=== PATIENT | male | born 1960 | race Caucasian/White ===

== ENCOUNTER 2023-05-01 15:08 | Outpatient (OUT) | payer MEDICAID, SELFPAY ==
--- NOTE | 2023-05-01 15:20 | XR_ITS ---
The [address] [address] Patient Name: DARLYN VERDIN MRN: [id number] date: 1960 Sex: M Assigned Patient Location: [facility] Current Patient Location: [facility] Accession/Order Number: [id number] Exam Date: 05/01/2023 15:22 Report Date: 05/01/2023 17:16 At the request of: JG GREENFIELD Procedure: XR chest 2V EXAM: XR chest 2V HISTORY: . ASTHMA, UNSPECIFIED . COMPARISON: None. TECHNIQUE: Frontal and lateral chest FINDINGS: Heart and vascularity are unremarkable. Lungs are free of focal infiltrates. Mild spondylosis of the spine is noted. IMPRESSION: No acute heart or lung disease identified. Electronically authenticated by: CHU YUEN Date: 05/01/2023 17:16
== END 2023-05-01 15:09 | disposition home or self-care (01) ==
LOC: RAD 15:11
PROVIDERS: PCP Internal Medicine; Visit Provider Internal Medicine
DX: J45.909 Unspecified asthma, uncomplicated (principal)
CPT/HCPCS: 71046

== ENCOUNTER 2023-06-05 09:17 | Outpatient (OUT) | payer MEDICAID, SELFPAY ==
[2023-06-05 10:21] LABS: Basophils Percent Auto 0.3 % (0.2-2.0); Eosinophils Absolute Auto 0.1 10^3/uL (0.0-0.7); Eosinophils Percent Auto 1.1 % (0.9-7.0); Hematocrit 48.6 % (42.0-54.0); Hemoglobin 16.3 g/dL (14.0-18.0); Immature Granulocytes Abs Auto 0.02 10^3/uL (0.00-0.03); Immature Granulocytes Pct Auto 0.3 % (0.0-0.5); Lymphocytes Absolute Auto 1.3 10^3/uL (1.2-3.8); Lymphocytes Percent Auto 18.7 % (20.5-60.0); Mean Corpuscular HGB Conc 33.5 g/dL (29.9-35.2); Mean Corpuscular Volume 92.4 fL (80.0-94.0); Mean Platelet Volume 8.6 fL (9.5-13.5); Monocytes Absolute Auto 0.5 10^3/uL (0.3-0.8); Neutrophils Absolute Auto 5.2 10^3/uL (1.4-6.5); Neutrophils Percent Auto 72.6 % (43.0-75.0); Platelet Count 215 10^3/uL (150-450); Red Blood Count 5.26 10^6/uL (4.70-6.10); Red Cell Distribution Width 12.4 % (11.0-15.0); White Blood Count 7.2 10^3/uL (4.0-11.0)
[2023-06-05 10:26] LABS: Creatinine Urine Random 53.96 mg/dL (20.00-300.00); Microalbumin Urine Random <1.3 mg/dL (<=30.0)
[2023-06-05 10:29] LABS: Alanine Aminotransferase 42 U/L (16-63); Albumin Globulin Ratio 0.9; Albumin Level 3.5 g/dL (3.4-5.0); Alkaline Phosphatase 98 U/L (46-116); Anion Gap 11.8; Aspartate Amino Transferase 28 U/L (15-37); BUN Creatinine Ratio 15.2; Bilirubin Total 0.6 mg/dL (0.2-1.0); Calcium 8.9 mg/dL (8.5-10.1); Carbon Dioxide 26.9 mmol/L (21.0-32.0); Chloride 104 mmol/L (98-107); Chol HDL Ratio 2.7; Cholesterol 112 mg/dL (<=200); Estimated GFR (African America >60 (>=60); Estimated GFR (Non-African Ame >60 (>=60); Globulin 3.8 g/dL; Glucose 141 mg/dL (74-106); HDL Cholesterol 41 mg/dL (40-60); Potassium 4.7 mmol/L (3.5-5.1); Sodium 138 mmol/L (136-145); Thyroid Stimulating Hormone 2.916 uIU/mL (0.358-3.740); Total Protein 7.3 g/dL (6.4-8.2); Triglycerides 110 mg/dL (<=150)
[2023-06-05 10:44] LABS: Prostate Specific Antigen Scrn 0.53 ng/mL (<=4.00)
== END 2023-06-05 09:18 | disposition home or self-care (01) ==
LOC: LAB 09:19
PROVIDERS: PCP Internal Medicine; Visit Provider Family Medicine
DX: Z12.5 Encounter for screening for malignant neoplasm of prostate (principal); E11.59 Type 2 diabetes mellitus with other circulatory complications
CPT/HCPCS: 36415; 80053; 80061; 82043; 82570; 84443; 85025; G0103

== ENCOUNTER 2023-07-03 15:03 | Outpatient (REF) | payer MEDICAID, SELFPAY ==
[2023-07-04 07:51] LABS: C. Difficile PCR NEGATIVE (NEGATIVE)
[2023-07-06 21:10] LABS: Calprotectin, Fecal 65 ug/g (0-120)
[2023-07-08 15:08] LABS: Pancreatic Elastase, Fecal 130 (>200)
[2023-07-11 07:08] LABS: Ova + Parasite Exam Final report (.)
== END 2023-07-03 15:04 | disposition home or self-care (01) ==
LOC: LAB 15:03
PROVIDERS: PCP Internal Medicine
DX: R19.7 Diarrhea, unspecified (principal)
CPT/HCPCS: 82656; 83993; 87045; 87177; 87209; 87493

== ENCOUNTER 2024-04-29 12:25 | Outpatient (OUT) | payer MEDICAID, SELFPAY ==
[2024-04-29 12:59] LABS: Basophils Percent Auto 0.4 % (0.2-2.0); Eosinophils Percent Auto 0.4 % (0.9-7.0); Hematocrit 47.6 % (42.0-54.0); Hemoglobin 16.2 g/dL (14.0-18.0); Immature Granulocytes Abs Auto 0.09 10^3/uL (0.00-0.03); Lymphocytes Absolute Auto 1.4 10^3/uL (1.2-3.8); Lymphocytes Percent Auto 15.5 % (20.5-60.0); Mean Corpuscular Hemoglobin 31.2 pg (25.9-34.0); Mean Corpuscular Volume 91.5 fL (80.0-94.0); Mean Platelet Volume 8.9 fL (9.5-13.5); Monocytes Absolute Auto 0.6 10^3/uL (0.3-0.8); Monocytes Percent Auto 6.8 % (1.7-12.0); Neutrophils Percent Auto 75.9 % (43.0-75.0); Platelet Count 220 10^3/uL (150-450); Red Cell Distribution Width 12.3 % (11.0-15.0); White Blood Count 9.3 10^3/uL (4.0-11.0)
--- NOTE | 2024-04-29 12:59 | XR_ITS ---
The [address] [address] Patient Name: DARLYN VERDIN MRN: [id number] date: 1960 Sex: M Assigned Patient Location: LAB Current Patient Location: Accession/Order Number: [id number] Exam Date: 04/29/2024 13:10 Report Date: 04/30/2024 06:19 At the request of: SHAIKH ORIN Procedure: XR hip RT min 2V PROCEDURE: XR hip RT min 2V HISTORY: Right Hip Pain COMPARISON: None. FINDINGS: BONES:Mild joint space narrowing and small periarticular osteophytes. SOFT TISSUES:No visible soft tissue swelling. EFFUSION:None visible. OTHER: Negative. XR/XR hip RT min 2V IMPRESSION: 1. No acute bone abnormality. 2. Mild degenerative joint disease. Electronically authenticated by: JJ OSWALD Date: 04/30/2024 06:19
--- NOTE | 2024-04-29 12:59 | XR_ITS ---
The [address] [address] Patient Name: DARLYN VERDIN MRN: [id number] date: 1960 Sex: M Assigned Patient Location: LAB Current Patient Location: LAB Accession/Order Number: [id number] Exam Date: 04/29/2024 13:10 Report Date: 04/30/2024 06:23 At the request of: SHAIKH ORIN Procedure: XR lumbar spine 2-3V EXAMINATION: XR lumbar spine 2-3V HISTORY: Chronic Midline Back pain COMPARISON: CT abdomen pelvis 01/06/2023 FINDINGS: BONES: Multilevel large degenerative bridging osteophytes along lateral margins of the lumbar vertebrae. No fracture, spondylolisthesis, bone lesion. Mild degenerative facet arthropathy L3-L4 through L5-S1. DISC SPACES: Moderate narrowing L4-L5, L5-S1. Mild narrowing L1-L2, L2-L3. PARASPINOUS: Negative. No paraspinous abnormality is seen. OTHER: Negative. XR/XR lumbar spine 2-3V IMPRESSION: 1. Moderate degenerative changes of lumbar spine; grossly stable. Electronically authenticated by: JJ OSWALD Date: 04/30/2024 06:23
[2024-04-29 13:18] LABS: Creatinine Urine Random 140.27 mg/dL (20.00-300.00); Microalbum Creatinine Ratio Ur 26.3 mg/g (0.0-29.9); Microalbumin Urine Random 3.7 mg/dL (<=30.0)
[2024-04-29 13:35] LABS: Alanine Aminotransferase 46 U/L (16-63); Albumin Globulin Ratio 1.1; Albumin Level 3.8 g/dL (3.4-5.0); Alkaline Phosphatase 93 U/L (46-116); Aspartate Amino Transferase 27 U/L (15-37); BUN Creatinine Ratio 14.8; Bilirubin Total 1.3 mg/dL (0.2-1.0); Calcium 8.7 mg/dL (8.5-10.1); Carbon Dioxide 27.1 mmol/L (21.0-32.0); Chloride 104 mmol/L (98-107); Cholesterol 128 mg/dL (<=200); Estimated GFR (African America >60 (>=60); Estimated GFR (Non-African Ame >60 (>=60); Globulin 3.5 g/dL; Glucose 120 mg/dL (74-106); HDL Cholesterol 43 mg/dL (40-60); LDL Cholesterol Calculated 58.8 mg/dL; Potassium 4.1 mmol/L (3.5-5.1); Sodium 138 mmol/L (136-145); Total Protein 7.3 g/dL (6.4-8.2); Triglycerides 131 mg/dL (<=150); VLDL CHOLESTEROL 26.2 mg/dL
[2024-04-29 13:45] LABS: Estimated Average Glucose 171 mg/dL; Glycohemoglobin A1C 7.6 % (4.5-6.2)
== END 2024-04-29 12:26 | disposition home or self-care (01) ==
LOC: LAB 12:27
PROVIDERS: PCP Internal Medicine; Visit Provider Internal Medicine
DX: M25.551 Pain in right hip (principal); I10 Essential (primary) hypertension; E11.59 Type 2 diabetes mellitus with other circulatory complications; I25.118 Atherosclerotic heart disease of native coronary artery with other forms of angina pectoris; E78.5 Hyperlipidemia, unspecified; M54.50 Low back pain, unspecified; G89.29 Other chronic pain; M51.36 Other intervertebral disc degeneration, lumbar region; M16.11 Unilateral primary osteoarthritis, right hip
CPT/HCPCS: 36415; 72100; 73502; 80053; 80061; 82043; 82570; 83036; 85025

== ENCOUNTER 2024-06-20 11:02 | Emergency (ER) | payer MEDICARE, SELFPAY ==
[2024-06-20 11:04] VITALS: BP 145/77; PULSE 90; TEMP 37.1; O2SAT 95; BMI 45.3
--- OUTSIDE RECORDS SUMMARY | 2024-06-20 11:07 | XMS_ITS | CCD ---
Author Organization [facility] Care Team Providers Care Breakfast Manager Name Role Phone Domonique Peñaloza Unavailable Unavailable Unavailable Unavailable Unavailable Kwan Rossi Unavailable Shaikh Bangura Unavailable MD Steve Bangura Primary Care Provider DERIK Vu Attending Provider [phone] SHAIKH Anabella BANGURA Primary Care Unavailable AMIRAH Chowdary, ROHAN Admitting Unavailable ROHAN PERDOMO Attending Unavailable ROHAN PERDOMO Consulting Unavailable MELVINA HERRERA Consulting Unavailable WILLOW SILVESTRE Consulting Unavailable DOMONIQUE PEÑALOZA Primary Care Unavailable SHAIKH Anabella BANGURA Admitting Unavailable SHAIKH Anabella BANGURA Attending Unavailable SHAIKH Anabella BANGURA Consulting Unavailable AMIRAH Chowdary ROHAN Admitting Unavailable DOMONIQUE PEÑALOZA Primary Care Unavailable DR JJ OSWALD Consulting Unavailable ROHAN PERDOMO Attending Unavailable ROHAN PERDOMO Consulting Unavailable Dr. Domonique Peñaloza Primary Care Un available Mendoza, . Hueshelli Rueda Referring Colleenvai claudio Mendoza, Epi Rueda Attending Daniel Kevin, Dr. Erich Tolentino Attending Colleenva steph Shelley, Dr. Flip Pate Referring Unava ilable Reji, Epi Rueda Referring Colleenvai claudio Mendoza, MsEpi Rueda Attending Daniel Kevin, Dr. rEich Tolentino Attending Colleenva ilildefonso Kevin, Dr. Erich Tolentino Referring Unava ilable Asaad, Imad Unavailable Fawwad, MD [facility] Provider MD Oscar Imcorina Attending Provider [phone] MD Mike Ramos Attending Provider Hue Vu Admitting Unavailable Hue Vu Attending Unavailable [facility] Unavailable Asaad, Imad Attending Unavailable Asaad, Imad Admitting Unavailable [facility] Unavailable Asaad, Imad Attending Unavailable Asaad, Imad Admitting Unavailable [facility] Care Unavailable [facility] Unavailable Asaad, Imad Admitting Unavailable Asaad, Imad Attending Unavailable Asaad, Imad Attending Unavailable [facility] Unavailable Asaad, Imad Admitting Unavailable [facility] Unavailable Asaad, Imad Attending Unavailable Asaad, Imad Admitting Unavailable [facility] Unavailable Asaad, Imad Attending Unavailable Asaad, Imad Admitting Unavailable [facility] Unavailable Mike Ramos Admitting UnavailMike Snowden Attending Unavailabdi Bangura MD [facility] Provider ERICH KEVIN Attending Unavailable [facility] Unavailable TAMIA PEÑALOZA Attending Unavailable SHAIKH BANGURA Referring Unavailable TAMIA PEÑALOZA Attending Unavailable [facility] Referring Unavailable [facility] Attending Unavailable [facility] Attending Unavailable TAMIA PEÑALOZA Attending Unavailable Medications Current Medications Medication Drug Class(es) Dates Sig (Normalized) Sig (Original) [id number] 200 actuat albuterol 0.09 mg/actuat metered dose inhaler (20 sources) beta2-Adrenergic Agonist Start: 07-17-2023 Albuterol Sulfate Active 1 - 2 PUFF INHALATION As Directed July 17, 2023 12:00am Start: 12-27-2021 take 2 puff(s) by in halation every six hours albuterol (Ventolin HFA) 90 mcg/actuation inhaler Inhale 2 puffs every 6 hours if needed. 0 12/27/2021 Active Start: 12-27-2021 take 2 puff(s) by mo uth every six hours as needed Ventolin HFA 108 (90 Base) MCG/ACT Inhalation Aerosol Solution INHALE 2 PUFFS BY MOUTH EVERY 6 HOURS NEEDED Quantity: 18 Refills: 0 Ordered: 15-Jan-2022 DO Start : 27-Dec-2021 Active take 1 puff(s) by in halation every four hours as needed Ventolin HFA 108 (90 Base) MCG/ACT 1 puff as needed Inhalation every 4 hrs Active Alive Multi-Vitamin (13 sources) Alive Multi-Hailey min Active amylase 019492 unt / lipase 00818 unt / protease [id number] unt delayed release oral capsule (5 sources) Start: 08-15-2023 take 2 capsules by mouth three times daily at mealtime Zenpep [id number] UNIT 2 capsules Orally three times a day with meals for 30 days Aug, Active amylase 161210 UNT / lipase 58109 UNT / protease [id number] UNT Delayed Release Oral Capsule [Pancreaze] (5 sources) Start: 08-14-2023 take 2 capsules by mouth three times daily at mealtime Pancreaze 38713-04267 UNIT 2 capsules Orally three times a day with meals for 30 days PLEASE CHECK ALLERGIES Aug, Active apple cider vinegar 600 mg oral capsule (9 sources) apple cider vine gar 600 mg capsule Take by mouth. 0 Active take 2 capsules by mouth at bedt young Apple Cider Vinegar CAPS TAKE 2 CAPSULE Bedtime Quantity: 0 Refills: 0 Ordered: 12-Mar-2022 DO Active aspirin 81 mg oral tablet (20 sources) Platelet Aggregation Inhibitor, Nonsteroidal Anti-inflammatory Drug Start: 03-18-2022 take 81 mg by mouth once daily Aspirin Active 81 MG PO Daily March 18, 2022 12:00am Start: 03-12-2022 take 1 tablet by ebony th once daily aspirin 81 mg EC tablet Take 1 tablet (81 mg) by mouth once daily. 0 03/12/2022 Active atorvastatin 80 mg oral tablet (20 sources) HMG-CoA Reductase Inhibitor Start: 09-18-2023 take 1 tablet by mouth once daily at bedtime atorvastatin (Lipitor) 80 mg tablet Indications: Mixed hyperlipidemia Take 1 tablet (80 mg) by mouth once daily at bedtime. 90 tablet 3 09/18/2023 Active Start: 03-19-2022 End: 09-18-2023 take 80 mg by mouth once daily Atorvastatin Active 80 MG PO Daily July 17, 2023 12:00am Start: 12-18-2021 End: 07-17-2023 take 20 mg by mouth once daily Atorvastatin Discontinu ed 20 MG PO Daily March 18, 2022 12:00am July 17, 2023 11:41am 120 actuat budesonide 0.16 mg/actuat / formoterol fumarate 0.0048 mg/actuat / glycopyrrolate 0.009 mg/actuat metered dose inhaler (17 sources) Corticosteroid, beta2-Adrenergic Agonist Start: 07-17-2023 Apfqmddztw-Zwmdjzhv-Achlqwer ol (Breztri Aerosphere) 160-9-4.8 mcg/actuation Hfa Aerosol Inhaler Active 2 INH INHALATION Twice daily July 17, 2023 12:00am take 2 puff(s) by inhalation twi ce daily Breztri Aerosphere 160-9-4.8 MCG/ACT 2 puffs Inhalation Twice a day Active budesonide/glycopyr/formoter ol (BREZTRI AEROSPHERE INHL) (1 source) budesonide/glyco pyr/formoterol (BREZTRI AEROSPHERE INHL) Inhale. 0 Active clopidogrel 75 mg oral table t (20 sources) P2Y12 Platelet Inhib[address] St ar t: 11 -0 take 1 tablet by mouth once daily clopidogrel (Plavix) 75 mg tablet Indications: Mixed hyperlipidemia Take 1 tablet (75 mg) by mouth once daily. 90 tablet 3 09/18/2023 Active Start: 10-09-2022 End: 09-18-2023 take 75 mg by mouth once daily Clopidogrel Active 75 M G PO Daily July 17, 2023 12:00am trulicity 3 mg/0.5ml solution pen-injector (11 sources) GLP-1 Receptor Agonist Trulicity 3 MG/0.5ML as directed Subcutaneous once a week Active dulaglutide (Trulicity) 3 mg/0.5 mL pen injector (1 source) dulaglutide (Etienne licity) 3 mg/0.5 mL pen injector Inject under the skin. 0 Active Dulaglutide (Trulicity) 4.5 mg/0.5 mL pen injector (6 sources) Start: 07-17-2023 Dulaglutide (Trulicity) 4.5 mg/0.5 mL pen injector Active 3 MG SUBCUT every week July 17, 2023 12:00am friday Start: 07-17-2023 Dulaglutide (T rulicity) 4.5 mg/0.5 mL pen injector Active 3 MG SUBCUT July 17, 2023 12:00am empagliflozin 10 mg oral tablet (20 sources) Sodium-Glucose Cotransporter 2 Inhibitor Start: 11-02-2020 take 1 tablet by mouth once daily Empagliflozin (Jardiance) 10 mg tablet Active 10 MG PO Daily November 02, 2020 1:00am escitalopram 20 mg oral tablet (20 sources) Serotonin Reuptake Inhibitor Start: 07-17-2023 take 20 mg by mouth once daily Escitalopram Oxalate Active 20 MG PO Daily July 17, 2023 12:00am take 1 tablet by mouth once brown y Escitalopram Oxalate 10 MG Oral Tablet TAKE 1 TABLET DAILY. Quantity: 0 Refills: 0 Ordered: 26-Jun-2022 DO Active esomeprazole 20 mg delayed release oral capsule (20 sources) Proton Pump Inhibitor Start: 09-01-2017 take 2 capsules by mouth once daily in the morning Esomeprazole Magnesium (Nexium) 20 mg Capsule,Delayed Release(Dr/Ec) Active 40 MG PO Every morning September 01, 2017 12:00am Start: 09-01-2017 End: 09-18-2023 take 1 tablet by mouth once daily in the morning Esomeprazole Magnesium (Nexium) 20 mg Capsule,Delayed Release(Dr/Ec) Active 1 TAB PO Every morning September 01, 2017 12:00am take 1 capsule by [facility] every twenty-four hours NexIUM 40 MG 1 capsule Orally Once a day for 90 days Active NexIUM Active gabapentin 600 mg oral tablet (20 sources) Anti-epileptic Agent Start: 12-27-2021 take 600 mg by mouth three times daily Gabapentin Active 600 MG PO Three times daily March 15, 2022 12:00am Start: 11-02-2020 End: 03-15-2022 take 300 mg by mouth three times daily Gabapentin Discontinued 300 MG PO Three times daily November 02, 2020 1:00am March 15, 2022 9:16am Handicap placards as directed (2 sources) Start: 08-14-2021 Handicap placards as directed as directed as directed as directed 6 MONTHS Aug, Active hydroCHLOROthiazide 25 mg oral tablet (19 sources) Thiazide Diuretic Start: 09-18-2023 take 1 tablet by mouth once daily hydroCHLOROthiazide (HYDRODiuril) 25 mg tablet Indications: Angina pectoris (CMS/HCC) , MAC (dyspnea on exertion) , Hx of percutaneous transluminal coronary angioplasty Take 1 tablet (25 mg) by mouth once daily. 90 tablet 3 09/18/2023 Active Start: 07-17-2023 End: 09-18-2023 take 25 mg by mouth once daily Hydrochlorothiazide Active 25 MG PO Daily July 17, 2023 12:00am 1.5 ml insulin glargine 300 unt/ml pen injector (20 sources) Insulin Analog Start: 11-02-2020 Insulin Glargi ne U-300 Conc (Toujeo Solostar U-300 Insulin) 300 unit/mL (1.5 mL) insulin pen Active 50 UNIT SUBCUT Daily November 02, 2020 1:00am Start: 11-02-2020 Insulin Glargi ne U-300 Conc (Toujeo Solostar U-300 Insulin) 300 unit/mL (1.5 mL) insulin pen Active 40 UNIT SUBCUT Daily November 02, 2020 1:00am Toujeo SoloStar 300 UNIT/ML 60 units Subcutaneous once a day Active 24 hr isosorbide mononitrate 60 mg extended release oral tablet (19 sources) Nitrate Vasodilator Start: 07-17-2023 take 60 mg by mouth once daily Isosorbide Mononitrate Active 60 MG PO Daily July 17, 2023 12:00am Start: 06-26-2022 take 1 tablet by ebony th once daily Isosorbide Mononitrate ER 30 MG Oral Tablet Extended Release 24 Hour TAKE 1 TABLET DAILY. Quantity: 90 Refills: 3 Ordered: 26-Jun-2022 Erich Kevin DO Start : 26-Jun-2022 Active new start lansoprazole 30 mg disintegrating oral tablet (9 sources) Proton Pump Inhibitor Start: 07-30-2023 take 1 tablet by mouth every twenty-four hours Lansoprazole 30 MG 1 tablet Orally Once a day for 30 days Jul, Active meloxicam 15 mg oral tablet (20 sources) Nonsteroidal Anti-inflammatory Drug Start: 07-17-2023 take 15 mg by mouth once daily Meloxicam Active 15 MG PO Daily July 17, 2023 12:00am Start: 11-02-2020 End: 03-15-2022 Meloxicam Discontinued 15 MG PO As Directed November 02, 2020 1:00am March 15, 2022 9:17am metoprolol tartrate 25 mg oral tablet (20 sources) beta-Adrenergic Patricia Start: 09-18-2023 take 1 tablet by mouth twice daily metoprolol tartrate (Lopressor) 25 mg tablet Indications: Primary hypertension , Angina pectoris (CMS/HCC) Take 1 tablet (25 mg) by mouth 2 times a day. 180 tablet 3 09/18/2023 Active Start: 04-09-2022 End: 09-18-2023 take 25 mg by mouth twice daily Metoprolol Tartrate Ac tive 25 MG PO Twice daily July 17, 2023 12:00am Multivitamin (Multiple Vitamins) Tablet (9 sources) Start: 09-01-2017 take 1 tablet by mouth once daily Multivitamin (Multiple Vitamins) Tablet Active 1 TAB PO Daily September 01, 2017 12:00am Start: 09-01-2017 take 1 tablet by ebony th once daily Multivitamin (Multiple Vitamins) Tablet Active 1 TAB PO Daily August 31, 2017 11:00pm nitroglycerin 0.4 mg sublingual tablet (20 sources) Nitrate Vasodilator Start: 07-17-2023 Nitroglyce rin Active 0.4 MG SUBLINGUAL every 5 to 15 minutes July 17, 2023 12:00am do not exceed 3 doses per episode Start: 04-09-2022 nitroglycerin (Nitrostat) 0.[address] under the tongue. 0 04/09/2022 Active Nitroglycerin 0. 4 MG as directed Sublingual as needed Active olmesartan medoxomil 40 mg oral tablet (20 sources) Angiotensin 2 Receptor Patricia Start: 09-18-2023 take 1 tablet by mouth once daily olmesartan (BENIcar) 40 mg tablet Indications: Primary hypertension Take 1 tablet (40 mg) by mouth once daily. 90 tablet 3 09/18/2023 Active Start: 12-27-2021 End: 09-18-2023 take 40 mg by mouth once daily Olmesartan Active 40 MG PO Daily March 15, 2022 12:00am omeprazole 40 mg delayed release oral capsule (1 source) Proton Pump Inhibitor take 1 capsule by mouth once daily before mealtime omeprazole (PriLOSEC) [address] capsule Take 1 capsule (40 mg) by mouth once daily in the morning. Take before meals. Do not crush or chew. 0 Active pantoprazole 40 mg delayed release oral tablet (1 source) Proton Pump Inhibitor Start: 3 take 1 tablet by mouth every twenty-four hours Pantoprazole Sodium 40 MG 1 tablet Orally Once a day for 30 days Jun, Active pedi multivit no.17 w-fluoride (Yihn-Zq-Iwws) 0.5 mg tablet,chewable (1 source) pedi multivit no .17 w-fluoride (Gvza-Hu-Gwlg) 0.5 mg tablet,chewable Chew 1 tablet once daily. 0 Active probiotic (2 sources) probiotic Active 12 hr ranolazine 500 mg extended release oral tablet (20 sources) Anti-anginal Start: 3 take 1 tablet by mouth twice daily ranolazine (Ranexa) 500 mg 12 hr tablet Indications: Angina pectoris (CMS/HCC) Take 1 tablet (500 mg) by mouth 2 times a day. 180 tablet 3 09/18/2023 Active Start: 10-09-2022 End: 09-18-2023 take 500 mg by mouth twice daily Ranolazine Active 500 MG PO Twice daily July 17, 2023 12:00am rifAXIMin 550 mg oral tablet (2 sources) Rifamycin Antibacterial Start: 10-24-2023 take 1 tablet by mouth three times daily rifAXIMin 550 MG 1 tablet Orally Three times a day for 14 days Oct, Active Toujeo SoloStar (2 sources) Toujeo SoloStar Active Zenpep [id number] UNIT (7 sources) Start: 08-15-2023 take 2 capsules by mouth three times daily at mealtime Zenpep [id number] UNIT 2 capsules Orally three times a day with meals for 30 days PLEASE CHECK ALLERGIES Aug, Active Completed/Discontinued Medications Medication Drug Class(es) Dates Sig (Normalized) Sig (Original) acetaminophen 325 mg / HYDROcodone bitartrate 5 mg oral tablet (9 sources) Opioid Agonist Start: 09-01-2017 End: 03-15-2022 take 1 tablet by mouth three times daily Hydrocodone-Acetam inophen Discontinued 1 TAB PO Three times daily September 01, 2017 12:00am March 15, 2022 9:16am baclofen 10 mg oral tablet (9 sources) gamma-Aminobutyric Acid-ergic Agonist Start: 09-01-2017 End: 03-15-2022 take 1 tablet by mouth once daily in the morning Baclofen Discontinued 1 TAB PO Every morning September 01, 2017 12:00am March 15, 2022 9:15am cinnamon bark 500 mg oral capsule (9 sources) Start: 03-15-2022 End: 07-17-2023 take 1 capsule by mouth once daily Cinnamon Bark (Cinnamon) 500 mg Capsule Discontinued 500 MG PO Daily March 15, 2022 12:00am July 17, 2023 11:45am clonazePAM 0.5 mg oral tablet (18 sources) Benzodiazepine Start: 12-27-2021 End: 07-17-2023 take 0.5 mg by mouth twice daily Clonazepam Discontinued 0.5 MG PO Twice daily March 18, 2022 12:00am July 17, 2023 11:45am colestipol hydrochloride 1000 mg oral tablet (9 sources) Bile Acid Sequestrant Start: 11-02-2020 End: 03-15-2022 Colestipol Discontinued 1 GM PO As Directed November 02, 2020 1:00am March 15, 2022 9:16am collagenase Clostridium histolyticum (11 sources) Start: 12-30-2017 Xiaflex Dec, diclofenac sodium 50 mg delayed release oral tablet (9 sources) Nonsteroidal Anti-inflammatory Drug Start: 09-01-2017 End: 09-09-2017 take 1 tablet by mouth once daily in the morning Diclofenac Sodium Discontinued 1 TAB PO Every morning September 01, 2017 12:00am September 09, 2017 8:39am ertugliflozin 5 mg oral tablet (20 sources) Start: 03-15-2022 End: 03-15-2022 take 1 tablet by mouth once daily Ertugliflozin (Steglatro) 15 mg Tablet Discontinued 15 MG PO Daily March 15, 2022 12:00am March 15, 2022 9:19am Start: 07-07-2021 End: 09-18-2023 take 1 tablet by mouth once daily Ertugliflozin (Steglatro) 5 mg Tablet Discontinued 5 MG PO Daily March 18, 2022 12:00am July 17, 2023 11:46am 3 ml insulin aspart protamine, human 70 unt/ml / insulin aspart, human 30 unt/ml pen injector (18 sources) Insulin Analog Start: 09-01-2017 End: 11-02-2020 inject 20 [IU] by subcutaneous injection once daily in the morning Insulin Asp Prt-Insulin Aspart Discontinued 20 UNIT SUBCUT Every morning 0 September 09, 2017 8:41am November 02, 2020 7:19am lisinopril 10 mg oral tablet (9 sources) Angiotensin Converting Enzyme Inhibitor Start: 09-01-2017 End: 11-02-2020 take 1 tablet by mouth once daily in the morning Lisinopril Discontinued 1 TAB PO Every morning September 01, 2017 12:00am November 02, 2020 7:21am metFORMIN hydrochloride 1000 mg oral tablet (20 sources) Biguanide Start: 03-15-2022 End: 03-15-2022 Metformin Discontinued MG TABLET March 15, 2022 12:00am March 15, 2022 9:19am Start: 09-01-2017 take 1 tablet by ebony th twice daily Metformin Active 1 TAB PO Twice daily September 01, 2017 12:00am take 1 tablet by ebony th every twelve hours metFORMIN HCl 500 MG 1 tablet with meals Orally Twice a day Active Multi Vitamin Oral Tablet (8 sources) take 1 tablet by mouth once daily Multi Vitamin Oral Tablet TAKE 1 TABLET DAILY. Quantity: 0 Refills: 0 Ordered: 12-Mar-2022 DO Active nitrofurantoin, macrocrystals 25 mg / nitrofurantoin, monohydrate 75 mg oral capsule (3 sources) Nitrofuran Antibacterial Start: 06-21-20 take 1 capsule by mouth twice daily Nitrofurantoin Monohyd Macro 100 MG Oral Capsule TAKE 1 CAPSULE BY MOUTH TWICE DAILY FOR 5 DAYS Quantity: 10 Refills: 0 Ordered: 21-Jun-2021 DO Start : 21-Jun-2021 Active tamsulosin hydrochloride 0.4 mg oral capsule (9 sources) alpha-Adrenergic Patricia Start: 09-01-20 17 End: 11-02-20 20 take 1 tablet by mouth once daily in the evening Tamsulosin Discontinued 1 TAB PO Every evening September 01, 2017 12:00am November 02, 2020 7:21am telmisartan 80 mg oral tablet (11 sources) Angiotensin 2 Receptor Patricia Start: 11-02-20 End: 03-15-20 Telmisartan Discontinued 80 MG PO As Directed November 02, 2020 1:00am March 15, 2022 9:17am ticagrelor 90 mg oral tablet (12 sources) Start: 03-18-20 End: 07-17-20 take 1 tablet by mouth twice daily Ticagrelor (Brilinta) 90 mg tablet Discontinued 90 MG PO Twice daily 180 March 18, 2022 12:00am July 17, 2023 11:46am tiZANidine 4 mg oral capsule (18 sources) Central alpha-2 Adrenergic Agonist Start: 03-18-20 End: 07-17-20 take 4 mg by mouth once daily Tizanidine Discontinued 4 MG PO Daily March 18, 2022 12:00am July 17, 2023 11:46am Start: 04-23-2021 End: 09-18-2023 tiZANidine (Zanaflex) 2 mg t ablet Take 1 tablet (2 mg) by mouth. 0 04/23/2021 09/18/2023 Discontinued (Other) Trulicity 3 MG/0.5ML Subcutaneous Solution Pen-injector (2 sources) Trulicity 3 MG/0 .5ML Subcutaneous Solution Pen-injector 1 injection 1 weekly Quantity: 0 Refills: 0 Ordered: 09-Oct-2022 DO Active 7 actuat umeclidinium 0.0625 mg/actuat / vilanterol 0.025 mg/actuat dry powder inhaler (18 sources) Anticholinergic, beta2-Adrenergic Agonist Start: 03-18-2022 End: 07-17-2023 Umeclidinium-Vilanterol (Anoro Ellipta) 62.5-25 mcg/actuation blister with device Discontinued 1 INH INHALATION Daily March 18, 2022 12:00am July 17, 2023 11:45am Start: 07-19-2021 End: 09-18-2023 take 1 puff(s) by inhalation once daily umeclidinium-vilanteroL (Anoro Ellipta) 62.5-25 mcg/actuation blister with device Inhale 1 puff once daily. 0 07/19/2021 09/18/2023 Discontinued (Other) Problems Active Problems Problem Classification Problem Date Documented Da te Episodic/Chronic Abdominal hernia (4 sources) Incisional hernia without obstruction or gangrene; Translations: [INCI HERNIA W/O OBSTRUCTION/GANGREN] Onset: 3 Episodic Abdominal pain (20 sources) Abdominal pain; Translations: [Unspecified abdominal pain] Onset: 3 11-02-2020 Episodic Asthma (4 sources) Mild intermittent asthma, uncomplicated; Translations: [MILD INTERMIT ASTHMA UNCOMPLICATED] Onset: 3 Chronic Conditions associated with dizziness or vertigo (9 sources) Lightheadedness; Translations: [Dizziness and giddiness] Onset: 3 09-17-2023 Episodic Coronary atherosclerosis and other heart disease (19 sources) Angina pectoris; Translations: [Other and unspecified angina pectoris] Onset: 3 09-18-2023 Chronic Coronary atherosclerosis and other heart disease (4 sources) Presence of coronary angioplasty implant and graft; Translations: [Coronary angioplasty status] Onset: 3 Episodic Diabetes mellitus with complications (3 sources) Type 2 diabetes mellitus; Translations: [Type 2 diabetes mellitus with other specified complication] Onset: 3 09-18-2023 Chronic Diabetes mellitus without complication (10 sources) Diabetes mellitus; Translations: [Diabetes mellitus without mention of complication, type II or unspecified type, not stated as uncontrolled] Onset: 3 09-17-2023 Chronic Disorders of lipid metabolism (13 sources) Hyperlipidemia; Translations: [Other and unspecified hyperlipidemia] Onset: 2 09-18-2023 Chronic Esophageal disorders (14 sources) Gastroesophageal reflux disease; Translations: [Gastro-esophageal reflux disease without esophagitis] Chronic Essential hypertension (13 sources) Hypertensive disorder; Translations: [Unspecified essential hypertension] Onset: 3 09-18-2023 Chronic Malaise and fatigue (9 sources) Fatigue; Translations: [Other malaise and fatigue] Onset: 3 09-17-2023 Episodic Other aftercare (1 source) longterm (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 of oral hypoglycemic drugs; Translations: [BENDING [employer] WORKER USE ORAL HYPOGLYCEMIC DX] Onset: 3 Episodic Other circulatory disease (5 sources) Cardiac function test normal; Translations: [Normal cardiac ejection fraction] Episodic Other connective tissue disease (13 sources) Dupuytren contracture of left palm; Translations: [Palmar fascial fibromatosis [Dupuytren]] Episodic Other connective tissue disease (13 sources) Dupuytren's contracture; Translations: [Palmar fascial fibromatosis [Dupuytren]] Episodic Other gastrointestinal disorders (13 sources) Irritable bowel syndrome with diarrhea; Translations: [Irritable bowel syndrome with diarrhea] Chronic Other gastrointestinal disorders (20 sources) Dysphagia; Translations: [Dysphagia, unspecified] 11-02-2020 Episodic Other gastrointestinal disorders (20 sources) Diarrhea; Translations: [Diarrhea, unspecified] 11-02-2020 Episodic Other gastrointestinal disorders (4 sources) Change in bowel habit; Translations: [CHANGE IN BOWEL HABIT] Onset: 3 Episodic Other gastrointestinal disorders (5 sources) Diarrhea, unspecified; Translations: [DIARRHEA UNSPECIFIED] Onset: 3 Episodic Other gastrointestinal disorders (4 sources) Dysphagia, unspecified; Translations: [Dysphagia, unspecified] Onset: 3 Episodic Other gastrointestinal disorders (3 sources) Abdominal distension (gaseous); Translations: [Abdominal distension (gaseous)] Onset: 3 Episodic Other lower respiratory disease (10 sources) Dyspnea on exertion; Translations: [Shortness of breath] Onset: 3 09-18-2023 Episodic Other lower respiratory disease (2 sources) Other forms of dyspnea; Translations: [Other forms of dyspnea] Onset: 3 Episodic Other nervous system disorders (13 sources) Chronic pain; Translations: [Other chronic pain] Chronic Other nervous system disorders (1 source) Other chronic pain Onset: 1 Resolved: 1 Chronic Other nutritional; endocrine; and metabolic disorders (10 sources) Body mass index 40+ - severely obese; Translations: [Morbid obesity] Chronic Other nutritional; endocrine; and metabolic disorders (1 source) Obesity; Translations: [Obesity, unspecified] Onset: 3 09-18-2023 Chronic Other screening for suspected conditions (not mental disorders or infectious disease) (9 sources) Electrocardiogram abnormal; Translations: [Nonspecific abnormal electrocardiogram [ECG] [EKG]] Onset: 3 09-17-2023 Episodic Pancreatic disorders (not diabetes) (1 source) Exocrine pancreatic insufficiency Episodic Residual codes; unclassified (2 sources) Early satiety; Translations: [Early satiety] Onset: 3 Episodic Spondylosis; intervertebral disc disorders; other back problems (14 sources) Lumbosacral spondylosis without myelopathy; Translations: [Spondylosis without myelopathy or radiculopathy, lumbosacral region] Onset: 1 Resolved: 1 Chronic Spondylosis; intervertebral disc disorders; other back problems (14 sources) Low back pain; Translations: [Low back pain] Onset: 1 Resolved: 1 Episodic Unclassified (1 source) Diarrhea, unspecified; Translations: [Diarrhea, unspecified] Onset: 3 Past or Other Problems Problem Classification Problem Date Documented Da te Episodic/Chronic Unclassified (8 sources) Never smoked tobacco; Translations: [Never a smoker] Results Test Name Value Interpretation Reference Range Facility No Panel InformationOrdered By: Shanon Roberson on 06-20-2024 COVID Antigen (POC) [facility] Quick Strep (POC) [facility] Glucose Glucometer (BldC) [M ass/Vol]Ordered By: Yolanda Moore on 08-27-2023 Glucose [Mass/Vol] 122 mg/dL [facility] Comment on above: Random Glucose Refer ence Range is dependent on time and content of last meal. Glucose of more than 200 mg/dL in a nonstressed, ambulatory subject supports the diagnosis of Diabetes Mellitus. Glucose Poct Glucometerson 1 Commemt1 Glu2: Cleaned Meter Normal [facility] Comment on above: Result Comment: PERF ORMED BY: [facility] [address] [place] [address] PATHOLOGIST CLINICAL TRIALS ASSISTANT ASHLEY HECK M.D. Performed By: #### G LULS #### Point of Care testing , Glucose [Mass/Vol] 122 mg/dL Normal [facility] Comment on above: Result Comment: [place] om Glucose Reference Range is dependent on time and content of last meal. Glucose of more than 200 mg/dL in a nonstressed, ambulatory subject supports the diagnosis of Diabetes Mellitus. Performed By: #### G MARGARET #### Point of Care testing , Donnie 08-27-2023 L - -------- Specimen: [id number] Received: 08/27/23 Status: TIFFANIE Chahal Num: [id number] Spec Type: Surgical Subm Dr: Yolanda Moore MD Tissues: A Colon Biopsy (RANDOM COLON BX) Procedures: STARLA/Kavon Hudson/Shad L4 -------- Age/ Patient Sex Location Account Attending Physician -------- Darlyn Verdin/M [id number] Yolanda Moore MD -------- SPEC NUM: [id number] RECD: 08/27/23 STATUS: TIFFANIE CHAHAL NUM: [id number] YVETTE: 08/27/23 DR: Yolanda Moore MD ENTERED: 08/27/[address] [facility] [address]: SPEC TYPE: Surgical DEPT: S ORDERED: HE/2, Gross/Micro L4 ORDERED: HE/2, Gross/Micro L4 Pathological Diagnosis Random colon biopsies: - Colonic mucosa with adequately preserved mucosal glandular architecture, and without any abnormal stromal chronic inflammation, or any other specific features of microscopic colitis identified in all fragments Clinical Information Diarrhea, rule out microscopic colitis Gross Description Received in formalin labeled with the patient's name, date of and random colon biopsies are three parra tissues averaging 0.3 cm. Entirely submitted in one cassette labeled A1. Microscopic Description Two H E slides reviewed. The microscopic examination confirms the diagnosis. CPT Codes 42431 -------- -------- Specimen: [id number] Received: 08/27/23 Status: TIFFANIE Chahal Num: [id number] Spec Type: Surgical Subm Dr: Yolanda Moore MD Tissues: A Colon Biopsy (RANDOM COLON BX) Procedures: HE/2, Gross/Micro L4 -------- Patient: Darlyn Verdin [id number] (Continued) -------- Signed (signature on file) Huber-Humberto Richards MD 08/28/23 180 Normal [facility] No Panel InformationOrdered By: Yolanda Moore on 08-27-2023 Bedside Glucose Comment Glu2: cleaned meter [facility] Calprotectin [Mass/mass] in StoolOrdered By: Yolanda Moore on 07-30-2023 Calprotectin (Stl) [Mass/Mass] 66 ug/g 0-120 [facility] Comment on above: Concentration Interp retation Follow-Up< 5 - 50 ug/g Normal None>50 -120 ug/g Borderline Re-evaluate in 4-6 weeks >120 ug/g Abnormal Repeat as clinically indicatedPerformed at: [facility] [address] [id number] Director: Sera Márquez MD, Phone: [phone] Calprotectin, Fecalon 2022 Calprotectin, Fecal 66 Normal 0-120 [facility] Comment on above: Order Comment: Reaso n for Exam Diarrhea Result Comment: Conc entration Interpretation Follow-Up < 5 - 50 ug/g Normal None >50 -120 ug/g Borderline Re-evaluate in 4-6 weeks >120 ug/g Abnormal Repeat as clinically indicated Performed at: [facility] [id number] Forming Acid Dumper: Sera Márquez MD, Phone: [phone] PERFORMED BY: [place] [address] PATHOLOGIST CLINICAL TRIALS ASSISTANT ASHLEY HECK M.D. Performed By: #### E LASTASE STOOL, CALPROTECT ####[facility] , Calprotectin, Fecal 66 0-120 NPTV Other Elastase.pancreatic [Mass/ma ss] in StoolOrdered By: Yolanda Moore on 07-30-2023 Elastase.pancreatic (Stl) [Mass/Mass] 177 >200 [facility] Comment on above: Result Units: ug [address] st[address]g Severe Pancreatic Insufficiency: <100 Moderate Pancreatic Insufficiency: 100 - 200 Normal: >200Performed at: [facility] [id number] Director: Sera Márquez MD, Phone: [phone] No Panel InformationOrdered By: Yolanda Moore on 07-30-2023 Ova and Parasite Result 1 [facility] OVA AND PARASITEon 3 OVA AND PARASITE Reason for Exam Diarrhea Stool Reason for Exam: Diarrhea : Stool Final report These results were obtained using wet preparation(s) and trichrome stained smear. This test does not include testing for Cryptosporidium parvum, Cyclospora, or Microsporidia. Reason for Exam Diarrhea Stool Reason for Exam: Diarrhea : Stool No ova, cysts, or parasites seen. One negative specimen does not rule out the possibility of a parasitic infection. Performed at: - [facility] [id number] Forming Acid Dumper: Louis Granados PhD, Phone: [phone] PERFORMED BY: [place] [address] PATHOLOGIST CLINICAL TRIALS ASSISTANT ASHLEY HECK M.D. [facility] Comment on above: Performed By: #### O PEXAM #### [facility] , #### CUSTOOL #### [address] Ova or parasites identificat ionOrdered By: Imcorina Moore on 07-30-2023 Ova and parasites identified LM Nom (Unsp spec) [facility] Pancreatic Elastase, Stoolon 07-30-2023 Pancreatic Elastase, Stool 177 Low >200 [facility] Comment on above: Order Comment: Reaso n for Exam Diarrhea Result Comment: Resu lt Units: ug Elast./g Severe Pancreatic Insufficiency: <100 Moderate Pancreatic Insufficiency: 100 - 200 Normal: >200 Performed at: [address] [id number] Forming Acid Dumper: Sera Márquez MD, Phone: [phone] PERFORMED BY: [place] [address] PATHOLOGIST CLINICAL TRIALS ASSISTANT ASHLEY HECK M.D. Performed By: #### E LASTASE STOOL, CALPROTECT ####[facility] , Stool Cultureon 07-30-2023 Stool culture Reason for Exam Diarrhea Stool Reason for Exam: Diarrhea : Stool Negative for Shiga Toxin 1 Negative for Shiga Toxin 2 A negative Shiga Toxin result may occur if the antigen level in the specimen is below the detection limit of the assay. Stool culture results No Salmonella, Shigella, Campy or E. coli 0157:H7 Isolated PERFORMED BY: [place] [address] PATHOLOGIST CLINICAL TRIALS ASSISTANT ASHLEY HECK M.D. Normal [facility] Comment on above: Performed By: #### O PEXAM #### [facility] , #### CUSTOOL #### [address] Stool bacteria identificatio n by cultureOrdered By: Yolanda Moore on 07-30-2023 Bacteria identified Cx Nom (Stl) [facility] Glucose Glucometer (BldC) [M ass/Vol]Ordered By: Yolanda Moore on 07-17-2023 Glucose [Mass/Vol] 102 mg/dL [facility] Comment on above: Random Glucose Refer ence Range is dependent on time and content of last meal. Glucose of more than 200 mg/dL in a nonstressed, ambulatory subject supports the diagnosis of Diabetes Mellitus. Glucose Poct Glucometerson 0 07-17-2023 Glucose [Mass/Vol] 102 mg/dL Normal [facility] Comment on above: Result Comment: [place] om Glucose Reference Range is dependent on time and content of last meal. Glucose of more than 200 mg/dL in a nonstressed, ambulatory subject supports the diagnosis of Diabetes Mellitus. PERFORMED BY: [place] [address] [place] [address] PATHOLOGIST CLINICAL TRIALS ASSISTANT ASHLEY HECK M.D. Performed By: #### G MARGARET #### Point of Care testing , Donnie 07-17-2023 L - -------- Specimen: [id number] Received: 07/17/23 Status: [facility] Num: [id number] Spec Type: Surgical Subm Dr: Yolanda Moore MD Tissues: A Duodenum - Biopsy (DUODENAL) B GASTRIC FOR HP (GASTRIC HP) C Esophagus Biopsy (ESOPHAGUS) Procedures: HE/6, Gross/Micro L4/3, H PYLORI -------- Age/ Patient Sex Location Account Attending Physician -------- Darlyn Verdin 63/M [id number] Yolanda Moore MD -------- SPEC NUM: [id number] RECD: 07/17/23 STATUS: TIFFANIE CHAHAL NUM: [id number] YVETTE: 07/17/[address] [facility] [address]: Yolanda Moore MD ENTERED: 07/17/[address] [facility] [address]: RAFAEL TYPE: Surgical DEPT: S ORDERED: HE/6, Gross/Micro L4/3, H PYLORI ORDERED: HE/6, Gross/Micro L4/3, H PYLORI Pathological Diagnosis A. Duodenum, biopsy: - Duodenal mucosa within normal limits B. Stomach, biopsy: - Gastric fundic gland mucosa with mild chronic nonspecific gastritis - Negative for intestinal metaplasia or dysplasia - Negative for H. pylori (immunohistochemical staining) C. Esophagus, biopsy: - Squamous esophageal mucosa within normal limits Clinical Information Dysphagia, GERD, abdomen pain, early satiety, rule out celiac, rule out H. pylori, rule out EOE -------- Specimen: [id number] Received: 07/17/23 Status: TIFFANIE Chahal Num: [id number] Spec Type: Surgical Subm Dr: Yolanda Moore MD Tissues: A Duodenum - Biopsy (DUODENAL) B GASTRIC FOR HP (GASTRIC HP) C Esophagus Biopsy (ESOPHAGUS) Procedures: HE/6, Gross/Micro L4/3, H PYLORI -------- Patient: Darlyn Verdin [id number] (Continued) -------- Specimen: [id number] Received: 07/17/23 (Continued) Signed (signature on file) Jona Hilton MD 07/21/23 1827 -------- Specimen: [id number] Received: 07/17/23 Status: TIFFANIE Chahal Num: [id number] Spec Type: Surgical Subm Dr: Yolanda Moore MD Tissues: A Duodenum - Biopsy (DUODENAL) B GASTRIC FOR HP (GASTRIC HP) C Esophagus Biopsy (ESOPHAGUS) Procedures: /6, Gross/Micro L4/3, H PYLORI -------- Patient: Darlyn Verdin [id number] (Continued) -------- Specimen: [id number] Received: 07/17/23802 (Continued) Gross Description A. Received in formalin labeled with the patient's name, date of and duodenum biopsy is one parra tissue measuring 0.5 x 0.3 x 0.2 cm. Entirely submitted in one cassette labeled A1. B. Received in formalin labeled with the patient's name, date of and gastric biopsy is one parra tissue measuring 0.3 cm. Entirely submitted in one cassette labeled B1. C. Received in formalin labeled with the patient's name, date of and esophagus biopsy are two parra tissues averaging 0.4 x 0.2 x 0.1 cm. Entirely submitted in one cassette labeled C1. Microscopic Description A. Two H E slides reviewed. The microscopic examination confirms the diagnosis. B. Two H E slides reviewed. The microscopic examination confirms the diagnosis. C. Two H E slides reviewed. The microscopic examination confirms the diagnosis. CPT Codes 76041s6 -------- -------- Specimen: [id number] Received: 07/17/23 Status: TIFFANIE Chahal Num: [id number] Spec Type: Surgical Subm Dr: Yolanda Moore MD Tissues: A Duodenum - Biopsy (DUODENAL) B GASTRIC FOR HP (GASTRIC HP) C Esophagus Biopsy (ESOPHAGUS) Procedures: HE/6, Gross/Micro L4/3, H PYLORI -------- Patient: Darlyn Verdin [id number] (Continued) -------- Signed (signature on file) Jona Hilton MD 07/21/23 1827 Normal [facility] NM gastric emptying studyon 07-16-2023 [place] [address] Nuclear Medicine Report Signed Patient: Darlyn Verdin MR#: [id number] 9 : 1960 Acct:[id number] Age/Sex: 63 / M ADM Date: 07/16/23 Loc: NM Room: Type: [facility] Attending Dr: Yolanda Moore MD Copies to: MD Rio Murphy Jr, DO Ordering Provider: Yolanda Moore MD Date of Service: 07/16/23 NM/NM gastric emptying study: Bloating;Early satiety GASTRIC EMPTYING STUDY: CLINICAL HISTORY: Bloating, gassy FINDINGS: Following the oral ingestion of 1.1 mCi Tc 99m labeled sulfur colloid mixed with oatmeal, anterior imaging of the abdomen was performed out to 90 minutes. There is appropriate emptying of the stomach on the static and dynamic images. A time/activity curve was generated. The T 1/2 for gastric emptying is 9 minutes. Normal for semisolids is between 45 and 60 minutes. NM/NM gastric emptying study IMPRESSION: SCINTIGRAPHIC EVIDENCE OF RAPID GASTRIC EMPTYING. Impression dictated by: Rio Howell Jr., D.OEpi07/16/2023 2:37 PM Dictation Location: [place] [address] Transcribed By: [facility] 07/16/23 1437 Dictated By: Rio Howell Jr, DO 07/16/23 1429 Signed By: 07/16/23 1437 Normal [facility] C reactive protein [Mass/vol ume] in Serum or PlasmaOrdered By: Yolanda Moore on 06-25-2023 CRP [Mass/Vol] < 0.5 mg/dL 0.0-0.5 [facility] C-Reactive Proteinon 023 CRP [Mass/Vol] mg/L Normal 0.0-0.5 [facility] Comment on above: Order Comment: Reaso n for Exam Diarrhea Performed By: #### H IV SCREEN, CELIAC ####[facility] ,#### CRP, TSH3, ESR ####[facility] [id number] [place] [address] [facility] Celiacon 06-25-2023 Deamidated Gliadin Abs, IgA 12 Normal 0-19 [facility] Comment on above: Order Comment: Reaso n for Exam Diarrhea Result Comment: Nega tive 0 - 19 Weak Positive 20 - 30 Moderate to Strong Positive >30 Performed By: #### H IV SCREEN, CELIAC ####[facility] ,#### CRP, TSH3, ESR ####[place] [address] [place] [address] [facility] Deamidated Gliadin Abs, IgG 4 Normal 0-19 [facility] Comment on above: Order Comment: Reaso n for Exam Diarrhea Result Comment: Nega tive 0 - 19 Weak Positive 20 - 30 Moderate to Strong Positive >30 Performed By: #### H IV SCREEN, CELIAC ####[facility] ,#### CRP, TSH3, ESR ####[address] [address] [facility] Endomysial Antibody IgA Negative Normal Negative [facility] Comment on above: Order Comment: Reaso n for Exam Diarrhea Performed By: #### H IV SCREEN, CELIAC ####[facility] ,#### CRP, TSH3, ESR ####[address] Immunoglobulin A, Qn, Serum 312 mg/dL Normal 61-437 [facility] Comment on above: Order Comment: Reaso n for Exam Diarrhea Result Comment: Perf ormed at: - [facility] [place] [id number] Forming Acid Dumper: Louis Granados PhD, Phone: [phone] Performed By: #### H IV SCREEN, CELIAC ####[facility] ,#### CRP, TSH3, ESR ####[place] [id number] [facility] T-Transglutaminase (tTG) IgA 3 Normal 0-3 [facility] Comment on above: Order Comment: Reaso n for Exam Diarrhea Result Comment: Nega tive 0 - 3 Weak Positive 4 - 10 Positive >10 Tissue Transglutaminase (tTG) has been identified as the endomysial antigen. Studies have demonstr- ated that endomysial IgA antibodies have over 99% specificity for gluten sensitive enteropathy. Performed By: #### H IV SCREEN, CELIAC ####[facility] ,#### CRP, TSH3, ESR ####[place] [address] [place] [id number] [facility] T-Transglutaminase (tTG) IgG 2 Normal 0-5 [facility] Comment on above: Order Comment: Reaso n for Exam Diarrhea Result Comment: Nega tive 0 - 5 Weak Positive 6 - 9 Positive >9 Performed By: #### H IV SCREEN, CELIAC ####[facility] ,#### CRP, TSH3, ESR ####[place] [id number] [facility] Erythrocyte Sedimentation Ra capri 06-25-2023 ESR (Bld) [Velocity] 16 mm/h Normal 0-19 [facility] Comment on above: Order Comment: Reaso n for Exam Diarrhea Result Comment: PERF ORMED BY: [facility] [address] [facility] [place] [address] PATHOLOGIST CLINICAL TRIALS ASSISTANT ASHLEY HECK M.D. Performed By: #### H IV SCREEN, CELIAC ####[facility] ,#### CRP, TSH3, ESR ####[place] [id number] [facility] Erythrocyte sedimentation ra te by Photometric methodOrdered By: Yolanda Moore on 06-25-2023 ESR Photometric method (Bld) [Velocity] 16 mm/hr 0-19 [facility] HIV 1/O/2 Antigen/Antibodyon 06-25-2023 HIV Screen 4th Generation Non-Reactive Normal Non Reactive [facility] Comment on above: Order Comment: Reaso n for Exam Diarrhea Result Comment: HIV Negative HIV-1/HIV-2 antibodies and HIV-1 p24 antigen were NOT detected. There is no laboratory evidence of HIV infection. Performed at: [facility] [id number] Forming Acid Dumper: Louis Granados PhD, Phone: [phone] PERFORMED BY: [facility] [address] [place] [address] PATHOLOGIST CLINICAL TRIALS ASSISTANT ASHLEY HECK M.D. Performed By: #### H IV SCREEN, CELIAC ####[facility] ,#### CRP, TSH3, ESR ####[facility] [id number] HIV 1 and HIV-2 antibody ass ay with HIV-1 p24 antigen detectionOrdered By: Yolanda Moore on 06-25-2023 HIV 1+2 Ab+HIV1 p24 Ag IA Ql Non-Reactive Non Reactive [facility] Comment on above: HIV NegativeHIV-1/HI V-2 antibodies and HIV-1 p24 antigen were NOTdetected. There is no laboratory evidence of HIV infection.Performed at: [place] [facility] [address] [id number] Director: Louis Granados PhD, Phone: [phone] IgA [Mass/volume] in Serum o r PlasmaOrdered By: Yolanda Moore on 06-25-2023 IgA [Mass/Vol] 312 mg/dL 61-437 [facility] Comment on above: Performed at: [place] [facility] [address] [id number] Director: Louis Granados PhD, Phone: [phone] No Panel InformationOrdered By: Yolanda Moore on 06-25-2023 Endomysial IgA Antibody Negative Negative [facility] Serum gliadin peptide IgA an tibody assay (units/volume)Ordered By: Yolanda Moore on 06-25-2023 Gliadin peptide IgA Qn (S) 12 units 0-19 [facility] Comment on above: Negative 0 - 19 Weak Positive 20 - 30 Moderate to Strong Positive >30 Serum gliadin peptide IgG an tibody assay (units/volume)Ordered By: Yolanda Moore on 06-25-2023 Gliadin peptide IgG Qn (S) 4 units 0-19 [facility] Comment on above: Negative 0 - 19 Weak Positive 20 - 30 Moderate to Strong Positive >30 Serum tissue transglutaminas e (tTG) IgA antibody assay (units/volume)Ordered By: Yolanda Moore on 06-25-2023 tTG IgA Qn (S) 3 U/mL 0-3 [facility] Comment on above: Negative 0 - 3 Weak Positive 4 - 10 Positive >10 Tissue Transglutaminase (tTG) has been identified as the endomysial antigen. Studies have demonstr- ated that endomysial IgA antibodies have over 99% specificity for gluten sensitive enteropathy. Serum tissue transglutaminas e (tTG) IgG antibody assay (units/volume)Ordered By: Yolanda Moore on 06-25-2023 tTG IgG Qn (S) 2 U/mL 0-5 [facility] Comment on above: Negative 0 - 5 Weak Positive 6 - 9 Positive >9 Thyrotropin [Units/volume] i n Serum or PlasmaOrdered By: Yolanda Moore on 06-25-2023 TSH Qn 2.34 m[IU]/L Normal 0.45-5.33 [facility] Comment on above: Order Comment: Reaso n for Exam Diarrhea Result Comment: PERF ORMED BY: [place] [address] PATHOLOGIST CLINICAL TRIALS ASSISTANT ASHLEY HECK M.D. Performed By: #### H IV SCREEN, CELIAC ####[facility] ,#### CRP, TSH3, ESR ####[facility] [address] [place], [place] [id number] [place] XR KUBon 06-25-2023 XR KUB [facility] [address] [place] [address] [place] [address] XRay Report Signed Patient: Darlyn Verdin MR#: [id number] 9 : 1960 Acct:[id number] Age/Sex: 63 / M ADM Date: 06/25/23 Loc: XD Room: Type: [facility] Attending Dr: Yolanda Moore MD Copies to: Yolanda Moore MD Ordering Provider: Yolanda Moore MD Date of Service: 06/25/23 XR/XR KUB: Abdominal pain KUB COMPARISON: None HISTORY: Right upper and left lower abdominal pain THORAX: Lung bases unremarkable. FREE AIR: Supine position limits assessment BOWEL: Mild gaseous intestinal distention. STOOL: No significant stool RENAL STONES: No significant stones present. VASCULAR CALCIFICATIONS: Unremarkable SOFT TISSUE: Unremarkable BONES: Lumbar hyperostosis. POSTSURGICAL CHANGES: Cholecystectomy XR/XR KUB IMPRESSION: Mild gaseous intestinal distention. Impression dictated by: Cornel Meldey M.D.06/25/2023 4:13 PM Dictation Location: [facility]12 Transcribed By: [facility] 06/25/231612 Dictated By: Cornel Medley DO 06/25/231611 Signed By: 06/25/231612 [facility] Office Visit (Cardiology)on 03-20-2023 Follow-up visit Diagnoses/Problems Assessed CAD (coronary artery disease) (414.00) (I25.10) Status post insertion of drug eluting coronary artery stent (V45.82) (Z95.5) Morbid obesity with BMI of 45.0-49.9, adult (278.01,V85.42) (E66.01,Z68.42) Angina pectoris (413.9) (I20.9) Arthritis (716.90) (M19.90) Orders Angina pectoris Renew: Isosorbide Mononitrate ER 60 MG Oral Tablet Extended Release 24 Hour; TAKE 1 TABLET Daily CAD (coronary artery disease) Renew: Ranolazine ER 500 MG Oral Tablet Extended Release 12 Hour; TAKE 1 TABLET BY MOUTH TWO TIMES A DAY CAD (coronary artery disease), Diabetes mellitus Renew: Olmesartan Medoxomil 40 MG Oral Tablet; TAKE 1 TABLET BY MOUTH EVERY DAY CAD (coronary artery disease), Hyperlipidemia Renew: Clopidogrel Bisulfate 75 MG Oral Tablet (Plavix); Take 1 tablet daily CAD (coronary artery disease), Hyperlipidemia, Status post insertion of drug eluting coronary artery stent Renew: Atorvastatin Calcium 80 MG Oral Tablet; TAKE 1 TABLET AT BEDTIME CAD (coronary artery disease), Hypertension Renew: Metoprolol Tartrate 25 MG Oral Tablet; TAKE 1 TABLET TWICE DAILY Morbid obesity with BMI of 45.0-49.9, adult Healthy Weight Tips; Status:Complete - Retrospective Authorization; Done: [id number] Some eating tips that can help you lose weight.; Status:Complete - Retrospective Authorization; Done: [id number] Patient Instructions Please bring all medicines, vitamins, and herbal supplements with you when you come to the office. Prescriptions will not be filled unless you are compliant with your follow up appointments or have a follow up appointment scheduled as per instruction of your physician. Refills should be requested at the time of your visit. Follow up in 6 months Chief Complaint DARLYN VERDIN is being seen for a 6 month follow-up of. 62-year-old gentleman returns for follow-up with severe disabling back osteoarthritis, episodic chest discomfort improved with ranolazine and isosorbide combination. He is no longer exercising due to his symptomatic osteoarthritis in his back Last year he underwent PCI's of the mid to distal LAD with 2 drug-eluting stents in the mid and proximal PLV branch x1 CATY due to abnormal stress imaging. He had no evidence of acute coronary syndrome His most recent LDL is 44. Recommendations, continue current therapies for the time being we will continue with DAPT and will follow-up within 6 to 12 months Surgical History Problems History of Angioplasty History of Cholecystectomy History of Complete colonoscopy History of Foot surgery History of Hernia repair History of Percutaneous transluminal coronary angioplasty History of Shoulder surgery History of Wrist surgery Current Meds Medication NameInstruction Anoro Ellipta 62.5-25 MCG/INH AEPBINHALE 1 PUFF BY MOUTH EVERY DAY Apple Cider Vinegar CAPSTAKE 2 CAPSULE Bedtime Aspirin 81 MG Oral Tablet Delayed ReleaseTAKE 1 TABLET DAILY. Atorvastatin Calcium 80 MG Oral TabletTAKE 1 TABLET AT BEDTIME. clonazePAM 0.5 MG Oral TabletTAKE 1 TABLET BY MOUTH TWICE DAILY NEEDED FOR ANXIETY Clopidogrel Bisulfate 75 MG Oral TabletTake 1 tablet daily Gabapentin 600 MG Oral TabletTAKE 1 TABLET BY MOUTH THREE TIMES DAILY hydroCHLOROthiazide 25 MG Oral TabletTAKE 1 TABLET DAILY. Isosorbide Mononitrate ER 60 MG Oral Tablet Extended Release 24 HourTAKE 1 TABLET Daily Jardiance 10 MG Oral TabletTAKE 1 TABLET BY MOUTH EVERY DAY Lexapro 20 MG Oral TabletTAKE 1 TABLET DAILY. Meloxicam 15 MG Oral TabletTAKE 1 TABLET BY MOUTH EVERY DAY metFORMIN HCl - 1000 MG Oral TabletTAKE 1 TABLET BY MOUTH TWICE DAILY WITH MEALS Metoprolol Tartrate 25 MG Oral TabletTAKE 1 TABLET TWICE DAILY. Multi Vitamin Oral TabletTAKE 1 TABLET DAILY. NexIUM 20 MG Oral Capsule Delayed ReleaseTAKE 1 CAPSULE ONCE DAILY. Nitroglycerin 0.4 MG Sublingual Tablet SublingualDISSOLVE 1 TABLET UNDER THE TONGUE NEEDED FOR CHEST PAIN. Olmesartan Medoxomil 40 MG Oral TabletTAKE 1 TABLET BY MOUTH EVERY DAY Ranolazine ER 500 MG Oral Tablet Extended Release 12 HourTAKE 1 TABLET BY MOUTH TWO TIMES A DAY tiZANidine HCl - 2 MG Oral TabletTAKE 1 TO 2 TABLETS BY MOUTH DAILY NEEDED Totyra SoloStar 300 UNIT/ML Subcutaneous Solution Pen-injectoras directed Trulicity 3 MG/0.5ML Subcutaneous Solution Pen-injector1 injection 1 weekly Ventolin HFA 108 (90 Base) MCG/ACT Inhalation Aerosol SolutionINHALE 2 PUFFS BY MOUTH EVERY 6 HOURS NEEDED Allergies Medication No Known Drug Allergies Recorded By: Naima Ahn; 03/01/2022 9:19:20 AM Social History Problems Caffeine use (V49.89) (Z78.9) 1 CUP COFFEE DAILY Never a smoker No alcohol use No illicit drug use Review of Systems Constitutional: not feeling tired. Cardiovascular: chest pain, but no intermittent leg claudication and as noted in HPI. Respiratory: shortness of breath, but no cough. Gastrointestinal: no change in bowel habits and no blood in stools. Integumentary: no ski (more content not included)... Normal [facility] POINT OF CARE GLUCOSEon - Glucose [Mass/Vol] 102 mg/dL Normal 74-106 [facility] Comment on above: Performed By: #### P OCGLUC #### [facility] [address] [place] [address] Dr. Kitty Richards CREATININEon 01-06-2023 Creatinine [Mass/Vol] 0.95 mg/dL Normal 0.70-1.30 [facility] Comment on above: Performed By: #### C KEVIN #### [facility] [address] [place] [address] Dr. Kitty Richards EGFR-AF SAMMARINESE >60 Normal >=60 [facility] Comment on above: Performed By: #### C KEVIN #### [facility] [address] [place] [address] Dr. Kitty Richards EGFR-NON AF SAMMARINESE >60 Normal >=60 [facility] Comment on above: Performed By: #### C KEVIN #### [facility] [address] [place] [address] ABD/PELV W CONon 01-06-20 CT ABD/PELV W CON EXAMINATION: CT ABD/PELV W CON HISTORY: Incisional hernia ; increasing right abdominal pain and discomfort COMPARISON: CT abdomen pelvis 01/20/2016 TECHNIQUE: Axial, Coronal, and Sagittal images were obtained without and/or with IV contrast as indicated by examination type. Dose reduction techniques were achieved by using automated exposure control and/or adjustment of mA and/or kV according to patient size and/or use of iterative reconstruction technique. FINDINGS: LUNG BASES: No visible pulmonary or pleural disease. LIVER: No enlargement, atrophy, suspicious density, or significant focal lesion. BILIARY: Cholecystectomy. PANCREAS: No lesion, fluid collection, or abnormal duct dilatation. SPLEEN: No enlargement or focal lesion. ADRENALS: No mass or enlargement. KIDNEYS: No mass, obstruction, or calcification. BOWEL/MESENTERY: No visible mass, obstruction, or bowel wall thickening. AORTA/VASCULAR: Mild fusiform dilation of distal abdominal aorta, 2.5 cm in maximum diameter. RETROPERITONEUM: No mass or adenopathy. LYMPH NODES: No adenopathy. URINARY BLADDER: No visible focal wall thickening, lesion, or calculus. PELVIC ORGANS: No visible mass. Pelvic organs appropriate for patient age. ABDOMINAL WALL: Small fat filled umbilical hernia without strangulation. Laxity or mild eventration of the upper anterior right abdominal wall with evidence of prior hernia repair; no hernia sac. BONES: No bony lesion or fracture. OTHER: Negative. IMPRESSION: 1. Mild fusiform aneurysmal dilation of distal abdominal aorta, 2.5 cm in maximum diameter. 2.Evidence of prior anterior right upper abdominal wall hernia repair with mild laxity or eventration of the wall; no definable hernia. 3.Small fat filled umbilical hernia with wide mouth; smaller than previously seen. Electronically authenticated by: JJ OSWALD Date: 2023-01-06 11:25 Normal [facility] HEMOGLOBINon 12-25-2022 Hemoglobin (Bld) [Mass/Vol] 16.0 g/dL Normal 14.0-18.0 [facility] Comment on above: Performed By: #### H GB #### [facility] [address] [address] [address] Kitty Richards Alanine Aminotransferaseon 1 12-24-2021 ALT [Catalytic activity/Vol] 33 U/L Normal 10-60 [facility] Comment on above: Order Comment: PT FA STED 12 HRS Performed By: #### A LT, AST, LIPID #### [facility] [address] Aspartate Amino Transferaseo n 12-14-2022 AST [Catalytic activity/Vol] 26 U/L Normal 10-42 [facility] Comment on above: Order Comment: PT FA STED 12 HRS Performed By: #### A LT, AST, LIPID #### [facility] [address] [place] [address] [place] Cholesterol [Mass/volume] in Serum or PlasmaOrdered By: Hue Mendoza on 10-23-2022 Cholesterol [Mass/Vol] 101 mg/dL 140-200 [facility] Comment on above: Chol less than 200 m g/dl low riskChol 201-239 mg/dl borderline riskChol 240 mg/dl and greater high risk Cholesterol in LDL Calc [Mas s/Vol]Ordered By: Hue Mendoza on 10-23-2022 Cholesterol in LDL [Mass/Vol] 44 mg/dL 0-100 [facility] Comment on above: LDL ATP III CLASSIFI CATIONLDL less than 100 mg/dL OptimalLDL 100-129 mg/dL Near or above optimalLDL 130-159 mg/dL Borderline highLDL 160-189 mg/dL HighLDL greater than 189 mg/dL Very high Cholesterol in VLDL Calc [Ma ss/Vol]Ordered By: Hue Mendoza on 10-23-2022 Cholesterol in VLDL [Mass/Vol] 22 mg/dL [facility] Lipid Panelon 10-23-2022 Cholesterol [Mass/Vol] 101 mg/dL Low 140-200 [facility] Comment on above: Order Comment: PT FA STED 12 HRS Result Comment: Chol less than 200 mg/dl low risk Chol 201-239 mg/dl borderline risk Chol 240 mg/dl and greater high risk Performed By: #### A LT, AST, LIPID #### [facility] [address] [place] [address] [place] Cholesterol in HDL [Mass/Vol] 35 mg/dL Normal 29-71 [facility] Comment on above: Order Comment: PT FA STED 12 HRS Result Comment: HDL CHOL ATP-III CLASSIFICATION Cardiovascular Risk HDL > or equal to 60 mg/dL LOW HDL < 40 mg/dL HIGH Performed By: #### A LT, AST, LIPID #### [facility] [address] [place] [address] [place] Cholesterol.total/Choles terol in HDL [Mass ratio] 2.9 {ratio} Normal <5.0 [facility] Comment on above: Order Comment: PT FA STED 12 HRS Result Comment: PERF ORMED BY: [place] [address] PATHOLOGIST CLINICAL TRIALS ASSISTANT ASHLEY HECK M.D. Performed By: #### A LT, AST, LIPID #### [facility] [address] LDL Cholesterol,Calculated 44 mg/dL Normal 0-100 [facility] Comment on above: Order Comment: PT FA STED 12 HRS Result Comment: LDL ATP III CLASSIFICATION LDL less than 100 mg/dL Optimal LDL 100-129 mg/dL Near or above optimal LDL 130-159 mg/dL Borderline high LDL 160-189 mg/dL High LDL greater than 189 mg/dL Very high Performed By: #### A LT, AST, LIPID #### [facility] [address] [place] [address] Triglyceride w/Reflex 112 mg/dL Normal 35-149 [facility] Comment on above: Order Comment: PT FA STED 12 HRS Result Comment: TRIG ATP III CLASSIFICATION TRIG less than 150 mg/dL Normal TRIG 150-199 mg/dL Borderline high TRIG 200-500 mg/dL High TRIG greater than 500 mg/dL Very high Standard traceable to the Center for Disease Conrtrol and Prevention (CDC) test method. Performed By: #### A LT, AST, LIPID #### [facility] [address] [place] [address] VLDL CHOLESTEROL 22 mg/dL Normal [facility] Comment on above: Order Comment: PT FA STED 12 HRS Performed By: #### A LT, AST, LIPID #### [facility] [address] Serum or plasma alanine mena otransferase measurement without P-5'-P (enzymatic activiOrdered By: Hue Mendoza on 10-23-2022 ALT No additional P-5'-P [Catalytic activity/Vol] 33 U/L 10-60 [facility] Serum or plasma aspartate am inotransferase measurement (enzymatic activity/volume)Ordered By: Hue Mendoza on 10-23-2022 AST [Catalytic activity/Vol] 26 U/L 10-42 [facility] Serum or plasma high density lipoprotein (HDL) cholesterol measurementOrdered By: Hue Mendoza on 10-23-2022 Cholesterol in HDL [Mass/Vol] 35 mg/dL 29-71 [facility] Comment on above: HDL CHOL ATP-III CLA SSIFICATION Cardiovascular RiskHDL > or equal to 60 mg/dL LOWHDL < 40 mg/dL HIGH Serum or plasma total choles terol/high density lipoprotein (HDL) cholesterol mass ratOrdered By: Hue Mendoza on 10-23-2022 Cholesterol.total/Choles terol in HDL [Mass ratio] 2.9 {ratio} <5.0 [facility] Triglyceride [Mass/volume] i n Serum or PlasmaOrdered By: Hue Mendoza on 10-23-2022 Triglyceride [Mass/Vol] 112 mg/dL 35-149 [facility] Comment on above: TRIG ATP III CLASSIF ICATIONTRIG less than 150 mg/dL NormalTRIG 150-199 mg/dL Borderline highTRIG 200-500 mg/dL High TRIG greater than 500 mg/dL Very highStandard traceable to the Center for Disease Conrtrol and Prevention (CDC) test method. Office Visit (Cardiology)on 10-09-2022 Follow-up visit Diagnoses/Problems Assessed CAD (coronary artery disease) (414.00) (I25.10) No ACS admit; identified outpt testing March 18, 2022: PCI/[place] 2.75/18mm AND 3.0/30mm m-dLAD PCI/[place] 3/26mm mPLV (RCA branch) CX: normal RCA: normal Normal cardiac ejection fraction LVEF 65% March 2022 cardiac cath Hypertension (401.9) (I10) optimal in office Hyperlipidemia (272.4) (E78.5) Tolerating increase high intensity statin Is due for labs On lipitor 20mg LDL 96:HDL 39 Diabetes mellitus (250.00) (E11.9) On ARB/statin Morbid obesity with BMI of 40.0-44.9, adult (278.01,V85.41) (E66.01,Z68.41) Reviewed the merits of healthy lifestyle choices on overall cardiovascular health. Orders CAD (coronary artery disease) Start: Ranolazine ER 500 MG Oral Tablet Extended Release 12 Hour; TAKE 1 TABLET BY MOUTH TWO TIMES A DAY CAD (coronary artery disease), Hyperlipidemia Start: Clopidogrel Bisulfate 75 MG Oral Tablet (Plavix); Take 1 tablet daily ALT - Alanine Aminotransferase, Serum; Status:Active; Requested for:09Oct2022; AST; Status:Active; Requested for:09Oct2022; Lipid Panel; Status:Active; Requested for:09Oct2022; Morbid obesity with BMI of 40.0-44.9, adult Healthy Weight Tips; Status:Complete; Done: 09Oct2022 Patient Instructions Please bring all medicines, vitamins, and herbal supplements with you when you come to the office. Prescriptions will not be filled unless you are compliant with your follow up appointments or have a follow up appointment scheduled as per instruction of your physician. Refills should be requested at the time of your visit. Fall prevention education given PLAN: Through informed decision making process incorporating patients unique circumstances, the following treatment plan will be initiated: 1. Prescription drug management of cardiovascular medication for efficacy, adherence to treatment, side effect assessment and polypharmacy. Current treatment clinically warranted and to continue with following modifications: - Stop isosorbide (causes headache) - Begin Ranexa 500mg twice daily (see if helps with shortness of breath) - Stop brilinta (it has been 6 months after PCI; see if helps with shortness of breath) - Begin Plavix 75mg daily 2. lipid profile 3. Return for follow-up; in the interim, contact the office if new symptoms arise. Dr. Kevin in 6 months Chief Complaint Routine f/u: 'seem to doing ok' DARLYN VERDIN is being seen for a 3 month follow-up of coronary artery disease. Patient presents the office today ambulatory with steady gait. Last evaluated in clinic Dr. Kevin June 2022. At that time, Imdur added to medical regimen. Unfortunately, patient was unable to tolerate due to headaches. Presents to the office today where his mother has recently , he has had worsening depression with recent initiation of Lexapro. He has not been exercising and has noted a decrease in functional capacity. He reports occasional chest heaviness and difficulty catching my breath -remains very vague with associated symptoms or aggravating factors. He had no complaints ambulating in from the parking lot this morning. He continues to describe shortness of breath but no evidence orthopnea or PND. His primary concern is shortness of breath which is likely multifactorial due to BMI and deconditioning. Nonetheless, will trial short course of Ranexa and switch out Brilinta. He will update me in approximately 2 weeks of any benefit. History of Present Illness The patient states he has been generally doing well since the last visit. Comorbid Illnesses: diabetes mellitus, hypertension and hyperlipidemia. Symptoms: denies chest pain at rest, stable exertional chest pain, stable dyspnea, denies fatigue, denies exercise intolerance, denies palpitations, denies edema, denies orthopnea, denies dizziness and denies orthostatic dizziness. Associated symptoms: no syncope. His symptoms do not limit his activities. Disease Monitoring: The patient has had a stable weight. Medications: the patient is adherent with his medication regimen. He denies medication side effects. Surgical History Problems History of Angioplasty History of Cholecystectomy History of Complete colonoscopy 10Nov2014 History of Foot surgery History of Hernia repair History of Percutaneous transluminal coronary angioplasty History of Shoulder surgery History of Wrist surgery Current Meds Medication NameInstruction Anoro Ellipta 62.5-25 MCG/INH AEPBINHALE 1 PUFF BY MOUTH EVERY DAY Apple Cider Vinegar CAPSTAKE 2 CAPSULE Bedtime Aspirin EC Adult Low Strength 81 MG TBECTAKE 1 TABLET DAILY DIRECTED. Atorvastatin Calcium 80 MG Oral TabletTAKE 1 TABLET AT BEDTIME. Brilinta 90 MG Oral TabletTAKE ONE TABLET BY MOUTH TWICE DAILY clonazePAM 0.5 MG Oral TabletTAKE 1 TABLET BY MOUTH TWICE DAILY NEEDED FOR ANXIETY Gabapentin 600 MG Oral TabletTAKE 1 TABLET BY MOUTH THREE TIMES DAILY Isosorbide Mononitrat (more content not included)... Normal [place] Tobacco Screening.on 022 Fall risk assessment b) One or more fall s in the last year -[facility] 250 DO Work Phone: Tobacco use status [facility] b) No M [facility] 250 DO Work Phone: Office Visit (Cardiology)on 06-26-2022 Follow-up visit Diagnoses/Problems Assessed CAD (coronary artery disease) (414.00) (I25.10) Status post insertion of drug eluting coronary artery stent (V45.82) (Z95.5) SOB (shortness of breath) on exertion (786.05) (R06.02) Angina pectoris (413.9) (I20.9) Diabetes mellitus (250.00) (E11.9) Morbid obesity with BMI of 45.0-49.9, adult (278.01,V85.42) (E66.01,Z68.42) Never a smoker Orders Angina pectoris Start: Isosorbide Mononitrate ER 30 MG Oral Tablet Extended Release 24 Hour; TAKE 1 TABLET DAILY Angina pectoris, CAD (coronary artery disease), Hypertension Renew: Aspirin EC Adult Low Strength 81 MG Oral Tablet Delayed Release; TAKE 1 TABLET DAILY DIRECTED CAD (coronary artery disease), Diabetes mellitus Renew: Olmesartan Medoxomil 40 MG Oral Tablet; TAKE 1 TABLET BY MOUTH EVERY DAY CAD (coronary artery disease), Hyperlipidemia, Status post insertion of drug eluting coronary artery stent Renew: Atorvastatin Calcium 80 MG Oral Tablet; TAKE 1 TABLET AT BEDTIME Morbid obesity with BMI of 45.0-49.9, adult Healthy Weight Tips; Status:Complete; Done: [id number] SocHx: Never a smoker Tobacco Use Screening; Status:Complete; Done: [id number] Patient Instructions Please bring all medicines, vitamins, and herbal supplements with you when you come to the office. Prescriptions will not be filled unless you are compliant with your follow up appointments or have a follow up appointment scheduled as per instruction of your physician. Refills should be requested at the time of your visit. Follow up in 3 months with Hue May NP Follow up in [address] Erich Kevin DO Chief Complaint DARLYN VERDIN is being seen for f/u cath, S/P PCI. 62-year-old gentleman returns for 3-month follow-up following elective semiurgent two-vessel PCI involving the mid to distal LAD x2 drug-eluting stents in the proximal PLV branch x1 drug-eluting stent in March 2022 for abnormal stress perfusion imaging and symptoms. He is now back to riding a stationary bike approximately 2 to 3 miles 3 times weekly as well as the [place]. He does get chest pain approximately 2 times a week he does admit to shortness of breath and occasional chest discomfort but on the bicycle in the [place] he is fine he does not have any symptoms. He does describe significant improvement in his symptoms and increased stamina he is now able to ambulate and walk the dog without any problems. He has no other significant disease, he remains morbidly obese currently stable on current DAPT and statin therapies. He has underlying diabetes mellitus and ambulatory difficulty due to arthritis Recommendations: I am not sure if he is actually having true angina or not given his improved exercise capabilities and I believe his shortness of breath in part may be related to his deconditioning and obesity. In any event we will prescribe isosorbide mononitrate 30 mg daily to see if this improves his symptoms we will have him follow-up with nurse practitioner 12 weeks and myself in 6 months Current Meds Medication NameInstruction Anoro Ellipta 62.5-25 MCG/INH Inhalation Aerosol Powder Breath ActivatedINHALE 1 PUFF BY MOUTH EVERY DAY Apple Cider Vinegar CAPSTAKE 2 CAPSULE Bedtime Aspirin EC Adult Low Strength 81 MG Oral Tablet Delayed ReleaseTAKE 1 TABLET DAILY DIRECTED. Atorvastatin Calcium 80 MG Oral TabletTAKE 1 TABLET AT BEDTIME. Brilinta 90 MG Oral TabletTAKE ONE TABLET BY MOUTH TWICE DAILY clonazePAM 0.5 MG Oral TabletTAKE 1 TABLET BY MOUTH TWICE DAILY NEEDED FOR ANXIETY Escitalopram Oxalate 10 MG Oral TabletTAKE 1 TABLET DAILY. Gabapentin 600 MG Oral TabletTAKE 1 TABLET BY MOUTH THREE TIMES DAILY Jardiance 10 MG Oral TabletTAKE 1 TABLET BY MOUTH EVERY DAY Meloxicam 15 MG Oral TabletTAKE 1 TABLET BY MOUTH EVERY DAY metFORMIN HCl - 1000 MG Oral TabletTAKE 1 TABLET BY MOUTH TWICE DAILY WITH MEALS Metoprolol Tartrate 25 MG Oral TabletTAKE 1 TABLET TWICE DAILY. Multi Vitamin Oral TabletTAKE 1 TABLET DAILY. NexIUM 20 MG Oral Capsule Delayed ReleaseTAKE 1 CAPSULE ONCE DAILY. Nitroglycerin 0.4 MG Sublingual Tablet SublingualDISSOLVE 1 TABLET UNDER THE TONGUE NEEDED FOR CHEST PAIN. Olmesartan Medoxomil 40 MG Oral TabletTAKE 1 TABLET BY MOUTH EVERY DAY Steglatro 5 MG Oral TabletTAKE 1 TABLET BY MOUTH EVERY DAY tiZANidine HCl - 2 MG Oral TabletTAKE 1 TO 2 TABLETS BY MOUTH DAILY NEEDED Toujeo SoloStar 300 UNIT/ML Subcutaneous Solution Pen-injectorINJECT 40 UNITS UNDER THE SKIN ONCE DAILY Ventolin HFA 108 (90 Base) MCG/ACT Inhalation Aerosol SolutionINHALE 2 PUFFS BY MOUTH EVERY 6 HOURS NEEDED Allergies Medication No Known Drug Allergies Recorded By: Naima Ahn; 03/01/2022 9:19:20 AM Social History Problems Caffeine use (V49.89) (Z78.9) 1 CUP COFFEE DAILY Never a smoker No alcohol use No illicit drug use Review of Systems Constitutional: not feeling tired. Cardiovascular: chest pain, but no intermittent leg claudication and as n (more content not included)... Normal [place] Tobacco Screening.on 022 Tobacco use status CPH[facility] b) No M [facility] 250 DO Work Phone: Office Visit (Cardiology)on 04-09-2022 Follow-up visit Diagnoses/Problems Assessed CAD (coronary artery disease) (414.00) (I25.10) No ACS admit; identified outpt testing March 18, 2022: PCI/[place] 2.75/18mm AND 3.0/30mm m-dLAD PCI/[place] 3/26mm mPLV (RCA branch) CX: normal RCA: normal Hypertension (401.9) (I10) elevated in office will add lopressor Hyperlipidemia (272.4) (E78.5) Tolerating increase high intensity statin Will get labs thru PCP On lipitor 20mg LDL 96:HDL 39 Normal cardiac ejection fraction LVEF 65% March 2022 cardiac cath Diabetes mellitus (250.00) (E11.9) On ARB/statin Morbid obesity with BMI of 45.0-49.9, adult (278.01,V85.42) (E66.01,Z68.42) Reviewed the merits of healthy lifestyle choices on overall cardiovascular health. Orders CAD (coronary artery disease) Renew: Brilinta 90 MG Oral Tablet; TAKE ONE TABLET BY MOUTH TWICE DAILY CAD (coronary artery disease), Hypertension Start: Metoprolol Tartrate 25 MG Oral Tablet; TAKE 1 TABLET TWICE DAILY Start: Nitroglycerin 0.4 MG Sublingual Tablet Sublingual; DISSOLVE 1 TABLET UNDER THE TONGUE NEEDED FOR CHEST PAIN Morbid obesity with BMI of 45.0-49.9, adult Healthy Weight Tips; Status:Complete; Done: 09Apr2022 Patient Instructions Please bring all medicines, vitamins, and herbal supplements with you when you come to the office. Prescriptions will not be filled unless you are compliant with your follow up appointments or have a follow up appointment scheduled as per instruction of your physician. Refills should be requested at the time of your visit. PLAN: Through informed decision making process incorporating patients unique circumstances, the following treatment plan will be initiated: 1. Prescription drug management of cardiovascular medication for efficacy, adherence to treatment, side effect assessment and polypharmacy. Current treatment clinically warranted and to continue with following modifications: - add lopressor 25mg po twice daily - NTG sl as needed 2. Return for follow-up; in the interim, contact the office if new symptoms arise. Dr. Kevin as scheduled Encourage healthy lifestyle choices including: - Heart Health Diet: eat plenty of nutrient-rich foods (fruits and veggies, whole grains, lean poultry and fish). Avoid saturated fats, trans fats and excess sodium and sugar. - Get at least 150 minutes per week of moderate-intensity aerobic activity. Brisk walking (at least 2.5 miles per hour), water aerobics, gardening, biking slower than 10 miles per hours. Any amount of movement is better than none. The simplest way to get moving and improve your health is to start walking. It's free, easy and can be done just about anywhere, even in place. Even if you have been sedentary for years, today is the day you can begin to make healthy changes in your life. Discussed the dynamic nature of coronary artery disease and the importance of seeking medical attention if new symptoms arise. Chief Complaint I am doing ok DARLYN VERDIN is being seen for cardiovascular procedure. Patient presents accompanied by . Patient is ambulatory with steady gait. Patient was last evaluated by Dr. Kevin March 2022. March 18, 2022 uneventful elective cath and PCI. Right radial cath site healed without adverse sequela. New medications: Brilinta - has asthma with baseline FC IIb MAC; has not worsened since brilinta. Has not checked coverage for Brilinta (only has medicaid, got 30 days free) Reviewed the importance of DPAT, may need changed to plavix due to cost 2 week samples - they will update if coverage. Atorvastatin 80 mg - no mylagia Dizziness 'when lifts head up'; slight vertigo. No supine. Offered vestibular rehab - prefers to wait and see. Prior symptoms: chest discomfort improved but occasionally gets on the right side. Cardiac Rehab: unable to attend due to insurance concerns Is not employed. Ok to return to usual level of activity Treated with bipap History of Present Illness The patient states he has been generally stable since the last visit. Comorbid Illnesses: diabetes mellitus, hypertension and hyperlipidemia. Symptoms: improved chest pain at rest, improved exertional chest pain, stable dyspnea, denies fatigue, denies exercise intolerance, denies palpitations, denies edema, denies orthopnea, stable orthostatic dizziness and denies . Associated symptoms: no syncope. His symptoms do not limit his activities. Disease Monitoring: Medications: the patient is adherent with his medication regimen. He denies medication side effects. Surgical History Problems History of Angioplasty History of Cholecystectomy History of Complete colonoscopy 10Nov2014 History of Foot surgery History of Hernia repair History of Shoulder surgery History of Wrist surgery Current Meds Medication NameInstruction Anoro Ellipta 62.5-25 MCG/INH Inhalation Aerosol Powder Breath ActivatedINHALE 1 PUFF BY MOUTH EVERY DAY Apple Cider Vinegar CAPSTAKE 2 CAPSULE Bedti (more content not included)... Normal [place] Tobacco Screening.on 022 Tobacco use status CPHS b) No M -[facility] Ambiq MicrouskCued DO Work Phone: Laboratory - Chemistry and C hemistry - challengeon 03-15-2022 Cholesterol [Mass/Vol] 160\S\160 Normal 140-200 [facility] [facility] DO Work Phone: Comment on above: Chol less than 200 m g/dl low risk Chol 201-239 mg/dl borderline risk Chol 240 mg/dl and greater high risk Cholesterol in LDL [Mass/Vol] 96\S\96 Normal 0-100 [facility] [employer] DO Work Phone: Comment on above: LDL ATP III CLASSIFI CATION LDL less than 100 mg/dL Optimal LDL 100-129 mg/dL Near or above optimal LDL 130-159 mg/dL Borderline high LDL 160-189 mg/dL High LDL greater than 189 mg/dL Very high Laboratory - Microbiology an d Antimicrobial susceptibilityon 03-15-2022 SARS-CoV-2 (COVID-19) RNA TON+probe Ql (Unsp spec) [facility] Server[employer] DO Work Phone: No Panel Informationon 03-15 73.0\S\73.0 Normal . [place] [address] DO Work Phone: 7.0\S\7.0 Normal 6.6-10.1 [facility] [facility] DO Work Phone: 198\S\198 Normal 150-450 [facility] 250 DO Work Phone: 13.3\S\13.3 Normal 12.0-14.8 [facility] DO Work Phone: 34.9\S\34.9 Normal 32.5-35.6 [facility] [facility] DO Work Phone: 31.7\S\31.7 Normal 27.5-35.2 [facility] DO Work Phone: 5.6\S\5.6 Normal 1.8-7.7 [facility] [facility] DO Work Phone: 0.1\S\0.1 Normal 0.0-0.45 [facility] 250 DO Work Phone: Comment on above: PERFORMED BY:[place] [address] [place], [place] [phone] MEDICAL DIRECTORASHLEY HECK M.D. 1.7\S\1.7 Normal . [facility] DO Work Phone: 1.5\S\1.5 Normal . [facility] DO Work Phone: 6.3\S\6.3 Normal . [facility] DO Work Phone: 17.5\S\17.5 Normal . [facility] [facility] DO Work Phone: 0.5\S\0.5 Normal 0.0-0.8 [facility] [facility] DO Work Phone: 1.3\S\1.3 Normal 1.00-4.8 [facility] Work Phone: 90.9\S\90.9 Normal 83.5-101 [facility] 250 DO Work Phone: 46.8\S\46.8 Normal 38.8-50.0 [facility] Work Phone: 16.3\S\16.3 Normal 13.0-17.0 [facility] DO Work Phone: 5.14\S\5.14 Normal 3.90-5.60 [facility] 250 DO Work Phone: 7.6\S\7.6 Normal 4.1-10.5 [place] [address] DO Work Phone: 30.9\S\30.9 Normal 25.1-36.5 [facility] [place][note 2] DO Work Phone: Comment on above: PERFORMED BY:[facility] [place], [place] [phone] MEDICAL DIRECTORASHLEY HECK M.D. 1.1\S\1.1 Normal [facility] [place][note 2] DO Work Phone: Comment on above: INR Therapeutic Rang e A) Pre- and Peroperative OAT started two weeks before surgery. NOT HIP SURGERY: 1.5 - 2.5 HIP SURGERY: 2 - 3 B) Primary and secondary prevention of venous THROMBOSIS: 2 - 3 C) Active venous thrombosis, pulmonary embolism and prevention of recurrent venous thrombosis: 2 - 3 D) Prevention of arterial thromboembolism including patients with mechanical heart valves: 3 - 4.5 11.9\S\11.9 Normal 9.0-12.9 [facility] DO Work Phone: 22.5\S\22.5 Normal 22.0-30.0 [place] [address] DO Work Phone: 105\S\105 Normal 95-114 [facility] DO Work Phone: 4.2\S\4.2 Normal 3.5-5.1 [facility] DO Work Phone: 137\S\137 Normal 136-146 [facility] [facility] DO Work Phone: 15\S\15 Normal 9-23 [facility] 250 DO Work Phone: > 60 Normal [facility] [facility] DO Work Phone: Comment on above: GFR estimated refere nce range: According to KDOQI guidelines, <60 ml/min/1.73m2 is sufficient to diagnose a patient with chronic kidney disease. 0.74\S\0.74 Normal 0.64-1.27 [facility] Work Phone: 4.1\S\4.1 Normal <5.0 [facility] DO Work Phone: Comment on above: PERFORMED BY:[place] [address] [address] [place], [place] [phone] MEDICAL DIRECTORASHLEY HECK M.D. 25\S\25 Normal [facility] DO Work Phone: 125\S\125 Normal 35-149 [facility] DO Work Phone: Comment on above: TRIG ATP III CLASSIF ICATION TRIG less than 150 mg/dL Normal TRIG 150-199 mg/dL Borderline high TRIG 200-500 mg/dL High TRIG greater than 500 mg/dL Very high Standard traceable to the Center for Disease Conrtrol and Prevention (CDC) test method. 39\S\39 Normal 29-71 [facility] DO Work Phone: Comment on above: HDL CHOL ATP-III CLA SSIFICATION Cardiovascular Risk HDL > or equal to 60 mg/dL LOW HDL < 40 mg/dL HIGH Negative Normal Negative [facility] [facility] DO Work Phone: Comment on above: This is a duplicate Cata SARS Antigen (PIERCE) result to be used for statistical tracking purpose only.PERFORMED BY:[facility] [place], [place] [id number] MEDICAL DIRECTORASHLEY HECK M.D. Tobacco Screening.on 022 Adult depression screening assessment No [facility] [facility] DO Work Phone: Tobacco use status CPHS b) No M [facility] DO Work Phone: Adult depression screening assessment No [facility] [facility] DO Work Phone: Tobacco use status CPHS b) No M [facility] DO Work Phone: XR Chest 2 Views*on 01-18-20 22 XR Chest 2 Views* FINDINGS: No acute cardiac or pulmonary disease is identified. No worrisome mass lesions or infiltrates are seen. No pulmonary edema or pneumothorax is present. Cardiac silhouette size is normal. Hyperostotic changes are identified within the thoracic spine consistent with diffuse idiopathic skeletal hyperostosis (DISH). IMPRESSION: No acute cardiac or pulmonary disease Report reported and signed by Rio Jennings on 01/17/2022 1347 Normal [facility] Armhole Baster Jumpbasting Auth for Release of Medical Recordson 11-01-2021 Auth for Release of Medical Records [id number] .00CD:127 Normal [facility] Ambulatory Clinical Summaryo n 10-09-2021 Ambulatory Clinical Summary {[id number]}CD:[id number] Normal [facility] Lab Reportson 10-09-2021 Lab Reports [id number] .00CD:127 Normal [facility] Patient Educationon 10-09-20 21 Patient Education Nutrition Calorie Counting for Weight Loss Calories are units of energy. Your body needs a certain amount of calories from food to keep you going throughout the day. When you eat more calories than your body needs, your body stores the extra calories as fat. When you eat fewer calories than your body needs, your body neumann fat to get the energy it needs. Calorie counting means keeping track of how many calories you eat and drink each day. Calorie counting can be helpful if you need to lose weight. If you make sure to eat fewer calories than your body needs, you should lose weight. Ask your health care provider what a healthy weight is for you. For calorie counting to work, you will need to eat the right number of calories in a day in order to lose a healthy amount of weight per week. A dietitian can help you determine how many calories you need in a day and will give you suggestions on how to reach your calorie goal. ? A healthy amount of weight to lose per week is usually 1?2 lb (0.5?0.9 kg). This usually means that your daily calorie intake should be reduced by 500?750 calories. ? Eating 1,200 ? 1,500 calories per day can help most women lose weight. ? Eating 1,500 ? 1,800 calories per day can help most men lose weight. What is my plan? My goal is to have calories per day. If I have this many calories per day, I should lose around pounds per week. What do I need to know about calorie counting? In order to meet your daily calorie goal, you will need to: ? Find out how many calories are in each food you would like to eat. Try to do this before you eat. ? Decide how much of the food you plan to eat. ? Write down what you ate and how many calories it had. Doing this is called keeping a food log. To successfully lose weight, it is important to balance calorie counting with a healthy lifestyle that includes regular activity. Aim for 150 minutes of moderate exercise (such as walking) or 75 minutes of vigorous exercise (such as running) each week. Where do I find calorie information? The number of calories in a food can be found on a Nutrition Facts label. If a food does not have a Nutrition Facts label, try to look up the calories online or ask your dietitian for help. Remember that calories are listed per serving. If you choose to have more than one serving of a food, you will have to multiply the calories per serving by the amount of servings you plan to eat. For example, the label on a package of bread might say that a serving size is 1 slice and that there are 90 calories in a serving. If you eat 1 slice, you will have eaten 90 calories. If you eat 2 slices, you will have eaten 180 calories. How do I keep a food log? Immediately after each meal, record the following information in your food log: ? What you ate. Don't forget to include toppings, sauces, and other extras on the food. ? How much you ate. This can be measured in cups, ounces, or number of items. ? How many calories each food and drink had. ? The total number of calories in the meal. Keep your food log near you, such as in a small notebook in your pocket, or use a mobile roger or website. Some programs will calculate calories for you and show you how many calories you have left for the day to meet your goal. What are some calorie counting tips? ? Use your calories on foods and drinks that will fill you up and not leave you hungry: ? Some examples of foods that fill you up are nuts and nut butters, vegetables, lean proteins, and high-fiber foods like whole grains. High-fiber foods are foods with more than 5 g fiber per serving. ? Drinks such as sodas, specialty coffee drinks, alcohol, and juices have a lot of calories, yet do not fill you up. ? Eat nutritious foods and avoid empty calories. Empty calories are calories you get from foods or beverages that do not have many vitamins or protein, such as candy, sweets, and soda. It is better to have a nutritious high-calorie food (such as an avocado) than a food with few nutrients (such as a bag of chips). ? Know how many calories are in the foods you eat most often. This will help you calculate calorie counts faster. ? Pay attention to calories in drinks. Low-calorie drinks include water and unsweetened drinks. ? Pay attention to nutrition labels for low fat or fat free foods. These foods sometimes have the same amount of calories or more calories than the full fat versions. They also often have added sugar, starch, or salt, to make up for flavor that was removed with the fat. ? Find a way of tracking calories that works for you. Get creative. Try different apps or programs if writing down calories does not work for you. What are some portion control tips? ? Know how many calories are in a serving. This will help you know how many servings of a certain food you can have. ? Use a measuring cup to measure serving sizes. You could (more content not included)... Normal [facility] Urology Office/Clinic Noteon 10-09-2021 Urology Office/Clinic Note Chief Complaint f/u to Cysto HPI Staff Pt is here for a f/u to Cysto done 09/10/2021. S/P TURP 2016. D/C Terazosin 10mg qd therapy at the last encounter. Cialis 20mg prn therapy. Pt is a diabetic and he said he has to drink alot of water and it just flows right through him. Pt denies any kidney stones in the past, he states that he has some intermittent left back pain. Dysuria: no pain or burning Incomplete bladder emptying: unsure is he is emptying every time Hematuria: denies any blood in urine, UA is clear Frequency: severe 4-5x an hour Urgency: moderate/severe sx Nocturia: 2x a night Stream: average stream, no hesitation, no intermittent stream, no straining Post void dripping: intermittent sx Wearing pads/ Depends: _ Urge incontinence: intermittent sx Stress incontinence: unless he has to void Incontinence without Sensory Awareness: none Abdominal pain: none back: mid to lower back pain more on the left side, Pain 8/10 Flank pain: left side Sexual complaints: cialis 20mg prn therapy. History of Present Illness I have reviewed and verified the staff HPI to be accurate for this encounter. Review of Systems PHQ Score Initial Depression Screen Score: 0 ROS - Provider Constitutional: denies weight loss, denies hot flashes. Eyes: denies eye problems. Gastrointestinal: denies nausea, denies vomiting. Cardiovascular: denies chest pain or angina. Integumentary: no dryness Musculoskeletal: denies musculoskeletal symptoms. ENMT: denies otolaryngeal symptoms. Respiratory: no shortness of breath. Heme/Lymph: denies easy bleeding tendency, denies easy bruising tendency. Psychiatric: no confusion, no anxiety. Genitourinary: denies dysuria, denies hematuria, denies discharge, moderate urinary frequency, denies urinary hesitancy, mild nocturia, denies incontinence, denies genital sores, denies decreased libido, and mild erectile dysfunction. Physical Exam Vitals & Measurements HR: 82(Peripheral) RR: 18 BP: 147/82 HT: 182.0 cm HT: 182 cm WT: 155.0 kg WT: 155 kg BMI: 46.79 General Appearance: alert, no distress, well nourished, well developed male. Flank Pain: moderate. Bladder: nonpalpable. Assessment/Plan This gentleman has a recent cystoscopy that showed no evidence of obstruction. His alpha-patricia has been discontinued. He noted no change in his symptoms when this was done. At present he has no evidence of obstruction and should not need alpha blockers. We will start him on an anticholinergic oxybutynin 5 mg once or twice a day to help decrease his urinary frequency. We discussed potential side effects or complications of use of this medicine. He may discontinue any pain time. I like to start with 1 tablet a day and switch to 2 tablets a day. He is try Cialis for erectile dysfunction and has noted some improvement. Would like him to continue using Cialis and reevaluate his overall response to on his next visit. Plan to see him back in the office in 6 weeks with a PVR. 1. Frequency of urination (R35.0: Frequency of micturition) Moderate 4-5 times per hour. Patient is diabetic. Discussed starting bladder medication to help with frequency, and nocturia. Will start Oxybutynin 5mg bid therapy, he will start out 1 time a day for the first week and see if it helps. He can go up to 2 times per day am/pm. 2. Erectile dysfunction due to diseases classified elsewhere (N52.1: Erectile dysfunction due to diseases classified elsewhere) Cialis 20mg prn therapy. He did not achieve good results with the medication per patient. Pt was not able to get erection prior to using medication. He was able to get a semi erection with medication. He has tried it twice. He was encouraged to continue to try the medication to see if it gradually gets better. 3. Diabetes (E11.9: Type 2 diabetes mellitus without complications) This is being managed by his primary care physician. He states that he believes at this point is fairly poorly controlled. Some of his urinary frequency probably related to this issue. Urinalysis today shows 3+ glucose which could be an indication that his diabetes is not under control. 4. BPH with obstruction/lower urinary tract symptoms (N40.1: Benign prostatic hyperplasia with lower urinary tract symptoms) S/p TURP in 2017, S/p Cystoscopy done 09/10/21. Cysto shows prostatic fossa is widely patent, no urethral strictures, no bladder neck contracture. Pt stopped Terazosin 10mg therapy. He has noticed any improvement with stopping medication. Ordered: PSA Total Urnls Dip Stick Auto w/o Microscopy POC [id number] 5. Nocturia (R35.1: Nocturia) Mild, 2 times per night. 6. Left flank pain (R10.9: Unspecified abdominal pain) Moderate flank pain, abdominal pain 8 out of 10 scale. 7. Glycosuria (R81: Glycosuria) Pt is diabetic and 1000 on UA today. Patient cut back on water due to being diabetic. He was encouraged to increase his water consumption. Ordered: PSA Total Orders: oxybutynin, 5 mg = (more content not included)... Normal [facility] Comment on above: Result Comment: Elec tronically Signed By: Reji Ivan MD, Danis Panda\.br\Date and Time Signed: 10/09/21 08:57 EST\.br\Electronically Co-Signed By: Linda Grande\.br\Date and Time Co-Signed: 10/09/21 08:50 EST\.br\Electronically Co-Signed By: Marin HUA MD Consent for Procedure/Surger yon 09-12-2021 Consent for Procedure/Surgery [id number] .[id number]:127 [facility] Ambulatory Clinical Summaryo n 09-10-2021 Ambulatory Clinical Summary {[id number] [facility] Patient Educationon 09-10-20 21 Patient Education Urology Benign Prostatic Hyperplasia Benign prostatic hyperplasia (BPH) is an enlarged prostate gland that is caused by the normal aging process and not by cancer. The prostate is a walnut-sized gland that is involved in the production of semen. It is located in front of the rectum and below the bladder. The bladder stores urine and the urethra is the tube that carries the urine out of the body. The prostate may get bigger as a man gets older. An enlarged prostate can press on the urethra. This can make it harder to pass urine. The build-up of urine in the bladder can cause infection. Back pressure and infection may progress to bladder damage and kidney (renal) failure. What are the causes? This condition is part of a normal aging process. However, not all men develop problems from this condition. If the prostate enlarges away from the urethra, urine flow will not be blocked. If it enlarges toward the urethra and compresses it, there will be problems passing urine. What increases the risk? This condition is more likely to develop in men over the age of 50 years. What are the signs or symptoms? Symptoms of this condition include: ? Getting up often during the night to urinate. ? Needing to urinate frequently during the day. ? Difficulty starting urine flow. ? Decrease in size and strength of your urine stream. ? Leaking (dribbling) after urinating. ? Inability to pass urine. This needs immediate treatment. ? Inability to completely empty your bladder. ? Pain when you pass urine. This is more common if there is also an infection. ? Urinary tract infection (UTI). How is this diagnosed? This condition is diagnosed based on your medical history, a physical exam, and your symptoms. Tests will also be done, such as: ? A post-void bladder scan. This measures any amount of urine that may remain in your bladder after you finish urinating. ? A digital rectal exam. In a rectal exam, your health care provider checks your prostate by putting a lubricated, gloved finger into your rectum to feel the back of your prostate gland. This exam detects the size of your gland and any abnormal lumps or growths. ? An exam of your urine (urinalysis). ? A prostate specific antigen (PSA) screening. This is a blood test used to screen for prostate cancer. ? An ultrasound. This test uses sound waves to electronically produce a picture of your prostate gland. Your health care provider may refer you to a specialist in kidney and prostate diseases (urologist). How is this treated? Once symptoms begin, your health care provider will monitor your condition (active surveillance or watchful waiting). Treatment for this condition will depend on the severity of your condition. Treatment may include: ? Observation and yearly exams. This may be the only treatment needed if your condition and symptoms are mild. ? Medicines to relieve your symptoms, including: ? Medicines to shrink the prostate. ? Medicines to relax the muscle of the prostate. ? Surgery in severe cases. Surgery may include: ? Prostatectomy. In this procedure, the prostate tissue is removed completely through an open incision or with a laparoscope or robotics. ? Transurethral resection of the prostate (TURP). In this procedure, a tool is inserted through the opening at the tip of the penis (urethra). It is used to cut away tissue of the inner core of the prostate. The pieces are removed through the same opening of the penis. This removes the blockage. ? Transurethral incision (TUIP). In this procedure, small cuts are made in the prostate. This lessens the prostate's pressure on the urethra. ? Transurethral microwave thermotherapy (TUMT). This procedure uses microwaves to create heat. The heat destroys and removes a small amount of prostate tissue. ? Transurethral needle ablation (TUNA). This procedure uses radio frequencies to destroy and remove a small amount of prostate tissue. ? Interstitial laser coagulation (ILC). This procedure uses a laser to destroy and remove a small amount of prostate tissue. ? Transurethral electrovaporization (TUVP). This procedure uses electrodes to destroy and remove a small amount of prostate tissue. ? Prostatic urethral lift. This procedure inserts an implant to push the lobes of the prostate away from the urethra. Follow these instructions at home: ? Take [id number] and prescription medicines only as told by your health care provider. ? Monitor your symptoms for any changes. Contact your health care provider with any changes. ? Avoid drinking large amounts of liquid before going to bed or out in public. ? Avoid or reduce how much caffeine or alcohol you drink. ? Give yourself time when you urinate. ? Keep all follow-up visits as told by your health care provider. This is important. Contact a health care provider if: ? You have unexplained back pain. ? Your symptoms do not get better with treatment. ? You d (more content not included)... Normal [facility] Urology Office/Clinic Noteon 09-10-2021 Urology Office/Clinic Note Chief Complaint This patient is a 89-year-old male with outlet obstruction symptoms. He status post cystoscopy with transurethral resection of the prostate in 2017. Is been treated both with tamsulosin and Terazosin with minimal improvement. He is here today for cystoscopic exam and to rule out the possibility of a stricture or bladder neck contracture. He has a very serious back problem that causes him significant pain and decreased mobility. Is quite possible that there is a nerve compression syndrome that is limiting his bladder his ability to function. HPI Staff cysto abx taken History of Present Illness There have been no associated fever, chills, flank pain or blood in the urine. Pt. denies any pain/burning with urination at this time. I have reviewed and verified the staff HPI to be accurate for this encounter. I have reviewed the previous health record information and history for this patient from Dr. Mendoza. Review of Systems ROS - Provider Constitutional: denies weight loss, denies hot flashes. Eyes: denies eye problems. Gastrointestinal: denies nausea, denies vomiting. Cardiovascular: denies chest pain or angina. Integumentary: no dryness Musculoskeletal: denies musculoskeletal symptoms. ENMT: denies otolaryngeal symptoms. Respiratory: no shortness of breath. Heme/Lymph: denies easy bleeding tendency, denies easy bruising tendency. Psychiatric: no confusion, no anxiety. Genitourinary: denies dysuria, denies hematuria, denies discharge, denies urinary frequency, denies urinary hesitancy, denies nocturia, denies incontinence, denies genital sores, denies decreased libido, and denies erectile dysfunction. Procedure Operative Information Anesthesia Type: Local Procedure: Local Cystoscopy Complications: None Surgical risks, benefits, details of the procedure have been explained to the patient. Full informed consent has been obtained. Intraoperative Information Prepped: Patient is brought back to the endoscopy suite. Patient is placed in modified dorso/lithotomy position. Patient prepped in the usual fashion with Betadine solution. 2% Xylocaine Jelly is placed per Urethra. After waiting several minutes, the Cystoscope is introduced. The Urethra is: Normal The Prostatic Urethra is: Unobstructed, channel is open due to past TURP in 2017. The Bladder: Normal, Trabeculated: Mild (1) The Ureteral orifices: Show efflux of clear urine Specimens Removed: None Removal: Cystoscope is removed. The patient tolerated it well. Postoperative Information Patient is discharged home with antibiotic coverage. Follow up arranged. Assessment/Plan Cystoscopy shows no obstruction. The prostatic fossa is widely patent. There is no bladder neck contracture and there is no urethral stricture. The bladder mucosa was unremarkable. We will discontinue the alpha-patricia Terazosin. This patient symptoms are likely related to his severe back problems. He did complain of erectile dysfunction. We will start him on Cialis 20 mg to be used on an as-needed basis. We discussed the risk, benefits and potential complications of the use of this medication. We will see him back in the office in 4 to 6 weeks to assess his response to the medications. 1. BPH with obstruction/lower urinary tract symptoms (N40.1: Benign prostatic hyperplasia with lower urinary tract symptoms) S/p TURP 2017. Will discontinue Terazosin since pt. is doing well overall with urination. Severe frequency 4-5x per hour. Cysto IO today w/o complications. Pt. tolerated well. Ordered: Cystourethroscopy [id number] 2. Nocturia (R35.1: Nocturia) 2x per night. Ordered: Cystourethroscopy [id number] 3. Erectile dysfunction due to diseases classified elsewhere (N52.1: Erectile dysfunction due to diseases classified elsewhere) Will start Cialis 20mg, PRN for sexual intercourse. Will follow up in 4 weeks to see if medication is helping. Orders: tadalafil, 20 mg = 1 tab(s), Oral, As Directed, PRN for sexual intercourse., # 20 tab(s), Refills(s) 1, Pharmacy: [id number], 182, cm, 08/28/21 12:21:00 EDT, Height/Length Dosing, 155, kg, 08/28/21 12:21:00 EDT, Weight Dosing Follow-up With When Contact Information Reji Ivan MD, Danis Panda, URO In 4 weeks 10/08/2021 [facility] [address], [place] [address]- Additional Instructions: Patient Education Benign Prostatic Hyperplasia I, Samara Craft, personally scribed for Dr. Mendoza on 09/10/2021 11:59:09. . Documentation recorded by the scribe,Samara Craft, accurately reflects the services(s) I performed and decisions made by me. Authenticated by Dr. Mendoza on 09/10/2021 12:03:36. Problem List/Past Medical History Ongoing Apnea, sleep Arthritis Asthma BPH with obstruction/lower urinary tract symptoms Diabetes ED (erectile dysfunction) HTN (hypertension) Hyperlipidemia Nocturia Historical No meka (more content not included)... [facility] Comment on above: Result Comment: Elec tronically Signed By: Reji Ivan MD, Danis Panda\.br\Date and Time Signed: 09/10/21 12:03 EDT\.br\Electronically Co-Signed By: Samara Craft\.br\Date and Time Co-Signed: 09/10/21 11:59 EDT Ambulatory Clinical Summaryo 08-28-2021 Ambulatory Clinical Summary {[id number] [facility] Patient Educationon 08-28-20 21 Patient Education Urology Benign Prostatic Hyperplasia Benign prostatic hyperplasia (BPH) is an enlarged prostate gland that is caused by the normal aging process and not by cancer. The prostate is a walnut-sized gland that is involved in the production of semen. It is located in front of the rectum and below the bladder. The bladder stores urine and the urethra is the tube that carries the urine out of the body. The prostate may get bigger as a man gets older. An enlarged prostate can press on the urethra. This can make it harder to pass urine. The build-up of urine in the bladder can cause infection. Back pressure and infection may progress to bladder damage and kidney (renal) failure. What are the causes? This condition is part of a normal aging process. However, not all men develop problems from this condition. If the prostate enlarges away from the urethra, urine flow will not be blocked. If it enlarges toward the urethra and compresses it, there will be problems passing urine. What increases the risk? This condition is more likely to develop in men over the age of 50 years. What are the signs or symptoms? Symptoms of this condition include: ? Getting up often during the night to urinate. ? Needing to urinate frequently during the day. ? Difficulty starting urine flow. ? Decrease in size and strength of your urine stream. ? Leaking (dribbling) after urinating. ? Inability to pass urine. This needs immediate treatment. ? Inability to completely empty your bladder. ? Pain when you pass urine. This is more common if there is also an infection. ? Urinary tract infection (UTI). How is this diagnosed? This condition is diagnosed based on your medical history, a physical exam, and your symptoms. Tests will also be done, such as: ? A post-void bladder scan. This measures any amount of urine that may remain in your bladder after you finish urinating. ? A digital rectal exam. In a rectal exam, your health care provider checks your prostate by putting a lubricated, gloved finger into your rectum to feel the back of your prostate gland. This exam detects the size of your gland and any abnormal lumps or growths. ? An exam of your urine (urinalysis). ? A prostate specific antigen (PSA) screening. This is a blood test used to screen for prostate cancer. ? An ultrasound. This test uses sound waves to electronically produce a picture of your prostate gland. Your health care provider may refer you to a specialist in kidney and prostate diseases (urologist). How is this treated? Once symptoms begin, your health care provider will monitor your condition (active surveillance or watchful waiting). Treatment for this condition will depend on the severity of your condition. Treatment may include: ? Observation and yearly exams. This may be the only treatment needed if your condition and symptoms are mild. ? Medicines to relieve your symptoms, including: ? Medicines to shrink the prostate. ? Medicines to relax the muscle of the prostate. ? Surgery in severe cases. Surgery may include: ? Prostatectomy. In this procedure, the prostate tissue is removed completely through an open incision or with a laparoscope or robotics. ? Transurethral resection of the prostate (TURP). In this procedure, a tool is inserted through the opening at the tip of the penis (urethra). It is used to cut away tissue of the inner core of the prostate. The pieces are removed through the same opening of the penis. This removes the blockage. ? Transurethral incision (TUIP). In this procedure, small cuts are made in the prostate. This lessens the prostate's pressure on the urethra. ? Transurethral microwave thermotherapy (TUMT). This procedure uses microwaves to create heat. The heat destroys and removes a small amount of prostate tissue. ? Transurethral needle ablation (TUNA). This procedure uses radio frequencies to destroy and remove a small amount of prostate tissue. ? Interstitial laser coagulation (ILC). This procedure uses a laser to destroy and remove a small amount of prostate tissue. ? Transurethral electrovaporization (TUVP). This procedure uses electrodes to destroy and remove a small amount of prostate tissue. ? Prostatic urethral lift. This procedure inserts an implant to push the lobes of the prostate away from the urethra. Follow these instructions at home: ? Take xjff-uqi-wealgit and prescription medicines only as told by your health care provider. ? Monitor your symptoms for any changes. Contact your health care provider with any changes. ? Avoid drinking large amounts of liquid before going to bed or out in public. ? Avoid or reduce how much caffeine or alcohol you drink. ? Give yourself time when you urinate. ? Keep all follow-up visits as told by your health care provider. This is important. Contact a health care provider if: ? You have unexplained back pain. ? Your symptoms do not get better with treatment. ? You d (more content not included)... 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 He has a history of diabetes which has not always been under good control. He also has a history of lower back pain caused by compression of his lumbar vertebrae. He had surgery in this area 2017 and a decompression of the lumbar spine and also in 2017. He is try Flomax and later Detrol with limited success. Is here today for urologic consultation. 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 Pt stated that the last 6 months his sx had become severe. PCP put pt on Tamsulosin 0.4mg qd therapy and had no relief. SHe then put him on Detrol and pt states that he has not felt any relief with this medication as well. No infections PCP tested. S/P TURP 2017 with DLS. :t is diabetic and he said that he had to back off on water intake due to severe urgency and urge incontinence sx. PVR 58ml. Dysuria: no pain or burning Incomplete bladder emptying: feels like he is emptying Hematuria: denies any blood in urine, Frequency: Severe 4-5x an hour Urgency: severe sx Nocturia: 2x a night Stream: average stream, no hesitation, no intermittent stream, no straining to empty Post void dripping: occasionally Wearing pads/ Depends: _ Urge incontinence: intermittent, getting worse Stress incontinence: none Incontinence without Sensory Awareness: none Abdominal pain: no pain, slight pressure History of Present Illness Reviewed ua. There have been no associated fever, chills, flank pain or blood in the urine. Pt. denies any pain/burning with urination at this time. I have reviewed and verified the staff HPI to be accurate for this encounter. I have reviewed the previous health record information and history for this patient from Dr. Mendoza. Review of Systems PHQ Score Initial Depression Screen Score: 0 ROS - Provider Constitutional: denies weight loss, denies hot flashes. Eyes: denies eye problems. Gastrointestinal: denies nausea, denies vomiting. Cardiovascular: denies chest pain or angina. Integumentary: no dryness Musculoskeletal: denies musculoskeletal symptoms. ENMT: denies otolaryngeal symptoms. Respiratory: no shortness of breath. Heme/Lymph: denies easy bleeding tendency, denies easy bruising tendency. Psychiatric: no confusion, no anxiety. Genitourinary: denies dysuria, denies hematuria, denies discharge, denies urinary frequency, denies urinary hesitancy, denies nocturia, denies incontinence, denies genital sores, denies decreased libido, and denies erectile dysfunction. Physical Exam Vitals & Measurements HR: 76(Peripheral) RR: 18 BP: 140/87 HT: 182 cm HT: 182.0 cm WT: 155 kg WT: 155.0 kg BMI: 46.79 General Appearance: alert, no distress, well nourished, well developed male. Head: normocephalic . Eyes: normal orbit and globe. ENMT: normal examination of external ears. Chest: Lungs CTA, respirations non labored. Cardiovascular: regular rate and rhythm. Abdomen: soft, non distended, no tenderness, no mass or organomegaly, no hernia. Genitourinary: normal scrotum, normal testes, normal urethra, normal epididymis, normal vas deferens/spermatic cord. Flank Pain: none. Bladder: nonpalpable. Penis: normal shaft, normal glans. Prostate: normal prostate, estimated weight 30 gms, no hard nodule observed. Lymph Nodes: unremarkable palpation of the cervical area. Skin: warm, dry, no bruising. Psychiatric: cooperative, affect appropriate for age, normal judgement, euthymic mood. Assessment/Plan This patient has symptoms of frequency, urgency, urgency incontinence and nocturia. He did have a TURP in 2017 and recent was started on tamsulosin with no improvement related to a trial again with very little improvement. PVR today was only 58 cc. He does complain of significant back discomfort. He is using a cane to stabilize his ability to ambulate clear. There appears to be a correlation between the back pain in the beginning of his urinary difficulty. At present he is being scheduled for a cystoscopic examination to evaluate the possible outlet obstruction of his urinary tract. We also will start him on Terazosin 10 mg daily and the new prescription will be sent to the pharmacy. Preop antibiotics have been ordered and informed consent has been obtained for the cystoscopic examination. The procedure, risk, alternatives and potential complications have been discussed with the patient. 1. BPH with obstruction/lower urinary tract symptoms (N40.1: Benign prostatic hyperplasia with lower urinary tract symptoms) S/p TURP 2017. Pt. has been started on Tamsulosin 0.4mg and Detrol by PCP but has no relief. PVR 58ml. BUZZ today 30gms- benign, no hard nodules. Severe frequency, 4-5x per hour. Will start pt. on Terazosin 10mg qd therapy. Discussed the medication side effects, and the patient will monitor closely for these, as (more content not included)... Normal [facility] Comment on above: Result Comment: Elec tronically Signed By: Reji Ivan MD, Danis Panda\.patricia\Date and Time Signed: 08/28/21 15:17 EDT\.br\Electronically Co-Signed By: Samara Craft.br\Date and Time Co-Signed: 08/28/21 13:00 EDT Outside Records Officeon Outside Records Office [id number]# 1.00CD:127 [facility] Coding Summary.on 07-04-2021 Coding Summary. [id number] G h0bWw+PGhlYWQ+DF1QHDH tV56yvARarW8FT2zKYK8W DGTWWAZSZJ2MMU8xtRZ9S MhyM0QihnNb EoymiVYfHI27ZLi8AYX4d FlhJDyqqV6rcRUqC6k7Gw ZtTH59qQ72VVawBXLoOyL 3LjZpbjsgbWFy K5zcEoZzsJVrHgq+PHRhY mxlIHdpZHRoPScxMDAlJy YwrLkxBY7rJu2kPYFzLBC vbGxhcHNlOiBj n2peDOXxHUyjIV1mwFlxO 9XmkDG4PYPgc9w5Dd88cR I+GTQeGRF1aEglQXmgt05 5VdNob4syRAF5 dJGuJDsbMER3M37wj2O1A BPqLYZxUTS0eJZ1cM8wxA jpnjhoI6XxaQLhLlI1UYW 2nKLexY6wpPkc yewnfZ4xAgj+Q92PQA0GS RMVPU7SDej7V5FmMemulC I+KL74KQWqTJ30jPOggKV rm9jxzGy5MxBh HKMxIVK8wOnvAZqfv9ImZ UTtR08kzPRph8K9FHMslU auuYRlHfJkyQD0vI5bBTm kvmuwu6bolgzi Ieppv5pdkw77sE38Z83iY McsSZPaYVF4KGAnLDCdgV cmmg2hpF4qTn7+IQmwk0w dp6bfeLl0RfJe HMGbewOnxEreINA3o6VjF h54M2PwlJzqn1YoJnz9ym 82oOXnz0N2eJL3VYdgVDZ axY3tAFqxQpZ8 FXGpLoZaxY12oRToMKlxJ g3vmPyipFtpPS6dBZGohw idPGKbyM8bSSVbkFBnyGd yBE3kPSNmwakt g780IlGgAWI1MAXfaOWtK 4OusD8aYlUoIEPtFZFuR0 ZxvWQzTBraU547GZxsQjU 7OVYwayYqM4Bp LASziYvvJgR3w3D3Ie3Sq 2FizsvqXBE6OYubQTH7Zi V5XdVbWvN9B5FcPhg4LMF gaFcpDZ0lK8Qm MGOxhakskjktsLT2UOHwL XOjaV87yYUcMIdwFd5cq6 D5e718NQFsTRCxyT83Wm0 udDogMTBwdCBU qN1sracay5pirbkkPbKrM HYfCKq4SYr0WLNiiCapGo QzMJP8QgZ4NDN4bNKocB2 rbOosmbmqlW6o Oyc+Z62nyX6zQQM9CTV6z jsaJPSkofDbSW32IW79N2 RyPjwvdGFibGU+PGRpdiB rpQolGH7dYtEf d0lrr7VtCNmaE6XhOCDmO UtwJie7WHZzQNC5wSZ1pV 7eEVItDCzqi9K4qNG1X9A vnpOmdu7py4qy MKNsXEahT90vbBEud9Z3W ANlxTD9KERbaLagBfIqqP 93Oyc+KGRfbJfeq2UiCcc su0vvv7mjpVg3 XbNePJIeyyOuwMfdCLS0c 1PoJb28G00vVXxuXAHsOW UtYDVnQKLhoWcegk2jdH6 wIi8+PGNvbCB3 hFJ9hD0uXYMoFgF5BPyoD 701WvGnyYPoLbuju6kvr3 lxdAi9SqTsWDNdpaSryQx nFDJ7c4VeYb58 D88yFGtfLTSdJAQgQTPhW RVwkKienb5oxY0pKo0+PC 9ls5bnww25gM99zHM+PHR gOYL1zRrqOJjq QRHwlV4qWPndGkY8YIMiN wKjuL26lCJcBStsSo3haQ uurOrhHW3oMPIhtmeln25 9GfXvu8piVKDj lLTjQUciDOP4R70ia3M4K ABfYJBpSIN8wMX7nU2mwK lnbjogbGVmdDsgdmVydGl fTAsbTZceQ503 IHRvcDsnPlBhdGllbnQgT fTnUNq1N1MhOmj9CUXfmF eaKR8zuTPlYBjhOd4aaNr ahTtgKN0lEZXa amhiu543AhBnk8isQJBsv OLzMVhvBGF8F17uf6Y4LA HmMOQeNPF4pAA3qF9oyNk nbjogbGVmdDsg vcYtdTluLYurDBkhD858T HRvcDsnPkJpcnRoIERhdG W8WX92ZT38uJPwp3R4oMK 6T0McNMRfdssb eihlgYC4OVOkNXVoqS75I p1yxRxbCv7hGNRwNGW9KX ZqmEOsX6SlxH9vCoJxILZ vFWHoR4ZpkHPg BBzrS788DLriDhB6FBUwq xLpJ5NuPTAreXjeZjQ7l4 H3Xa8XQ8T1DN79OM25fIH bp6N2fSN8L9Ct LZBmozzfpewlsYY4RHXxQ QNapQ73Of5meJhkUy3qCT EfQLA5QASlqHQpB2KaoY8 yOiAjMDAwMDAw D2SebCMfRCgxI041UHmgC hD4XHKnnoKpN8OgRYUmvO acUmC0b9I3Sa4YKAb3GJ9 7ZR53cINdc9E9 yGW9M6PfQXZupelvatiyn TP8ROMqHSYfyH76Ji6cvA qbJz4bZEDoSJD7WDMamRO kH0UdfJ8iYePh TFCkFLDnT9QbaYIdVCooB 288WPovQmL8LTBfseAaO9 KvJZZgnFjyVyR0k0G9Ft3 ADTLbNB98RUF0 fEP2LT20FB13J3DqApymv GFibGU+PHRhYmxlIHdpZH RoPScxMDAlJyBzdHlsZT0 lBe5gYSHhPFNg zNlmfHRiUmIaz6ctNJKsU HwtVB2orYosI8KltFY0MC Fwl8w0Gv69G49hD2CeqRE +OJSioDZ6cJR1 pH3yJaJcPpK9JIobR616E tGcsUAnSupix7ggh6jwlM x4PpT5CWYwfaSwiOfcQIC 1r0VjRx07L46q IHdpZHRoPSIxNSUiIHZhb Rpshn0tnE3xIp3+PGNvbC K3qEF5kN6pYjZnVkA9CPg cG290JvEosALl Rifak2ege6hyuFr7LaRlO EDdrdKkrMygPAE6h3TnTb 65H8VpkLluh1XtRtm8qa5 2mYAtr7K1rHA6 T1MuZQPlksegoNYdfBqjH M1cQNWwpkwuYOPtpC2fXO LrK6t4HrNoLwD8VWsvG9I ihdV9AQPxvFNj HCbySIF4J46ow4A1NIUcS RHsBZU6oZD4hP4oaShaas ogbGVmdDsgdmVydGljYWw bLVgvJ620PRFe kDavWZYcbS8tHYBbxZHaj MtpOK1yXXHryzrnSksEY6 RFUiBKciwgQVJUSFVSPC9 7OK03zHQwv8L5 gDR2R6MgSXYiknzjmsklg CI8NBWyUVQarF45rYTnKW lqXu5dj9Y4v903KHOlSUW viC51Lo6ooOlh JGUzwOMKvH4rvnhql7adz tmyNaKaTFNgGFw8NFp0WI EbvChhPzDyJOF8CqJ9LBW 5iUToqE5bfHgx oiyukW6aDuw+MDcvMjMvM Hh7NqtlwUO+CLVlYXY2oH ahESkuEVFuxM1aPZSeQ4y 7VrJwKpU4PYmz D2UkXZMsddybRj60nD2pX jUkDkI7LSjmV4BhjkF3TM DzsLVjCQopDHA4M76gc3X 9UYIyMPBiMFU9 xPH3vA2nhBjizsoloTWbx DsgdmVydGljYWwtYWxpZ2 46IRRweHdiIbA5QHsxJOZ qIC21JH13pZUf n7Z2dKU0N1LxVLJttxaif qbsxWV1YOTzKULfmE98iZ HnBBcoRc2as7G7q101GAN uWRCztV46Jk3p nLcsOTPyySNHoJ5yyvwjv 1wzbmziIyDsTJMfRSm8CM s0PAQpwZolDhYaMDY8YkF 1XBN4cSIwmK9k jYuacpvgzE7jNxn+TWFsZ TwvdGQ+XLXlENO1fEogZZ qjHGRhxJ6xOSDcU6c3HkV jRuV5PFlsL6Lt BGBdjtswOf79zB5nAkKbC cT4MUgxM9IryuK4YSFnrG AqURodAAW2L22zq1W2WQB uPEUaNUY1kNC9 rT7xrBlyptvbjYCmdZmog pRxrRvfWSprJNvxP303YY CpdOzwVw61mEJrtRuwzdD 1D5GyMyjaqZQ+ CW09DBGkZZ54bLTzzWHrm 8jpbFb1DeTrIFIeDOF6qX flFYvzj3FcFKZkY50qaFA ic6H4UDHyuXcr oVUoMsOirBJ9cI5hLXgeo wjzo7thpgghDckrk2ohym 33aH15L20gEEhjGFGpFKD zMCUiIHZhbGln bi3uiZ2wUw9+TSVhdXP2h PH2vA3jCrCfIeK3HMlnA0 57GrEvxRClZchra4qqe8y fsWj5KoJwHYXw nrYdpAaeNDO4m7SfGw48V 29sIHdpZHRoPSIyMCUiIH AdzHzjap1ymJ3kGq9+PC9 my4cjdh03eJ13 dHI+GNTySZT9aPsmYWygA XCzcJ5dHWbmZsL6WBUnPn KjyE10fIQrBGpeAq5exXh avYijHU7cNZLl qmuwc174DwYmk1taBXAqw ETmEMmqUPC3W15mz0L2MZ TrYFApYMI5uAP7iT1qzCo nbjogbGVmdDsg wnQirGaxJJbrXEieX490N YZjcWntJhTxgMUlL6cavr OALO9uJlnkjMD+PHRkIHN 0eWxlPSdwYWRk yX1vQIUaC6k6VpSbBfE1H WjfK3QhxjV0YMWiwFEoZB TvqXHPgV0nstwad6crozd gIzAwMDAwMDt0 LWw9FWBkqXsbBnAhRYH8T qV8UQJ7xBTxoC0vxEamoq znsT0aYsk+RklOOjwvdGQ +YPXgRQR7wZjp FIwuYIHzoY3xKJWmY2a0Y pJoLpP0NYfqD2UeduC5JF NguBGiXGTrrZMMdH2tyjr og4zcfyqsOvDp DWIqCGs9DSp2ZEZcfFivI oOwMUZ6JpG3BNZ3aNRfiL 8zjNadecjilE0hMvo+TVJ OOjwvdGQ+PHRk RTL5qUndQDhiPDCfcQ7wM DTgW6i2FeFrFeK1AFyoF9 GcqlQ5UTLpeUGnIPSvfBM EjN3whzcxu2ov estrNgLkMLRjLZg0NVt5U TUxcHrmDfSwNHF2NvC3OB Z2vXAibQ4jcRoruhdvuC5 wOyc+MBD6KII3 IL35WM03X4EqUdfqfHYuj +PHRhYmxlIHdpZHRoPS vdWBSwOnQoiItsFZ9dJo7 yZGVyLWNvbGxh cHNl (more content not included)... Normal [facility] Consultation Noteon 07-03-20 21 Consultation Note HOSPITAL REGULATIONS : ALL Positive Important Negative Findings Shall Be Recorded. Date of 06/19/2021 Consultation: Attending Domonique Peñaloza D.O. Physician: Consulting Gatito Schulte MD Physician: CONSULTED BY: Primary care physician CHIEF COMPLAINT: Low back pain. HISTORY OF PRESENT ILLNESS: A 61-year-old male morbidly obese status post lumbar surgery by Dr. Jono Ratliff M.D. in 2017. Since that time, he did get some relief of his lower extremity symptoms but now he has severe low back pain, bilateral lower extremity symptoms and some bladder incontinence. He does have a prostate issue. He has not received any treatment since that last surgery. He states he can barely walk, barely dress himself. He had a left ankle injury. He is in a walking boot for that. Denies any numbness or tingling in his hands, denies any clumsiness in his hands. Difficulty ambulating secondary to his ankle injury. For PAST MEDICAL/PAST SURGICAL, MEDICATIONS, ALLERGIES, PSYCHOSOCIAL HISTORY, REVIEW OF SYMPTOMS and FAMILY HISTORY: Please refer to the scanned new patient questionnaire for these. FOCUSED PHYSICAL EXAMINATION: His left lower extremity is in a walking boot. He has had a well-healed midline incision over his low back. He has no upper extremity signs of myelopathy. Normal active reflexes 5/5 throughout. Negative Corona. The patient has difficulty rising from a seated position, difficulty ambulating. Heel walking, toe walking, tandem walking cannot be tested. He appears to be neurologically intact to his right lower extremity in all muscle groups with normal sensation. Left side cannot be tested secondary to his walking cast. INVESTIGATIONS: None. IMPRESSION: A 61-year-old male status post low back surgery with concerning symptoms of bladder incontinence. PLAN: Will do a standing x-ray as he leaves today. Will do an MRI of his lumbar spine that has to be done in an open MRI. We will make a referral for Pain Management as I am not sure this is a surgical issue. He will follow up if there is something on the MRI but he will get plugged into our Pain Management here. Gatito Schulte MD gls Dictated: 06/19/2021 #[id number] Typed: 06/21/2021 #[id number] cc: MD Domonique Schneider D.O. 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 [id number] G h0bWw+PGhlYWQ+KA7ZNOS iU68ouJFrgI3UP4dNQK8B VRWQLZOIZP7CHX0yyHD3V DlhO1IxzvBi PlzzhGUjSC18QNl6VIP4p OshQHvzcC8azSKdH6z7Ob VvQY54eT57FOwnKMBuLqZ 3LjZpbjsgbWFy K2ifSfLklQEuHpc+PHRhY mxlIHdpZHRoPScxMDAlJy UetYthHG4zTl0rPDPoGFC vbGxhcHNlOiBj h2epKMHwDIrfGT1vxZwgH 4ZorRJ3TQRjn8y0Xp90hU I+SLTyVBF8zUfxKVflm21 5MvRna5xuMAU7 wOWbFKxqINL2F95yf1H2I DSoJSLwBUU0tXH5zD4czE impxfzS3HprYKiFaJ7UXG 9zTBesL2boLta ucmnfJ6qYzs+A16UAW3NB KOMGJ8KXho9I7FxUisihE I+WU44TYXcTF34iREffJS pk8tptYt1PrId XYDiEBZ1tUmqOXpxc9WeQ GJfH57ehLGcw2A0KORdsK nigWUdRkElaHK6mU5eNGr lqipdd5etrksd Ztije8neoz09wA40R53cT RemEMMxYSF8ATKkPMXghO oomz1tiY2sJe7+TRqti1w vy3ztfFo1JbXp ZGNcecSsfDyoXLC0j8QrV m70H0VefBsme3JyBsp1zx 23cUUuz8I4sEF7HEpcRLD olP1jHUfsSoY9 VVFcBxQcgL58uKGrKPweJ e5nbRfjgBycEJ0pIFJais fuJIFejP4kXUJltVGhpXc qSX4zGXUzjshl h104LvOuUXN9QVJisWNvE 3QyxO7tPxMzWCReFNGbU0 McmUUxKPvnE848HVxxEtG 4NNFcybVbB0Vz UXOvmObqCoW5l5T8Ov9Zz 1PfjunaAZJ8BXztNUV7Lt Y3YqJbRyU6E4HvAtw0ICU idAdhFE3iZ1Df YZKufahvximxbOP3LGMrM RDfqS12sZQnHQbsPg6na7 U3f361VMNgLKZziQ77Ff3 udDogMTBwdCBU pU8xyakrw9zurqloLuOcE YDxAHj1DWz3GNEgzQokPr MiEBX1IdG8ZZY9eFXzaO5 eeIbvnlkwwL6v Oyc+Q82fxJ1jUWX8FHC0z fttSBVyogTsZO67XZ27M0 RyPjwvdGFibGU+PGRpdiB fiWdhKO1hYlTh t5hik9GcHXdeI0DuUFAbE OyeQil8JNAgOSD3eBJ3kO 0iMAUbXUnzb8D9tDM1X6C xwqAezd4tn5ah KBHkSHvrG92xvPOfa7K8N XGmdOZ5DYYxgLaxPxBlfT 93Oyc+IDRqkZayl0VoXur ut2qys4ngmYw2 GmOgAMVyceQojItpSJP3u 8RqMq63C92tUHjrJYOrFH ErWGIcQNWtnNkubh3vqK5 wIi8+PGNvbCB3 ePA0yN5eFBQmRyK1OLhcS 921StExbXZoDybnr3emh6 opbUu3CdRlFAHxarQddMl uVKN3f2WbJn06 O43qHHheBSHqYFBbMXReM LHovQbjlg6ojX9fRf1+PC 0jw0rlsc63qZ50aHH+PHR cYNW7mEcxPMuw KVFpeT8jOFbvNrV0IBHfA uOmhY87eAIzTNvwDp1ssW kiuNzgCX6zCSFxzlncz91 8DiSfj7ksOBUf hSTsLAdbVJQ8C67wq2M6O YOxKRFeAVN5lGC6vI7dbS lnbjogbGVmdDsgdmVydGl uOIrfTPqiU935 IHRvcDsnPlBhdGllbnQgT rQoBBh7T3MlCpa6URAksY mbRC4feNXpSBniQh4lxVb ksHmsCJ1mIDSs znqbg803HiYkq2xrMNGkq QTgDZhxZFW2B58pc4U1TJ YhVMVrSCY2aIE9hQ8dhTw nbjogbGVmdDsg zaHjwTvtWJvpAGvxS851T HRvcDsnPkJpcnRoIERhdG Z0LV12PP98rTVyl4T6nEI 7I2JwSLQaqgkj byfndVQ9UZLqKQEpxF42X u8wjNjsDp3tDYFyTZU4QB UetBFvD0MqzE5oEbRhIZV dSSPqY1VdzPLk FJojG801UAvdJfU9BIUya bWlA5LqVENkpEdcKdM6u1 R4Yq0TY6G8DB66FR56gSI gf6P4fIY0F5Ts DKAmvllhxvfvtWD9BLNdK BAtqA56Ik1fzKuyVr0uVP FzUUR3GGTyiODcF6MvmE2 yOiAjMDAwMDAw U6DmsTFoPLjqN483EObuU aB0GIQovzMeV5ZzDXRrvR naRhY5c3I4Lc9DDAg6IX2 4RE37jSNok9D5 zGD7F4LwJQDyhziypljlt EA4OUEbQBEpdR30Cx5moU geZm3gBIGlLDI9MCYdfSU pI4EtmI6wLhEb MKEnBQQlF0LacKTpFZnxV 568CKyhMhX2AXOoicVyC2 IeTBYjuHvgFyC7k4R9Mw3 PGHKsTR75MXV0 qSI3WK30RH03V5EvNdsku GFibGU+PHRhYmxlIHdpZH RoPScxMDAlJyBzdHlsZT0 bEc4eJWLtXSNh iRsemHEpXqVar9gtKUTpJ RagDR5pzJaeJ6XqfDL8ZA Bme4i2Al99U48oS9ObrNI +MVTifXP4pBQ6 tY0aXjNdOuO6CXnuA265R aJpkKJrPhzmt1txa4lipU e9YdA8ELZptdJedDvsVOM 2m5BfDi43P01q IHdpZHRoPSIxNSUiIHZhb Roojy9nnM0cWm6+PGNvbC O5mGS8cP9bSrFfHjT0ZOs zV231WsReoSTe Ncwlg6oev4dalPv5IrDiP YRyqpKwjIdeJFC2o3HxHo 49P4RlhFatu1XyCya5xs3 4zETim8T8vTP7 N0ZlWNBwoozjqHKfnJofR B7eYXMnizpsDRNdjO8oSM KaM9x4VlJwWuB4ONdiE1G ragS3XGBcoMCx VYniEZE4Q96fa4V5XRBaN BYrEFD8fHA6xA7osNaxpn ogbGVmdDsgdmVydGljYWw wEQmaJ345JEAy lSlcYEPqtY0oPBTizDNst BukVS2sFBFxjoiaMffNL3 RFUiBKciwgQVJUSFVSPC9 0IF49cGOzw7A3 iZX2Y1UdIOFdlitnrmmfl JY1QRHzTFKpkC84lWIbAC ecSv3si8B2z825JAXsRVJ khO97Zd1okAdq YHWdaXHIgA1vivtea9fav nlfJmRwYSQqWZg8ZCy5OV DocUbrSxXrKAF3AsS2TZX 8bZGiqF6qaHsh pjuesX8mDxm+MDcvMjMvM Gi8CkyaeUR+HOUkLKS9dA fcGNblPCWyyF1yXPLsR0h 2QvRdJqP6VIaz M1TwOXIaxwymBv65hC6wA zXwGxX6DLqhU7LljoF6XO PayDRfFQoaYIQ0M22tu5R 2AKWsQSYvZPZ5 eTN4eU6pjYxzhmgzgYEer DsgdmVydGljYWwtYWxpZ2 60HTSvmPqcKrF8PWlyYXM eZT06HV12iOTt l0S3tEX5R5YhCSSxxedvq lpdxAM2FCLpADMzfU11mD VdYEnlJt9nh8D9e736ZLQ xSYQtuD73Ns3p xPhbJQFacRPPtD7oaqjov 1kysffsHcIpDSJzCEs7DC e5MKBtoXfcFxNtLHI3OtH 3QBA3zHLemQ8u sAvxauwggO8oFqm+TWFsZ TwvdGQ+VGUwTRB2bXkbBD btXKHevV4uZLLnH1v9JbK xYhK9WTktA4Eq GEEzaieuGs15oO4kDfKvT hQ1IYdqH3LvfeG8JLEzxY HnYSsbZAB6Z94rs9C0ZQI fKKQzOKV7aTN5 oH8qiFgjvezwiZDxcXsvl gYdiLwtFJzeJGnbP906FV IoiZnuNe77fAVbpKplbpY 8Z1WnEfgkfAL+ OU51VNNfXR88sJAolWPul 4carQc5SrPpNVKiILV5xV kbQJrqs0UbOFUuE01xtEB xm9J5SXBqkVpn bUCxQfVgqAV3sU7xZIuxd hjdv7tuvyvwFphma9pfau 61qF39K70fXIzyJBZdOGI zMCUiIHZhbGln rm8buA0gGa1+BQBwvTO2m RU5sG1gGrRgWlI3LNmgY9 91LmYkdFFjKahdq6pig0x odVx4EbEcBZUu fxVmhHuqFBG7l0NoZa06I 29sIHdpZHRoPSIyMCUiIH XhfWbrqj7tmT7xBm4+PC9 lv1trhi19lU40 dHI+HKMjUAI7qWycGUgrD XAtmG3sFAlzKxH9HQJnHw DbcZ79tKGvVGwcQo2rxTj peOizCN7uCUCk ftymd280UhQhk7oiTWSdm ZOdRXgwJNY7T07yi1W9LM VoYRRxDVT1aFR1vE4euLb nbjogbGVmdDsg leUkuSukWHhsVHkzG369W SNskKtpZmInuTWeR6ntjw UGQT0oEqmlfQZ+PHRkIHN 0eWxlPSdwYWRk eQ2dQWMeF8t4BvZoOpZ9A FhvE9VfzyT6NAVgpERpYD PhaIIXiY9xjcfpi6uozih gIzAwMDAwMDt0 GDo5TZEuaVccXiIrKHV3L lW2MYY3pNPhjM6plKxxqj cuiC4jQqz+RklOOjwvdGQ +MEGrSLY5aCve MNsoMCEooV7tNIYjI5t2O cZqYyH4UMfgM2KjweU0PV TbtHYsQZWtmPEKsG8eqqj hq4vjbrwwMhZd GHImOHy0MMi0DPMikBgqW jHiSMM2KvT2MKF2eJQcjN 4btGrdmlyycE0oEre+TVJ OOjwvdGQ+PHRk PSK4hLcmQHrvDAFekF1kC POcB8w9SjJnHtY4XXrfB5 XugiB9BLJnzIJfWLBtcVX BlO3ruunpu5yl fcngBzWqXUBaOGj0KZf4J XWozRxiRnHvYFZ5QtB8AR I2mAEwsF4usOruiimkvY2 wOyc+UEA5TTM9 JY52NI45P6YfFnepuLGwv +PHRhYmxlIHdpZHRoPS itYFWiUdIxsMkkGN6cKz7 yZGVyLWNvbGxh cHNl (more content not included)... Normal [facility] Orders Officeon 06-22-2021 Orders Office [id number]#1 .00CD:127 Normal [facility] Referrals Officeon Referrals Office [id number]# 1.00CD:127 Normal [facility] XR Spine Lumbosacral 2 or 3 Viewson 06-21-2021 XR Spine Lumbosacral 2 or 3 Views Exam Date/Time: 06/19/2021 14:15 EDT Reason for Exam: Failed back syndrome Report IMPRESSION: There are no acute osseous changes. CLINICAL HISTORY: Failed back syndrome COMPARISON: NONE FINDINGS: AP and lateral views of the lumbosacral spine demonstrate no evidence of a fracture, or subluxation. There is mild intervertebral disc space narrowing at each level and there are small marginal osteophytes at each level. There appears to have been a prior L4 laminectomy. FINAL REPORT Dictated: 06/21/2021 4:23 pm Mohan Starr MD, V. Signed (Electronic Signature): 06/21/2021 4:23 pm Signed by: Mohan Starr MD, V. Transcribed by: WOLF Technologist: ANATOLY [facility] Consent for Treatmenton 06-10 Consent for Treatment [id number]#1 .00CD:127 [facility] Consent for Treatment [id number]# 1.00CD:127 [facility] HIPAA Forms Officeon 021 HIPAA Forms Office [id number]#1. 00CD:127 [facility] Legal Correspondence Officeo n 06-19-2021 Legal Correspondence Office [id number]#1. 00CD:127 [facility] Office/Clinic Note-Physician on 06-19-2021 Office/Clinic Note-Physician [id number]#1. 00CD:127 [facility] Orders Officeon 06-19-2021 Orders Office [id number]#1. 00CD:127 [facility] Patient History Officeon Patient History Office [id number]#1. 00CD:127 [facility] Physician Orderon 06-19-2021 Physician Order [id number]# 1.00CD:127 [facility] Outside Records Officeon Outside Records Office [id number]#1 .00CD:127 [facility] Radiology Outside Office Nail Setter yon 06-14-2021 Radiology Outside Office Copy [id number]#1 .00CD:127 [facility] Referrals Officeon Referrals Office [id number]#1 .00CD:127 [facility] Vital Signs Date Time Vital Sign Value Performing Clinician Facility 06-20-2024 10:16-0400 Body height 187.96 cm [facility] 06-20-2024 10:16-0400 Body mass index (BMI) [Ratio] 45.3 kg/m2 [facility] 06-20-2024 10:16-0400 Body temperature 97.8 [degF] [facility] 06-20-2024 10:16-0400 Body weight 160.11 kg [facility] 06-20-2024 10:16-0400 Diastolic blood pressure 75 mm[Hg] [facility] 06-20-2024 10:16-0400 Heart rate 95 /min [facility] 06-20-2024 10:16-0400 SaO2% (BldA) [Mass fraction] 95 % [facility] 06-20-2024 10:16-0400 Systolic blood pressure 140 mm[Hg] [facility] 09-22-2023 13:00-0500 Body height 187.96 cm [employer] Other [employer] Other 09-22-2023 13:00-0500 Body mass index (BMI) [Ratio] 46.22 kg/m2 [employer] Other [facility] Other 09-22-2023 13:00-0500 Body weight 163.3 kg Imad Asaad Other [facility] [employer] Other 09-22-2023 13:00-0500 Diastolic blood pressure 78 mm[Hg] Imad Asaad Other [facility] [employer] Other 09-22-2023 13:00-0500 Systolic blood pressure 137 mm[Hg] Imad Asaad Other [facility] [employer] Other 09-18-2023 10:37-0500 Body height 188 cm Erich Kevin Work Phone: [facility] 09-18-2023 10:37-0500 Body mass index (BMI) [Ratio] 46.48 kg/m2 Erich Dilip DO Work Phone: [facility] 09-18-2023 10:37-0500 Body weight 164.2 kg Erich Kevin DO Work Phone: [facility] 09-18-2023 10:37-0500 Diastolic blood pressure 90 mm[Hg] Erich Dilip DO Work Phone: [facility] 09-18-2023 10:37-0500 Heart rate 88 /min Erich Dilip Work Phone: [facility] 09-18-2023 10:37-0500 Systolic blood pressure 138 mm[Hg] Erich Dilip Work Phone: [facility] 08-27-2023 08:55-0400 Diastolic blood pressure 91 mm[Hg] MD Shaikh Bangura Work Phone: [facility] 08-27-2023 08:55-0400 Heart rate 86 /min MD Shaikh Bangura Work Phone: [facility] 08-27-2023 08:55-0400 Respiratory rate 18 /min MD Shaikh Bangura Work Phone: [facility] 08-27-2023 08:55-0400 SaO2% (BldA) [Mass fraction] 94 % MD Shaikh Bangura Work Phone: [facility] 08-27-2023 08:55-0400 Systolic blood pressure 120 mm[Hg] MD Shaikh Bagnura Work Phone: [facility] 08-27-2023 07:18-0400 Body height 187.96 cm MD Shaikh Bangura Work Phone: [facility] 08-27-2023 07:18-0400 Body temperature 98.4 [degF] MD Shaikh Bangura Work Phone: [facility] 08-27-2023 07:18-0400 Body weight 158.75 kg MD Shaikh Bangura Work Phone: [facility] 07-30-2023 14:00-0400 Body height 187.96 cm Imad Asaad Other [employer] Other 07-30-2023 14:00-0400 Body mass index (BMI) [Ratio] 46.22 kg/m2 Imad Asaad Other [employer] Other 07-30-2023 14:00-0400 Body weight 163.3 kg Imad Asaad Other [employer] Other 07-30-2023 14:00-0400 Diastolic blood pressure 73 mm[Hg] Imad Asaad Other [employer] Other 07-30-2023 14:00-0400 Systolic blood pressure 142 mm[Hg] Imad Asaad Other [employer] Other 07-17-2023 13:46-0400 Diastolic blood pressure 68 mm[Hg] MD Shaikh Bangura Work Phone: [facility] 07-17-2023 13:46-0400 Heart rate 77 /min MD Shaikh Bangura Work Phone: [facility] 07-17-2023 13:46-0400 Respiratory rate 16 /min MD Shaikh Bangura Work Phone: [facility] 07-17-2023 13:46-0400 SaO2% (BldA) [Mass fraction] 95 % MD Shaikh Bangura Work Phone: [facility] 07-17-2023 13:46-0400 Systolic blood pressure 125 mm[Hg] MD Shaikh Bangura Work Phone: [facility] 07-17-2023 11:50-0400 Body height 187.96 cm MD Shaikh Bangura Work Phone: [facility] 07-17-2023 11:50-0400 Body temperature 97.8 [degF] MD Shaikh Bangura Work Phone: [facility] 07-17-2023 11:50-0400 Body weight 160.11 kg MD Shaikh Bangura Work Phone: [facility] 06-25-2023 13:30-0400 Body height 187.96 cm Imad Asaad Other [facility] [employer] Other 06-25-2023 13:30-0400 Body mass index (BMI) [Ratio] 46.22 kg/m2 Imad Asaad Other [employer] Other 06-25-2023 13:30-0400 Body weight 163.3 kg Imad Asaad Other [employer] Other 06-25-2023 13:30-0400 Diastolic blood pressure 69 mm[Hg] Imad Asaad Other [facility] [employer] Other 06-25-2023 13:30-0400 Systolic blood pressure 123 mm[Hg] Imad Asaad Other [facility] [employer] Other 10-09-2022 15:54-0500 Diastolic blood pressure 62 mm[Hg] Shaikh [facility]rawad Work Phone: [facility] Work Phone: 10-09-2022 15:54-0500 Systolic blood pressure 122 mm[Hg] Shaikh Timmywwad Work Phone: [facility] [facility] DO Work Phone: 10-09-2022 15:38-0500 Body height 187.96 cm Shaikh Orawad Work Phone: [facility] DO Work Phone: 10-09-2022 15:38-0500 Body mass index (BMI) [Ratio] 44.42 kg/m2 Shaikh Orawad Work Phone: [facility] [facility] DO Work Phone: 10-09-2022 15:38-0500 Body surface area Derived from formula 2.74 m2 Shaikh Orawad Work Phone: [facility] [facility] DO Work Phone: 10-09-2022 15:38-0500 Body weight 156.95 kg Shaikh Orawad Work Phone: [facility] [facility] DO Work Phone: 10-09-2022 15:38-0500 Diastolic blood pressure 80 mm[Hg] Wilson Fawwad Work Phone: [facility] [facility] DO Work Phone: 10-09-2022 15:38-0500 Heart rate 70 /min Shaikh Orawad Work Phone: [facility] [facility] DO Work Phone: 10-09-2022 15:38-0500 Systolic blood pressure 150 mm[Hg] Shaikh Orawad Work Phone: [facility] [facility] DO Work Phone: 06-26-2022 09:57-0400 Body height 187.96 cm Shaikh Orawad Work Phone: [facility] DO Work Phone: 06-26-2022 09:57-0400 Body mass index (BMI) [Ratio] 45.07 kg/m2 Shaikh Orawad Work Phone: [facility] [address] DO Work Phone: 06-26-2022 09:57-0400 Body surface area Derived from formula 2.76 m2 Shaikh Orawad Work Phone: [facility] DO Work Phone: 06-26-2022 09:57-0400 Body weight 159.21 kg Shaikh Orawad Work Phone: [facility] [facility] DO Work Phone: 06-26-2022 09:57-0400 Diastolic blood pressure 76 mm[Hg] Shaikh Orawad Work Phone: [facility] DO Work Phone: 06-26-2022 09:57-0400 Heart rate 80 /min Shaikh Orawad Work Phone: [facility] DO Work Phone: 06-26-2022 09:57-0400 Systolic blood pressure 122 mm[Hg] Shaikh Suryaeve Work Phone: [facility] [facility] DO Work Phone: 04-09-2022 13:27-0400 Body height 187.96 cm Domonique aPul Sappick Work Phone: [facility] DO Work Phone: 04-09-2022 13:27-0400 Body mass index (BMI) [Ratio] 45.32 kg/m2 Domonique Peñaloza Work Phone: [facility] [facility] DO Work Phone: 04-09-2022 13:27-0400 Body surface area Derived from formula 2.77 m2 Domonique Sappick Work Phone: [facility] [facility] DO Work Phone: 04-09-2022 13:27-0400 Body weight 160.12 kg Domonique Peñaloza Work Phone: [facility] DO Work Phone: 04-09-2022 13:27-0400 Diastolic blood pressure 81 mm[Hg] Domonique Peñaloza Work Phone: [facility] [facility] DO Work Phone: 04-09-2022 13:27-0400 Heart rate 103 /min Domonique Muroznick Work Phone: [facility] [facility] DO Work Phone: 04-09-2022 13:27-0400 Systolic blood pressure 144 mm[Hg] Domonique Peñaloza Work Phone: [facility] [facility] DO Work Phone: 03-12-2022 15:32-0400 Diastolic blood pressure 76 mm[Hg] Domonique Miller Petznick Work Phone: [facility] DO Work Phone: 03-12-2022 15:32-0400 Systolic blood pressure 132 mm[Hg] Domonique Miller Petznick Work Phone: [facility] DO Work Phone: 03-12-2022 14:56-0400 Body height 187.96 cm Domonique Miller Petznick Work Phone: [facility] DO Work Phone: 03-12-2022 14:56-0400 Body mass index (BMI) [Ratio] 47.25 kg/m2 Domonique Miller Petznick Work Phone: [facility] DO Work Phone: 03-12-2022 14:56-0400 Body surface area Derived from formula 2.82 m2 Domonique Miller Petznick Work Phone: [facility] [facility] DO Work Phone: 03-12-2022 14:56-0400 Body weight 166.92 kg Domonique Muroznick Work Phone: [facility] DO Work Phone: 03-12-2022 14:56-0400 Diastolic blood pressure 100 mm[Hg] Domonique Miller Petznick Work Phone: [facility] [facility] DO Work Phone: 03-12-2022 14:56-0400 Heart rate 75 /min Domonique Miller Petznick Work Phone: [facility] DO Work Phone: 03-12-2022 14:56-0400 Systolic blood pressure 150 mm[Hg] Domonique Miller Petznick Work Phone: [facility] [facility] DO Work Phone: 03-12-2022 14:53-0400 Body height 187.96 cm Domonique Murosindywander Work Phone: [facility] [facility] DO Work Phone: 03-12-2022 14:53-0400 Body mass index (BMI) [Ratio] 47.25 kg/m2 Domonique Murosindywander Work Phone: [facility] [facility] DO Work Phone: 03-12-2022 14:53-0400 Body surface area Derived from formula 2.82 m2 Domonique Murosowmya Work Phone: [facility] DO Work Phone: 03-12-2022 14:53-0400 Body weight 166.92 kg Domonique Murosindywander Work Phone: [facility] [facility] DO Work Phone: 03-12-2022 14:53-0400 Diastolic blood pressure 90 mm[Hg] Domonique Peñaloza Work Phone: [facility] [facility] DO Work Phone: 03-12-2022 14:53-0400 Heart rate 75 /min Domonique Murosowmya Work Phone: [facility] DO Work Phone: 03-12-2022 14:53-0400 Systolic blood pressure 160 mm[Hg] Domonique Peñaloza Work Phone: [facility] [facility] DO Work Phone: 09-11-2021 15:15-0400 Body height 187.96 cm Kwan Rossi Other [facility] [employer] Other Encounters Encounter Date Encounter Type Care Provider Facility Start: 06-20-2024 End: 06-20-2024 [facility] Work Phone: Start: 06-20-2024 End: 06-20-2024 Patient encounter procedure [facility] Work Phone: Start: 05-10-2024 End: 05-10-2024 ambulatory TAMIA SAPPICK Not Available Start: 04-29-2024 End: 04-29-2024 ambulatory SHAIKH SURYAD Not Available Start: 01-08-2024 End: 01-08-2024 ambulatory TAMIA England PETZNICK Not Available Start: 11-21-2023 End: 11-21-2023 ambulatory Imad Asaad Other [facility] Other Start: 11-21-2023 Telephone encounter Imad Asaad [facility] Start: 10-23-2023 End: 10-23-2023 ambulatory Imad Asaad Other [facility] Other Start: 10-23-2023 Telephone encounter Imad Asaad [facility] Start: 10-09-2023 End: 10-09-2023 ambulatory SHAIKH ORAWAD Not Available Start: 09-30-2023 End: 09-30-2023 ambulatory TAMIA SAPPICK Not Available Start: 09-22-2023 End: 09-22-2023 ambulatory Imad Asaad Other [facility] Other Start: 09-22-2023 Office outpatient ne w 45 minutes Imad Asaad [facility] Start: 09-18-2023 End: 09-18-2023 ambulatory [facility] Ambulatory Start: 09-18-2023 End: 09-18-2023 Office outpatient visit 15 minutes Erich Kevin DO Work Phone: [facility] Comment on above: Status post insertio n of drug eluting coronary artery stent; Primary hypertension; Mixed hyperlipidemia; Angina pectoris (CMS/HCC); MAC (dyspnea on exertion); Hx of percutaneous transluminal coronary angioplasty; Type 2 diabetes mellitus with other specified complication, unspecified whether fpc insulin use (CMS/HCC) Start: 09-08-2023 End: 09-08-2023 ambulatory Imad Asaad Other [facility] Other Start: 09-08-2023 Telephone encounter Imad Asaad [facility] Start: 08-28-2023 End: 08-28-2023 ambulatory Imad Asaad Other [employer] Other Start: 08-28-2023 Telephone encounter Imad Asaad [facility] Start: 08-27-2023 End: 08-27-2023 ambulatory Imad Asaad Facility:[facility] Start: 08-27-2023 End: 08-27-2023 Admission to same day surgery center MD Shaikh Bangura Work Phone: [facility] Work Phone: Start: 08-27-2023 End: 08-27-2023 ambulatory MD Shaikh Bangura Work Phone: [facility] Work Phone: Start: 08-15-2023 End: 08-15-2023 ambulatory Imad Asaad Other [employer] Other Start: 08-15-2023 Telephone encounter Imad Asaad [facility] Start: 08-14-2023 End: 08-14-2023 ambulatory Imad Asaad Other [employer] Other Start: 08-14-2023 Telephone encounter Imad Asaad [facility] Start: 08-12-2023 End: 08-12-2023 ambulatory Shaikh Sveta Facility:[facility] Start: 08-12-2023 End: 08-12-2023 ambulatory MD Shaikh Bangura Work Phone: [facility] Work Phone: Start: 08-12-2023 End: 08-12-2023 Patient encounter procedure MD Shaikh Bangura Work Phone: [facility] Work Phone: Start: 08-07-2023 End: 08-07-2023 ambulatory Shaikh Suryad Facility:[facility] Start: 08-07-2023 End: 08-07-2023 ambulatory MD Shaikh Bangura Work Phone: [facility] Work Phone: Start: 08-07-2023 End: 08-07-2023 Patient encounter procedure MD Shaikh Bangura Work Phone: [facility] [place] Work Phone: Start: 07-30-2023 End: 07-30-2023 ambulatory Wilson Sveta Facility:[facility] Start: 07-30-2023 End: 07-30-2023 ambulatory MD Shaikh Bangura Work Phone: [facility] Work Phone: Start: 07-30-2023 End: 07-30-2023 Patient encounter procedure MD Shaikh Bangura Work Phone: [facility] [place] Work Phone: Start: 07-17-2023 End: 07-17-2023 ambulatory Wilson Sveta Facility:[facility] Start: 07-17-2023 End: 07-17-2023 Admission to same day surgery center MD Shaikh Bangura Work Phone: [facility] Work Phone: Start: 07-17-2023 End: 07-17-2023 ambulatory MD Shaikh Bangura Work Phone: [facility] Work Phone: Start: 07-16-2023 End: 07-16-2023 ambulatory Imad Asaad Facility:[facility] Start: 07-16-2023 End: 07-16-2023 ambulatory MD Shaikh Bangura Work Phone: [facility] Work Phone: Start: 07-16-2023 End: 07-16-2023 Patient encounter procedure MD Shaikh Bangura Work Phone: [facility] Work Phone: Start: 07-01-2023 End: 07-01-2023 ambulatory Imad Asaad Other [employer] Other Start: 07-01-2023 Telephone encounter Imad Asaad [facility] Start: 06-25-2023 End: 06-25-2023 Patient encounter procedure MD Shaikh Bangura Work Phone: [facility] Work Phone: Start: 06-25-2023 End: 06-25-2023 ambulatory MD Shaikh Bangura Work Phone: NPTV Other Start: 06-25-2023 Office outpatient ne w 45 minutes Imad Asaad [facility] Start: 03-20-[address] Erich Kevin Facility: Start: 01-24-2023 End: 01-24-2023 ambulatory SHAIKH Anabella BANGURA Facility:[facility] Start: 01-06-2023 End: 01-07-2023 ambulatory ROHAN Chowdary Facility:[facility] Start: 12-25-2022 End: 12-26-2022 ambulatory DOMONIQUE PEÑALOZA Facility:[facility] Start: 10-23-2022 End: 10-23-2022 ambulatory Hue Mendoza Facility:[facility] Start: 10-23-2022 End: 10-23-2022 ambulatory MD Shaikh Bangura Work Phone: [facility] Work Phone: Start: 10-23-2022 End: 10-23-2022 Patient encounter procedure MD Shaikh Bangura Work Phone: [facility] [place] Start: 10-09-2022 Office outpatient vi sit 25 minutes Shaikh Sveta Work Phone: [facility] DO Work Phone: Start: 10-09-2022 Patient encounter procedure Oraspencer Work Phone: [facility] DO Work Phone: Start: 10-09-2022 ambulatory Ms. Hue Mendoza Facility: Start: 06-26-2022 Office outpatient vi sit 25 minutes Shaikh Sveta Work Phone: [facility] DO Work Phone: Start: 06-26-[address] Erich Kevin Facility: Start: 04-15-2022 Rx Renewal Domonique simmons Work Phone: [facility] DO Work Phone: Start: 04-09-2022 Office outpatient vi sit 25 minutes Domonique Peñaloza Work Phone: [facility] DO Work Phone: Start: 04-09-[address] Domonique Peñaloza Facility: Start: 03-19-2022 Patient encounter procedure Domonique Peñaloza Work Phone: [facility] DO Work Phone: Start: 03-18-2022 Chart Update Domonique simmons Work Phone: [facility] DO Work Phone: Start: 03-12-2022 Office consultation new/estab patient 80 min Domonique Peñaloza Work Phone: [facility] DO Work Phone: Start: 09-11-2021 End: 09-11-2021 ambulatory Kwan Rossi Other [facility] [employer] Other Start: 09-11-2021 Office outpatient vi sit [address] [facility] [place] Start: 09-04-2021 (Procedure) Short Kwan Rossi [facility] Patient encounter status Domonique Peñaloza Work Phone: [facility] DO Work Phone: Procedures Date Procedure Procedure Detail Performing Clinician Start: 06-20-2024 COVID Antigen (POC) Start: 06-20-2024 Quick Strep (POC) Start: 09-18-2023 History of percutaneous transluminal coronary angioplasty Hx of percutaneous transluminal coronary angioplasty Erich Kevin DO Work Phone: Start: 09-17-2023 History of placement of stent for coronary artery disease Status post insertion of drug eluting coronary artery stent Erich Kevin DO Work Phone: Start: 08-27-2023 Flexible fiberoptic sigmoidoscopy MD Serjio Bangura Work Phone: Start: 08-12-2023 Esophageal manometry MD Shaikh Bangura Work Phone: Start: 07-30-2023 Ova and Parasite Result 1 MD Shaikh Lacy arriaga Work Phone: Start: 07-30-2023 Ova OR parasites identification MD Shaik anabella Bangura Work Phone: Start: 07-30-2023 Stool culture for bacteria MD Shaikh Ora palmer Work Phone: Start: 07-17-2023 Esophagogastroduodenoscopy MD Shaikh Ora palmer Work Phone: Start: 07-16-2023 Radionuclide gastric emptying study MD Shaikh Bangura Work Phone: Start: 06-25-2023 Diagnostic radiography of abdomen MD Serjio Bangura Work Phone: Angioplasty of blood vessel Domonique Peñaloza Work Phone: Cholecystectomy Domonique Miller Petznick Work Phone: History of placement of stent for coronary artery disease Status post insertion of drug eluting coronary artery stent Domonique Miller Petznick Work Phone: History of placement of stent for coronary artery disease Status post insertion of drug eluting coronary artery stent Erich Kevin DO Work Phone: Operative procedure on foot Domonique Miller Petznick Work Phone: Operative procedure on wrist Domonique Miller Petznick Work Phone: Percutaneous translu anastacio coronary angioplasty Shaikh Sveta Work Phone: Repair of shoulder Domonique Peñaloza Work Phone: Total colonoscopy Domonique Peñaloza Work Phone: Comment on above: 10Nov2014; Plan of Treatment Date Care Activity Detail Author Start: 06-20-2027 DTaP/Tdap/Td Vaccines (2 - Td or Tdap) DTaP/Tdap/Td Vaccines (2 - Td or Tdap) [facility] Start: 08-27-2023 [facility] Start: 08-12-2023 [facility] Start: 07-30-2023 Ova and Parasite Concentrate Exam Ova and Parasite Concentrate Exam [facility] Start: 07-17-2023 [facility] Start: 03-20-2023 FUV, Provider: Erich Kevin, Status: Pen, Time: 10:30 AM FUV, Provider: Erich Kevin, Status: Pen, Time: 10:30 AM [facility] 250 DO Work Phone: Start: 01-01-2023 FUV, Provider: Erich Kevin, Status: Pen, Time: 9:40 AM FUV, Provider: Erich Kevin, Status: Pen, Time: 9:40 AM [facility] 250 DO Work Phone: Start: 10-20-2022 COVID-19 Vaccine (3 - Pfizer series) COVID-19 Vaccine (3 - Pfizer series) [facility] Start: 09-16-2022 FUV, Provider: Hue Vu, Status: Pen, Time: 9:30 AM FUV, Provider: Hue Vu, Status: Pen, Time: 9:30 AM [facility] 250 DO Work Phone: Start: 06-26-2022 FUV, Provider: Erich Kevin, Status: Pen, Time: 9:50 AM FUV, Provider: Erich Kevin, Status: Pen, Time: 9:50 AM [facility] 250 DO Work Phone: Start: 04-09-2022 FUV, Provider: Hue Vu, Status: Pen, Time: 1:30 PM FUV, Provider: Hue Vu, Status: Pen, Time: 1:30 PM [facility] 250 DO Work Phone: Start: 09-19-2017 Zoster Vaccines (1 of 2) Zoster Vaccines (1 of 2) [facility] Start: 1981 Urine screening for protein Diabetes: Urine Protein Screening [facility] Start: 1980 Hepatitis C screening Hepatitis C Screening [facility] Start: 1972 Diabetic foot examination Diabetes: Foot Exam [facility] Start: 1972 Glaucoma screening Diabetes: Retinopathy Screening [facility] Start: 1968 Pneumococcal Vaccine: Pediatrics (0 to 5 Years) and At-Risk Patients (6 to 64 Years) (1 - PCV) Pneumococcal Vaccine: Pediatrics (0 to 5 Years) and At-Risk Patients (6 to 64 Years) (1 - PCV) [facility] Start: 1962 Hemoglobin A1c measurement Diabetes: Hemoglobin A1C [facility] Start: 1962 HIV screening HIV Screening [facility] Start: 1962 Lipid panel Lipid Panel [facility] Start: 1962 Screening for malignant neoplasm of colon [facility] Start: 1962 Yearly Adult Physical Yearly Adult Physical [facility] Calprotectin [Mass/m ass] in Stool [facility] Elastase.pancreatic [Mass/mass] in Stool [facility] Ova and parasites identified in Unspecified specimen by Light microscopy [facility] Patient Education Gastritis (DC) [facility] Work Phone: Immunizations Immunization Date Immunization Notes Care Provider [facility] 08-25-2022 influenza, injectabl e, quadrivalent, preservative free Wilson Fawwaeve Work Phone: [facility] DO Work Phone: 08-25-2022 Pfizer COVID-19 Vac Bivalent 30 MCG/0.3ML Intramuscular Suspension Wilson Fawwaeve Work Phone: [facility] 08-17-2022 influenza, seasonal, injectable Wilson Fawwad Work Phone: [facility] DO Work Phone: Comment on above: Series: 08-17-2021 influenza, injectabl e, quadrivalent, preservative free Domonique Peñaloza Work Phone: [facility] DO Work Phone: 02-23-2021 Pfizer-BioNTech COVID-19 Vacc 30 MCG/0.3ML Intramuscular Suspension Domonique Peñaloza Work Phone: [facility] 02-02-2021 Pfizer-BioNTech COVID-19 Vacc 30 MCG/0.3ML Intramuscular Suspension Domonique Peñaloza Work Phone: [facility] 09-16-2020 influenza, injectabl e, quadrivalent, preservative free Domonique Peñaloza Work Phone: [facility] 250 DO Work Phone: 12-20-2017 hepatitis B vaccine, adult dosage Domonique Peñaloza [facility] Phone: [facility] Work Phone: 07-25-2017 hepatitis B vaccine, adult dosage Domonique Peñaloza [facility] Phone[facility] DO Work Phone: 07-25-2017 varicella virus vaccine Tico jacque Miller Petznick Work Phone: [facility] 250 DO Work Phone: 07-11-2017 influenza virus vaccine, unspecified formulation Domonique Peñaloza Work Phone: [facility] 250 DO Work Phone: 06-20-2017 hepatitis B vaccine, adult dosage Domonique Peñaloza Work Phone: [facility] 250 DO Work Phone: 06-20-2017 measles, mumps and rubella virus vaccine Dom[facility]ique Peñ[facility]za Work Phone: [facility] DO Work Phone: 06-20-2017 tetanus toxoid, redu erin diphtheria toxoid, and acellular pertussis vaccine, adsorbed Domonique Peñaloza Work Phone: [facility] 250 DO Work Phone: 06-20-2017 varicella virus vaccine Tico jacque Peñaloza Work Phone: [facility] 250 DO Work Phone: Payers Date Payer Category Payer Medicare [id number] 2023 Unknown [id number] 2022 Medicaid [employer] [id number] 2022-Present [address] [address] [place] [address] [id number] 2022 Medicaid [id number] 2022 Self-pay [id number] 1960 Unknown [id number] [id number]3 1962 Unknown [id number] 2.16.840.1.460842.3.579.2.593 1962 Unknown [id number] 2.16.840.1.363614.3.579.2.593 1962 Unknown [id number] 2.16.840.1.921335.3.579.2.356 1962 Unknown [id number] 2.16.840.1.668814.3.579.2.356 1962 Unknown [id number] 2.16.840.1.401897.3.579.2.356 1962 Unknown [id number] 2.16.840.1.399333.3.579.2.356 1962 Unknown [id number] 2.16.840.1.036129.3.579.2.1244 1962 Unknown [id number] 2.16.840.1.627798.3.579.2.1259 1962 Unknown [id number] 2.16.840.1.244486.3.579.2.1259 1962 Unknown [id number] 2.16.840.1.151593.3.579.2.1259 1962 Unknown [id number] 2.16.840.1.706991.3.579.2.1259 1962 Unknown [id number] 2.16.840.1.471278.3.579.2.1259 Medicaid [id number] Unknown MEDICAID Unknown [id number] 2.16. [id number] Unknown Peter BC/JOHNIE [id number] Unknown [id number] 2.16.840.1.984810.3.579.2.531 Unknown [id number] 2.16.840.1.312802.3.579.2.531 Unknown [id number] 2.16.840.1.754348.3.579.2.531 Unknown [id number] 2.16.840.1.025651.3.579.2.531 Unknown [id number] 2.16.840.1.283838.3.579.2.531 Unknown [id number] 2.16.840.1.071020.3.579.2.531 Unknown [id number] 2.16.840.1.128520.3.579.2.531 Unknown [id number] 2.16.840.1.659141.3.579.2.531 Social History Date Type Detail Facility Start: 09-18-2023 No illicit drug use No illicit drug use [facility] 250 DO Work Phone: Comment on above: 1 CUP COFFEE DAILY; Start: 09-18-2023 Sex Assigned At N [facility] [employer] Other Start: 03-18-2022 End: 08-27-2023 Tobacco smoking status AZIS Never smoked tobacco (finding) [facility] Start: 1960 Sex Assigned At Male F [facility] Start: 09-17-2023 Tobacco use and exposure Smokeless tobacco non-user [facility] Work Phone: Start: 09-18-2023 Alcohol intake Lifetime non-d nataliya (finding) [facility] Work Phone: Start: 1960 Sex Assigned At Not on file [facility] [employer] Work Phone: Start: 09-08-2023 End: 09-18-2023 Exposure to SARS-CoV-2 (event) Not sure [facility] Medical Equipment Procedure Code Equipment Code Equipment Origin al Text Equipment Identifier Dates Drug-eluting coronary artery stent, vop-wyfdujlsmgvuj-mc lymer-coated ()[id number] FDA Start: 03-18-2022 Drug-eluting coronary artery stent, bxd-csfvijavohdti-bs lymer-coated ()[id number] FDA Start: 03-18-2022 Drug-eluting coronary artery stent, vzw-xhddtvedflklk-tl lymer-coated ()[id number] [id number] FDA Start: 03-18-2022 Goals Date Patient Goal Desired Activity /State Clinical Notes 09-11-2021 to 09-22-2023 Note Date & Type Note Facility 09-22-2023 Evaluation note Encounter Date Diagnosis Assessment Notes Sep, Diarrhea (ICD-10 - R19.7) Madi reports improvement It is advised that patient have a breath test, orders sent to [facility], they will call to schedule Sep, Bloating (ICD-10 - R14.0) Sep, Exocrine pancreatic insufficiency (ICD-10 - K86.81) [facility] [employer] Other 11-09-2023 History of Present illness Narrative* Erich Kevin, DO - 09/18/2023 10:20 AM EST Subjective Darlyn Verdin is a 63 y.o. male Chief Complaint Follow-up 63-year-old gentleman here for 6-month follow-up with chief complaints of exertional dyspnea, rare episodes of chest discomfort, has taken nitroglycerin a couple times. He states that Ranexa is really not helped him out that much. He has known ASHD with a history of two-vessel PCI involving the mid to distal LAD x2 drug-eluting stents in the proximal PLV branch x1 drug-eluting stent in March 2022 for abnormal stress perfusion imaging and symptoms. He remains morbidly obese, with recent falls x2, and is able to ambulate with cane and able to exercise on stationary bike. Whenever he increases the resistance on the bike he becomes more short of breath but this is likely normal for his weight and physiologic capacity. He remains on DAPT, treatment for diabetes, hypertension and hyperlipidemia. He states that his Breztry inhaler has helped with his symptoms of shortness of breath/asthma. He does not have routine exertional angina. Recommendations: Continue current therapies, continue exercise, counseling on prevention of fallingand will follow-up in 6 months Review of Systems Cardiovascular: Positive for chest pain. Respiratory: Positive for shortness of breath. Neurological: Positive for dizziness. All other systems reviewed and are negative. Visit Vitals BP 138/90 (BP Location: Right arm, Patient Position: Sitting) Pulse 88 Ht 1.88 m (6' 2 ) Wt (!) 164 kg (362 lb) BMI 46.48 kg/m Smoking Status Never BSA 2.93 m Objective Physical Exam Constitutional: Appearance: Normal appearance. He is normal weight. HENT: Nose: Nose normal. Neck: Vascular: No carotid bruit. Cardiovascular: Rate and Rhythm: Normal rate. Pulses: Normal pulses. Heart sounds: Normal heart sounds. Pulmonary: Effort: Pulmonary effort is normal. Abdominal: General: Bowel sounds are normal. Palpations: Abdomen is soft. Genitourinary: Rectum: Normal. Musculoskeletal: General: Normal range of motion. Cervical back: Normal range of motion. Right lower leg: No edema. Left lower leg: No edema. Skin: General: Skin is warm and dry. Neurological: General: No focal deficit present. Mental Status: He is alert. Psychiatric: Mood and Affect: Mood normal. Behavior: Behavior normal. Thought Content: Thought content normal. Judgment: Judgment normal. Current Medications Current Outpatient Medications: albuterol (Ventolin HFA) 90 mcg/actuation inhaler, Inhale 2 puffs every 6 hours if needed., Disp: ,Rfl: apple cider vinegar 600 mg capsule, Take by mouth., Disp: , Rfl: aspirin 81 mg EC tablet, Take 1 tablet (81 mg) by mouth once daily., Disp: , Rfl: atorvastatin (Lipitor) 80 mg tablet, Take 1 tablet (80 mg) by mouth once daily at bedtime., Disp: ,Rfl: budesonide/glycopyr/formoterol (BREZTRI AEROSPHERE INHL), Inhale., Disp: , Rfl: clonazePAM (KlonoPIN) 0.5 mg tablet, Take 1 tablet (0.5 mg) by mouth 2 times a day as needed., Disp: , Rfl: clopidogrel (Plavix) 75 mg tablet, Take 1 tablet (75 mg) by mouth once daily., Disp: , Rfl: dulaglutide (Trulicity) 3 mg/0.5 mL pen injector, Inject under the skin., Disp: , Rfl: empagliflozin (Jardiance) 10 mg, Take 1 tablet (10 mg) by mouth once daily., Disp: , Rfl: escitalopram (Lexapro) 20 mg tablet, Take 1 tablet (20 mg) by mouth once daily., Disp: , Rfl: gabapentin (Neurontin) 600 mg tablet, Take 1 tablet (600 mg) by mouth 3 times a day., Disp: , Rfl: hydroCHLOROthiazide (HYDRODiuril) 25 mg tablet, Take 1 tablet (25 mg) by mouth once daily., Disp: ,Rfl: insulin glargine (Toujeo SoloStar U-300 Insulin) 300 unit/mL (1.5 mL) injection, Inject under the skin., Disp: , Rfl: isosorbide mononitrate ER (Imdur) 60 mg 24 hr tablet, Take 1 tablet (60 mg) by mouth once daily. Donot crush or chew., Disp: , Rfl: oolqrj-cfanjaig-gjagstn (Zenpep) 40,000-126,000- 168,000 unit capsule, Take 2 capsules by mouth 3 times a day., Disp: , Rfl: meloxicam (Mobic) 15 mg tablet, Take 1 tablet (15 mg) by mouth once daily., Disp: , Rfl: metFORMIN (Glucophage) 1,000 mg tablet, Take 1 tablet (1,000 mg) by mouth 2 times a day with meals., Disp: , Rfl: metoprolol tartrate (Lopressor) 25 mg tablet, Take 1 tablet (25 mg) by mouth 2 times a day., Disp: , Rfl: nitroglycerin (Nitrostat) 0.4 mg SL tablet, Place under the tongue., Disp: , Rfl: olmesartan (BENIcar) 40 mg tablet, Take 1 tablet (40 mg) by mouth once daily., Disp: , Rfl: omeprazole (PriLOSEC) [address] capsule, Take 1 capsule (40 mg) by mouth once daily in the morning. Take before meals. Do not crush or chew., Disp: , Rfl: pedi multivit no.17 w-fluoride (Okdi-Ce-Ubsq) 0.5 mg tablet,chewable, Chew 1 tablet once daily., Disp: , Rfl: ranolazine (Ranexa) 500 mg 12 hr tablet, Take 1 tablet (500 mg) by mouth 2 times a day., Disp: , Rfl: Assessment/Plan 1. Status post insertion of drug eluting coronary artery stent 2. Primary hypertension 3. Mixed hyperlipidemia 4. Angina pectoris ([facility]) 5. MAC (dyspnea on exertion) 6. Hx of percutaneous transluminal coronary angioplasty 7. 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 Prescriptions will not be filled unless you are compliant with your follow up appointments or have a follow up appointment scheduled as per instruction of your physician. Refills should be requested at the time of your visit. [facility] Work Phone: 1(180) 180-668510-30-2023 Evaluation note* Encounter Date Diagnosis Assessment Notes Treatment Notes Treatment Clinical Notes Aug, GERD (gastroesophageal reflux disease) (ICD-10 - K21.9) NPTV Other [facility]-18[facility]* Encounter Date Diagnosis Assessment Notes Treatment Notes Treatment Clinical Notes Jul, GERD (gastroesophageal reflux disease) (ICD-10 - K21.9) Jul, Dysphagia (ICD-10 - R13.10) WILL PROCEED WITH EMS STUDY AND MODIFIED BARIUM SWALLOW TEST. Jul, RUQ abdominal pain (ICD-10 - R10.11) Jul, LLQ abdominal pain (ICD-10 - R10.32) Jul, Diarrhea (ICD-10 - R19.7) PATIENT STILL HAVING DIARRHEA. PATIENT STILL NEED TO COMPLETE FECAL ELASTACE AND FECAL LUZMA. NPTV Other 09-07-2023 [facility] note* Encounter Date Diagnosis Assessment Notes Treatment Notes Treatment Clinical Notes Jun, Diarrhea (ICD-10 - R19.7) Obtain colonoscopy from [facility]-Dr. Rohan Freed Jun, Dysphagia (ICD-10 - R13.10) Jun, Abdominal pain (ICD-10 - R10.9) Jun, Bloating (ICD-10 - R14.0) Jun, GERD (gastroesophageal reflux disease) (ICD-10 - K21.9) Jun, Early satiety (ICD-10 - R68.81) NPTV Other 05-01-2022 Chief complaint Narrative - Reported* I am doing ok * DARLYN VERDIN is being seen for cardiovascular procedure. * Patient presents accompanied by . * Patient is ambulatory with steady gait. * Patient was last evaluated by Dr. Kevin March 2022. * March 18, 2022 uneventful elective cath and PCI. * Right radial cath site healed without adverse sequela. * New medications: * Brilinta - has asthma with baseline FC IIb MAC; has not worsened since brilinta. * Has not checked coverage for Brilinta (only has medicaid, got 30 days free) * Reviewed the importance of DPAT, may need changed to plavix due to cost * 2 week samples - they will update if coverage. * Atorvastatin 80 mg - no mylagia * Dizziness 'when lifts head up'; slight vertigo. No supine. * Offered vestibular rehab - prefers to wait and see. * Prior symptoms: chest discomfort improved but occasionally gets on the right side. * Cardiac Rehab: unable to attend due to insurance concerns * Is not employed. * Ok to return to usual level of activity * Treated with bipap -[facility] 250 DO Work Phone: 1(460) 707-842811-02-2021 Evaluation note* Encounter Date Diagnosis Assessment Notes Treatment Notes Treatment Clinical Notes Sep, Lumbosacral spondylosis without myelopathy (ICD-10 - M47.817) Patients primary complaint today continues to be primarily low lumbar pain, most bothersome on the left side. He shows noteable pain consistent with the the facet region upon exam however unfortunately he denies even short term relief following recent medial branch blocks. We can consider a possible epidural steroid injection however patient declines at this time due to an upcoming change in insurance. In the meantime, given patients radiating symptoms into his lower extremity, I will prescribe Gabapentin 300 MG three times daily. Patient has taken this in the past with benefit and denies any side effects. OARRS was processed and reviewed, no discrepencies. We will follow up with the patient as needed. Anatomy of spine discussed in detail with patient in regards to patients condition. Sep, Low back pain (ICD-10 - M54.5) Sep, Chronic pain (ICD-10 - G89.29) Sep, Other Above note writ ten by Alex Mendoza MA, [employer]. Edited and approved by Dr. Kwan Rossi MD. [facility] [employer] Other Chief complaint Narrative - Reported* DARLYN VERDIN is being seen for a cardiovascular evaluation . VASCHAK ABN STRESS. * Patient is a 61-year-old gentleman seen in cardiology consultation at the request of Dr. Joe friedman following recent myocardial stress perfusion imaging that was reportedly abnormal. Details of the stress test are unavailable at this point in time and we are requiring these results * Patient does complain of progressive fatigue, exertional dyspnea and shortness of breath and chest discomfort. He used to be able to walk out to the mailbox without any difficulty now he can even make it out to the mailbox any longer. * He recently underwent left foot surgery details of which are unknown with progressive decline in his health but this preceded his foot surgery for the past 6 to 12 months symptomatically. * 's ECG reveals sinus rhythm with left axis deviation and incomplete right bundle branch block * Clinically he is morbidly obese, with comorbidities that include diabetes mellitus last A1c is 9%, hypertension. Notably he had COVID illness x2, greater than 5 months ago. Notably he also has increased episodes of falling. * Based on his progressive cardiopulmonary decline, positive stress imaging (will acquire these results) and especially comorbidities I would recommend proceeding with early invasive management, risk benefits alternatives and discussed with the patient informed decision-making process, including conse rvative versus invasive management as well as appropriate medications for continued prevention including aspirin daily. * Will proceed with elective left heart catheterization via the right radial approach later this week [facility] 250 DO Work Phone: Evaluation noteNo InformationNort [employer] Other Evaluation noteNo assessment information available [facility] Work Phone: Evaluation note* Diagnosis Status post insertion of drug eluting coronary artery stent Primary hypertension Unspecified essential hypertension Mixed hyperlipidemia Angina pectoris (CMS/HCC) Other and unspecified angina pectoris MAC (dyspnea on exertion) Other dyspnea and respiratory abnormality Hx of percutaneous transluminal coronary angioplasty Type 2 diabetes mellitus with other specified complication, unspecified whether fpc insulin use (CMS/HCC) documented in this encounter [facility] Work Phone: History and physical note Author Yolanda Moore [facility] July 17, 2023 12:53pm Note Date/Time July 17, 2023 12:53pm [facility] [address] [place] [address] Gastroenterology H&P Signed Patient: Darlyn Verdin MR#: [id number] : 1960 Acct:[id number] Age/Sex: 63 / M Adm Date: 3 Loc: Room: Type: [facility] Attending Dr: Yolanda Moore MD Copies to: MD Shaikh Sveta Murphy MD~ Date of Service: 07/17/2023 HISTORY & PHYSICAL: Patient's history with special attention to the cardiovascular, pulmonary systems and the current problem was reviewed with the patient immediately prior to the procedure. Present medications and doses reviewed in the EMR. Allergies and pertinent laboratory tests were also reviewedat this time in the EMR. The physical examination, as below, was then performed. Indication, assessment and HPI: 63-year-old man here for EGD for evaluation of dysphagia and abdominal pain and to assess for Carranza's PHYSICAL EXAMINATION Mouth and Pharynx : Moist mucus membranes, normal dentition Cardiac: Regular rate, regular rhythm Pulmonary: Clear to auscultation bilaterally, no wheezing Neurological: Alert and oriented x3, no focal deficits noted Abdomen: Abdomen soft, non-tender REVIEW OF SYSTEMS Constitutional: Denies malaise, fevers Cardiovascular: Denies chest pain, palpitations Respiratory: Denies shortness of breath, wheezing Gastrointestinal: Per HPI Genitourinary: Denies dysuria, polyuria Musculoskeletal: Denies joint swelling, joint stiffness Neurological: Denies numbness, tingling Integumentary: Denies rashes, skin lesions Endocrine: Denies fatigue, weight loss Written informed consent obtained from the patient. Risks (including but not limited to perforation, infection, bloating, bleeding, need for emergent surgeryand loss of life), benefits and alternatives explained and questions answered. The patient verbalized understanding. Based on history patient is an appropriate candidate for the procedure. Yolanda Moore M.D. Documented By: Yolanda Moore MD 07/17/231251 Signed By: <Electronically signed by Yolanda Moore MD> 07/17/231252 [facility] Work Phone: History and physical note Author Yolanda Moore [facility] August 27, 2023 8:19am Note Date/Time August 27, 2023 8 :19am [facility] [address] [place] [address] Gastroenterology H&P Signed Patient: Darlyn Verdin MR#: [id number] : 1960 Acct:[id number] Age/Sex: 63 / M Adm Date: 3 Loc: Room: Type: [facility] Attending Dr: Yolanda Moore MD Copies to: MD Shaikh Sveta Murphy MD~ Date of Service: 08/27/2023 HISTORY & PHYSICAL: Patient's history with special attention to the cardiovascular, pulmonary systems and the current problem was reviewed with the patient immediately prior to the procedure. Present medications and doses reviewed in the EMR. Allergies and pertinent laboratory tests were also reviewedat this time in the EMR. The physical examination, as below, was then performed. Indication, assessment and HPI: 63-year-old man here for flexible sigmoidoscopy for evaluation of diarrhea PHYSICAL EXAMINATION Mouth and Pharynx : Moist mucus membranes, normal dentition Cardiac: Regular rate, regular rhythm Pulmonary: Clear to auscultation bilaterally, no wheezing Neurological: Alert and oriented x3, no focal deficits noted Abdomen: Abdomen soft, non-tender REVIEW OF SYSTEMS Constitutional: Denies malaise, fevers Cardiovascular: Denies chest pain, palpitations Respiratory: Denies shortness of breath, wheezing Gastrointestinal: Per HPI Genitourinary: Denies dysuria, polyuria Musculoskeletal: Denies joint swelling, joint stiffness Neurological: Denies numbness, tingling Integumentary: Denies rashes, skin lesions Endocrine: Denies fatigue, weight loss Written informed consent obtained from the patient. Risks (including but not limited to perforation, infection, bloating, bleeding, need for emergent surgeryand loss of life), benefits and alternatives explained and questions answered. The patient verbalized understanding. Based on history patient is an appropriate candidate for the procedure. Yolanda Moore M.D. Documented By: Yolanda Moore MD 08/27/23817 Signed By: <Electronically signed by Yolanda Moore MD> 08/27/23818 [facility] Work Phone: History general Narrative - Reported* Type Description Date Medical History Diabetes Medical History Hypertension Surgical History hernia Surgical History wrist surgery Surgical History shoulder surgery-left Surgical History cyst removal-neck Surgical History left foot surgery Hospitalization History see above NPTV Other History of Present illness Narrative* The patient states he has been generally stable since the last visit. Comorbid Illnesses: diabetes mellitus, hypertension and hyperlipidemia. * Symptoms: improved chest pain at rest, improved exertional chest pain, stable dyspnea, denies fatigue, denies exercise intolerance, denies palpitations, denies edema, denies orthopnea, stable orthostatic dizziness and denies . * Associated symptoms: no syncope. * His symptoms do not limit his activities. * Disease Monitoring: * Medications: the patient is adherent with his medication regimen. He denies medication side effects. [facility] [address] DO Work Phone: History of Present illness Narrative* The patient states he has been generally doing well since the last visit. Comorbid Illnesses: diabetes mellitus, hypertension and hyperlipidemia. * Symptoms: denies chest pain at rest, stable exertional chest pain, stable dyspnea, denies fatigue, denies exercise intolerance, denies palpitations, denies edema, denies orthopnea, denies dizziness and denies orthostatic dizziness. * Associated symptoms: no syncope. * His symptoms do not limit his activities. * Disease Monitoring: The patient has had a stable weight. * Medications: the patient is adherent with his medication regimen. He denies medication side effects. -[facility] [employer] DO Work Phone: History of Present illness Narrative* The patient states he has been generally doing well since the last visit. Comorbid Illnesses: diabetes mellitus, hypertension and hyperlipidemia. * Symptoms: denies chest pain at rest, stable exertional chest pain, stable dyspnea, denies fatigue, denies exercise intolerance, denies palpitations, denies edema, denies orthopnea, denies dizziness and denies orthostatic dizziness. * Associated symptoms: no syncope. * His symptoms do not limit his activities. * Disease Monitoring: The patient has had a stable weight. * Medications: the patient is adherent with his medication regimen. He denies medication side effects. [facility] [employer] DO Work Phone: Hospital Discharge instructions Additional Instructions DISCHARGE INSTRUCTIONS FOR UPPER ENDOSCOPY WHAT TO EXPECT: - You may feel full, gassy or cramping after your procedure. In some cases, this may be from a few hours to a day. Walking may help relieve the discomfort. - Your throat may feel sore today from the scope that the doctor passed through your throat to visualize your stomach. Take a throat lozenge or suck on ice to ease the discomfort. - You may notice some streaks of blood in your sputum if the doctor has taken a biopsy. - You should begin to recover from anesthesia within 1 hour of the procedure, however may feel groggy for the next 24 hours. DO's AND DON'Ts: - Call your doctor right away if you have a hard abdomen, severe pain, vomiting or if you cough up large amounts of blood. - Call your doctor if you develop any rashes, hives or difficulty breathing. - If you take 81 mg aspirin for your heart it is safe to resume this medication. - If you take other blood thinner medications your doctor will instruct you when these can safely be resumed. - Do NOT drive for 24 hours. - Do NOT operate machinery such as power tools, lawn mowers, snow blowers, sewing machines, etc. for 24 hours. - Avoid alcoholic beverages and drugs for allergies, nerves, or sleep. - Do NOT stay alone. Do NOT leave your child unattended. - Do NOT make important personal or business decisions or sign any legal documents. - Eat solid foods and drink liquids in smaller amounts than usual until normal appetite returns. If you should experience an upset stomach, liquids high in sugar content (soda, Antonino-Aid, non-acid juices) are recommended. - Do NOT smoke. - Do take it easy today. You need not stay in bed, but avoid strenuous activities such as jogging or working out. FOLLOW UP & RECOMMENDATIONS: -Follow up pathology -Follow up in the office as scheduled -Notify the doctor if you have any problems. -Office number [phone]. [facility] Work Phone: Hospital Discharge instructions Additional Instructions DISCHARGE INSTRUCTIONS FOR FLEXIBLE SIGMOIDOSCOPY WHAT TO EXPECT: - You may feel full, gassy or cramping after your procedure. In some cases, this may be from a few hours to a day. Walking may help relieve the discomfort. - If you have polyp(s) removed you may note some minor bloody discharge after your first bowel movements. - You should begin to recover from anesthesia within 1 hour of the procedure, however may feel groggy for the next 24 hours. DO's AND DON'Ts: - Call your doctor right away if you have a hard abdomen, severe pain, are passing lots of bright red blood or clots. - Call your doctor if you develop any rashes, hives or difficulty breathing. - Let your doctor know if you have not had a bowel movement by 3 days after your procedure. - If you take 81 mg aspirin for your heart it is safe to resume this medication. - If you take other blood thinner medications your doctor will instruct you when these can safely be resumed. - Do NOT drive for 24 hours. - Do NOT operate machinery such as power tools, lawn mowers, snow blowers, sewing machines, etc. for 24 hours. - Avoid alcoholic beverages and drugs for allergies, nerves, or sleep. - Do NOT stay alone. Do NOT leave your child unattended. - Do NOT make important personal or business decisions or sign any legal documents. - Eat solid foods and drink liquids in smaller amounts than usual until normal appetite returns. If you should experience an upset stomach, liquids high in sugar content (soda, Antonino-Aid, non-acid juices) are recommended. - You can resume normal activities tomorrow. FOLLOW UP & RECOMMENDATIONS: -Follow up pathology -Follow up in the office as scheduled -Notify the doctor if you have any problems. -Office number [phone]. [facility] Work Phone: Reason for referral (narrative)* Consultation (Routine) - Authorized Specialty Diagnoses / Procedures Referred By Daniel turk Referred To Contact Cardiology Diagnoses Status post insertion of drug eluting coronary artery stent Primary hypertension Procedures Follow Up In Cardiology Erich Kevin DO [address] [place] [address] [address], [address] [address] Erich Kevin DO [address] [place] [address] 2, [address] [address] Referral ID Status Reason Start Date Expiration Date V isits Requested Visits Authorized [id number] Authorized 09/18/2023 09/17/2024 1 1 [facility] Work Phone: Summary Purpose Family History Unknown Family Member Name Dates Details Family history of hypertensi on: Mother, Father(V17.49, Z82.49) Status:Active Family history of diabetes m ellitus: Mother(V18.0, Z83.3) Status:Active Unknown Family Member Name Dates Details Family history of hypertensi on: Mother, Father(V17.49, Z82.49) Status:Active Family history of diabetes m ellitus: Mother(V18.0, Z83.3) Status:Active Unknown Family Member Name Dates Details Family history of hypertensi on: Mother, Father(V17.49, Z82.49) Status:Active Family history of diabetes m ellitus: Mother(V18.0, Z83.3) Status:Active Unknown Family Member Name Dates Details Family history of hypertensi on: Mother, Father(V17.49, Z82.49) Status:Active Family history of diabetes m ellitus: Mother(V18.0, Z83.3) Status:Active Unknown Family Member Name Dates Details Family history of hypertensi on: Mother, Father(V17.49, Z82.49) Status:Active Family history of diabetes m ellitus: Mother(V18.0, Z83.3) Status:Active Unknown Family Member Name Dates Details Family history of diabetes m ellitus: Mother(V18.0, Z83.3) Status:Active Family history of hypertensi on: Mother, Father(V17.49, Z82.49) Status:Active Unknown Family Member Name Dates Details Family history of hypertensi on: Mother, Father(V17.49, Z82.49) Status:Active Family history of diabetes m ellitus: Mother(V18.0, Z83.3) Status:Active Unknown Family Member Name Dates Details Family history of hypertensi on: Mother, Father(V17.49, Z82.49) Status:Active Family history of diabetes m ellitus: Mother(V18.0, Z83.3) Status:Active Relationship Condition Age at Onset Recorded Date/T young father Malignant neoplasm of prostate Unknown Hypertension Unknown Not Specified Hypertension Unknown Chronic obstructive pulmonary disease Unk nown Asthma Unknown Relationship Condition Age at Onset Recorded Date/T young father Malignant neoplasm of prostate Unknown Hypertension Unknown mother Hypertension Unknown Chronic obstructive pulmonary disease Unk nown Asthma Unknown father Malignant neoplasm Unknown Advance Directives Advance Directive Response Recorded Date/ Time Advance Directives No September 01, 2017 7:28am Advance Directive Response Recorded Date/ Time Advance Directives No September 01, 2017 8:28am Chief Complaint * DARLYN VERDIN is being seen for f/u cath, S/P PCI. * 62-year-old gentleman returns for 3-month follow-up following elective semiurgent two-vessel PCI involving the mid to distal LAD x2 drug-eluting stents in the proximal PLV branch x1 drug-eluting stent in March 2022 for abnormal stress perfusion imaging and symptoms. He is now back to riding a stationary bike approximately 2 to 3 miles 3 times weekly as well as the [place]. He does get chest pain approximately 2 times a week he does admit to shortness of breath and occasional chest discomfort but on the bicycle in the [place] he is fine he does not have any symptoms. He does describe significant improvement in his symptoms and increased stamina he is now able to ambulate and walk the dog without any problems. * He has no other significant disease, he remains morbidly obese currently stable on current DAPT andstatin therapies. He has underlying diabetes mellitus and ambulatory difficulty due to arthritis * Recommendations: I am not sure if he is actually having true angina or not given his improved exercise capabilities and I believe his shortness of breath in part may be related to his deconditioning and obesity. In any event we will prescribe isosorbide mononitrate 30 mg daily to see if this improves his symptoms we will have him follow-up with nurse practitioner 12 weeks and myself in 6 months * Routine f/u: 'seem to doing ok' * DARLYN VERDIN is being seen for a 3 month follow-up of coronary artery disease. * Routine f/u: 'seem to doing ok' * DARLYN VERDIN is being seen for a 3 month follow-up of coronary artery disease. * Patient presents the office today ambulatory with steady gait. * Last evaluated in clinic Dr. Kevin June 2022. At that time, Imdur added to medical regimen. Unfortunately, patient was unable to tolerate due to headaches. * Presents to the office today where his mother has recently , he has had worsening depression with recent initiation of Lexapro. He has not been exercising and has noted a decrease in functional capacity. He reports occasional chest heaviness and difficulty catching my breath -remains very vague with associated symptoms or aggravating factors. He had no complaints ambulating in from the parking lot this morning. He continues to describe shortness of breath but no evidence orthopnea or PND. * His primary concern is shortness of breath which is likely multifactorial due to BMI and deconditioning. Nonetheless, will trial short course of Ranexa and switch out Brilinta. He will update me in approximately 2 weeks of any benefit. Chief Complaint and Reason for Visit Chief Complaint labs Chief Complaint 19.7 R10.9 Chief Complaint 19.7 R10.9 R14.0 R68.81 Chief Complaint 19.7 R10.9 R14.0 R68.81 Dysphagia, Gerd, Abdominal Pain, Early Satiety Chief Complaint 19.7 R10.9 R14.0 R68.81 Dysphagia, Gerd, Abdominal Pain, Early Satiety R19.7 Chief Complaint 19.7 R10.9 R14.0 R68.81 Dysphagia, Gerd, Abdominal Pain, Early Satiety R19.7 R13.10 R10.11 R10.32 Chief Complaint 19.7 R10.9 R14.0 R68.81 Dysphagia, Gerd, Abdominal Pain, Early Satiety R19.7 R13.10 R10.11 R10.32 Dysphagia Chief Complaint 19.7 R10.9 R14.0 R68.81 Dysphagia, Gerd, Abdominal Pain, Early Satiety R19.7 R13.10 R10.11 R10.32 Dysphagia Diarrhea Chief Complaint Sore throat Additional Source Comments (unrecognized sect ion and content) No Status Records FoundNo Status Records FoundNo Status Records FoundNo Status Records FoundNo Status Records FoundNo Status Records FoundNo Status Records FoundNo Status Records Found INFORMATION SOURCE (unrecogn ized section and content) DATE CREATED AUTHOR 11/28/2021 [facility] DATE CREATED AUTHOR AUTHOR'S ORGANIZ ATION 01/19/2022 [facility] DATE CREATED AUTHOR AUTHOR'S ORGANIZ ATION 01/29/2023 [facility] DATE CREATED AUTHOR AUTHOR'S ORGANIZ ATION 03/22/2023 [facility] DATE CREATED AUTHOR AUTHOR'S ORGANIZ ATION 03/22/2023 [facility] DATE CREATED AUTHOR AUTHOR'S ORGANIZ ATION 09/06/2023 [facility] DATE CREATED AUTHOR AUTHOR'S ORGANIZ ATION 09/20/2023 [facility] DATE CREATED AUTHOR AUTHOR'S ORGANIZ ATION 05/11/2024 [facility] EPIC REASON FOR VISIT (unrecogniz ed section and content) Reason Comments Follow-up Care Teams (unrecognized sec tion and content) Team Status: Inactive Member Role Status Dates Shaikh Sveta MD Primary Care Provider Active Hue Mendoza APRN Attending Provider Active Team Status: Active Member Role Status Dates Shaikh Sveta MD Primary Care Provider Active Team Status: Inactive Member Role Status Dates Shaikh Sveta MD Primary Care Provider Active Yolanda Moore MD Attending Provider Active Team Status: Inactive Member Role Status Dates Shaikh Sveta MD Primary Care Provider Active Mike Ramos MD Attending Provider Active Breakfast Manager Relationship Specialty Start Date End Date Shaikh Bangura MD [address] [place] [id number] PCP - General 06/26/22 Team Status: Inactive Member Role Status Dates Shaikh Sveta MD Primary Care Provider Active Start: June 20, 2024 End: June 20, 2024 Shanon Roberson APRN Attending Provider Active Start: June 20, 2024 End: June 20, 2024 Goals (unrecognized section and content) Goals may be documented in a n alternate section FOR RECORDS PERTAINING TO PATIENTS WHO ARE OR HAVE BEEN ENROLLED IN A CHEMICAL DEPENDENCY/SUBSTANCEABUSE PROGRAM, SOME INFORMATION MAY BE OMITTED. This clinical summary was aggregated from multiple sources. Caution should be exercised in using it in the provision of clinical care. This summary normalizes information from multiple sources, and as a consequence, information in this document may materially change the coding, format and clinical context of patient data. In addition, data may be omitted in some cases. CLINICAL DECISIONS SHOULD BE BASED ON THE PRIMARY CLINICAL RECORDS. [facility] [employer] provides no warranty or guarantee of the accuracy or completeness of information in this document.
--- NOTE | 2024-06-20 11:13 | CT_ITS ---
The [address] [address] Patient Name: DARLYN VERDIN MRN: [id number] date: 1960 Sex: M Assigned Patient Location: ER Current Patient Location: ER Accession/Order Number: [id number] Exam Date: 06/20/2024 12:13 Report Date: 06/20/2024 13:52 At the request of: JOS MARTÍNEZ Procedure: CT soft tissue neck w con CT NECK WITH CONTRAST. 06/20/2024 12:13 PM EDT Clinical History:Rule out peritonsillar abscess Comparison: None available . Contrast-enhanced helically acquired data per standard protocol. INTRACRANIAL COMPARTMENT: Included aspects are grossly unremarkable at helical acquisition ORBITS: Included aspects are grossly unremarkable PARANASAL SINUSES: Included aspects are clear MASTOIDS: Clear MUCOSAL SPACES: Evaluation of the oral cavity and surrounding spaces is modestly limited secondary to streak artifact from dental hardware. There is left lateral oropharyngeal tonsillar fullness which is vaguely defined and measures approximately 24 x 23 x 35 mm in z-axis. There is associated mild effacement of the air column which is mildly displaced to the right. Further inferiorly there is asymmetric effacement of the effacement and displacement of the supraglottic air column to the right. The left piriform sinus is not aerated. Vague soft tissue density in this region measures approximately 19 x 15 x 20 mm in z-axis. This abuts the hypopharynx. Slight effacement of posterior aspects left paralaryngeal fat.. The epiglottis is 10 mm in width is well-defined. It is of mildly low density. Margins are not thickened PARAPHARYNGEAL FAT: Effacement of the inferior aspects of the left by the aforementioned oropharyngeal pathology PREEPIGLOTTIC FAT: Preserved PARALARYNGEAL FAT: Preserved on the right. SUBMENTAL REGION: No adenopathy SUBMANDIBULAR REGIONS: No adenopathy RIGHT CERVICAL LYMPH NODES: A few small lymph nodes. LEFT CERVICAL LYMPH NODES: Asymmetric suprahyoid IJ nodes with the largest measuring 11 mm in long axis. Asymmetric 6 mm IJ node at the level of the thyroid cartilage. Asymmetric nonenlarged upper left PC nodes. A few tiny TC nodes THYROID: Grossly unremarkable included aspects are grossly unremarkable at CT TRACHEOESOPHAGEAL GROOVES: Included aspects are unremarkable PAROTID GLANDS: Unremarkable SUBMANDIBULAR GLANDS: Fairly symmetric SUBLINGUAL SPACES: No acute finding OTHER SOFT TISSUES: Mild thickening of the left platysma muscle with slight overlying stranding. Small amount of retropharyngeal fluid/material VASCULATURE: Both IJVs are patent. Some ASVD at both carotid bifurcations. OSSEOUS STRUCTURES: Multilevel DDD and some spondylosis cervical region. Likely, at least moderate central stenoses at a few cervical levels Dense chronic ossification left coracoclavicular ligament. LUNG APICES: No acute finding CT/CT soft tissue neck w con IMPRESSION: 1. Asymmetric soft tissue density fullness left lateral oropharyngeal left lateral supraglottic. Etiology unknown. Infection versus tumor. 2. Epiglottis is 10 mm in width areas of mildly low density but is well-defined without obvious thickened margins. Etiology unknown. 3. No walled off drainable submucosal fluid collection. 4. Nonenlarged but asymmetric left IJ and left PC nodes. None are necrotic. No perinodal stranding. 5. Nonspecific mild thickening of the left platysma muscle 6. Small amount of nonspecific material/fluid retropharyngeal region canted towards the right. All CT scans at this facility use dose modulation, iterative reconstruction, and/or weight based dosing when appropriate to reduce radiation dose to as low as reasonably achievable. Electronically authenticated by: GARRY WALSH Date: 06/20/2024 13:52
--- NOTE | 2024-06-20 11:14 | ED_ITS ---
HPI HPI - General Adult General Chief complaint: Upper Respiratory Infection Stated complaint: SORE THROAT Time Seen by Provider: 06/20/24 11:04 Source: patient Mode of arrival: walk-in Limitations: no limitations History of Present Illness HPI narrative: 64-year-old male presents for sore throat. He has had it for 3 days. He was seen at urgent care and they told him to come here. No fever. It hurts more when he swallows and it is moderate to severe. Related Data Home Medications ?Medication ?Instructions ?Recorded ?Confirmed albuterol sulfate 90 mcg/actuation 2 puff inhalation Q4H PRN 06/20/24 06/20/24 aerosol inhaler (Ventolin HFA) shortness of breath or wheezing atorvastatin 80 mg tablet 80 mg PO DAILY 06/20/24 06/20/24 buspirone 10 mg tablet 10 mg PO BID 06/20/24 06/20/24 clopidogrel 75 mg tablet 75 mg PO DAILY 06/20/24 06/20/24 escitalopram oxalate 20 mg tablet 20 mg PO DAILY 06/20/24 06/20/24 gabapentin 600 mg tablet 600 mg PO BID 06/20/24 06/20/24 hydrochlorothiazide 25 mg tablet 25 mg PO DAILY 06/20/24 06/20/24 insulin glargine U-300 conc 300 60 unit subcut Q24H 06/20/24 06/20/24 unit/mL (1.5 mL) subcutaneous pen (Nicolette SoloStar U-300 Insulin) isosorbide mononitrate 60 mg 60 mg PO DAILY 06/20/24 06/20/24 tablet,extended release 24 hr lansoprazole 30 mg capsule,delayed 30 mg PO DAILY 06/20/24 06/20/24 release metformin 1,000 mg tablet 1,000 mg PO BID 06/20/24 06/20/24 metoprolol tartrate 25 mg tablet 25 mg PO BID 06/20/24 06/20/24 olmesartan 40 mg tablet 40 mg PO DAILY 06/20/24 06/20/24 ranolazine 500 mg tablet,extended 500 mg PO BID 06/20/24 06/20/24 release,12 hr tizanidine 4 mg tablet 4 mg PO Q8H PRN muscle spasticity 06/20/24 06/20/24 Allergies Allergy/AdvReac Type Severity Reaction Status Date / Time No Known Drug Allergies Allergy Verified 06/20/24 11:09 Opioid HPI Opioid Management Most Recent Opioid Data: Last Pain Scale 8 06/20/24 11:20 Review of Systems ROS Narrative A ten point review of systems is negative except as noted above. Exam Narrative Exam Narrative: Nurses note and vital signs reviewed and patient is not hypoxic. General: The patient appears in no apparent respiratory distress. Skin: Warm, dry, no pallor noted. There is no rash noted. Head: Normocephalic, atraumatic Eye: Normal conjunctiva, no drainage Ears, Nose, Mouth, and Throat: oral mucosa is moist. Nares patent. The patient appears to have left peritonsillar swelling with uvular deviation towards the right. Cardiovascular: Regular Rate and Rhythm Respiratory: Patient is in no distress, no accessory muscle use, lungs are clear to auscultation, no wheezing, rales or rhonchi Back: non-tender GI: Soft and nontender Musculoskeletal: The patient has no evidence of calf tenderness, no pitting edema, symmetrical pulses noted bilaterally Neurological: Awake and alert Psychiatric: Cooperative Constitutional Vital Signs, click to edit/add: Last Vital Signs Temp 98.5 F 06/20/24 14:21 Pulse 100 H 06/20/24 14:21 Resp 14 06/20/24 14:21 BP 144/76 H 06/20/24 14:21 Pulse Ox 95 06/20/24 14:21 O2 Del Method Room Air 06/20/24 14:21 Course Vital Signs Vital signs: Vital Signs Temperature 98.8 F 06/20/24 11:04 Pulse Rate 90 06/20/24 11:04 Respiratory Rate 20 06/20/24 11:04 Blood Pressure 145/77 H 06/20/24 11:04 Pulse Oximetry 95 06/20/24 11:04 Oxygen Delivery Method Room Air 06/20/24 11:04 Temperature 98.5 F 06/20/24 14:21 Pulse Rate 100 H 06/20/24 14:21 Respiratory Rate 14 06/20/24 14:21 Blood Pressure 144/76 H 06/20/24 14:21 Pulse Oximetry 95 06/20/24 14:21 Oxygen Delivery Method Room Air 06/20/24 14:21 Medical Decision Making MDM Narrative Medical decision making narrative: Peritonsillar fullness is identified on the CAT scan. Case reviewed with ENT physician at [facility], Dr Roca, and the patient is being transferred from our emergency department to their emergency department at the request of the ENT physician. I also spoke with Dr. Lozoya, emergency department physician there. The patient is stable and agreeable for transfer. He was given IV Unasyn here as well as IV Decadron. Differential Diagnosis Differential Diagnosis: Peritonsillar abscess, peritonsillar cellulitis, pharyngeal mass Lab Data Lab results reviewed: Yes I reviewed the patient's lab results Labs: Lab Results 06/20/24 06/20/24 Range/Units 11:29 11:31 WBC 13.3 H (4.0-11.0) 10^3/uL RBC 4.86 (4.70-6.10) 10^6/uL Hgb 15.8 (14.0-18.0) g/dL Hct 46.1 (42.0-54.0) % MCV 94.9 H (80.0-94.0) fL MCH 32.5 (25.9-34.0) pg MCHC 34.3 (29.9-35.2) g/dL RDW 12.6 (11.0-15.0) % Plt Count 180 (150-450) 10^3/uL MPV 9.0 L (9.5-13.5) fL Neut % (Auto) 79.0 H (43.0-75.0) % Lymph % (Auto) 10.7 L (20.5-60.0) % Wilcox % (Auto) 9.4 (1.7-12.0) % Eos % (Auto) 0.4 L (0.9-7.0) % Baso % (Auto) 0.2 (0.2-2.0) % Neut # (Auto) 10.5 H (1.4-6.5) 10^3/uL Lymph # (Auto) 1.4 (1.2-3.8) 10^3/uL Wilcox # (Auto) 1.3 H (0.3-0.8) 10^3/uL Eos # (Auto) 0.1 (0.0-0.7) 10^3/uL Baso # (Auto) 0.0 (0.0-0.1) 10^3/uL Abs Immat Gran (auto) 0.04 H (0.00-0.03) 10^3/uL Imm/Tot Granulo (auto) 0.3 (0.0-0.5) % Sodium 139 (136-145) mmol/L Potassium 4.1 (3.5-5.1) mmol/L Chloride 102 (98-107) mmol/L Carbon Dioxide 26.5 (21.0-32.0) mmol/L Anion Gap 14.6 BUN 16.0 (7.0-18.0) mg/dL Creatinine 0.84 (0.70-1.30) mg/dL Est GFR ( Amer) >60 (>=60) Est GFR (Non-Af Amer) >60 (>=60) BUN/Creatinine Ratio 19.0 Glucose 133 H (74-106) mg/dL Calcium 9.3 (8.5-10.1) mg/dL Monoscreen Negative (NEGATIVE) Streptococcus Screen Negative Imaging Data CT neck: Radiologist's impression: ITS Impressions Soft Tissue Neck CT 06/20/24 11:13 IMPRESSION: 1. Asymmetric soft tissue density fullness left lateral oropharyngeal left lateral supraglottic. Etiology unknown. Infection versus tumor. 2. Epiglottis is 10 mm in width areas of mildly low density but is well-defined without obvious thickened margins. Etiology unknown. 3. No walled off drainable submucosal fluid collection. 4. Nonenlarged but asymmetric left IJ and left PC nodes. None are necrotic. No perinodal stranding. 5. Nonspecific mild thickening of the left platysma muscle 6. Small amount of nonspecific material/fluid retropharyngeal region canted towards the right. All CT scans at this facility use dose modulation, iterative reconstruction, and/or weight based dosing when appropriate to reduce radiation dose to as low as reasonably achievable. Electronically authenticated by: GARRY WALSH Date: 06/20/2024 13:52 Discharge Plan Discharge Chief Complaint: Upper Respiratory Infection Clinical Impression: Pharyngeal mass Patient Disposition: [facility] Time of Disposition Decision: 16:03 Discharge Location: [facility] [address] Condition: Fair Mode of Transportation: EMS
[2024-06-20 11:40] LABS: Basophils Percent Auto 0.2 % (0.2-2.0); Eosinophils Absolute Auto 0.1 10^3/uL (0.0-0.7); Eosinophils Percent Auto 0.4 % (0.9-7.0); Hematocrit 46.1 % (42.0-54.0); Hemoglobin 15.8 g/dL (14.0-18.0); Immature Granulocytes Abs Auto 0.04 10^3/uL (0.00-0.03); Immature Granulocytes Pct Auto 0.3 % (0.0-0.5); Lymphocytes Absolute Auto 1.4 10^3/uL (1.2-3.8); Lymphocytes Percent Auto 10.7 % (20.5-60.0); Mean Corpuscular HGB Conc 34.3 g/dL (29.9-35.2); Mean Corpuscular Hemoglobin 32.5 pg (25.9-34.0); Mean Corpuscular Volume 94.9 fL (80.0-94.0); Monocytes Absolute Auto 1.3 10^3/uL (0.3-0.8); Monocytes Percent Auto 9.4 % (1.7-12.0); Neutrophils Absolute Auto 10.5 10^3/uL (1.4-6.5); Platelet Count 180 10^3/uL (150-450); Red Blood Count 4.86 10^6/uL (4.70-6.10); Red Cell Distribution Width 12.6 % (11.0-15.0); White Blood Count 13.3 10^3/uL (4.0-11.0)
[2024-06-20] MEDS: DEXAMETHASONE SOD PHOS 10 MG/ML VIAL IV (11:40)
[2024-06-20 11:45] LABS: Internal Control Within Normal Limits; Strep A Antigen Screen Negative
[2024-06-20 11:52] LABS: Anion Gap 14.6; Calcium 9.3 mg/dL (8.5-10.1); Carbon Dioxide 26.5 mmol/L (21.0-32.0); Chloride 102 mmol/L (98-107); Estimated GFR (African America >60 (>=60); Estimated GFR (Non-African Ame >60 (>=60); Glucose 133 mg/dL (74-106); Potassium 4.1 mmol/L (3.5-5.1); Sodium 139 mmol/L (136-145)
[2024-06-20 11:53] LABS: Internal Control Within Normal Limits; Mono Screen NEGATIVE (NEGATIVE)
[2024-06-20] MEDS: AMPICILLIN SODIUM/SULBACTAM NA 3 GM in 0.9 % SODIUM CHLORIDE 100 ML IV (12:52)
[2024-06-20 14:21] VITALS: BP 144/76; PULSE 100; TEMP 36.9; O2SAT 95
[2024-06-20 16:20] VITALS: BP 155/88; PULSE 98; TEMP 37.3; O2SAT 95
[2024-06-20 17:25] VITALS: BP 160/90; PULSE 98; TEMP 37.3; O2SAT 94
== END 2024-06-20 17:25 | disposition short-term general hospital (02) ==
PROVIDERS: Emergency Provider Emergency Medicine; PCP Internal Medicine
DX: J39.2 Other diseases of pharynx (principal)
CPT/HCPCS: 36415; 70491; 80048; 85025; 86308; 87070; 87880; 96365; 96375; 99285; J0295; J1100; Q9967

== ENCOUNTER 2025-03-31 13:09 | Outpatient (OUT) | payer MEDICARE, SELFPAY ==
--- OUTSIDE RECORDS SUMMARY | 2023-10-09 05:27 | XMS_ITS ---
Author Organization The [facility] in [place] Address [address] [place] [address] Care Team Providers Care Instructional Manager Name Role Phone Sveta BLACK, [facility] Primary Care Provider Babar Casey [phone] REASON FOR VISIT Prior Auth Approval Encounters Encounter Location Date Provider Diagnosis Pulmonary Medicine [place] [address] [place] [address] 10/09/2023 Babar Granados Plan Of Treatment No Information Progress Notes * Hugo ALDANADOB:1960 (63 yo M)Acc No.[id number]:10/09/2023 Patient: Hugo Hayes :1960 A ge:63 Y S ex:Male Address:[address] [place] [address], [address] Subjective: * Chief Complaints: * P rior Auth Approval * Medical History: * Surgical History: * Hospitalization/Major Diagno stic Procedure: * Medications: Objective: Assessment: Plan: * Treatment: * Procedure Codes: * true * Date: Generated for Emily marrufo/Tuyet/eTransmitting on: 0 03/30/2025 10:50 AM EDT
--- OUTSIDE RECORDS SUMMARY | 2024-04-01 10:43 | XMS_ITS ---
Author Organization The [facility] in [place] Address [address] [place] [address] Care Team Providers Care Farm Machinery Assembler Name Role Phone Sveta BLACK, [facility] Primary Care Provider Babar Casey [phone] REASON FOR VISIT Appt. Cancel Encounters Encounter Location Date Provider Diagnosis Pulmonary Medicine [place] [address] [place] [address] 04/01/2024 Babar Granados Plan Of Treatment No Information Progress Notes * JOVANReinaldo YINGvernonDOB:1960 (63 yo M)Acc No.[id number]:04/01/2024 Patient: Hugo ROQUE :1960 A ge:63 Y S ex:Male Address:[address] [place] [address], [address] * true * Date: Generated for Printi niru/Famanolog/eTransmitting on: 0 03/30/2025 10:50 AM EDT
--- OUTSIDE RECORDS SUMMARY | 2024-04-06 06:00 | XMS_ITS ---
Author Organization The [facility] in [place] Address [address] [place] [address] Care Team Providers Care Trolley Worker Name Role Phone Sveta BLACK, Primary Care Provider Unavaila Babar Ashby Unavailable [phone] REASON FOR VISIT 6MO-ASTHMA, TAINA Encounters Encounter Location Date Provider Diagnosis Pulmonary Medicine [place] [address] [place] [address] 04/06/2024 Babar Granados Plan Of Treatment No Information Progress Notes * Hugo ALDANADOB:1960 (64 yo M)Acc No.[id number]:04/06/2024 UNLOCKED PROGRESS NOTE Follow Up Patient: Hugo ROQUE Provider: Carmen Granados DO :1960 A ge:63 Y S ex:Male Date:04/06/2024 Address:[address] [place] [phone] Pcp:Shaikh Sveta MD Subjective: * Chief Complaints: * 1 . 6MO-ASTHMA, TAINA. * Medical History: Objective: * Vitals: Assessment: Plan: * Treatment: * * Electronic signature of Eula Granados DO on 03/30/2025 at 10:51 AM EDT Sign off status: Pending Visit Status: C ANC (Cancelled) * Provider: Carmen Granados DO Date: 0 04/06/2024 Generated for Emily marrufo/Tuyet/La on: 0 03/30/2025 10:51 AM EDT
--- OUTSIDE RECORDS SUMMARY | 2025-01-10 12:04 | XMS_ITS ---
Author Name Auto Generated Organization OHIP Care Team Providers Care Sales Agent Casualty Insurance Name Role Phone GRACE ANTONIO~[phone] ZION Miller~[id number] A ttending Unavailable GRACE ANTONIO~[phone] ZION Miller~[id number] P rimary Care Unavailable NIKHIL CAMACHO Consulting Unavailable ELIDA KEVIN Attending Unavailable ELIDA KEVIN Referring Unavailable ORIN, Primary Care Unavailable ELIDA KEVIN Attending Unavailable ELIDA KEVIN Referring Unavailable ORIN, KAM Primary Care Unavailable TAMIA PEÑALOZA Attending Unavailable SHAIKH SR Attending Unavailable TAMIA PEÑALOZA Attending Unavailable TAMIA PEÑALOZA Attending Unavailable CLAYTON MARCOS Attending Unavailabl e PROBLEMS DATE TYPE CONDITION / CODE ATTENDING STATUS [facility] 01/06/2025 Admitting Diagnosis Body mass index (BMI) 40.0-44.9, adult (Multi) / Z68.41(ICD-10) ELIDA KEVIN [facility] 09/17/2023 Admitting Diagnosis Angina pectoris, unspecified / I20.9(ICD-10) ELIDA KEVIN [facility] 01/06/2025 Admitting Diagnosis Coronary angioplasty status / Z98.61(ICD-10) [facility] 06/20/2024 Unknown Acute tonsilliti s, unspecified / J03.90(ICD-10) GRACE ANTONIO~[phone] ZION Miller~[id number] [facility] 05/04/2024 Admitting Diagnosis Body mass index (BMI) 45.0-49.9, adult (Multi) / Z68.42(ICD-10) [facility] 09/18/2023 Admitting Diagnosis Other forms of dyspnea / R06.09(ICD-10) [facility] 09/17/2023 Admitting Diagnosis Atherosclerotic heart disease of [place] coronary artery without angina pectoris / I25.10(ICD-10) [facility] 09/17/2023 Admitting Diagnosis Presence of coronary angioplasty implant and graft / Z95.5(ICD-10) [facility] 09/17/2023 Admitting Diagnosis Essential (primary) hypertension / I10(ICD-10) [facility] 09/17/2023 Admitting Diagnosis Angina pectoris, unspecified (CMS-HCC) / I20.9(ICD-10) [facility] 09/17/2023 Admitting Diagnosis Mixed hyperlipidemia / E78.2(ICD-10) [facility] 09/17/2023 Admitting Diagnosis Type 2 diabetes mellitus without complications (Multi) / E11.9(ICD-10) [facility] 09/17/2023 Admitting Diagnosis halfway (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 of insulin (Multi) / Z79.4(ICD-10) [facility] PROCEDURES No Procedure Records Found RESULTS ALLERGIES DATE TYPE / CODE NAME / CODE REACTION SEVERITY SOURCE SYSTEMIC/[id number]( SNOMED CT) NO KNOWN ALLERGIES [facility] ENCOUNTERS ADMIT/DISCHARGE ACCOUNT NUMBER ADMITTING ENCOUNTER CLASS LOCATION SOURCE 01/10/2025/ 5 [id number] Ambulatory Building:[facility] Db [facility] 01/06/2025/ 5 [id number] Ambulatory Building:DOT [id number] [facility] 10/18/2024/ 4 [id number] Ambulatory Building:C[facility] 09/13/2024/ 4 [id number] Ambulatory Building:NOM S [facility] 06/20/2024/ 4 [id number] Emergency Building:[facility] Room: 33Bed: [address] [place] [address] 05/10/2024/ 4 [id number] Ambulatory Building:NOM S [facility] EP[facility] 05/04/2024/ 4 [id number] Ambulatory Building:DOT [id number] [facility] 04/29/2024/ 4 [id number] [facility] PAYERS ENCOUNTER GUARANTOR PAYER SUBSCRIBER SOURCE 01/10/[address] [place] [address]Teo: () Primary Insurance:HUMANA MEDICARE ADVANTAGEPolicy Number: [id number] Date:2024-01-09 DARLYN VERDIN JR.: [id number] [place] [address] [facility] 01/06/2025 DARLYN VERDINDOB: [place], [place] [address]Eds: () Primary Insurance:HUMANA MEDICAREPolicy Number: [id number] Date:2024-01-09 DARLYN VERDINDOB: [id number] [place], [place] [address]Lfh: () [facility] 10/18/2024 [address] [place] [address]Olf: () Primary Insurance:HUMA[employer] MEDICARE ADVANTAGEPolicy Number: [id number] Date:2024-01-09 DARLYN VERDIN JR.: [id number] [place] [address] [facility] 09/13/2024 D[address] [place] [address]Bzx: (HP) Primary Insurance:[facility] MEDICARE ADVANTAGEPolicy Number: [id number] Date:2024-01-09 DARLYN VERDIN JR.: [id number] [place] [address] [facility] 06/20/2024 DARLYN VERDINDOB: [place], [place] [address]Cpc: (HP) Primary Insurance:HUMAN MEDICAREPolicy Number: [id number] Date:2024-01-09 DARLYN VERDINDOB: [id number] [place], [place] [address]Wyh: (HP) [facility] 05/10/2024 [address] [place] [place] [address]Aeo: (HP) Primary Insurance:HUMAN MEDICARE ADVANTAGEPolicy Number: [id number] Date:2024-01-09 DARLYN VERDIN JR.: [id number] [place] [address] [facility] 05/04/2024 DARLYN VERDINDOB: [place] [address]Crv: (HP) Primary Insurance:HUMAN MEDICAREPolicy Number: [id number] Date:2024-01-09 DARLYN VERDINDOB: [id number] [place], [place] [address]Fpt: (HP) [facility] 04/29/2024 DARLYN [address].: [place] [address]Nxb: () [facility] Insurance[facility] Number: [id number] Date:2024-01-09 DARLYN VERDIN JR.: [id number] [place] [address] [facility] EPIC
--- OUTSIDE RECORDS SUMMARY | 2025-03-30 10:50 | XMS_ITS | Clinical Summary ---
Author Organization [facility] Healthcare Address [address] [place] [address] Care Team Providers Care Bioprocess Development Engineer Name Role Phone Jarad Garrison MD Primary Care Provider [phone] Esha Stanley NP Unavailable [phone] Allergies No known active allergies Medications clopidogrel (Plavix) 75 MG tablet Take 75 mg by mouth in the morning. 3 Active ranolazine (Ranexa) 500 MG 12 hr tablet Take 500 mg by mouth in the morning and 500 mg before bedtime. 3 Active metoprolol tartrate (Lopressor) 25 MG tablet Take 25 mg by mouth in the morning and 25 mg before bedtime. 3 Active olmesartan (BENIcar) 40 MG tablet Take 40 mg by mouth in the morning. 3 Active isosorbide mononitrate ER (Imdur) 60 MG 24 hr tablet Take 60 mg by mouth in the morning. 3 Active Nystop 521950 UNIT/GM powder APPLY TO AFFECTED SKIN TOPICALLY THREE TIMES DAILY 3 Active nitroglycerin (Nitrostat) 0.4 MG SL tablet DISSOLVE 1 TABLET UNDER THE TONGUE NEEDED FOR CHEST PAIN- MAY REPEAT EVERY 5 MINUTES IF NEEDED ( MAX 3 DOSES.- IF NO RELIEF CALL 911) 3 Active Multiple Vitamin (Multi Vitamin) tablet 1 (one) time each day at the same time. Active glucose blood (True Metrix Blood Glucose Test) test strip USE TO TEST BLOOD SUGAR TWICE DAILY Active cholecalciferol (Vitamin D-3) 25 MCG (1000 UT) tablet Take 1,200 Units by mouth in the morning. Active atorvastatin (Lipitor) 80 MG tablet 1 (one) time each day at the same time. Active aspirin 81 MG EC tablet 1 (one) time each day at the same time. Active Apple Cider Vinegar 300 MG tablet Take by mouth. Activ e Lactic Acid 10 % lotion 1 application every 12 (twelve) hours. Active albuterol HFA 90 mcg/act inhaler Inhale 2 puffs every 4 (four) hours if needed Active gabapentin (Neurontin) 600 MG tabletIndications :Type 2 diabetes mellitus with other circulatory complications Take 1 tablet (600 mg) by mouth in the morning and 1 tablet (600 mg) in the evening and 1 tablet (600 mg) before bedtime. 270 tablet 3 3 Active empagliflozin (Jardiance) 10 MGIndications:Typ e 2 diabetes mellitus with other circulatory complications TAKE 1 TABLET BY MOUTH DAILY 90 tablet 1 4 Active hydroCHLOROthiazi de (HYDRODiuril) 25 MG tabletIndications :Essential (primary) hypertension (CMS/HCC) TAKE 1 TABLET BY MOUTH DAILY 90 tablet 1 4 Active Budeson-Glycopyrr ol-Formoterol (Breztri Aerosphere) 160-9-4.8 MCG/ACT aerosol Inhale 1 puff every 12 (twelve) hours 3 Active escitalopram (Lexapro) 20 MG tabletIndications :Anxiety disorder, unspecified Take 1 tablet (20 mg) by mouth Daily 90 tablet 1 4 Active tiZANidine (Zanaflex) 4 MG tabletIndications :Pulled muscle Take 1 tablet (4 mg) by mouth every 8 (eight) hours if needed for muscle spasms 270 tablet 4 Active busPIRone (Buspar) 10 MG tabletIndications :Recurrent major depressive disorder, in partial remission (HCC) (CMS/HCC) Take 1 tablet (10 mg) by mouth in the morning and 1 tablet (10 mg) before bedtime. 60 tablet 1 4 Active lansoprazole (Prevacid) [address] capsuleIndication s:Gastro-esophage al reflux disease without esophagitis Take 1 capsule (30 mg) by mouth Daily 30 capsule 2 4 Active Semaglutide, 2 MG/DOSE, (Ozempic, 2 MG/DOSE,) 8 MG/3ML solution pen-injectorIndic ations:Type 2 diabetes mellitus with other circulatory complications Inject 2 mg under the skin 1 (one) time per week 3 mL 5 Active pen needle 32G x 4 mm miscIndications:T ype 2 diabetes mellitus with other circulatory complications Injections once a day 100 each 5 Active metFORMIN (Glucophage) 1000 MG tabletIndications :Type 2 diabetes mellitus with other circulatory complications TAKE 1 TABLET BY MOUTH IN THE MORNING and ONE TABLET BY MOUTH IN THE EVENING. TAKE WITH MEALS 180 tablet 1 5 Active insulin degludec (Tresiba FlexTouch) 200 UNIT/ML injectionIndicati ons:Type 2 diabetes mellitus with other circulatory complications Inject 50 Units under the skin Daily 9 mL 5 Active Active Problems Problem Noted Date Diagnosed Date Chronic hip pain, bilateral 03/29/2025 Prostate cancer screening 03/23/2025 Right hip pain 04/29/2024 Assessment & Plan (04/29/2024 11:40 AM EDT): Right hip pain - could be radicular pain from low back pain. He reports he felt that he pulled a muscle few days ago and it has been hurting since then. He was told previously by orthopedic surgery that he will need hip replacement. C/w meloxicam/gabapentin. Trial of tizanidine. XR ordered. Not interested in PT. Chronic midline low back pain without sciatica 0 04/29/2024 Assessment & Plan (04/29/2024 11:42 AM EDT): Chronic, progressively worsening. Has right groin pain and this could be radicular pain vs primary hip pathology. Order XR, c/w gabapentin. Prior hx of lumbar surgery -3 years ago. No recent trauma/injury. Pain is worse when he stands up from a seated position or if he is standing for long. Chronic pain of both knees 10/09/2023 Assessment & Plan (10/09/2023 11:28 AM EST): Chronic knee pain, bilaterally. Left knee pain is worse than right. Worsened from his baseline for past few months. Has difficulty ambulating because of it, unable to perform ADLs, unable to sleep due to pain. No recent Knee XR performed. Using Meloxicam with no improvement/response. Will order XR Knee b/l. Will also call in Oxycodone to be used daily as needed for pain. Last time, it was prescribed to him was in 04/01. No concern for Opioid abuse. Educated on safe use of opioids. Will also have him sign a Pain Contract. Will call in Oxycodone 5 mg TID as needed for pain. Recurrent major depressive d isorder, in partial remission (HCC) 10/09/2023 Assessment & Plan (10/18/2024 10:48 AM EST): Currently on Lexapro 20 mg daily. Busprione 10mg. Pt reports medications are working well, feels symptoms have improved. Denies SI/HI. Continue current regimen. Assessment & Plan (04/29/2024 11:07 AM EDT): Reports low mood/depression, anhedonia, poor sleep and focus. Also reports associated anxiety. He was prescribed Trazodone last appointment, he felt a little groggy in the morning. Currently on Lexapro 20 mg daily. Patient counseled and educated on adverse effects, drug interactions and to reach out to office/pharmacy if questions or concerns related to new medications. Will add buspirone to help with anxiety/depression Assessment & Plan (10/09/2023 11:31 AM EST): Reports low mood/depression, anhedonia, poor sleep and focus. Currently on Lexapro 20 mg daily. Winter weather along with changes in his personal life has affected his mental health poorly. This along with pain also is affecting his mood. Will add Trazodone 50 mg at bedtime. Patient counseled and educated on adverse effects, drug interactions and to reach out to office/pharmacy if questions or concerns related to new medications. Sleep apnea 09/30/2023 Nocturia 09/30/2023 Hx of percutaneous transluminal coronary angiopl asty 09/18/2023 Angina pectoris 09/17/2023 Abnormal EKG 09/17/2023 CAD (coronary artery disease) 09/17/2023 Assessment & Plan (04/29/2024 11:05 AM EDT): Hx of CAD s/p PCI, Last PCI 1-2 years ago. Intermittent chest pain - recently worsened/increased from baseline. Symptoms typically resolve w/o SL nitroglycerin He is on ASA, plavix, imdur and ranexa. He has has an appointment with Cardiology next week Patient educated on chest pain/CAD - instructed to go to ED if worsening CP, not resolving with SL nitroglycerin or rest. MAC (dyspnea on exertion) 09/17/2023 Fatigue 09/17/2023 Lightheaded 09/17/2023 Type 2 diabetes mellitus wit h other circulatory complications 06/04/2023 Assessment & Plan (01/11/2025 12:03 PM EST): During the appointment today all pertinent labs, imaging, health maintenance, and glucose readings were reviewed. Encouraged to check blood glucose throughout the day with some fasting and some PP readings. They are to bring their glucose meter/cgm in to all appointments. All of the patients questions, treatment options, and current care plan and goals were discussed. A copy of this along with pertinent instructions were given to the patient at the end of the appointment. The patient voices understanding of all of this and is to call in between appointments if they have any problems or questions. Hugo Aldana Jr. blood sugars are worsening. , Will stay on current medications. , Discussed dietary changes at length. Encouraged to limit simple carbs and focus more on healthy protein/fat with all meals and snacks. They should also avoid any sugary drinks. , Discussed importance of checking blood glucose regularly and bringing them in to their appointment in order for me to better adjust their medications. , Instructions given today include: Insulin instructions and Dietary education. He needs to work better on his diet and suspect he is having PP hyperglycemia. Recommend improving diet and continuing to exercise to help with weight loss. No changes to medications today. Assessment & Plan (09/13/2024 12:00 PM EST): During the appointment today all pertinent labs, imaging, health maintenance, and glucose readings were reviewed. Encouraged to check blood glucose throughout the day with some fasting and some PP readings. They are to bring their glucose meter/cgm in to all appointments. All of the patients questions, treatment options, and current care plan and goals were discussed. A copy of this along with pertinent instructions were given to the patient at the end of the appointment. The patient voices understanding of all of this and is to call in between appointments if they have any problems or questions. Hugo Aldana Jr. control is stable overall. , Discussed dietary changes at length. Encouraged to limit simple carbs and focus more on healthy protein/fat with all meals and snacks. They should also avoid any sugary drinks. , Discussed importance of checking blood glucose regularly and bringing them in to their appointment in order for me to better adjust their medications. , Instructions given today include: Insulin instructions and Dietary education. Ok to change his tousebastien to cyn for patient assistance. Will increase ozempic to try and help more with appetite suppression and weight loss. Assessment & Plan (05/10/2024 5:59 PM EDT): During the appointment today all pertinent labs, imaging, health maintenance, and glucose readings were reviewed. Encouraged to check blood glucose throughout the day with some fasting and some PP readings. They are to bring their glucose meter/cgm in to all appointments. All of the patients questions, treatment options, and current care plan and goals were discussed. A copy of this along with pertinent instructions were given to the patient at the end of the appointment. The patient voices understanding of all of this and is to call in between appointments if they have any problems or questions. Hugo Aldana Jr. control is stable overall. , Will stay on current medications. , Discussed dietary changes at length. Encouraged to limit simple carbs and focus more on healthy protein/fat with all meals and snacks. They should also avoid any sugary drinks. , Instructions given today include: Dietary education. He is going to work on limiting portions Assessment & Plan (04/29/2024 11:38 AM EDT): Follows Endocrine - on Jardiance, Ozempic, metformin Tolerating medications. Order labs Assessment & Plan (01/08/2024 1:04 PM EST): During the appointment today all pertinent labs, imaging, health maintenance, and glucose readings were reviewed. Encouraged to check blood glucose throughout the day with some fasting and some PP readings. They are to bring their glucose meter/cgm in to all appointments. All of the patients questions, treatment options, and current care plan and goals were discussed. A copy of this along with pertinent instructions were given to the patient at the end of the appointment. The patient voices understanding of all of this and is to call in between appointments if they have any problems or questions. Hugo Aldana Jr. is struggling to gain control of their diabetes. I am very concerned for diabetes related complications. , Discussed dietary changes at length. Encouraged to limit simple carbs and focus more on healthy protein/fat with all meals and snacks. They should also avoid any sugary drinks. , Instructions given today include: Dietary education. Will stay on lower dose of toujeo until we can get him set up with patient assistance. Just got patient assistance for jardiance. Will change his trulicity to ozempic and work on patient assistance for that. Gave him a sample of ozempic to start at 0.5 mg and then will work on getting 1 mg ozempic through the patient assistance. Assessment & Plan (10/06/2023 8:11 AM EST): During the appointment today all pertinent labs, imaging, health maintenance, and glucose readings were reviewed. Encouraged to check blood glucose throughout the day with some fasting and some PP readings. They are to bring their glucose meter/cgm in to all appointments. All of the patients questions, treatment options, and current care plan and goals were discussed. A copy of this along with pertinent instructions were given to the patient at the end of the appointment. The patient voices understanding of all of this and is to call in between appointments if they have any problems or questions. Hugo Aldana Jr. control is stable overall. , Will stay on current medications. , Discussed dietary changes at length. Encouraged to limit simple carbs and focus more on healthy protein/fat with all meals and snacks. They should also avoid any sugary drinks. Assessment & Plan (06/04/2023 9:49 PM EDT): During the appointment today all pertinent labs, imaging, health maintenance, and glucose readings were reviewed. Encouraged to check blood glucose throughout the day with some fasting and some PP readings. They are to bring their glucose meter/cgm in to all appointments. All of the patients questions, treatment options, and current care plan and goals were discussed. A copy of this along with pertinent instructions were given to the patient at the end of the appointment. The patient voices understanding of all of this and is to call in between appointments if they have any problems or questions. Hugo Jovan Ivan is doing okay. , Discussed dietary changes at length. Encouraged to limit simple carbs and focus more on healthy protein/fat with all meals and snacks. They should also avoid any sugary drinks. , Instructions given today include: Dietary education. Will increase toujeo. He is to continue working on improving his diet. Anxiety 06/03/2023 Arthritis of left hip 06/03/2023 DISH (diffuse idiopathic skeletal hyperostosis) 06/03/2023 Essential hypertension 06/03/2023 Assessment & Plan (10/18/2024 10:53 AM EST): Follows closely with Dr. Cherry, reports he manages all BP medications. Currently taking lopressor/olmesartan/hydrochlorothiazide/imdur Checks BP at home; Averages are less than 130/90. Denies orthostatic changes, dizziness, cough, shortness of breath, swelling in extremities. Continue current regimen. Given BP log, advised pt to record BP and bring log back with them to next visit. Assessment & Plan (04/29/2024 11:02 AM EDT): BP well controlled. On average less than 130/90. Tolerating Anti hypertensive w/o adverse effects. Denies lightheadedness, dizziness, syncope, presyncope. Patient encouraged to continue with home BP monitoring and call office if he experiences orthostatic symptoms or persistently elevated BP. C/w lopressor/olmesartan/hydrochlorothiazide/imdur. Also on Ranexa for anginal symptoms Assessment & Plan (10/09/2023 11:29 AM EST): BP well controlled. On average less than 130/90. Tolerating Anti hypertensive w/o adverse effects. Denies lightheadedness, dizziness, syncope, presyncope. Patient encouraged to continue with home BP monitoring and call office if he experiences orthostatic symptoms or persistently elevated BP. No changes needed Gastro-esophageal reflux disease without esophag itis 06/03/2023 retirement (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 of insulin 06/03/2023 Lumbar and sacral arthritis 06/03/2023 Peripheral vascular disease 06/03/2023 Vitamin D deficiency 06/03/2023 Hyperlipidemia 06/03/2023 Assessment & Plan (10/18/2024 10:55 AM EST): Currently taking Atorvastatin 80mg Denies any myalgias. Continue current regimen. Assessment & Plan (04/29/2024 11:08 AM EDT): On Lipitor. Check lipid panel/LFTs Benign prostatic hyperplasia with urinary obstru ction 06/03/2023 ED (erectile dysfunction) 06/03/2023 Class 3 severe obesity due t o excess calories with serious comorbidity and body mass index (BMI) of 40.0 to 44.9 in adult 09/18/2020 Assessment & Plan (10/18/2024 10:47 AM EST): Discussed with patient their BMI (actual, verses recommended). We have also discussed lifestyle modifications: attempts to perform physical activity as chronic conditions allow, also to monitor dietary intake: increasing protein/fruits/veggies and lowering carb intake (unless contraindicated). Limit sodas, juices, and sugary drinks. Also discussed oral medications that can be utilized for weight loss, as well as surgical options for weight loss. Lumbosacral spondylosis without myelopathy 08/22 Resolved Problems Problem Noted Date Diagnosed Date Resolved Date Pulled muscle 04/29/2024 03/23/2025 Assessment & Plan (04/29/2024 11:40 AM EDT): Trial of Tizanidine Severe obesity 06/04/2023 01/08/2024 Pure hypercholesterolemia 06/03/2023 Simple chronic bronchitis 06/03/2023 Type 2 diabetes mellitus wit hout complications 06/03/2023 01/08/2024 Diabetes mellitus 06/03/2023 06/04/2023 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 04/25/2022 01/08/2024 Hyperglycemia due to type 2 diabetes mellitus 08/22/2001/08/2024 Encounters Date Type Department Care Team Description 03/29/2025 Orders Only [facility] [address] [place] [address] Esha Stanley, MEDIA PROFESSIONAL Chronic hip pain, bilateral (Primary Dx) 03/28/2025 Telephone [facility] [address] [place] [address] Esha Stanley, SUJATA 02/18/2025 Abstract [facility] [address] [place] [address] Amparo Haines, DO 02/18/2025 Telephone [facility] [address] [place] [phone] Joselyn Reed LPN patient assistance- Hermes nordisk tresiba 02/05/[address] [facility] [address] [place] [phone] Amparo Haines, DO Type 2 diabetes mellitus with other circulatory complications ([facility]) 01/20/2025 Abstract [facility] [address] [place] [address] Amparo Haines, DO 01/13/2025 Abstract [facility] [address] [place] [address] Amparo Haines, DO 01/13/2025 Abstract [facility] [address] [place] [address] Amparo Haines, DO 01/13/2025 Abstract [facility] [address] [place] [address] Amparo Haines, DO 01/13/[address] [facility] [address] [place] [phone] Kelly Lopez LPN PAP rec'd 01/13/[address] [facility] [address] [place] [phone] Kelly Lopez LPN 01/10/2025 11:15 AM EST Office Visit [facility] [address] [place] [phone] Amparo Haines, retirement (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 of insulin ([facility]) (Primary Dx); Type 2 diabetes mellitus with other circulatory complications ([facility]); Class 3 severe obesity due to excess calories with serious comorbidity and body mass index (BMI) of 40.0 to 44.9 in adult (CMS/HCC) 01/10/[address] [facility] [address] [place] [phone] Amparo Haines, Type 2 diabetes mellitus with other circulatory complications ([facility]/HCC) 01/10/2025 Travel 01/05/2025 Telephone [facility] [address] [place] [address] Esha Stanley NP from Last 3 Months Immunizations Immunization Administration Dates Next Due Hep B, adult 12/20/2017,07/25/2017,06/20/2017 Influenza, High Dose Seasona l, Preservative Free 09/16/2020 Influenza, Madin Forsyth Canin e Kidney, subunit, trivalent, injectable, contains preservative 09/13/2024 Influenza, Unspecified 07/11/2017 Influenza, injectable, quadr ivalent, preservative free 09/10/2023,08/25/2022,08/17/2021,2019,07/11/2017 Influenza, seasonal, injectable 09/10/2024,08/17 MMR 06/20/2017 Tdap 06/20/2017 Varicella 07/25/2017,06/20/2017 Family History Medical History Relation Name Comments Prostate cancer Father COPD Mother Hypertension Mother Relation Name Status Comments Father Alive Mother Alive Social History Tobacco Use Types Packs/Day Years Used Date Smoking Tobacco: Never Passive Smoke Exposure: Never Smokeless Tobacco: Never Tobacco Cessation:Counseling Given: Not Answered Alcohol Use Standard Drinks/Week Comments Never 0 (1 standard drink = 0.6 oz pur e alcohol) Monthly or less AUDIT-C Answer Date Recorded Q1: How often do you have a drink containing alc ohol? Monthly or less 04/29/2023 Q2: How many drinks containi ng alcohol do you have on a typical day when you are drinking? 1 or 2 04/29/2023 Q3: How often do you have si x or more drinks on one occasion? Never 04/29/2023 PHQ-2 Answer Date Recorded Patient Health Questionnaire-2 Score 0 01/10/2025 Sex and Gender Information Value Date Recorded Sex Assigned at Not on file Legal Sex Male 7:20 PM EDT Gender Identity Not on file Sexual Orientation Not on file Last Filed Vital Signs Vital Sign Reading Time Taken Comments Blood Pressure 114/78 01/10/2025 11:10 AM EST Pulse 79 01/10/2025 11:10 AM EST Temperature 36.8 C (98.3 F) 01/10/2025 11:10 AM EST Respiratory Rate 16 10/18/2024 10:35 AM EST Oxygen Saturation 96% 01/10/2025 11:10 AM EST Inhaled Oxygen Concentration - - Weight 158 kg (348 lb) 01/10/2025 11:10 AM EST Height 188 cm (6' 2 ) 01/10/2025 11:10 AM EST Body Mass Index 44.68 01/10/2025 11:10 AM EST Plan of Treatment Upcoming Encounters Date Type Department Care Team (Late st Contact Info) Description 05/09/2025 1:15 PM EDT Office Visit [facility] [address] [place] [address] Amparo Haines DO [address] [place] [address] 05/10/2025 1:20 PM EDT Office Visit [facility] [address] [place] [phone] Esha Stanley MEDIA PROFESSIONAL [address] [place] [address] Health Maintenance Due Date Last Done Comments CT Colonography 1962 FIT-DNA 1962 FIT 1962 FOBT 1960 Sigmoidoscopy 1962 Diabetes: Urine Protein Screening 04/29/2025 04/29/2024, 08/27/2021, 08/22/2020 Medicare Annual Wellness (AWV) 04/29/2025 04/29/2024 Diabetes: Hemoglobin A1C 07/13/2025 025, 09/13/2024, 01/08/2024, Additional history exists Diabetes: Retinopathy Screening 10/29/2025 3, 08/23/2021 Colonoscopy 11/02/2030 11/02/2020, 11/02/2020 Colorectal Cancer Screening 11/02/2030 Influenza Vaccine Completed 09/13/2024, , 09/10/2023, Additional history exists Goals Goal Patient Goal Type Associated Problems Recent Progress Patient-Stated? Author Help patient manage antidepressant medication Care Plan Patient on antidepressant monitoring plan No Mei Ireland NP Procedures Procedure Name Priority Date/Time Associated Diagnosis Comments POCT GLYCOSYLATED HEMOGLOBIN (HGB A1C) Routine 01/10/2025 11:26 AM EST Type 2 diabetes mellitus with other circulatory complications ([facility]) DIABETIC RETINOPATHY SCREENING - OU - BOTH EYES Routine 10/29/2023 9:37 AM EST MICROALBUMIN / CREATININE URINE RATIO Routine 08/27/2021 COLONOSCOPY Routine 11/02/2020 12:00 PM EST from Last 3 Months or Most Recently Relevant to Health Maintenance Results * (ABNORMAL) POCT glycosylated hemoglobin (Hb A1C) docked device (01/10/2025 11:26 AM EST) Hemoglobin A1C 8.6 Blood Venous blood specimen / Unknown 01/10/2025 11:26 AM EST Amparo Muroznick DO POINT OF CARE TEST ENTER/E DIT ORDERABLES Final Result * Diabetic Retinopathy Screening - OU - Both Eyes (10/29/2023 9:37 AM EST) Anatomical Region Laterality Modality Head Other Amparo Samanta Haines DO OPHTH PHOTOGRAPHY Final Re sult * (ABNORMAL) Microalbumin / creatinine urine ratio (08/27/2021) UCREA 101 39 - 259 [facility] MALB <1.2(L) [facility] Comment: Unable to calculate mALB/Crea ratio, mALB is <1.2 mg/dL mALB reference range not established. 08/27/2021 Amparo M Yancy ABRAMS [facility] URINE ORDERABLES Final Result [facility] * Colonoscopy (11/02/2020 12:00 PM EST) Anatomical Region Laterality Modality Endoscopy 11/02/2020 12:0 0 PM EST Narrative 11/02/2020 12:00 PM EST PERFORMED AT [facility] LOCATION:[id number] Procedure Note CONVERSION, GENERIC - 03/26/2023 PERFORMED AT [facility] LOCATION:[id number] Madi Haines DO ENDOSCOPY PROCEDURE ORDERA BLES Final Result from Last 3 Months or Most Recently Relevant to Health Maintenance Additional Health Concerns Active Problems Noted Date Diagnosed Date Patient on antidepressant monitoring plan 2023 Insurance [facility] MEDICARE ADVANTAGE Care Teams Bioprocess Development Engineer Relationship Specialty Start Date End Date Jarad Garrison MD [address] [place] [address] PCP - General Family Medicine 09/21/24 Esha Stanley NP [address] [place] [address] Nurse Practitioner Family Medicine 01/05/25
--- OUTSIDE RECORDS SUMMARY | 2025-03-30 10:50 | XMS_ITS | Encounter Summary ---
Author Organization [facility] Address [address] [place] [place] [address] Care Team Providers Care Bass Fisher Name Role Phone Jarad Garrison MD Primary Care Provider [phone] Esha Stanley NP Unavailable [phone] Encounter Details Date Type Department Care Team (Late st Contact Info) Description 03/29/2025 Orders Only [facility] [address] [place] [address] Esha Stanley, SUJATA [address] [place] [address] Chronic hip pain, bilateral (Primary Dx) Social History Tobacco Use Types Packs/Day Years Used Date Smoking Tobacco: Never Passive Smoke Exposure: Never Smokeless Tobacco: Never Alcohol Use Standard Drinks/Week Comments Never 0 [...] on file Sexual Orientation Not on file documented as of this encounter Plan of Treatment Upcoming Encounters Date Type Department Care Team (Late st Contact Info) Description 05/09/2025 1:15 PM EDT Office Visit [facility] [address] [place] [address] Amparo Haines DO [address] [place] [address] 05/10/2025 1:20 PM EDT Office Visit [facility] [address] [place] [address] Esha Stanley NP [address] [place] [address] Scheduled Orders Name Type Priority Associated Diagnoses Orde r Schedule XR hips bilateral 2 views Imaging Routine Chronic hip pain, bilateral Expected: 03/29/2025, Expires: 03/29/2026 XR pelvis 1 or 2 views Imaging Routine Chronic hip pain, bilateral Expected: 03/29/2025 (Approximate), Expires: 03/29/2026 documented as of this encounter Goals Goal Patient Goal Type Associated Problems Recent Progress Patient-Stated? Author Help patient manage antidepressant medication Care Plan Patient on antidepressant monitoring plan Mei Blue NP documented as of this encounter Visit Diagnoses Diagnosis Chronic hip pain, bilateral- Primary documented in this encounter Additional Health Concerns Active Problems Noted Date Diagnosed Date Patient on antidepressant monitoring plan 2023 Assessment Noted Time PHQ-9 Depression Total Score: 3 04/29/20 24 11:00 AM EDT documented as of this encounter Care Teams Bass Fisher Relationship Specialty Start Date End Date Jarad Garrison MD [address] [place] [address] PCP - General Family Medicine 09/21/24 Esha Stanley NP [address] [place] [address] Nurse Practitioner Family Medicine 01/05/25 documented as of this encounter
--- OUTSIDE RECORDS SUMMARY | 2025-03-30 10:50 | XMS_ITS | Clinical Summary ---
Author Organization [facility] Address [address] [place] [address] Phone Care Team Providers Care Oyster Bed Worker Name Role Phone Shaikh WAYNE Bangura Primary Care Provider [phone] Allergies No known active allergies Medications apple cider vinegar 600 mg capsule Take 2 capsules by mouth once daily. Active pedi multivit no.17 w-fluoride (Fpvz-Wu-Ufmh) 0.5 mg tablet,chewable Chew 1 tablet once daily. Active albuterol (Ventolin HFA) 90 mcg/actuation inhaler Inhale 2 puffs every 6 hours if needed. 2 Active aspirin 81 mg EC tablet Take 1 tablet (81 mg) by mouth once daily. 2 Active clonazePAM (KlonoPIN) 0.5 mg tablet Take 1 tablet (0.5 mg) by mouth 2 times a day as needed. 2 Active empagliflozin (Jardiance) 10 mg Take 1 tablet (10 mg) by mouth once daily. 2 Active escitalopram (Lexapro) 20 mg tablet Take 1 tablet (20 mg) by mouth once daily. Active gabapentin (Neurontin) 600 mg tablet Take 1 tablet (600 mg) by mouth 3 times a day. 2 Active metFORMIN (Glucophage) 1,000 mg tablet Take 1 tablet (1,000 mg) by mouth 2 times daily (morning and late afternoon). 1 Active nitroglycerin (Nitrostat) 0.[address] under the tongue. 2 Active omeprazole (PriLOSEC) [address] capsule Take 1 capsule (40 mg) by mouth once daily in the morning. Take before meals. Do not crush or chew. Active budesonide/glycopyr /formoterol (BREZTRI AEROSPHERE INHL) Inhale. Active semaglutide (Ozempic) 1 mg/dose (4 mg/3 mL) pen injector Inject 1 mg under the skin 1 (one) time per week. 4 Active insulin glargine,hum.rec.an log (DORIE HILILLIE U-300 INSULIN SUBQ) Inject under the skin. Take as directed per insulin instructions . Active busPIRone (Buspar) 7.5 mg tablet Take 1 tablet (7.5 mg) by mouth 2 times a day. Active atorvastatin (Lipitor) 80 mg tabletIndications:M ixed hyperlipidemia Take 1 tablet (80 mg) by mouth once daily at bedtime. 90 tablet 5 Active clopidogrel (Plavix) 75 mg tabletIndications:M ixed hyperlipidemia Take 1 tablet (75 mg) by mouth once daily. 90 tablet 3 5 Active hydroCHLOROthiazide (HYDRODiuril) 25 mg tabletIndications:A ngina pectoris,MAC (dyspnea on exertion),Hx of percutaneous transluminal coronary angioplasty Take 1 tablet (25 mg) by mouth once daily. 90 tablet 3 5 Active isosorbide mononitrate ER (Imdur) 60 mg 24 hr tabletIndications:A ngina pectoris Take 1 tablet (60 mg) by mouth once daily. Do not crush or chew. 90 tablet 3 5 Active metoprolol tartrate (Lopressor) 25 mg tabletIndications:P rimary hypertension,Angina pectoris Take 1 tablet (25 mg) by mouth 2 times a day. 180 tablet 3 5 Active olmesartan (BENIcar) 40 mg tabletIndications:P rimary hypertension Take 1 tablet (40 mg) by mouth once daily. 90 tablet 3 5 Active ranolazine (Ranexa) 500 mg 12 hr tabletIndications:A ngina pectoris Take 1 tablet (500 mg) by mouth 2 times a day. 180 tablet 3 5 Active Active Problems Problem Noted Date Diagnosed Date BMI 40.0-44.9, adult (Multi) 05/04/2024 Abnormal EKG 09/17/2023 Angina pectoris 09/17/2023 CAD (coronary artery disease) 09/17/2023 Diabetes mellitus (Multi) 09/17/2023 Fatigue 09/17/2023 Hyperlipidemia 09/17/2023 Hypertension 09/17/2023 Lightheaded 09/17/2023 MAC (dyspnea on exertion) 09/17/2023 Status post insertion of drug eluting coronary a rtery stent 09/17/2023 Resolved Problems Problem Noted Date Diagnosed Date Resolved Date Obesity 09/18/2023 05/04/2024 Hx of percutaneous translumi nal coronary angioplasty 09/18/2023 05/04/2024 Encounters Date Type Department Care Team Description 01/06/2025 10:10 AM EST Office Visit [facility] [address] [phone] Erich Cherry, DO Coronary artery disease involving [place] coronary artery of [place] heart, unspecified whether angina present; Status post insertion of drug eluting coronary artery stent; Mixed hyperlipidemia; Primary hypertension; Angina pectoris; Type 2 diabetes mellitus without complication, with long-term current use of insulin (Multi); BMI 40.0-44.9, adult (Multi); MAC (dyspnea on exertion); Hx of percutaneous transluminal coronary angioplasty 01/06/2025 Travel from Last 3 Months Immunizations Immunization Administration Dates Next Due Influenza, Unspecified 07/11/2017 Influenza, seasonal, injectable 09/10/2024,08/17 Pfizer COVID-19 vaccine, biv alent, age 12 years and older (30 mcg/0.3 mL) 08/25/2022 Family History Medical History Relation Name Comments Hypertension Father Diabetes Mother Hypertension Mother Relation Name Status Comments Father Mother Social History Tobacco Use Types Packs/Day Years Used Date Smoking Tobacco: Never Smokeless Tobacco: Never Tobacco Cessation:Counseling Given: Not Answered Alcohol Use Standard Drinks/Week Comments Never 0 (1 standard drink = 0.6 oz pur e alcohol) Sex and Gender Information Value Date Recorded Sex Assigned at Not on file Legal Sex Male 4:36 AM EST Gender Identity Not on file Sexual Orientation Not on file Last Filed Vital Signs Vital Sign Reading Time Taken Comments Blood Pressure 108/70 01/06/2025 10:11 AM EST Pulse 84 01/06/2025 10:11 AM EST Temperature - - Respiratory Rate - - Oxygen Saturation - - Inhaled Oxygen Concentration - - Weight 158 kg (348 lb) 01/06/2025 10:11 AM EST Height 188 cm (6' 2 ) 01/06/2025 10:11 AM EST Body Mass Index 44.68 01/06/2025 10:11 AM EST Plan of Treatment Upcoming Encounters Date Type Department Care Team (Late st Contact Info) Description 09/06/2025 11:00 AM EDT Office Visit [facility] [address] [facility] [address] [place] [address] Hue Mendoza, PIECE MEAT TRIMMER-MOUNTAIN OR GLACIER GUIDE [address] [facility] [address] [place] [address] Health Maintenance Due Date Last Done Comments CT Colonography 1962 Diabetes: Hemoglobin A1C 1962 FIT-DNA (Cologuard) 1962 FIT 1962 HIV Screening 1962 Lipid Panel 1962 Medicare Annual Wellness Visit (AWV) 1962 Diabetes: Retinopathy Screening 1972 Hepatitis C Screening 1980 Pneumococcal Vaccine (1 of 2 - PCV) 1981 Zoster Vaccines (1 of 2) 09/19/2017 07/25/2017, 06/10 RSV High Risk: (Elderly (60+) or Population) (1 - Risk 60-74 years 1-dose series) 2022 Diabetes: Urine Protein Screening 08/27/2022 08/27/2021 COVID-19 Vaccine (2 - season) 2024 08/25/2022 DTaP/Tdap/Td Vaccines (2 - Td or Tdap) 06/20/2027 06/20/2017 Sigmoidoscopy 08/27/2028 08/27/2023 Colonoscopy 11/02/2030 11/02/2020, 11/02/2020 Colorectal Cancer Screening 11/02/2030 MMR Vaccines Completed 06/20/2017 Hepatitis B Vaccines Completed 12/20/2017, 07/25/2017, 06/20/2017 Irritable Bowel Syndrome Discontinued 11/02/2020 Influenza Vaccine Completed 09/13/2024, , 09/10/2023, Additional history exists HIB Vaccines Aged Out No longer eligi ble based on patient's age to complete this topic HPV Vaccines Aged Out No longer eligi ble based on patient's age to complete this topic Hepatitis A Vaccines Aged Out No long er eligible based on patient's age to complete this topic IPV Vaccines Aged Out No longer eligi ble based on patient's age to complete this topic Meningococcal Vaccine Aged Out No olivia skye eligible based on patient's age to complete this topic Rotavirus Vaccines Aged Out No longer eligible based on patient's age to complete this topic Insurance [employer] Care Teams Oyster Bed Worker Relationship Specialty Start Date End Date Shaikh Bangura MD PCP - General 06/26/22
--- OUTSIDE RECORDS SUMMARY | 2025-03-30 10:50 | XMS_ITS | Encounter Summary ---
Author Organization [facility] Address [address] [place] [address] Care Team Providers Care Personnel Representative Name Role Phone Jarad Garrison MD Primary Care Provider [phone] Esha Stanley NP Unavailable [phone] Encounter Details Date Type Department Care Team (Late Contact Info) Description 01/13/2025 Abstract [facility] [address] [facility] [phone] Amparo Haines, DO [address] [facility] [address] [place] [address] Social History Tobacco Use Types Packs/Day Years [...] [address] [place] [phone] Amparo Haines DO [address] [place] [address] 05/10/2025 1:20 PM EDT Office Visit [facility] [address] [place] [address] Esha Stanley NP [address] [place] [address] documented as of this encounter Goals Goal Patient Goal Type Associated Problems Recent Progress Patient-Stated? Author Help patient manage antidepressant medication Care Plan Patient on antidepressant monitoring plan No Mei Ireland NP documented as of this encounter Visit Diagnoses Not on filedocumented in this encounter Additional Health Concerns Active Problems Noted Date Diagnosed Date Patient on antidepressant monitoring plan 2023 Assessment Noted Time PHQ-9 Depression Total Score: 3 04/29/20 24 11:00 AM EDT documented as of this encounter Care Teams Personnel Representative Relationship Specialty Start Date End Date Jarad Garrison MD [address] [place] [address] PCP - General Family Medicine 09/21/24 Esha Stanley NP [address] [place] [address] Nurse Practitioner Family Medicine 01/05/25 documented as of this encounter
--- OUTSIDE RECORDS SUMMARY | 2025-03-30 10:50 | XMS_ITS | Encounter Summary ---
Author Organization [facility] Address [address] [place] [address] Care Team Providers Care Staff Development Coordinator Rn Name Role Phone Jarad Garrison MD Primary Care Provider [phone] Esha Stanley NP Unavailable [phone] Encounter Details Date Type Department Care Team (Late Contact Info) Description 01/20/2025 Abstract [facility] [address] [facility] [place] [address] Amparo Haines, DO [address] [facility] [address] [place] [address] Social History Tobacco Use Types Packs/Day Years [...] [address] [place] [phone] Amparo Haines DO [address] [place] [address] 05/10/2025 1:20 PM EDT Office Visit [facility] [address] [place] [address] Esha Stanley NP [address] [place] [address] documented as of this encounter Goals Goal [...] documented as of this encounter Care Teams Staff Development Coordinator Rn Relationship Specialty Start Date End Date Jarad Garrison MD [address] [place] [address] PCP - General Family Medicine 09/21/24 Esha Stanley NP [address] [place] [address] Nurse Practitioner Family Medicine 01/05/25 documented as of this encounter
--- OUTSIDE RECORDS SUMMARY | 2025-03-30 10:50 | XMS_ITS | Encounter Summary ---
Author Organization [facility] Address [address] [place] [address] Care Team Providers Care Treating Engineer Name Role Phone Jarad Garrison MD Primary Care Provider Mei Basilio LACROSSE COACH Unavailable Esha Stanley LACROSSE COACH Unavailable [phone] Encounter Details Date Type Department Care Team (Late st Contact Info) Description 10/04/2024 Abstract [facility] [address] [place] [address] Amparo Haines, DO [address] [facility] [address] [place] [address] Social History Tobacco Use Types Packs/Day Years [...] Date Recorded Patient Health Questionnaire-2 Score 0 09/13/2024 Sex and Gender Information Value Date Recorded [...] [address] [place] [address] Amparo Haines DO [address] [place] [address] 05/10/2025 1:20 PM EDT Office Visit [facility] [address] [place] [address] Esha Stanley, SUJATA [address] [place] [address] documented as of this encounter Visit Diagnoses Not on filedocumented in this encounter Additional Health Concerns Assessment Noted Time PHQ-9 Depression Total Score: 3 04/29/20 24 11:00 AM EDT documented as of this encounter Care Teams Treating Engineer Relationship Specialty Start Date End Date Jarad Garrison MD [address] [place] [address] PCP - General Family Medicine 09/21/24 Mei Basilio NP [address] [place] [address] Nurse Practitioner Family Medicine 09/21/24 01/04/25 Esha Stanley NP [address] [place] [address] Nurse Practitioner Family Medicine 01/05/25 documented as of this encounter
--- OUTSIDE RECORDS SUMMARY | 2025-03-30 10:50 | XMS_ITS | Encounter Summary ---
Author Organization [facility] Address [address] [facility] [place] [address] Care Team Providers Care Account Support Associate Name Role Phone Shaikh WAYNE Bangura Primary Care Provider [phone] Jarad Garrison MD Primary Care Provider [phone] Mei Basilio BACK HAND Unavailable [phone] Esha Stanley BACK HAND Unavailable [phone] Encounter Details Date Type Department Care Team (Late st Contact Info) Description 06/05/2023 Orders Only [facility] [address] [facility] [address] [place] [address] A, Unknown Practice [address] [place], [place] [address] Social History Tobacco Use Types Packs/Day Years Used Date Smoking Tobacco: Never Smokeless Tobacco: Never Alcohol Use Standard Drinks/Week Comments Yes 0 (1 standard drink = 0.6 oz [...] Date Recorded Patient Health Questionnaire-2 Score 0 06/03/2023 Sex and Gender Information Value Date Recorded [...] [address] [place] [address] JinaAmparo deng, DO [address] [place] [address] 05/10/2025 1:20 PM EDT Office Visit [facility] [address] [place] [address] Esha Stanley NP [address] [place] [address] documented as of this encounter Procedures Procedure Name Priority Date/Time Associated Diagnosis Comments SCANNED LABS Routine 06/05/2023 11:23 AM EDT documented in this encounter Results * SCANNED LABS (06/05/2023 11:23 AM EDT) us Unknown Practice A LAB CHG PERFORMABLES Final Re sult documented in this encounter Visit Diagnoses Not on filedocumented in this encounter Care Teams Account Support Associate Relationship Specialty Start Date End Date Shaikh Bangura MD [address] [place] [address] PCP - General Internal Medicine 04/29/23 09/20/24 Jarad Garrison MD [address] [place] [address] PCP - General Family Medicine 09/21/24 Mei Basilio NP [address] [place] [address] Nurse Practitioner Family Medicine 09/21/24 01/04/25 Esha Stanley NP [address] [facility] [place] [address] Nurse Practitioner Family Medicine 01/05/25 documented as of this encounter
--- OUTSIDE RECORDS SUMMARY | 2025-03-30 10:50 | XMS_ITS | Encounter Summary ---
Author Organization [facility] Address [address] [place] [address] Care Team Providers Care Director Of Family Service Center Name Role Phone Shaikh WAYNE Bangura Primary Care Provider [phone] Jarad Garrison MD Primary Care Provider [phone] Mei Basilio MONOTYPE KEYBOARD OPERATOR Unavailable Esha Stanley MONOTYPE KEYBOARD OPERATOR Unavailable [phone] Encounter Details Date Type Department Care Team (Late st Contact Info) Description 11/13/2023 Abstract [facility] [address] [place] [address] Shaikh Bangura MD [address] [place] [address] Social History Tobacco Use Types Packs/Day Years [...] Answer Date Recorded Patient Health Questionnaire-2 Score 6 10/09/2023 Sex and Gender Information Value Date Recorded [...] [address] [place] [address] Amparo Haines DO [address] [place] [address] 05/10/2025 1:20 PM EDT Office Visit [facility] [address] [place] [address] Esha Stanley, SUJATA [address] [place] [address] documented as of this encounter Visit Diagnoses Not on filedocumented in this encounter Additional Health Concerns Assessment Noted Time PHQ-9 Depression Total Score: 17 023 11:20 AM EST documented as of this encounter Care Teams Director Of Family Service Center Relationship Specialty Start Date End Date Shaikh Bagnura MD [address] [place] [address] PCP - General Internal Medicine 04/29/23 09/20/24 Jarad Garrison MD [address] [place] [address] PCP - General Family Medicine 09/21/24 Mei Basilio NP [address] [place] [address] Nurse Practitioner Family Medicine 09/21/24 01/04/25 Esha Stanley NP [address] [place] [address] Nurse Practitioner Family Medicine 01/05/25 documented as of this encounter
--- OUTSIDE RECORDS SUMMARY | 2025-03-30 10:50 | XMS_ITS | Clinical Summary ---
Author Organization [facility] Address [address] [place] [address] Care Team Providers Care Tug Hand Name Role Phone Unavailable Primary Care Provider Unavailabl e Social History Tobacco Use Types Packs/Day Years Used Date Smoking Tobacco: Never Assessed Sex and Gender Information Value Date Recorded Sex Assigned at Not on file Gender Identity Not on file Sexual Orientation Not on file Plan of Treatment Not on file
--- OUTSIDE RECORDS SUMMARY | 2025-03-30 10:50 | XMS_ITS | Encounter Summary ---
Author Organization [facility] Address [address] [place] [address] Care Team Providers Care Patrol Police Lieutenant Name Role Phone Jarad Garrison MD Primary Care Provider [phone] Esha Stanley NP Unavailable [phone] Encounter Details Date Type Department Care Team (Late Contact Info) Description 02/18/2025 Abstract [facility] [address] [facility] [place] [address] Amparo Haines, DO [address] [facility] [address] [place] [address] Social History Tobacco Use Types Packs/Day Years [...] [address] [place] [phone] Amparo Haines DO [address] [place] [address] 05/10/2025 1:20 PM EDT Office Visit [facility] [address] [place] [address] Esha Stanley NP [address] [place] [address] documented as of this encounter Goals Goal [...] documented as of this encounter Care Teams Patrol Police Lieutenant Relationship Specialty Start Date End Date Jarad Garrison MD [address] [place] [address] PCP - General Family Medicine 09/21/24 Esha Stanley NP [address] [place] [address] Nurse Practitioner Family Medicine 01/05/25 documented as of this encounter
--- OUTSIDE RECORDS SUMMARY | 2025-03-30 10:50 | XMS_ITS | Encounter Summary ---
Author Organization [facility] Address [address] [facility] [place] [address] Care Team Providers Care Heavy Repairer Name Role Phone Jarad Garrison MD Primary Care Provider [phone] Esha Stanley NP Unavailable [phone] Encounter Details Date Type Department Care Team (Late st Contact Info) Description 03/28/2025 Telephone [facility] [address] [place] [address] Esha Stanley, ADMINISTRATOR [address] [place] [address] Social History Tobacco Use Types Packs/Day Years [...] on file documented as of this encounter Miscellaneous Notes * Telephone Encounter - TINO RUSSO - 03/28/2025 5:28 PM EDT Pt received labs to get done and wanted to make sure kidney function and liver function was included, as I was calling pt back to let him know he was wanting xray on pelvis/hips he was told years agohe had arthritis and would like to know how his hips are now. He does have a lot of pain that has become more constant. Pt would like to get this done and the labs done before seeing you 05/10 for an ap pt. He can get xrays done at [facility] and will either get labs done there or at [facility] in the [facility] building documented in this encounter Plan of Treatment Upcoming Encounters Date Type Department Care Team (Late st Contact Info) Description 05/09/2025 1:15 PM EDT Office Visit [facility] [address] [place] [address] Amparo Haines DO [address] [place] [address] 05/10/2025 1:20 PM EDT Office Visit [facility] [address] [place] [address] Esha Stanley NP [address] [place] [address] documented as of this encounter Goals Goal [...] documented as of this encounter Care Teams Heavy Repairer Relationship Specialty Start Date End Date Jarad Garrison MD [address] [place] [address] PCP - General Family Medicine 09/21/24 Esha Stanley NP [address] [place] [address] Nurse Practitioner Family Medicine 01/05/25 documented as of this encounter
--- OUTSIDE RECORDS SUMMARY | 2025-03-30 10:50 | XMS_ITS | Referral Summary ---
Author Organization [facility] Address [address] [place] [address] Care Team Providers Care Private Secretary Name Role Phone Unavailable Primary Care Provider Unavailabl e Social History Tobacco Use Types Packs/Day Years Used Date Smoking Tobacco: Never Assessed Sex and Gender Information Value Date Recorded Sex Assigned at Not on file Gender Identity Not on file Sexual Orientation Not on file Plan of Treatment Not on file
--- OUTSIDE RECORDS SUMMARY | 2025-03-30 10:50 | XMS_ITS | Encounter Summary ---
Author Organization [facility] Address [address] [place] [address] Care Team Providers Care Residential Director Name Role Phone Jarad Garrison MD Primary Care Provider [phone] Esha Stanley NP Unavailable [phone] Encounter Details Date Type Department Care Team (Late Contact Info) Description 01/13/2025 Abstract [facility] [address] [facility] [place] [address] Amparo Haines, DO [address] [facility] 230 [place] [address] Social History Tobacco Use Types Packs/Day Years [...] [address] [place] [address] Amparo Haines DO [address] [place] [address] 05/10/2025 1:20 PM EDT Office Visit [facility] [address] [place] [address] Esha Stanley NP [address] [place] [address] documented as of this encounter Goals Goal [...] documented as of this encounter Care Teams Residential Director Relationship Specialty Start Date End Date Jarad Garrison MD [address] [place] [address] PCP - General Family Medicine 09/21/24 Esha Stanley NP [address] [place] [address] Nurse Practitioner Family Medicine 01/05/25 documented as of this encounter
--- OUTSIDE RECORDS SUMMARY | 2025-03-30 10:50 | XMS_ITS | Encounter Summary ---
Author Organization [facility] Address [address] [place] [address] Care Team Providers Care Refinery Operator Crude Unit Name Role Phone Shaikh WAYNE Bangura Primary Care Provider [phone] Jarad Garrison MD Primary Care Provider [phone] Mei Basilio CCIE Unavailable Esha Stanley CCIE Unavailable [phone] Encounter Details Date Type Department Care Team (Late st Contact Info) Description 05/09/2023 Abstract [facility] [address] [facility] 230 [place] [address] Amparo Haines, DO [address] [facility] 230 [place] [address] Social History Tobacco Use Types Packs/Day Years Used Date Smoking Tobacco: Never Smokeless Tobacco: Never Tobacco Cessation:Counseling Given: Not Answered Alcohol Use Standard Drinks/Week Comments Yes 0 [...] more drinks on one occasion? Never 04/29/2023 Sex and Gender Information Value Date Recorded [...] [address] [place] [address] Jinasowmya Amparo DO Samanta [address] [place] [address] 05/10/2025 1:20 PM EDT Office Visit [facility] [address] [place] [address] Esha Stanley, SUJATA [address] [place] [address] documented as of this encounter Visit Diagnoses Not on filedocumented in this encounter Care Teams Refinery Operator Crude Unit Relationship Specialty Start Date End Date Shaikh Bangura MD [address] [place] [address] PCP - General Internal Medicine 04/29/23 09/20/24 Jarad Garrison MD [address] [place] [address] PCP - General Family Medicine 09/21/24 Mei Basilio NP [address] [place] [address] Nurse Practitioner Family Medicine 09/21/24 01/04/25 Esha Stanley NP [address] [place] [address] Nurse Practitioner Family Medicine 01/05/25 documented as of this encounter
--- OUTSIDE RECORDS SUMMARY | 2025-03-30 10:50 | XMS_ITS | Encounter Summary ---
Author Organization [facility] Address [address] [place] [address] Phone Care Team Providers Care Paleologist Name Role Phone Shaikh WAYNE Bangura Primary Care Provider [phone] Encounter Details Date Type Department Care Team (Late st Contact Info) Description 12/25/2021 Orders Only [facility] [address] [place] [address] Conversion, Onbase Social History Tobacco Use Types Packs/Day Years [...] Description 09/06/2025 11:00 AM EDT Office Visit [facility] [address] [facility] [address] [place] [address] Hue Mendoza, FERTILIZER PROCESSING SUPERVISOR-GALLERY ASSISTANT [address] [facility] [address], [address] [place] [address] Scheduled Orders Name Type Priority Associated Diagnoses Orde r Schedule OUTSIDE LAB SCAN Lab Ordered: 12/25/2021 documented as of this encounter Visit Diagnoses Not on filedocumented in this encounter Care Teams Paleologist Relationship Specialty Start Date End Date Shaikh Bangura MD PCP - General 06/26/22 documented as of this encounter
--- OUTSIDE RECORDS SUMMARY | 2025-03-30 10:50 | XMS_ITS | Encounter Summary ---
Author Organization [facility] Address [address] [place] [address] Care Team Providers Care Retail Sales Professional Name Role Phone Jarad Garrison MD Primary Care Provider [phone] Esha Stanley NP Unavailable [phone] Encounter Details Date Type Department Care Team (Late Contact Info) Description 01/13/[address] [facility] [address] [facility] [place] [place] [address] Amparo Haines, DO [address] [facility] 230 [place] [address] Social History Tobacco Use Types Packs/Day Years [...] [address] [place] [address] Amparo Haines DO [address] [place] [address] 05/10/2025 1:20 PM EDT Office Visit [facility] [address] [place] [address] Esha Stanley NP [address] [place] [address] documented as of this encounter Goals Goal [...] documented as of this encounter Care Teams Retail Sales Professional Relationship Specialty Start Date End Date Jarad Garrison MD [address] [place] [address] PCP - General Family Medicine 09/21/24 Esha Stanley NP [address] [place] [address] Nurse Practitioner Family Medicine 01/05/25 documented as of this encounter
--- OUTSIDE RECORDS SUMMARY | 2025-03-30 10:50 | XMS_ITS | Clinical Summary ---
Author Organization [facility] Address [id number] [address] [place] [address] Care Team Providers Care Rural Service Engineer Name Role Phone Yancy Madi Paul ABRAMS Primary Care Provider [phone] Allergies No known active allergies Medications telmisartan (MICARDIS) 20 mg tablet Take 10 mg by mouth daily. Active metFORMIN (GLUCOPHAGE) 1000 mg tablet Take 1,000 mg by mouth 2 (two) times a day with meals. Active gabapentin (NEURONTIN) 300 mg capsule Take 300 mg by mouth 2 (two) times a day. Active NON FORMULARY Trujeo injection 42 units every afternoon Active empagliflozin (JARDIANCE) 10 mg tablet tablet Take 5 mg by mouth daily. Active ertugliflozin (STEGLATRO) 5 mg tablet Take 5 mg by mouth daily. Active NON FORMULARY daily. Durosemine 10 mg oral daily Active colestipoL (COLESTID) 5 gram granules Take 5 g by mouth every other day. Active esomeprazole (NexIUM) 20 mg capsule Take 20 mg by mouth every morning before breakfast. Active cholecalciferol (VITAMIN D3) 1,000 units tablet Take 1,200 Units by mouth daily. Active wmmyadps-pqqm-K A-calcium &mins (THERAGRAN-M) 9 mg iron-400 mcg tablet Take 1 tablet by mouth daily. Active apple cider vinegar 300 mg tablet Take by mouth. Activ e Active Problems No known active problems Family History Medical History Relation Name Comments Cancer Father prostate Heart disease Father Asthma Mother COPD Mother Heart disease Mother Relation Name Status Comments Father Alive Mother Alive Social History Tobacco Use Types Packs/Day Years Used Date Smoking Tobacco: Never Smokeless Tobacco: Never Alcohol Use Standard Drinks/Week Comments Yes 0 (1 standard drink = 0.6 oz pur e alcohol) rare Childcare Answer Date Recorded Childcare Unknown 04/21/2019 Employment Answer Date Recorded Employment Unknown 04/21/2019 Purpose - Life Answer Date Recorded Purpose and direction in life Unknown Sex and Gender Information Value Date Recorded Sex Assigned at Not on file Legal Sex Male 11:25 AM EDT Gender Identity Not on file Sexual Orientation Not on file Last Filed Vital Signs Vital Sign Reading Time Taken Comments Blood Pressure 115/51 12/29/2020 1:33 PM EST Pulse 90 12/29/2020 1:45 PM EST Temperature 36.4 C (97.6 F) 12/29/2020 12:01 PM EST Respiratory Rate 14 12/29/2020 1:11 PM EST Oxygen Saturation 93% 12/29/2020 1:45 PM EST Inhaled Oxygen Concentration - - Weight 163.3 kg (360 lb) 02/07/2022 9:36 AM EDT Height 188 cm (6' 2 ) 02/07/2022 9:36 AM EDT Body Mass Index 46.22 02/07/2022 9:36 AM EDT Plan of Treatment Health Maintenance Due Date Last Done Comments Depression Screening 1974 Tobacco Screening 1974 Adult BMI Screening 1980 Zoster (Shingles) Vaccine (1 of 2) 09/19/20172016, 06/20/2017 COVID-19 Vaccine (3 2023-2 5 season) 2024 02/23/2021, 02/02/2021 Influenza Vaccine 07/11/2025 08/17/2021, , 07/11/2017 DTaP,Tdap and Td Vaccines (2 - Td or Tdap) 06/20/2027 06/20/2017 Medical Devices Implanted Type Area Spare Hand Carding Device Identifier Shelf Expiration Date Model / Serial / Lot Stpl [id number] [facility] Ntnl Bn - Sna - [id number] Implanted:Qty : 1 on 12/29/2020 by Kwesi Dennison DPM at [facility] Orthopedic Implant Left: Foot [employer] 09/20/2025 [id number] 818-S / NA / [id number] [employer] Ntnl Bn - Sna - [id number] Implanted:Qty : 1 on 12/29/2020 by Kwesi Dennison DPM at [facility] Orthopedic Implant Left: Foot [employer] 10/13/2022 [id number] 020-S / NA / [id number] A Plt [employer] Med - Sna - [id number] Implanted:Qty : 1 on 12/29/2020 by Kwesi Dennison DPM at [facility] Plate Left: Foot [employer] 11/10/2024 [id number] 002 / NA / NA Scr Cnn Shrthrd Hdls 7.0x90mm - Sna - [id number] Implanted:Qty : 1 on 12/29/2020 by Kwesi Dennison DPM at [facility] Screw Left: Foot [employer] 11/10/2024 [id number] 90S / NA / NA Scr Cnn Shrthrd Hdls 7.2g704mp - Sna - [id number] Implanted:Qty : 1 on 12/29/2020 by Kwesi Dennison DPM at [facility] Screw Left: Foot [employer] 11/10/2024 [id number] 00S / NA / NA Scr Cnn Shrthrd Hdls 5.5x60mm - Sna - [id number] Implanted:Qty : 1 on 12/29/2020 by Kwesi Dennison DPM at [facility] Screw Left: Foot [employer] 11/10/2024 [id number] 60S / NA / NA Scr Plt Nlckg 3.5x20mm R3con - Sna - [id number] Implanted:Qty : 2 on 12/29/2020 by Kwesi Dennison DPM at [facility] Screw Left: Foot [employer] 11/10/2024 [id number] 520 / NA / NA Scr Plt Nlckg 3.5x50mm R3con - Sna - [id number] Implanted:Qty : 2 on 12/29/2020 by Kwesi Dennison DPM at [facility] Screw Left: Foot [employer] 11/10/2024 [id number] 550 / NA / NA Explanted Type Area Spare Hand Carding Device Identifier Shelf Expiration Date Model / Serial / Lot K-Wire Sgl End Smth [id number] - Sna - [id number] Explanted:Qty : 6 on 12/29/2020 by Kwesi Dennison DPM at [facility] Orthopedic Implant Left: Foot [employer] 11/10/2024 [id number] 323 / NA / NA K-Wire Sgl End Smth [id number] - Sna - [id number] Explanted:Qty : 3 on 12/29/2020 by Kwesi Dennison DPM at [facility] Orthopedic Implant Left: Foot [employer] 11/10/2024 [id number] 615 / NA / NA K-Wire Sgl End Smth [id number] - Sna - [id number] Explanted:Qty : 1 on 12/29/2020 by Kwesi Dennison DPM at [facility] Orthopedic Implant Left: Foot [employer] 11/10/2024 [id number] 415 / NA / NA Insurance [place]ICA[place] Member Subscriber Plan / Payer (Ef fective 2021-Present) Name:Hugo Aldana Jr. Relation to Subscriber:Self Name:Hugo Aldana Jr. Payer ID:Not on file Group ID:Not on file Type:Not on file Address: [address] Care Teams Rural Service Engineer Relationship Specialty Start Date End Date Madi Haines DO [address] [place] [address] PCP - General Family Medicine 04/27/21
--- OUTSIDE RECORDS SUMMARY | 2025-03-30 10:50 | XMS_ITS | Encounter Summary ---
Author Organization [facility] Address [address] [place] [address] Phone Care Team Providers Care Sack Lifter Name Role Phone Shaikh WAYNE Bangura Primary Care Provider [phone] Encounter Details Date Type Department Care Team (Late st Contact Info) Description 10/07/2023 Scanned Document [facility] [address] [place] [address] Scanning, Generic Provider Social History Tobacco Use Types Packs/Day Years Used Date Smoking Tobacco: Never Smokeless Tobacco: Never Alcohol Use Standard Drinks/Week Comments Never 0 (1 standard drink = 0.6 oz pur e alcohol) Sex and Gender Information Value Date Recorded Sex Assigned at Not on file Legal Sex Male 4:36 AM EST Gender Identity Not on file Sexual Orientation Not on file COVID-19 Exposure Response Date Recorded In the last 10 days, have yo u been in contact with someone who was confirmed or suspected to have Coronavirus/COVID-19? No / Unsure 09/18/2023 10:10 AM EST documented as of this encounter Plan of Treatment Upcoming Encounters Date Type Department Care Team (Late st Contact Info) Description 09/06/2025 11:00 AM EDT Office Visit [facility] [address] [facility] [address] [place] [address] Hue Mendoza, PRACTICING UROLOGIST-ENDODONTICS DENTIST [address] [facility] [address] [place], [place] [address] documented as of this encounter Visit Diagnoses Not on filedocumented in this encounter Care Teams Sack Lifter Relationship Specialty Start Date End Date Shaikh Bangura MD PCP - General 06/26/22 documented as of this encounter
--- OUTSIDE RECORDS SUMMARY | 2025-03-30 10:50 | XMS_ITS | Encounter Summary ---
Author Organization [facility] Address [address] [place] [address] Care Team Providers Care Mixer Whipped Topping Name Role Phone Shaikh WAYNE Bangura Primary Care Provider [phone] Jarad Garrison MD Primary Care Provider [phone] Mei Basilio MUNICIPAL MAINTENANCE WORKER Unavailable [phone] Esha Stanley MUNICIPAL MAINTENANCE WORKER Unavailable [phone] Encounter Details Date Type Department Care Team (Late st Contact Info) Description 06/21/2024 Orders Only [facility] [address] [place] [address] Cornel Snider MD [address] [place], [place] [address] Social History Tobacco Use Types Packs/Day Years [...] Answer Date Recorded Patient Health Questionnaire-2 Score 1 04/29/2024 Sex and Gender Information Value Date Recorded [...] [address] [place] [address] Amparo Haines DO [address] [place] [address] 05/10/2025 1:20 PM EDT Office Visit [facility] [address] [place] [address] Esha Stanley NP [address] [place] [address] documented as of this encounter Procedures Procedure Name Priority Date/Time Associated Diagnosis Comments CT SOFT TISSUE NECK W IV CONTRAST Routine 06/20/2024 12:26 PM EDT documented in this encounter Results * CT soft tissue neck w IV contrast (06/20/2024 12:26 PM EDT) Anatomical Region Laterality Modality Head, Neck Computed Tomogra phy Cornel Snider MD IMG CT PROCEDURES Final Resul t documented in this encounter Visit Diagnoses Not on filedocumented in this encounter Additional Health Concerns Assessment Noted Time PHQ-9 Depression Total Score: 3 04/29/20 24 11:00 AM EDT documented as of this encounter Care Teams Mixer Whipped Topping Relationship Specialty Start Date End Date Shaikh Bangura MD [address] [place] [address] PCP - General Internal Medicine 04/29/23 09/20/24 Jarad Garrison MD [address] [place] [address] PCP - General Family Medicine 09/21/24 Mei Basilio NP [address] [place] [address] Nurse Practitioner Family Medicine 09/21/24 01/04/25 Esha Stanley NP [address] [place] [address] Nurse Practitioner Family Medicine 01/05/25 documented as of this encounter
--- OUTSIDE RECORDS SUMMARY | 2025-03-30 10:51 | XMS_ITS | Encounter Summary ---
Author Organization [facility] Address [address] [facility] [place] [address] Care Team Providers Care Mobile Heavy Equipment Operator Name Role Phone Shaikh WAYNE Bangura Primary Care Provider [phone] Jarad Garrison MD Primary Care Provider [phone] Mei Basilio BLACK LEATHER BUFFER Unavailable [phone] Esha Stanley BLACK LEATHER BUFFER Unavailable [phone] Encounter Details Date Type Department Care Team (Late st Contact Info) Description 12/30/2023 Abstract [facility] [address] [place] [address] Amparo Haines, DO [address] [facility] 230 [place] [address] Social History Tobacco Use Types Packs/Day Years [...] [address] [place] [address] JinaAmparo deng Samanta, [address] [place] [address] 05/10/2025 1:20 PM EDT Office Visit [facility] [address] [place] [address] Esha Stanley, SUJATA [address] [place] [address] documented as of this encounter Visit Diagnoses Not on filedocumented in this encounter Additional Health Concerns Assessment Noted Time PHQ-9 Depression Total Score: 17 023 11:20 AM EST documented as of this encounter Care Teams Mobile Heavy Equipment Operator Relationship Specialty Start Date End Date Shaikh Bangura MD [address] [place] [address] PCP - General Internal Medicine 04/29/23 09/20/24 Jarad Garrison MD [address] [place] [address] PCP - General Family Medicine 09/21/24 Mei Basilio NP [address] [place] [address] Nurse Practitioner Family Medicine 09/21/24 01/04/25 Esha Stanley NP [address] [place] [address] Nurse Practitioner Family Medicine 01/05/25 documented as of this encounter
--- OUTSIDE RECORDS SUMMARY | 2025-03-30 10:51 | XMS_ITS | Encounter Summary ---
Author Organization [facility] Address [address] [place] [address] Care Team Providers Care Blood Typer Name Role Phone Shaikh WAYNE Bangura Primary Care Provider [phone] Jarad Garrison MD Primary Care Provider [phone] Mei Basilio HAMMERER HELPER Unavailable [phone] Esha Stanley HAMMERER HELPER Unavailable [phone] Encounter Details Date Type Department Care Team (Late st Contact Info) Description 01/13/2024 Abstract [facility] [address] [facility] 230 [place] [address] Amparo Haines, DO [address] [facility] 230 [place] [address] Social History Tobacco Use Types Packs/Day Years [...] [address] [place] [address] JinaAmparo deng Samanta, [address] [place] [address] 05/10/2025 1:20 PM EDT Office Visit [facility] [address] [place] [address] Esha Stanley, SUJATA [address] [place] [address] documented as of this encounter Visit Diagnoses Not on filedocumented in this encounter Additional Health Concerns Assessment Noted Time PHQ-9 Depression Total Score: 17 023 11:20 AM EST documented as of this encounter Care Teams Blood Typer Relationship Specialty Start Date End Date Shaikh Bangura MD [address] [place] [address] PCP - General Internal Medicine 04/29/23 09/20/24 Jarad Garrison MD [address] [place] [address] PCP - General Family Medicine 09/21/24 Mei Basilio NP [address] [place] [address] Nurse Practitioner Family Medicine 09/21/24 01/04/25 Esha Stanley NP [address] [place] [address] Nurse Practitioner Family Medicine 01/05/25 documented as of this encounter
--- OUTSIDE RECORDS SUMMARY | 2025-03-30 10:51 | XMS_ITS | Encounter Summary ---
Author Organization [facility] Address [address] [place] [address] Phone Care Team Providers Care Education Assistant Name Role Phone Shaikh WAYNE Bangura Primary Care Provider [phone] Encounter Details Date Type Department Care Team (Late st Contact Info) Description 08/27/2021 Orders Only [facility] [address] [place] [address] Conversion, Onbase Social History Tobacco Use Types [...] Description 09/06/2025 11:00 AM EDT Office Visit [facility] [address] [facility] [address] [place] [address] Hue Mendoza, SENIOR UI WEB DEVELOPER-COMMUNITY PHARMACIST [address] [facility] [address], [address] [place] [address] Scheduled Orders Name Type Priority Associated Diagnoses Orde r Schedule OUTSIDE LAB SCAN Lab Ordered: 08/27/2021 OUTSIDE LAB SCAN Lab Ordered: 08/27/2021 documented as of this encounter Visit Diagnoses Not on filedocumented in this encounter Care Teams Education Assistant Relationship Specialty Start Date End Date Shaikh Bangura MD PCP - General 8/17/22 documented as of this encounter
--- OUTSIDE RECORDS SUMMARY | 2025-03-30 10:51 | XMS_ITS | Encounter Summary ---
Author Organization [facility] Address [address] [place] [address] Care Team Providers Care Network Consultant Name Role Phone Shaikh WAYNE Bangura Primary Care Provider [phone] Jarad Garrison MD Primary Care Provider [phone] Mei Basilio DIRECTOR MISSION Unavailable [phone] Esha Stanley DIRECTOR MISSION Unavailable [phone] Encounter Details Date Type Department Care Team (Late st Contact Info) Description 10/31/2023 Orders Only [facility] [address] [facility] 230 [place] [address] Amparo Haines, DO [address] [facility] 230 [place] [address] Social History Tobacco Use Types Packs/Day Years [...] [address] [place] [address] Amparo Haines DO [address] [place] [address] 05/10/2025 1:20 PM EDT Office Visit [facility] [address] [place] [address] Esha Stanley NP [address] [place] [address] documented as of this encounter Procedures Procedure Name Priority Date/Time Associated Diagnosis Comments DIABETIC RETINOPATHY SCREENING - OU - BOTH EYES Routine 10/29/2023 9:37 AM EST documented in this encounter Results * Diabetic Retinopathy Screening - OU - Both Eyes (10/29/2023 9:37 AM EST) Anatomical Region Laterality Modality Head Other us Amparo Haines DO OPHTH PHOTOGRAPHY Final Re sult documented in this encounter Visit Diagnoses Not on filedocumented in this encounter Additional Health Concerns Assessment Noted Time PHQ-9 Depression Total Score: 17 10/09/ 023 11:20 AM EST documented as of this encounter Care Teams Network Consultant Relationship Specialty Start Date End Date Shaikh Bangura MD [address] [place] [address] PCP - General Internal Medicine 04/29/23 09/20/24 Jarad Garrison MD [address] [place] [address] PCP - General Family Medicine 09/21/24 Mei Basilio NP [address] [place] [address] Nurse Practitioner Family Medicine 09/21/24 01/04/25 Esha Stanley NP [address] [place] [address] Nurse Practitioner Family Medicine 01/05/25 documented as of this encounter
--- OUTSIDE RECORDS SUMMARY | 2025-03-30 10:51 | XMS_ITS | Encounter Summary ---
Author Organization [facility] Address [address] [place] [address] Care Team Providers Care Furnace Brazer Name Role Phone Shaikh WAYNE Bangura Primary Care Provider [phone] Jarad Garrison MD Primary Care Provider [phone] Mei Basilio SPICE ROOM WORKER Unavailable [phone] Esha Stanley SPICE ROOM WORKER Unavailable [phone] Encounter Details Date Type Department Care Team (Late st Contact Info) Description 04/30/2024 Clinisync Result Encounter [facility] External Department Unsolicited Shaikh Bangura MD [address] [place] [address] Social History Tobacco Use Types Packs/Day Years [...] [address] [place] [address] JinaAmparo deng, DO [address] [place] [place] [address] 05/10/2025 1:20 PM EDT Office Visit [facility] [address] [place] [address] Esha Stanley NP [address] [place] [address] documented as of this encounter Procedures Procedure Name Priority Date/Time Associated Diagnosis Comments XR HIP 2 OR 3 VW RIGHT 04/30/2024 6:19 AM EDT documented in this encounter Results * XR hip right 2 or 3 views (04/30/2024 6:19 AM EDT) Anatomical Region Laterality Modality Lower Extremities, Hip Right Radiograp hic Imaging 04/30/2024 6:19 AM EDT Narrative 04/30/2024 6:22 AM EDT The [place] [id number] XRay Report Signed Patient: HUGO ALDANA MR#: [id number] : 1960 Acct:[id number] Age/Sex: 63 / M ADM Date: 04/29/24 Loc: LAB Attending Dr: Shaikh Sveta Boyle Ordering Physician: Shaikh Tamar Bangura Date of Service: 04/29/24 Procedure(s): XR hip RT min 2V Accession Number(s): [id number] cc: Shaikh Tamar Bangura [address] [id number] Patient Name: HUGO ALDANA MRN: [id number] date: 1960 Sex: M Assigned Patient Location: LAB Current Patient Location: Accession/Order Number: [id number] Exam Date: 04/29/2024 13:10 Report Date: 04/30/2024 06:19 At the request of: SHAIKH SVETA Procedure: XR hip RT min 2V PROCEDURE: XR hip RT min 2V HISTORY: Right Hip Pain COMPARISON: None. FINDINGS: BONES:Mild joint space narrowing and small periarticular osteophytes. SOFT TISSUES:No visible soft tissue swelling. EFFUSION:None visible. OTHER: Negative. XR/XR hip RT min 2V IMPRESSION: 1. No acute bone abnormality. 2. Mild degenerative joint disease. Electronically authenticated by: MARCO CARLIN Date: 04/30/2024 06:19 Dictated By: Marco Carlin M.D. Signed By: 04/30/24621 DD/ 8 TD/TT: Shoe Stitcher Odd: Procedure Note Radiology, Radiologist, MD - 04/30/2024 [place] [address] XRay Report Signed Patient: HUGO ALDANA NMR#: [id number] : 1960cct:[id number] Age/Sex: 63 / MADM Date: 04/29/24 Loc: LAB Attending Dr: Shaikh Sveta Boyle Ordering Physician: Shaikh Tamar Bangura Date of Service: 04/29/24 Procedure(s): XR hip RT min 2V Accession Number(s): [id number] cc: Shaikh Tamar Bangura The [address] [address] Patient Name: HUGO ALDANA MRN: [id number] date: 1960 Sex: M Assigned Patient Location: LAB Current Patient Location: Accession/Order Number: [id number] Exam Date: 04/29/2024 13:10 Report Date: 04/30/2024 06:19 At the request of: SHAIKH SVETA Procedure: XR hip RT min 2V PROCEDURE: XR hip RT min 2V HISTORY: Right Hip Pain COMPARISON: None. FINDINGS: BONES:Mild joint space narrowing and small periarticular osteophytes. SOFT TISSUES:No visible soft tissue swelling. EFFUSION:None visible. OTHER: Negative. XR/XR hip RT min 2V IMPRESSION: 1. No acute bone abnormality. 2. Mild degenerative joint disease. Electronically authenticated by: MARCO CARLIN Date: 04/30/2024 06:19 Dictated By: Marco Carlin M.D. Signed By:04/30/24621 DD/ 8 TD/TT: Shoe Stitcher Odd: us Shaikh Sveta BLACK IMG XR PROCEDURES Final Result documented in this encounter Visit Diagnoses Not on filedocumented in this encounter Additional Health Concerns Assessment Noted Time PHQ-9 Depression Total Score: 3 04/29/20 24 11:00 AM EDT documented as of this encounter Care Teams Furnace Brazer Relationship Specialty Start Date End Date Shaikh Bangura MD [address] [place] [address] PCP - General Internal Medicine 04/29/23 09/20/24 Jarad Garrison MD [address] [place] [address] PCP - General Family Medicine 09/21/24 Mei Basilio NP [address] [place] [address] Nurse Practitioner Family Medicine 09/21/24 01/04/25 Esha Stanley NP [address] [place] [address] Nurse Practitioner Family Medicine 01/05/25 documented as of this encounter
--- OUTSIDE RECORDS SUMMARY | 2025-03-30 10:51 | XMS_ITS | Encounter Summary ---
Author Organization [facility] Address [address] [facility] [place] [address] Care Team Providers Care Group Manager Name Role Phone Shaikh WAYNE Bangura Primary Care Provider [phone] Jarad Garrison MD Primary Care Provider [phone] Mei Basilio 2 YEAR [employer] Unavailable Esha Stanley 2 YEAR [employer] Unavailable [phone] Encounter Details Date Type Department Care Team (Late st Contact Info) Description 04/30/2024 Abstract [facility] [address] [place] [address] Amparo Haines, DO [address] [facility] 230 [place] [address] Social History Tobacco Use Types Packs/Day Years [...] [address] [place] [address] Amparo Haines DO [address] [place] [address] 05/10/2025 1:20 PM EDT Office Visit [facility] [address] [place] [address] Esha Stanley, SUJATA [address] [place] [address] documented as of this encounter Visit Diagnoses Not on filedocumented in this encounter Additional Health Concerns Assessment Noted Time PHQ-9 Depression Total Score: 3 04/29/20 24 11:00 AM EDT documented as of this encounter Care Teams Group Manager Relationship Specialty Start Date End Date Shaikh Bangura MD [address] [place] [address] PCP - General Internal Medicine 04/29/23 09/20/24 Jarad Garrison MD [address] [place] [address] PCP - General Family Medicine 09/21/24 Mei Basilio NP [address] [place] [address] Nurse Practitioner Family Medicine 09/21/24 01/04/25 Esha Stanley NP [address] [place] [address] Nurse Practitioner Family Medicine 01/05/25 documented as of this encounter
--- OUTSIDE RECORDS SUMMARY | 2025-03-30 10:51 | XMS_ITS | Encounter Summary ---
Author Organization [facility] Address [address] [place] [address] Care Team Providers Care Fast Food Shift Supervisor Name Role Phone Shaikh WAYNE Bangura Primary Care Provider [phone] Jarad Garrison MD Primary Care Provider [phone] Mei Basilio GLASSIE Unavailable [phone] Esha Stanley GLASSIE Unavailable [phone] Encounter Details Date Type Department Care Team (Late st Contact Info) Description 04/30/2024 Clinisync Result Encounter [facility] External Department Unsolicited Shaikh Bangura MD [address] [place] [address] Social History Tobacco Use Types [...] [address] [place] [address] YancyAmparo Samanta, DO [address] [place] [address] 05/10/2025 1:20 PM EDT Office Visit [facility] [address] [place] [address] Esha Stanley NP [address] [place] [address] documented as of this encounter Procedures Procedure Name Priority Date/Time Associated Diagnosis Comments XR LUMBAR SPINE 2 OR 3V 04/30/2024 6:23 AM EDT documented in this encounter Results * XR LUMBAR SPINE 2 OR 3V (04/30/2024 6:23 AM EDT) Anatomical Region Laterality Modality Radiographic Lety ging 04/30/2024 6:23 AM EDT Narrative 04/30/2024 6:25 AM EDT The [address] [address] XRay Report Signed Patient: HUGO ALDANA MR#: [id number] : 1960 Acct:[id number] Age/Sex: 63 / M ADM Date: 04/29/24 Loc: LAB Attending Dr: Shaikh Sveta Boyle Ordering Physician: Shaikh Tamar Bangura Date of Service: 04/29/24 Procedure(s): XR lumbar spine 2-3V Accession Number(s): [id number] cc: Shaikh Tamar Bangura [address] [address] Patient Name: HUGO ALDANA MRN: [id number] date: 1960 Sex: M Assigned Patient Location: LAB Current Patient Location: LAB Accession/Order Number: [id number] Exam Date: 04/29/2024 13:10 Report Date: 04/30/2024 06:23 At the request of: SHAIKH SVETA Procedure: XR lumbar spine 2-3V EXAMINATION: XR lumbar spine 2-3V HISTORY: Chronic Midline Back pain COMPARISON: CT abdomen pelvis 01/06/2023 FINDINGS: BONES: Multilevel large degenerative bridging osteophytes along lateral margins of the lumbar vertebrae. No fracture, spondylolisthesis, bone lesion. Mild degenerative facet arthropathy L3-L4 through L5-S1. DISC SPACES: Moderate narrowing L4-L5, L5-S1. Mild narrowing L1-L2, L2-L3. PARASPINOUS: Negative. No paraspinous abnormality is seen. OTHER: Negative. XR/XR lumbar spine 2-3V IMPRESSION: 1. Moderate degenerative changes of lumbar spine; grossly stable. Electronically authenticated by: MARCO CARLIN Date: 04/30/2024 06:23 Dictated By: Marco Carlin M.D. Signed By: 04/30/24624 DD/ 2 TD/TT: Swing Saw Operator: Procedure Note Radiology, Radiologist, MD - 04/30/[address] [place] [address] XRay Report Signed Patient: HUGO ALDANA [facility]#: [id number] : 1960cct:[id number] Age/Sex: 63 / MADM Date: 04/29/24 Loc: LAB Attending Dr: Shaikh Sveta Boyle Ordering Physician: Shaikh Tamar Bangura Date of Service: 04/29/24 Procedure(s): XR lumbar spine 2-3V Accession Number(s): [id number] cc: Shaikh Tamar Bangura The [address] [address] Patient Name: HUGO ALDANA MRN: [id number] date: 1960 Sex: M Assigned Patient Location: LAB Current Patient Location: LAB Accession/Order Number: [id number] Exam Date: 04/29/2024 13:10 Report Date: 04/30/2024 06:23 At the request of: SHAIKH SVETA Procedure: XR lumbar spine 2-3V EXAMINATION: XR lumbar spine 2-3V HISTORY: Chronic Midline Back pain COMPARISON: CT abdomen pelvis 01/06/2023 FINDINGS: BONES: Multilevel large degenerative bridging osteophytes along lateral margins of the lumbar vertebrae. No fracture, spondylolisthesis, bone lesion. Mild degenerative facet arthropathy L3-L4 through L5-S1. DISC SPACES: Moderate narrowing L4-L5, L5-S1. Mild narrowing L1-L2, L2-L3. PARASPINOUS: Negative. No paraspinous abnormality is seen. OTHER: Negative. XR/XR lumbar spine 2-3V IMPRESSION: 1. Moderate degenerative changes of lumbar spine; grossly stable. Electronically authenticated by: MARCO CARLIN Date: 04/30/2024 06:23 Dictated By: Marco Carlin M.D. Signed By:04/30/24624 DD/ 2 TD/TT: Swing Saw Operator: Shaikh Sveta BLACK IMG XR PROCEDURES Final Result documented in this encounter Visit Diagnoses Not on filedocumented in this encounter Additional Health Concerns Assessment Noted Time PHQ-9 Depression Total Score: 3 04/29/20 11:00 AM EDT documented as of this encounter Care Teams Fast Food Shift Supervisor Relationship Specialty Start Date End Date Shaikh Bangura MD [address] [place] [address] PCP - General Internal Medicine 04/29/23 09/20/24 Jarad Garrison MD [address] [place] [address] PCP - General Family Medicine 09/21/24 Mei Basilio NP [address] [place] [address] Nurse Practitioner Family Medicine 09/21/24 01/04/25 Esha Stanley NP [address] [place] [address] Nurse Practitioner Family Medicine 01/05/25 documented as of this encounter
--- OUTSIDE RECORDS SUMMARY | 2025-03-30 10:51 | XMS_ITS | Patient Health Record ---
Author Organization [facility] [employer] Address [address] [place] [address] Care Team Providers Care Tile And Mottle Supervisor Name Role Phone Sveta BLACK, [facility] Primary Care Provider Luis reed RobertaBabar Unavailable [phone] Allergies No Known Allergies Reason For Referral No Information Medications Medication SIG (Take, Route, Frequency, Duration) Notes Start Date End Date Status Atorvastatin Calcium 80 MG 1 tablet Oral ly Once a day Active Aspirin 81 81 MG 1 tablet Orally Once a day Active metFORMIN HCl 1000 MG 1 tablet with a meal Orally Once a day Active Toujeo SoloStar 300 UNIT/ML as directed Subcutaneous Active Metoprolol Tartrate 25 MG 1 tablet with food Orally Twice a day Active Meloxicam 15 MG 1 tablet Orally Once a day Active Ranolazine ER 500 MG 1 tablet Orally Twice a day Active oxyCODONE HCl 5 MG 1 tablet as needed Orally every 6 hrs Active Jardiance 10 MG 1 tablet Orally Once a day Active Plavix 75 MG 1 tablet Orally Once a day Active hydroCHLOROthiazide 25 MG 1 tablet in morning Orally Once a day Active Olmesartan Medoxomil 40 MG 1 tablet Oral ly Once a day Active Isosorbide Mononitrate ER 60 MG 1 tablet in the morning Orally Once a day Active Omeprazole 40 MG 1 capsule 30 minutes before morning meal Orally Once a day Active Escitalopram Oxalate 20 MG 1 tablet Oral ly Once a day Active Multi Complete - as directed Orally Active Nitroglycerin 0.4 MG as directed Sublingual Active Trulicity 4.5mg/0.5mL 4.5mg/0.5mL As directed Subcutaneous Once weekly Active Zenpep 18907-243735 UNIT TAKE 2 CAPSULES BY MOUTH THREE TIMES DAILY WITH MEALS Oral for 90 Days Active Breztri Aerosphere 160/9/4.8 mcg 2 puffs inhalation BID for 90 days Rinse after use Active Albuterol Sulfate HFA 108 (90 Base) MCG/ACT 2 puffs as needed for SOB Inhalation Q4H for 30 days Active Immunizations Vaccine Route Administration Date Status Comme nts Flu, Afluria (0171-9351) (90 686) 3 yrs+, single-dose syringe Unknown 09/10/2023 Administered Flu, Fluzone (83165) 6 mos+, single-dose syringe/vial (6920-4548) Unknown 08/25/2022 Administered SARS-COV-2 (COVID 19) bivale nt 30 mcg/0.3 ml dose Unknown 08/25/2022 Administered Tdap (Boostrix) Unknown 06/20/2017 Administered Varicella Unknown 07/25/2017 Administered Social History Tobacco Use: Social History Observation Description Date Details (start date - stop date) Never Smoker NA - NA Tobacco Use/Smoking Question Answer Notes Patient is a nonsmoker Alcohol Screen (Audit-C) Question Answer Notes Did you have a drink contain ing alcohol in the past year? Yes How many drinks did you have on a typical day when you were drinking in the past year? 1 or 2 drinks (0 point) How often did you have a dri nk containing alcohol in the past year? 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) Active confirmed Problem Morbid obesity (396390276) Morbid obesity (E66.01) Active confirmed Problem Coronary artery disease (86632467) Coronary artery disease (I25.10) Active confirmed [facility] : CATY x2 mid & distal LAD, CATY x1 mid/proxima l PLV branch Problem Obstructive sleep apnea syndrome (65419895) TAINA (obstructive sleep apnea) (G47.33) Active confirmed Problem 096042549 Erectile dysfunction, unspecified erectile dysfunction type (N52.9) Active confirmed Problem Type II diabetes mellitus well controlled (779697425) Diabetes mellitus type 2, controlled (E11.9) Active confirmed Problem Body mass index 40+ - severely obese (175996345) Body mass index [BMI] 45.0-49.9, adult (Z68.42) Active confirmed Problem History of COVID-19 (4975140805851 91790) History of COVID-19 (Z86.16) Active confirmed Encounters Encounter Location Date Provider Diagnosis [facility] [address] [place] [address] 04/01/2024 Babar Granados Plan Of Treatment No Information Insurance Providers Payer Name Payer Address Payer Phone Subscriber Number Group Number Insured Name Patient Relationship to Insured Coverage Start Date Coverage End Date [employer] [place] [address] [address] [place] [address] [id number] Hugo Aldana Self - patient is the insured Medical (General) History Medical History History ICD Code Diabetes mellitus type 2, controlled E11 .9 Coronary artery disease I25.10 Essential Hypertension I10 Osteoarthritis M19.90 Hyperlipidemia E78.5 Anxiety F41.9 GERD (gastroesophageal reflux disease) K 21.9 TAINA (obstructive sleep apnea) G47.33 Morbid obesity E66.01 History of COVID-19 Z86.16 Surgical History Surgery Date(Month/Year) Left Foot Surgery Cardiac Catheterization with stents 07/2022 wrist surgery-right shoulder arthroscopy-left hernia repair x2 neck surgery back surgery TURP Dr Danis Mendoza @ [facility] 04/2018 cholecystectomy
--- OUTSIDE RECORDS SUMMARY | 2025-03-30 10:51 | XMS_ITS | Clinical Summary ---
Author Organization [facility] Address [address] [place] [address] Care Team Providers Care Table Tender Sludge Name Role Phone William Lozoya MD Primary Care Provider [phone] Allergies No known active allergies Medications baclofen (LIORESAL) 10 MG tablet 8 Active NOVOLOG MIX 70/30 FLEXPEN (70-30) 100 UNIT/ML injection INJECT 20 UNITS SUBCUTANEOUSLY EVERY MORNING and INJECT TEN UNITS SUBCUTANEOUSLY AT BEDTIME 11 8 Active lisinopril (PRINIVIL;ZEST RIL) 10 MG tablet 8 Active metFORMIN (GLUCOPHAGE) 1000 MG tablet 8 Active tamsulosin (FLOMAX) 0.4 MG capsule TAKE 1 CAPSULE BY MOUTH ONCE DAILY 1 7 Active diclofenac (VOLTAREN) 50 MG EC tablet Take 1 tablet by mouth 2 times daily 60 tablet 5 8 Active gabapentin (NEURONTIN) 300 MG capsule Take 1 capsule by mouth 3 times daily for 30 days.. 90 capsule 5 8 Active Social History Tobacco Use Types Packs/Day Years Used Date Smoking Tobacco: Never Assessed Interpersonal Safety Domain Source: IP Abuse Scr eening Answer Date Recorded Physical abuse Denies 06/20/2024 Verbal abuse Denies 06/20/2024 Emotional abuse Denies 06/20/2024 Financial abuse Denies 06/20/2024 Sexual abuse Denies 06/20/2024 Sex and Gender Information Value Date Recorded Sex Assigned at Not on file Legal Sex Male 3:04 PM EST Gender Identity Not on file Sexual Orientation Not on file Last Filed Vital Signs Vital Sign Reading Time Taken Comments Blood Pressure 166/93 06/20/2024 8:15 PM EDT Pulse 98 06/20/2024 6:32 PM EDT Temperature 37.1 C (98.8 F) 06/20/2024 6:31 PM EDT Respiratory Rate 18 06/20/2024 6:32 PM EDT Oxygen Saturation 94% 06/20/2024 8:37 PM EDT Inhaled Oxygen Concentration - - Weight 157.4 kg (347 lb) 06/20/2024 6:33 PM EDT Height 188 cm (6' 2 ) 06/20/2024 6:33 PM EDT Body Mass Index 44.55 06/20/2024 6:33 PM EDT Plan of Treatment Health Maintenance Due Date Last Done Comments Depression Screen 1974 HIV screen 1977 Hepatitis C screen 1980 Diabetes screen 1997 Lipids 2002 Colonoscopy 2007 Colorectal Cancer Screen 2007 FIT/FOBT: Average risk 2007 Fecal-DNA (Cologuard): Average risk 2007 Sigmoidoscopy/CT colonography 2007 Pneumococcal 50+ years Vaccine (1 of 1 - PCV) 2012 Shingles vaccine (1 of 2) 09/19/2017 07/25/2017, 09/2017 Respiratory Syncytial Virus (RSV) or age 60 yrs+ (1 - Risk 60-74 years 1-dose series) 2022 COVID-19 Vaccine ( - season) 2024 08/25/2022, 02/23/2021, 02/02/2021 Annual Wellness Visit (Medicare Advantage) 11/10/2024 Flu vaccine (Season Ended) 06/10/202509/10, 08/25/2022, 08/17/2022, Additional history exists DTaP/Tdap/Td vaccine (2 - Td or Tdap) 06/20/2027 06/20/2017 Hepatitis A vaccine Aged Out No longe r eligible based on patient's age to complete this topic Hepatitis B vaccine Aged Out No longe r eligible based on patient's age to complete this topic Hib vaccine Aged Out No longer eligi ble based on patient's age to complete this topic Meningococcal (ACWY) vaccine Aged Out No longer eligible based on patient's age to complete this topic Meningococcal B vaccine Aged Out No l onger eligible based on patient's age to complete this topic Polio vaccine Aged Out No longer elig ible based on patient's age to complete this topic Insurance [facility] [employer] MEDICARE [facility] MEDICARE Care Teams Table Tender Sludge Relationship Specialty Start Date End Date William Lozoya MD [address] [place], [place] [id number] PCP - General Emergency Medicine 06/20/24
--- OUTSIDE RECORDS SUMMARY | 2025-03-30 10:55 | XMS_ITS | CCD ---
Author Organization [facility] Care Team Providers Care Informatica Name Role Phone Domonique Peñaloza Unavailable Unavailable Unavailable Unavailable Unavailable Kwan Rossi Unavailable Shaikh Bangura Unavailable MD Steve Bangura Primary Care Provider [phone] DERIK Vu Attending Provider [phone] SHAIKH Anabella BANGURA Primary Care Unavailable AMIRAH ., ROHAN Admitting Unavailable ROHAN PERDOMO Attending Unavailable AMIRAH Chowdary, ROHAN Consulting Unavailable MELVINA HERRERA Consulting Unavailable WILLOW SILVESTRE Consulting Unavailable DOMONIQUE PEÑALOZA Primary Care Unavailable SVETA, SHAIKH Anabella Admitting Unavailable SHAIKH Anabella BANGURA Attending Unavailable SHAIKH Anabella BANGURA Consulting Unavailable ROHAN PERDOMO Admitting Unavailable DOMONIQUE PEÑALOZA Primary Care Unavailable DR JJ OSWALD Consulting Unavailable AMIRAH ., ROHAN Attending Unavailable ROHAN PERDOMO Consulting Unavailable Dr. Domonique Peñaloza Primary Care Un available Reji, . Hueshelli Rueda Referring Daniel Mendoza, Epi Rueda Attending Daniel Cherry, Dr. Erich Tolentino Attending Unava ilildefonso Shelley, Dr. Flip Pate Referring Unava ilable Reji, Epi Hueshelli Rueda Referring Colleenvaomar Mendoza, Epi Rueda Attending Daniel Cherry, Dr. Erich Tolentino Attending Unava ilildefonso Cherry, Dr. Erich Tolentino Referring Unava ilable Asaad, Imad Unavailable MD Sveta [facility] Primary Care Provider MD Yolanda Moore Attending Provider MD Mike Ramos Attending Provider Hue Vu Admitting Unavailable Hue Vu Attending Unavailable [facility] Unavailable Asaad, Imad Attending Unavailable Asaad, Imad Admitting Unavailable [facility] Care Unavailable Asaad, Imad Attending Unavailable Asaad, Imad Admitting Unavailable [facility] Care Unavailable [facility] Care Unavailable Asaad, Imad Admitting Unavailable Asaad, Imad Attending Unavailable Asaad, Imad Attending Unavailable [facility] Unavailable Asaad, Imad Admitting Unavailable [facility] Care Unavailable Asaad, Imad Attending Unavailable Asaad, Imad Admitting Unavailable [facility] Unavailable Asaad, Imad Attending Unavailable Asaad, Imad Admitting Unavailable [facility] Unavailable Mike Ramos Admitting UnavailMike Snowden Attending Unavailabdi Bangura MD, [facility] Provider [phone] ZION LOZOYA Attending Unavailable ZION LOZOYA Primary Care Unavailable NIKHIL CAMACHO Consulting Unavailable Sveta BLACK, [facility] Provider [phone] Meli BLACK, Jarad Primary Care Provider [phone] Clayton Basilio NP Unavailable Sveta BLACK, [facility] Primary Care Provider [phone] Zion Lozoya MD Primary Care Provider Sveta BLACK, [facility] Primary Care Provider ERICH CHERRY Attending Unavailable ERICH CHERRY Referring Unavailable [facility] Care Unavailable ERICH CHERRY Attending Unavailable ERICH CHERRY Referring Unavailable [facility] Primary Care Unavailable AMPARO PEÑALOZA Attending Unavailable SHAIKH BANGURA Attending Unavailable AMPARO PEÑALOZA Attending Unavailable AMPARO PEÑALOZA Attending Unavailable CLAYTON BASILIO Attending UnavailEsha Treviño NP Unavailable Medications Current Medications Medication Drug Class(es) Dates Sig (Normalized) Sig (Original) [id number] 200 actuat albuterol 0.09 mg/actuat metered dose inhaler (20 sources) beta2-Adrenergic Agonist Start: 07-17-2023 Albuterol Sulfate Active 1 - 2 PUFF INHALATION As Directed July 17, 2023 12:00am Start: 12-27-2021 take 2 puff(s) by in halation every six hours albuterol (Ventolin HFA) 90 mcg/actuation inhaler Inhale 2 puffs every 6 hours if needed. 12/27/2021 Active Start: 12-27-2021 take 2 puff(s) by mo [facility] every six hours as needed Ventolin HFA 108 (90 Base) MCG/ACT Inhalation Aerosol Solution INHALE 2 PUFFS BY MOUTH EVERY 6 HOURS NEEDED Quantity: 18 Refills: 0 Ordered: 15-Jan-2022 DO Start : 27-Dec-2021 Active take 2 puff(s) by in halation every four hours albuterol HFA 90 mcg/act inhaler Inhale 2 puffs every 4 (four) hours if needed Active take 2 puff(s) by in halation every four hours albuterol HFA 90 mcg/act inhaler INHALE 2 PUFFS EVERY 4 HOURS SHORTNESS OF BREATH Active take 1 puff(s) by in halation every four hours as needed Ventolin HFA 108 (90 Base) MCG/ACT 1 puff as needed Inhalation every 4 hrs Active Alive Multi-Vitamin (13 sources) Alive Multi-Hailey min Active amoxicillin 875 mg / clavulanate 125 mg oral tablet (1 source) Penicillin-class Antibacterial Start: 06-20-20 24 End: 06-30-20 24 take 1 tablet by mouth twice daily amoxicillin-clavulan ate (AUGMENTIN) 875-125 MG per tablet Take 1 tablet by mouth 2 times daily for 10 days 20 tablet 06/20/2024 06/30/2024 Active amylase 454776 unt / lipase 11134 unt / protease [id number] unt delayed release oral capsule (6 sources) Start: 08-15-20 End: 05-04-20 take 2 capsules by mouth three times daily at mealtime Zenpep [id number] UNIT 2 capsules Orally three times a day with meals for 30 days Aug, Active amylase 540027 UNT / lipase 99194 UNT / protease 95074 UNT Delayed Release Oral Capsule [Pancreaze] (5 sources) Start: 08-14-20 take 2 capsules by mouth three times daily at mealtime Pancreaze 10280-10680 UNIT 2 capsules Orally three times a day with meals for 30 days PLEASE CHECK ALLERGIES Aug, Active apple cider vinegar 600 mg oral capsule (11 sources) take 2 capsules by mouth once daily apple cider vinegar 600 mg capsule Take 2 capsules by mouth once daily. Active apple cider vine gar 600 mg capsule [...] tablet (81 mg) by mouth once daily. 03/12/2022 Active atorvastatin 80 mg oral tablet (20 sources) HMG-CoA Reductase Inhibitor Start: 01-06-2025 take 1 tablet by mouth once daily at bedtime atorvastatin (Lipitor) 80 mg tablet Indications: Mixed hyperlipidemia Take 1 tablet (80 mg) by mouth once daily at bedtime. 90 tablet 3 01/06/2025 Active Start: 03-19-2022 End: 01-06-2025 take 1 tablet by mouth once daily at bedtime atorvastatin (Lipitor) 80 mg tablet Indications: Mixed hyperlipidemia Take 1 tablet (80 mg) by mouth once daily at bedtime. 90 tablet 3 05/04/2024 01/06/2025 Discontinued (Reorder) Start: 12-18-2021 End: 07-17-2023 take 20 mg by mouth once daily Atorvastatin Discontinu ed 20 MG PO Daily March 18, 2022 12:00am July 17, 2023 11:41am baclofen 10 mg oral tablet (10 sources) gamma-Aminobutyric Acid-ergic Agonist Start: 01-26-2018 baclofen (LIORESAL) 10 MG tablet 01/26/2018 Active Start: 09-01-2017 End: 03-15-2022 take 1 tablet by mouth once daily in the morning Baclofen Discontinued 1 TAB PO Every morning September 01, 2017 12:00am March 15, 2022 9:15am 120 actuat budesonide 0.16 mg/actuat / formoterol fumarate 0.0048 mg/actuat / glycopyrrolate 0.009 mg/actuat metered dose inhaler (20 sources) Corticosteroid, beta2-Adrenergic Agonist Start: 07-17-2023 take 1 puff(s) by inhalation once Tqafyzh-Lgpswbrlpbz-Hvafcgobup (Breztri Aerosphere) 160-9-4.8 MCG/ACT aerosol Inhale 1 puff every 12 (twelve) hours 07/17/2023 Active Start: 07-17-2023 Budesonide-Gly copyr-Formoterol (Breztri Aerosphere) 160-9-4.8 mcg/actuation Hfa Aerosol Inhaler Active 2 INH INHALATION Twice daily July 17, 2023 12:00am take 2 puff(s) by inhalation twice daily Breztri Aerosphere 160-9-4.8 MCG/ACT 2 puffs Inhalation Twice a day Active budesonide/glycopyr/formoter ol (BREZTRI AEROSPHERE INHL) (3 sources) budesonide/glyco pyr/formoterol (BREZTRI AEROSPHERE INHL) Inhale. Active budesonide/glyco pyr/formoterol (BREZTRI AEROSPHERE INHL) Inhale. 0 Active busPIRone hydrochloride 10 mg oral tablet (15 sources) Start: 06-16-2024 End: 10-18-2024 take 1 tablet by mouth in the morning busPIRone (Buspar) 10 MG tablet Indications: Recurrent major depressive disorder, in partial remission (HCC) (CMS/HCC) Take 1 tablet (10 mg) by mouth in the morning and 1 tablet (10 mg) before bedtime. 60 tablet 1 10/18/2024 Active take 1 tablet by mouth twice hebert ly busPIRone (Buspar) 7.5 mg tablet Take 1 tablet (7.5 mg) by mouth 2 times a day. Active cholecalciferol 0.025 mg oral tablet (10 sources) Vitamin D take 1 tablet by mouth in the morning cholecalciferol (Vitamin D-3) 25 MCG (1000 UT) tablet Take 1,200 Units by mouth in the morning. Active cider vinegar 300 mg oral tablet (10 sources) Apple Cider Vine gar 300 MG tablet Take by mouth. Active clonazePAM 0.5 mg oral tablet (20 sources) Benzodiazepine Start: 022 End: 023 take 1 tablet by mouth twice daily as needed clonazePAM (KlonoPIN) 0.5 mg tablet Take 1 tablet (0.5 mg) by mouth 2 times a day as needed. 12/27/2021 Active clopidogrel 75 mg oral tablet (20 sources) P2Y12 Platelet Inhibitor Start: 025 take 1 tablet by mouth once daily clopidogrel (Plavix) 75 mg tablet Indications: Mixed hyperlipidemia Take 1 tablet (75 mg) by mouth once daily. 90 tablet 3 01/06/2025 Active Start: 12-05-2023 End: 01-06-2025 take 1 tablet by mouth once daily clopidogrel (Plavix) 75 mg tablet Indications: Mixed hyperlipidemia Take 1 tablet (75 mg) by mouth once daily. 90 tablet 3 05/04/2024 01/06/2025 Discontinued (Reorder) Start: 09-18-2023 take 1 tablet by ebony th once daily clopidogrel (Plavix) 75 mg tablet Indications: Mixed hyperlipidemia Take 1 tablet (75 mg) by mouth once daily. 90 tablet 3 09/18/2023 Active Start: 10-09-2022 End: 09-18-2023 take 1 tablet by mouth in the morning clopidogrel (Plavix) 75 MG tablet Take 75 mg by mouth in the morning. 03/20/2023 Active diclofenac sodium 50 mg delayed release oral tablet (10 sources) Nonsteroidal Anti-inflammatory Drug Start: 06-05-2018 take 1 tablet by mouth twice daily diclofenac (VOLTAREN) 50 MG EC tablet Take 1 tablet by mouth 2 times daily 60 tablet 5 06/05/2018 Active Start: 09-01-2017 End: 09-09-2017 take 1 tablet by mouth once daily in the morning Diclofenac Sodium Discontinued 1 TAB PO Every morning September 01, 2017 12:00am September 09, 2017 8:39am trulicity 3 mg/0.5ml solution pen-injector (11 sources) GLP-1 Receptor Agonist Trulicity 3 MG/0.5ML as directed Subcutaneous once a week Active dulaglutide (Trulicity) 3 mg/0.5 mL pen injector (3 sources) End: 01-06-2025 dulaglutide (Trulicity) 3 mg/0.5 mL pen injector Inject under the skin. 01/06/2025 Discontinued (Discontinued by another clinician) dulaglutide (Etienne licity) 3 mg/0.5 mL pen injector Inject under the skin. Active dulaglutide (Etienne licity) 3 mg/0.5 mL pen injector Inject under the skin. 0 Active Dulaglutide (Trulicity) 4.5 mg/0.5 mL pen injector (6 sources) Start: 07-17-2023 Dulaglutide (T rulicity) 4.5 mg/0.5 mL pen injector Active 3 MG SUBCUT every week July 17, 2023 12:00am friday Start: 07-17-2023 Dulaglutide (T rulicity) 4.5 mg/0.5 mL pen injector Active 3 MG SUBCUT July 17, 2023 12:00am empagliflozin 10 mg oral tablet (20 sources) Sodium-Glucose Cotransporter 2 Inhibitor Start: 11-02-2020 take 1 tablet by mouth once daily empagliflozin (Jardiance) 10 MG Indications: Type 2 diabetes mellitus with other circulatory complications TAKE 1 TABLET BY MOUTH DAILY 90 tablet 1 12/04/2023 Active escitalopram 20 mg oral tablet (20 sources) Serotonin Reuptake Inhibitor Start: 07-17-2023 End: 10-18-2024 take 1 tablet by mouth once daily escitalopram (Lexapro) 20 MG tablet Indications: Anxiety disorder, unspecified Take 1 tablet (20 mg) by mouth Daily 90 tablet 1 10/18/2024 Active take 1 tablet by mouth once brown [...] 01, 2017 12:00am take [address] [facility] every twenty-four hours NexIUM 40 MG 1 capsule Orally Once a day for 90 days Active NexIUM Active gabapentin 600 mg oral tablet (20 sources) Anti-epileptic Agent Start: 12-27-2021 End: 10-12-2024 take 1 tablet by mouth in the morning, then take 1 tablet by mouth in the evening, then take 1 tablet by mouth at bedtime gabapentin (Neurontin) 600 MG tablet Indications: Type 2 diabetes mellitus with other circulatory complications Take 1 tablet (600 mg) by mouth in the morning and 1 tablet (600 mg) in the evening and 1 tablet (600 mg) before bedtime. 270 tablet 3 10/13/2023 Active Start: 06-05-2018 End: 03-15-2022 take 300 mg by mouth three times daily Gabapentin Discontinued 300 MG PO Three times daily November 02, 2020 1:00am March 15, 2022 9:16am Handicap placards as directed (2 sources) Start: 08-14-2021 Handicap placards as directed as directed as directed as directed 6 MONTHS Aug, Active hydroCHLOROthiazide 25 mg oral tablet (20 sources) Thiazide Diuretic Start: 01-06-2025 take 1 tablet by mouth once daily hydroCHLOROthiazide (HYDRODiuril) 25 mg tablet Indications: Angina pectoris , MAC (dyspnea on exertion) , Hx of percutaneous transluminal coronary angioplasty Take 1 tablet (25 mg) by mouth once daily. 90 tablet 3 01/06/2025 Active Start: 07-17-2023 End: 01-06-2025 take 1 tablet by mouth once daily hydroCHLOROthiazide (HYDRODiuril) 25 MG tablet Indications: Essential (primary) hypertension (CMS/HCC) TAKE 1 TABLET BY MOUTH DAILY 90 tablet 1 04/19/2024 Active 3 ml insulin aspart protamine, human 70 unt/ml / insulin aspart, human 30 unt/ml pen injector (19 sources) Insulin Analog Start: 09-01-2017 End: 11-02-2020 NOVOLOG MIX 70/30 FLEXPEN (70-30) 100 UNIT/ML injection INJECT 20 UNITS SUBCUTANEOUSLY EVERY MORNING and INJECT TEN UNITS SUBCUTANEOUSLY AT BEDTIME 11 01/05/2018 Active 3 ml insulin degludec 200 unt/ml pen injector (11 sources) Insulin Analog Start: 02-15-2025 insulin deglud ec (Tresiba FlexTouch) 200 UNIT/ML injection Indications: Type 2 diabetes mellitus with other circulatory complications Inject 50 Units under the skin Daily 9 mL 02/15/2025 Active Start: 09-13-2024 End: 02-09-2025 insulin degludec (Tresiba Fl exTouch) 200 UNIT/ML injection Indications: Type 2 diabetes mellitus with other circulatory complications (CMS/HCC) Inject 50 Units under the skin Daily 7.5 mL 01/10/2025 02/09/2025 Active 1.5 ml insulin glargine 300 unt/ml pen injector (20 sources) Insulin Analog Start: 01-08-2024 End: 01-07-2025 insulin glargine (Toujeo SoloStar) 300 UNIT/ML injection Indications: Type 2 diabetes mellitus with other circulatory complications (CMS/HCC) Inject 45 Units under the skin in the morning. 13.5 mL 3 01/08/2024 09/13/2024 Discontinued Start: 08-02-2021 End: 05-04-2024 insulin glargine (Toujeo Carol oStar U-300 Insulin) 300 unit/mL (1.5 mL) injection Inject under the skin. 08/02/2021 05/04/2024 Discontinued (Therapy completed) Start: 11-02-2020 Insulin Glargi ne U-300 Conc (Toujeo Solostar U-300 Insulin) 300 unit/mL (1.5 mL) insulin pen Active 50 UNIT SUBCUT Daily November 02, 2020 1:00am Start: 11-02-2020 Insulin Glargi ne U-300 Conc (Toujeo Solostar U-300 Insulin) 300 unit/mL (1.5 mL) insulin pen Active 40 UNIT SUBCUT Daily November 02, 2020 1:00am Toujeo SoloStar 300 UNIT/ML 60 units Subcutaneous once a day Active insulin glargine,hum.rec.anlog (TOUJEO SOLOSTAR U-300 INSULIN SUBQ) (2 sources) insulin glargine,hum.rec.anlog (TOUJEO SOLOSTAR U-300 INSULIN SUBQ) Inject under the skin. Take as directed per insulin instructions. Active 24 hr isosorbide mononitrate 60 mg extended release oral tablet (20 sources) Nitrate Vasodilator Start : 01-06 take 1 tablet by mouth once daily isosorbide mononitrate ER (Imdur) 60 mg 24 hr tablet Indications: Angina pectoris Take 1 tablet (60 mg) by mouth once daily. Do not crush or chew. 90 tablet 3 01/06/2025 Active Start: 03-20-2023 End: 01-06-2025 take 1 tablet by mouth in the morning, then take 1 tablet by mouth every twenty-four hours isosorbide mononitrate ER (Imdur) 60 MG 24 hr tablet Take 60 mg by mouth in the morning. 03/20/2023 Active Start: 06-26-2022 take 1 tablet by mouth once da tommy Isosorbide Mononitrate ER 30 MG Oral Tablet Extended Release 24 Hour TAKE 1 TABLET DAILY. Quantity: 90 Refills: 3 Ordered: 26-Jun-2022 Erich Cherry DO Start : 26-Jun-2022 Active new start lactic acid 100 mg/ml topical lotion (10 sources) Lactic Acid 10 % lotion 1 application every 12 (twelve) hours. Active lansoprazole 30 mg delayed release oral capsule (20 sources) Proton Pump Inhibitor Start: 3 End: take 1 capsule by mouth once daily lansoprazole (Prevacid) [address] capsule Indications: Gastro-esophageal reflux disease without esophagitis Take 1 capsule (30 mg) by mouth Daily 30 capsule 2 10/18/2024 Active Start: 07-30-2023 take 1 tablet by ebony th every twenty-four hours Lansoprazole 30 MG 1 tablet Orally Once a day for 30 days Jul, Active lisinopril 10 mg oral tablet (10 sources) Angiotensin Converting Enzyme Inhibitor Start: 01-26-2018 lisinopril (PRINIVIL;ZESTRIL) 10 MG tablet 01/26/2018 Active Start: 09-01-2017 End: 11-02-2020 take 1 tablet by mouth once daily in the morning Lisinopril Discontinued 1 TAB PO Every morning September 01, 2017 12:00am November 02, 2020 7:21am LORazepam 0.5 mg oral tablet (7 sources) Benzodiazepine Start: 07-22-2022 End: 10-18-2024 take 1 tablet by mouth every twenty-four hours as needed for anxiety LORazepam (Ativan) 0.5 MG tablet Take 0.5 mg by mouth Daily as needed for anxiety. 07/22/2022 10/18/2024 Discontinued (Med list cleanup) meloxicam 15 mg oral tablet (20 sources) Nonsteroidal Anti-inflammatory Drug Start: 11-02-2020 End: 01-06-2025 take 1 tablet by mouth once daily meloxicam (Mobic) 15 mg tablet Take 1 tablet (15 mg) by mouth once daily. 06/27/2021 01/06/2025 Discontinued (Discontinued by another clinician) metFORMIN hydrochloride 1000 mg oral tablet (20 sources) Biguanide Start: 03-15-2022 End: 03-15-2022 Metformin Discontinued MG TABLET March 15, 2022 12:00am March 15, 2022 9:19am Start: 09-01-2017 End: 02-26-2025 take 1 tablet by mouth in the morning metFORMIN (Glucophage) 1000 MG tablet Indications: Type 2 diabetes mellitus with other circulatory complications TAKE 1 TABLET BY MOUTH IN THE MORNING and ONE TABLET BY MOUTH IN THE EVENING. TAKE WITH MEALS 180 tablet 1 02/07/2025 Active take 1 tablet by ebony th every twelve hours metFORMIN HCl 500 MG 1 tablet with meals Orally Twice a day Active metoprolol tartrate 25 mg oral tablet (20 sources) beta-Adrenergic Patricia Start: 01-06-2025 take 1 tablet by mouth twice daily metoprolol tartrate (Lopressor) 25 mg tablet Indications: Primary hypertension , Angina pectoris Take 1 tablet (25 mg) by mouth 2 times a day. 180 tablet 3 01/06/2025 Active Start: 04-09-2022 End: 01-06-2025 take 1 tablet by mouth in the morning metoprolol tartrate (Lopressor) 25 MG tablet Take 25 mg by mouth in the morning and 25 mg before bedtime. 03/20/2023 Active Multiple Vitamin (Multi Vitamin) tablet (10 sources) Multiple Vitamin (Multi Vitamin) tablet 1 (one) time each day at the same time. Active Multivitamin (Multiple Vitamins) Tablet (9 sources) Start: [...] not exceed 3 doses per episode Start: 03-06-2023 nitroglycerin (Nitrostat) 0.4 MG SL tablet DISSOLVE 1 TABLET UNDER THE TONGUE NEEDED FOR CHEST PAIN- MAY REPEAT EVERY 5 MINUTES IF NEEDED ( MAX 3 DOSES.- IF NO RELIEF CALL 911) 03/06/2023 Active Start: 04-09-2022 nitroglycerin (Nitrostat) 0.[address] under the tongue. 04/09/2022 Active nystatin 100 unt/mg topical powder (10 sources) Polyene Antifungal Start: 11-18-2022 Nystop 1000 00 UNIT/GM powder APPLY TO AFFECTED SKIN TOPICALLY THREE TIMES DAILY 11/18/2022 Active olmesartan medoxomil 40 mg oral tablet (20 sources) Angiotensin 2 Receptor Patricia Start: 01-06-2025 take 1 tablet by mouth once daily olmesartan (BENIcar) 40 mg tablet Indications: Primary hypertension Take 1 tablet (40 mg) by mouth once daily. 90 tablet 3 01/06/2025 Active Start: 12-27-2021 End: 01-06-2025 take 1 tablet by mouth in the morning olmesartan (BENIcar) 40 MG tablet Take 40 mg by mouth in the morning. 04/05/2023 Active omeprazole 40 mg delayed release oral capsule (3 sources) Proton Pump Inhibitor take 1 capsule by mouth once daily before mealtime omeprazole (PriLOSEC) [address] capsule Take 1 capsule (40 mg) by mouth once daily in the morning. Take before meals. Do not crush or chew. Active pantoprazole 40 mg delayed release oral tablet (1 source) Proton Pump Inhibitor Start: take 1 tablet by mouth every twenty-four hours Pantoprazole Sodium 40 MG 1 tablet Orally Once a day for 30 days Jun, Active pedi multivit no.17 w-fluoride (Fier-Id-Aiqf) 0.5 mg tablet,chewable (3 sources) pedi multivit no .17 w-fluoride (Qwtk-Go-Lthb) 0.5 mg tablet,chewable Chew 1 tablet once daily. Active pedi multivit no .17 w-fluoride (Qbpa-Sj-Tokx) 0.5 mg tablet,chewable Chew 1 tablet once daily. 0 Active probiotic (2 sources) probiotic Active 12 hr ranolazine 500 mg extended release oral tablet (20 sources) Anti-anginal Start: 01-06-2025 take 1 tablet by mouth twice daily ranolazine (Ranexa) 500 mg 12 hr tablet Indications: Angina pectoris Take 1 tablet (500 mg) by mouth 2 times a day. 180 tablet 3 01/06/2025 Active Start: 12-05-2023 End: 01-06-2025 take 1 tablet by mouth twice daily ranolazine (Ranexa) 500 mg 12 hr tablet Indications: Angina pectoris Take 1 tablet (500 mg) by mouth 2 times a day. 180 tablet 3 12/05/2023 01/06/2025 Discontinued (Reorder) Start: 09-18-2023 take 1 tablet by ebony th twice daily ranolazine (Ranexa) 500 mg 12 hr tablet Indications: Angina pectoris (CMS/HCC) Take 1 tablet (500 mg) by mouth 2 times a day. 180 tablet 3 09/18/2023 Active Start: 04-20-2023 take 1 tablet by ebony th every twelve hours in the morning ranolazine (Ranexa) 500 MG 12 hr tablet Take 500 mg by mouth in the morning and 500 mg before bedtime. 04/20/2023 Active Start: 10-09-2022 End: 09-18-2023 take 500 mg by mouth twice daily Ranolazine Active 500 MG PO Twice daily July 17, 2023 12:00am rifAXIMin 550 mg oral tablet (2 sources) Rifamycin Antibacterial Start: 10-24-2023 take 1 tablet by mouth three times daily rifAXIMin 550 MG 1 tablet Orally Three times a day for 14 days Oct, Active semaglutide (Ozempic) 1 mg/dose (4 mg/3 mL) pen injector (2 sources) Start: 01-08-2024 End: 01-07-2025 inject 1 mg by subcutaneous injection every week semaglutide (Ozempic) 1 mg/dose (4 mg/3 mL) pen injector Inject 1 mg under the skin 1 (one) time per week. 01/08/2024 01/07/2025 Active semaglutide (Ozempic, 1 MG/DOSE,) 4 MG/3ML solution pen-injector (3 sources) Start: 01-08-2024 End: 09-13-2024 inject 1 mg by subcutaneous injection every week semaglutide (Ozempic, 1 MG/DOSE,) 4 MG/3ML solution pen-injector Indications: Type 2 diabetes mellitus with other circulatory complications (CMS/HCC) Inject 1 mg under the skin 1 (one) time per week 9 mL 3 01/08/2024 09/13/2024 Discontinued Start: 01-08-2024 End: 01-07-2025 inject 1 mg by subcutaneous injection every week semaglutide (Ozempic, 1 MG/DOSE,) 4 MG/3ML solution pen-injector Indications: Type 2 diabetes mellitus with other circulatory complications (CMS/HCC) Inject 1 mg under the skin 1 (one) time per week 9 mL 3 01/08/2024 01/07/2025 Active Semaglutide, 2 MG/DOSE, (Ozempic, 2 MG/DOSE,) 8 MG/3ML solution pen-injector (11 sources) Start: 01-10-2025 inject 2 mg by subcutaneous injection every week Semaglutide, 2 MG/DOSE, (Ozempic, 2 MG/DOSE,) 8 MG/3ML solution pen-injector Indications: Type 2 diabetes mellitus with other circulatory complications Inject 2 mg under the skin 1 (one) time per week 3 mL 01/10/2025 Active Start: 01-10-2025 inject 2 mg by subcu taneous injection every week Semaglutide, 2 MG/DOSE, (Ozempic, 2 MG/DOSE,) 8 MG/3ML solution pen-injector Indications: Type 2 diabetes mellitus with other circulatory complications (CMS/HCC) Inject 2 mg under the skin 1 (one) time per week 3 mL 01/10/2025 Active Start: 09-13-2024 End: 01-10-2025 inject 2 mg by subcutaneous injection every week Semaglutide, 2 MG/DOSE, (Ozempic, 2 MG/DOSE,) 8 MG/3ML solution pen-injector Indications: Type 2 diabetes mellitus with other circulatory complications (CMS/HCC) Inject 2 mg under the skin 1 (one) time per week 9 mL 3 09/13/2024 01/10/2025 Discontinued (Reorder) Start: 09-13-2024 inject 2 mg by subcu taneous injection every week Semaglutide, 2 MG/DOSE, (Ozempic, 2 MG/DOSE,) 8 MG/3ML solution pen-injector Indications: Type 2 diabetes mellitus with other circulatory complications (CMS/HCC) Inject 2 mg under the skin 1 (one) time per week 9 mL 3 09/13/2024 Active tamsulosin hydrochloride 0.4 mg oral capsule (10 sources) alpha-Adrenergic Patricia Start: 09-01-2017 End: 11-02-2020 take 1 capsule by mouth once daily tamsulosin (FLOMAX) 0.4 MG capsule TAKE 1 CAPSULE BY MOUTH ONCE DAILY 1 10/22/2017 Active tiZANidine 4 mg oral tablet (20 sources) Central alpha-2 Adrenergic Agonist Start: 05-27-2024 End: 01-16-2025 take 1 tablet by mouth every eight hours for muscle spasms tiZANidine (Zanaflex) 4 MG tablet Indications: Pulled muscle Take 1 tablet (4 mg) by mouth every 8 (eight) hours if needed for muscle spasms 270 tablet 10/18/2024 Active Start: 03-18-2022 End: 07-17-2023 take 4 mg by mouth once daily Tizanidine Discontinued 4 MG PO Daily March 18, 2022 12:00am July 17, 2023 11:46am Start: 04-23-2021 End: 09-18-2023 tiZANidine (Zanaflex) 2 mg t ablet Take 1 tablet (2 mg) by mouth. 0 04/23/2021 09/18/2023 Discontinued (Other) Nicolette Ferraro (2 sources) Nicolette Ferraro Active Zenpep [id number] UNIT (7 sources) Start: 08-15-2023 take 2 capsules by mouth three times daily at mealtime Zenpep [id number] UNIT 2 capsules Orally three times a day with meals for 30 days PLEASE CHECK ALLERGIES Aug, Active Completed/Discontinued Medications Medication Drug Class(es) Dates Sig (Normalized) Sig (Original) acetaminophen 325 mg / HYDROcodone bitartrate 5 mg oral tablet (9 sources) Opioid Agonist Start: 09-01-2017 End: 03-15-2022 take 1 tablet by mouth three times daily Hydrocodone-Acetami nophen Discontinued 1 TAB PO Three times daily September 01, 2017 12:00am March 15, 2022 9:16am cinnamon bark 500 mg oral capsule (9 sources) Start: 03-15-2022 End: 07-17-2023 take 1 capsule by mouth once daily Cinnamon Bark (Cinnamon) 500 mg Capsule Discontinued 500 MG PO Daily March 15, 2022 12:00am July 17, 2023 11:45am colestipol hydrochloride 1000 mg oral tablet (9 sources) Bile Acid Sequestrant Start: 11-02-2020 End: 03-15-2022 Colestipol Discontinued 1 GM PO As Directed November 02, 2020 1:00am March 15, 2022 9:16am collagenase Clostridium histolyticum (11 sources) Start: 12-30-2017 Xiaflex Dec, ertugliflozin 5 mg oral tablet (20 sources) [...] 18, 2022 12:00am July 17, 2023 11:46am 1 ml ketorolac tromethamine 15 mg/ml cartridge (1 source) Nonsteroidal Anti-inflammatory Drug, Cyclooxygenase Inhibitor Start: 06-20-2024 End: 08-11-2024 15 mg, IntraVENous, ONCE, 1 dose, On 06/20/24 at 1930 Start: 06-20-2024 End: 06-20-2024 15 mg, IntraVENous, ONCE, 1 dose, On 06/20/24 at 193 Multi Vitamin Oral Tablet (8 sources) take 1 tablet by mouth once daily Multi Vitamin Oral Tablet TAKE 1 TABLET DAILY. Quantity: 0 Refills: 0 Ordered: 12-Mar-2022 DO Active nitrofurantoin, macrocrystals 25 mg / nitrofurantoin, monohydrate 75 mg oral capsule (3 sources) Nitrofuran Antibacterial Start: 06-21-20 21 take 1 capsule by mouth twice daily Nitrofurantoin Monohyd Macro 100 MG Oral Capsule TAKE 1 CAPSULE BY MOUTH TWICE DAILY FOR 5 DAYS Quantity: 10 Refills: 0 Ordered: 21-Jun-2021 DO Start : 21-Jun-2021 Active telmisartan 80 mg oral tablet (11 sources) Angiotensin 2 Receptor Patricia Start: 11-02-20 End: 03-15-20 22 Telmisartan Discontinued 80 MG PO As Directed November 02, 2020 1:00am March 15, 2022 9:17am ticagrelor 90 mg oral tablet (12 sources) Start: 03-18-20 End: 07-17-20 23 take 1 tablet by mouth twice daily Ticagrelor (Brilinta) 90 mg tablet Discontinued 90 MG PO Twice daily 180 March 18, 2022 12:00am July 17, 2023 11:46am Trulicity 3 MG/0.5ML Subcutaneous Solution Pen-injector (2 sources) Trulicity 3 MG/0 .5ML Subcutaneous Solution Pen-injector 1 injection 1 weekly Quantity: 0 Refills: 0 Ordered: 09-Oct-2022 DO Active 7 actuat umeclidinium 0.0625 mg/actuat / vilanterol 0.025 mg/actuat dry powder inhaler (18 sources) Anticholinergic, beta2-Adrenergic Agonist Start: 03-18-20 End: 07-17-20 23 Umeclidinium-Vilanter ol (Anoro Ellipta) 62.5-25 mcg/actuation blister with device [...] [Unspecified abdominal pain] Onset: 3 11-02-2020 Episodic Acute and chronic tonsillitis (2 sources) Acute tonsillitis, unspecified; Translations: [Acute tonsillitis] Onset: 4 06-20-2024 Episodic Anxiety disorders (12 sources) Anxiety; Translations: [Anxiety disorder, unspecified] Onset: 3 06-03-2023 Chronic Asthma (4 sources) Mild intermittent asthma, uncomplicated; Translations: [MILD INTERMIT ASTHMA UNCOMPLICATED] Onset: 3 Chronic Chronic obstructive pulmonary disease and bronchiectasis (10 sources) Simple chronic bronchitis; Translations: [Simple chronic bronchitis] Onset: 3 Resolved: 3 10-13-2023 Chronic Coronary atherosclerosis and other heart disease (20 sources) Angina pectoris; Translations: [Other and unspecified angina pectoris] Onset: 3 09-18-2023 Chronic Coronary atherosclerosis and other heart disease (4 sources) Coronary angioplasty status; Translations: [Presence of coronary angioplasty implant and graft] Onset: 3 Episodic Diabetes mellitus with complications (20 sources) Type 2 diabetes mellitus; Translations: [Type 2 diabetes mellitus with other specified complication] Onset: 0 Resolved: 4 09-18-2023 Chronic Disorders of lipid metabolism (20 sources) Hyperlipidemia; Translations: [Other and unspecified hyperlipidemia] Onset: 2 Resolved: 5 09-18-2023 Chronic Esophageal disorders (20 sources) Gastroesophageal reflux disease; Translations: [Gastro-esophageal reflux disease without esophagitis] Onset: 3 Chronic Essential hypertension (20 sources) Hypertensive disorder; Translations: [Unspecified essential hypertension] Onset: 3 09-18-2023 Chronic Hyperplasia of prostate (10 sources) Benign prostatic hypertrophy with outflow obstruction; Translations: [Benign prostatic hyperplasia with lower urinary tract symptoms] Onset: 3 06-03-2023 Chronic Immunizations and screening for infectious disease (2 sources) Needs influenza immunization; Translations: [Encounter for immunization] 09-13-2024 Episodic Mood disorders (13 sources) Recurrent major depression in partial remission; Translations: [Major depressive disorder, recurrent, in partial remission] Onset: 3 10-09-2023 Chronic Nutritional deficiencies (10 sources) Vitamin D deficiency; Translations: [Vitamin D deficiency, unspecified] Onset: 3 06-03-2023 Chronic Osteoarthritis (10 sources) Arthritis of left hip; Translations: [Unilateral primary osteoarthritis, left hip] Onset: 3 06-03-2023 Chronic Other aftercare (1 source) 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; Translations: [MOLDER SWEEP USE ORAL HYPOGLYCEMIC DX] Onset: 3 Episodic [...] [Abdominal distension (gaseous)] Onset: 3 Episodic Other male genital disorders (10 sources) Male erectile dysfunction, unspecified; Translations: [Impotence of organic origin] Onset: 3 06-03-2023 Chronic Other nervous system disorders (13 sources) Chronic pain; Translations: [Other chronic pain] Chronic Other nervous system disorders (1 source) Other chronic pain Onset: 1 Resolved: 1 Chronic Other non-traumatic joint disorders (12 sources) Hip pain; Translations: [Pain in right hip] Onset: 4 04-29-2024 Episodic Other nutritional; endocrine; and metabolic disorders (14 sources) Body mass index 40+ - severely obese; Translations: [Morbid obesity] Onset: 4 05-04-2024 Chronic Other nutritional; endocrine; and metabolic disorders (20 sources) Severe obesity; Translations: [Class 3 severe obesity due to excess calories with serious comorbidity and body mass index (BMI) of 45.0 to 49.9 in adult] Onset: 0 Resolved: 4 01-08-2024 Chronic Other nutritional; endocrine; and metabolic disorders (2 sources) Body mass index (BMI) 40.0-44.9, adult; Translations: [Body mass index (BMI) 40.0-44.9, adult (Multi)] Onset: 5 Chronic Other nutritional; endocrine; and metabolic disorders (2 sources) Body mass index (BMI) 45.0-49.9, adult; Translations: [Body mass index (BMI) 45.0-49.9, adult (Multi)] Onset: 4 Chronic Other screening for suspected conditions (not mental disorders or infectious disease) (20 sources) Electrocardiogram abnormal; Translations: [Nonspecific abnormal electrocardiogram [ECG] [EKG]] Onset: 3 09-17-2023 Episodic Otitis media and related conditions (2 sources) Dysfunction of bilateral eustachian tubes; Translations: [Unspecified Eustachian tube disorder, bilateral] 09-13-2024 Episodic Pancreatic disorders (not diabetes) (1 source) Exocrine pancreatic insufficiency Episodic Peripheral and visceral atherosclerosis (10 sources) Peripheral vascular disease; Translations: [Peripheral vascular disease, unspecified] Onset: 3 06-03-2023 Chronic Residual codes; unclassified (10 sources) Sleep apnea; Translations: [Sleep apnea, unspecified] Onset: 3 09-30-2023 Chronic Residual codes; unclassified (2 sources) Early satiety; Translations: [Early satiety] Onset: 3 Episodic Spondylosis; intervertebral disc disorders; other back problems (20 sources) Lumbosacral spondylosis without myelopathy; Translations: [Spondylosis without myelopathy or radiculopathy, lumbosacral region] Onset: 0 Resolved: 1 Chronic Unclassified (1 source) Diarrhea, unspecified; Translations: [Diarrhea, unspecified] Onset: 3 Unclassified (5 sources) Patient on antidepressant monitoring plan Onset: 4 10-18-2024 Past or Other Problems Problem Classification Problem Date Documented Da te Episodic/Chronic Conditions associated with dizziness or vertigo (20 sources) Lightheadedness; Translations: [Dizziness and giddiness] Onset: 09-17-2023 09-17-2023 Episodic Diabetes mellitus without complication (20 sources) Diabetes mellitus; Translations: [Diabetes mellitus without mention of complication, type II or unspecified type, not stated as uncontrolled] Onset: 01-29-2023 Resolved: 01-08-2024 09-17-2023 Chronic Genitourinary symptoms and ill-defined conditions (10 sources) Nocturia; Translations: [Nocturia] Onset: 09-30-2023 09-30-2023 Episodic Malaise and fatigue (20 sources) Fatigue; Translations: [Other malaise and fatigue] Onset: 09-17-2023 09-17-2023 Episodic Mood disorders (10 sources) Mood disorders Onset: 04-29-2024 04-29-2024 Other aftercare (14 sources) Long-term current use of insulin; Translations: [USP (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 of insulin] Onset: 06-03-2023 06-03-2023 Episodic Other aftercare (2 sources) 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; Translations: [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 (Multi)] Onset: 09-17-2023 Episodic Other injuries and conditions due to external causes (12 sources) Muscle strain; Translations: [Other injury of unspecified body region, initial encounter] Onset: 04-29-2024 Resolved: 03-23-2025 04-29-2024 Episodic Other lower respiratory disease (20 sources) Dyspnea on exertion; Translations: [Shortness of breath] Onset: 09-17-2023 09-18-2023 Episodic Other lower respiratory disease (2 sources) Other forms of dyspnea; Translations: [Other forms of dyspnea] Onset: 09-18-2023 Episodic Other non-traumatic joint disorders (10 sources) Pain in right knee; Translations: [Pain in joint, lower leg] Onset: 10-09-2023 10-09-2023 Episodic Other nutritional; endocrine; and metabolic disorders (3 sources) Obesity; Translations: [Obesity, unspecified] Onset: 09-18-2023 Resolved: 05-04-2024 09-18-2023 Chronic Spondylosis; intervertebral disc disorders; other back problems (20 sources) Low back pain; Translations: [Low back pain] Onset: 09-11-2021 Resolved: 09-11-2021 Episodic Unclassified (8 sources) Never smoked tobacco; Translations: [Never a smoker] Results Test Name Value Interpretation Reference Range Facility HbA1c (Bld) [Mass fraction]o n 01-10-2025 Interpretation and review of laboratory results Abnormal [facility] - Hematology and Cell countson 01-10-2025 HbA1c (Bld) [Mass fraction] 8.6 % [facility] HbA1c (Bld) [Mass fraction]o n 09-13-2024 Interpretation and review of laboratory results Normal [facility] - Hematology and Cell countson 09-13-2024 HbA1c (Bld) [Mass fraction] 7.4 % [facility] No Panel InformationOrdered By: Shanon Roberson on 06-20-2024 COVID Antigen (POC) [facility] Quick Strep (POC) [facility] Glucose Glucometer (BldC) [M ass/Vol]Ordered By: Yolanda Moore on 08-27-2023 Glucose [Mass/Vol] 122 mg/dL [facility] Comment on above: Random Glucose Refer ence Range is dependent on time and content of last meal. Glucose of more than 200 mg/dL in a nonstressed, ambulatory subject supports the diagnosis of Diabetes Mellitus. Glucose Poct Glucometerson 1 Commemt1 Glu2: Cleaned Meter Normal [facility] Comment on above: Result Comment: PERF ORMED BY: [facility] [place] [address] PATHOLOGIST OVERLOCKER ASHLEY HECK M.D. Performed By: #### G LULS #### Point of Care testing , Glucose [Mass/Vol] 122 mg/dL Normal [facility] Comment on above: Result Comment: [place] [facility] Glucose Reference Range is dependent on time and content of last meal. Glucose of more than 200 mg/dL in a nonstressed, ambulatory subject supports the diagnosis of Diabetes Mellitus. Performed By: #### G LUCOLTON #### Point of Care testing , Donnie 08-27-2023 L - -------- Specimen: [id number] Received: 08/27/23 Status: TIFFANIE Gibson Num: [id number] Spec Type: Surgical Subm Dr: Yolanda Moore MD Tissues: A Colon Biopsy (RANDOM COLON BX) Procedures: HE/2, Gross/Micro L4 -------- Age/ Patient Sex Location Account Attending Physician -------- Darlyn Verdin 63/M [id number] Yolanda Moore MD -------- SPEC NUM: [id number] RECD: 08/27/23 STATUS: TIFFANIE GIBSON NUM: [id number] YVETTE: 08/27/23 DR: Yolanda Moore MD ENTERED: 08/27/[address] [facility] DR: RAFAEL TYPE: Surgical DEPT: S ORDERED: HE/2, Gross/Micro [...] microscopic examination confirms the diagnosis. CPT Codes 03143 -------- -------- Specimen: [id number] Received: 08/27/23 Status: TIFFANIE Gibson Num: [id number] Spec Type: Surgical Subm Dr: Yolanda Moore MD Tissues: A Colon Biopsy (RANDOM COLON BX) Procedures: HE/2, Gross/Micro L4 -------- Patient: Darlyn Verdin [id number] (Continued) -------- Signed (signature on file) Carlos Richards MD 08/28/23 7577 Normal [facility] No Panel InformationOrdered By: Yolanda Moore on 08-27-2023 Bedside Glucose Comment Glu2: cleaned meter [facility] Calprotectin [Mass/mass] in StoolOrdered By: Yolanda Moore on 07-30-2023 Calprotectin (Stl) [Mass/Mass] 66 ug/g 0-120 [facility] Comment on above: Concentration Interp retation Follow-Up< 5 - 50 ug/g Normal None>50 -120 ug/g Borderline Re-evaluate in 4-6 weeks >120 ug/g Abnormal Repeat as clinically indicatedPerformed at: [facility] [id number] [place], [place] [id number] Director: Sera Márquez MD, Phone: [phone] Calprotectin, Fecalon 2022 Calprotectin, Fecal 66 Normal 0-120 [facility] Comment on above: Order Comment: Reaso n for Exam Diarrhea Result Comment: Conc entration Interpretation Follow-Up < 5 - 50 ug/g Normal None >50 -120 ug/g Borderline Re-evaluate in 4-6 weeks >120 ug/g Abnormal Repeat as clinically indicated Performed at: [facility] [address] [id number] Senior Mainframe Programmer Analyst: Sera Márquez MD, Phone: [phone] PERFORMED BY: [place] [address] PATHOLOGIST OVERLOCKER ASHLEY HECK M.D. Performed By: #### E LASTASE STOOL, CALPROTECT ####[facility] , Calprotectin, Fecal 66 0-120 [facility] Other Elastase.pancreatic [Mass/ma ss] in StoolOrdered By: Yolanda Moore on 07-30-2023 Elastase.pancreatic (Stl) [Mass/Mass] 177 >200 [facility] Comment on above: Result Units: ug [address] st./g Severe Pancreatic Insufficiency: <100 Moderate Pancreatic Insufficiency: 100 - 200 Normal: >200Performed at: [facility] [address] [id number] Director: Sera Márquez MD, Phone: [phone] No Panel InformationOrdered By: Yolanda Moore on 07-30-2023 Ova and Parasite Result 1 [facility] OVA AND PARASITEon 3 OVA AND [...] possibility of a parasitic infection. Performed at: [address] [id number] Senior Mainframe Programmer Analyst: Louis Granados PhD, Phone: [phone] PERFORMED BY: [place] [address] PATHOLOGIST OVERLOCKER ASHLEY HECK M.D. Normal [facility] Comment on above: Performed By: #### O PEXAM #### [facility] , #### CUSTOOL #### [address] Ova or parasites identificat ionOrdered By: Yolanda Moore on 07-30-2023 Ova and parasites identified LM Nom (Unsp spec) [facility] Pancreatic Elastase, Stoolon 07-30-2023 Pancreatic Elastase, Stool 177 Low >200 [facility] Comment on above: Order Comment: Reaso n for Exam Diarrhea Result Comment: Resu lt Units: ug Elast./g Severe Pancreatic Insufficiency: <100 Moderate Pancreatic Insufficiency: 100 - 200 Normal: >200 Performed at: [address] [id number] Senior Mainframe Programmer Analyst: Sear Márquez MD, Phone: [phone] PERFORMED BY: [place] [address] PATHOLOGIST OVERLOCKER ASHLEY HECK M.D. Performed By: #### E [...] or E. coli 0157:H7 Isolated PERFORMED BY: [place] [address] PATHOLOGIST OVERLOCKER ASHLEY HECK M.D. Normal [facility] Comment on above: Performed By: #### O PEXAM #### [facility] , #### CUSTOOL #### [address] Stool bacteria identificatio n by cultureOrdered By: Yolanda Moore on 07-30-2023 Bacteria identified Cx Nom (Stl) [facility] Glucose Glucometer (BldC) [M ass/Vol]Ordered By: Yolanda Moore on 07-17-2023 Glucose [Mass/Vol] 102 mg/dL [facility] Comment on above: Random Glucose Refer ence Range is dependent on time and content of last meal. Glucose of more than 200 mg/dL in a nonstressed, ambulatory subject supports the diagnosis of Diabetes Mellitus. Glucose Poct Glucometerson 0 07-17-2023 Glucose [Mass/Vol] 102 mg/dL Normal [facility] Comment on above: Result Comment: [place] [facility] Glucose Reference Range is dependent on time and content of last meal. Glucose of more than 200 mg/dL in a nonstressed, ambulatory subject supports the diagnosis of Diabetes Mellitus. PERFORMED BY: [place] [address] PATHOLOGIST OVERLOCKER ASHLEY HECK M.D. Performed By: #### G MARGARET #### Point of Care testing , Donnie 07-17-2023 L - -------- Specimen: [id number] Received: 07/17/23 Status: TIFFANIE Gibson Num: [id number] Spec Type: Surgical Subm Dr: Yolanda Moore MD Tissues: A Duodenum - Biopsy (DUODENAL) B GASTRIC FOR HP (GASTRIC HP) C Esophagus Biopsy (ESOPHAGUS) Procedures: HE/6, Gross/Micro L4/3, H PYLORI -------- Age/ Patient Sex Location Account Attending Physician -------- Darlyn Verdin 63/M [id number] Yolanda Moore MD -------- SPEC NUM: [id number] RECD: 07/17/23 STATUS: TIFFANIE GIBSON NUM: [id number] YVETTE: 07/17/23- SUBM DR: Yolanda Moore MD ENTERED: 07/17/[address] [facility] DR: SPEC TYPE: Surgical DEPT: S ORDERED: HE/6, Gross/Micro [...] H. pylori, rule out EOE -------- Specimen: [id number] Received: 07/17/23 Status: TIFFANIE Gibson Num: [id number] Spec Type: Surgical Subm Dr: Yolanda Moore MD Tissues: A Duodenum - Biopsy (DUODENAL) B GASTRIC FOR HP (GASTRIC HP) C Esophagus Biopsy (ESOPHAGUS) Procedures: HE/6, Gross/Micro L4/3, H PYLORI -------- Patient: Darlyn Verdin [id number] (Continued) -------- Specimen: [id number] Received: 07/17/23 (Continued) Signed (signature on file) Jona Hilton MD 07/21/23 1827 -------- Specimen: [id number] Received: 07/17/23 Status: TIFFANIE Gibson Num: [id number] Spec Type: Surgical Subm Dr: Yolanda Moore MD Tissues: A Duodenum - Biopsy (DUODENAL) B GASTRIC FOR HP (GASTRIC HP) C Esophagus Biopsy (ESOPHAGUS) Procedures: HE/6, Gross/Micro L4/3, H PYLORI -------- Patient: Darlyn Verdin [id number] (Continued) -------- Specimen: [id number] Received: 07/17/23 (Continued) Gross Description A. Received in formalin [...] microscopic examination confirms the diagnosis. CPT Codes 35911r3 -------- -------- Specimen: [id number] Received: 07/17/23 Status: TIFFANIE Gibson Num: [id number] Spec Type: Surgical Subm Dr: Yolanda Moore MD Tissues: A Duodenum - Biopsy (DUODENAL) B GASTRIC FOR HP (GASTRIC HP) C Esophagus Biopsy (ESOPHAGUS) Procedures: HE/6, Gross/Micro L4/3, H PYLORI -------- Patient: Darlyn Verdin [id number] (Continued) -------- Signed (signature on file) Jona Hilton MD 07/21/23 1827 [facility] NM gastric emptying studyon 07-16-2023 NM gastric emptying study [facility] [place] [address] Nuclear Medicine Report Signed Patient: Darlyn Verdin MR#: [id number] 9 : 1960 Acct:[id number] Age/Sex: 63 / M ADM Date: 07/16/23 Loc: DC Room: Type: [facility] Attending Dr: Yolanda Moore MD Copies to: MD Rio Murphy Jr, DO Ordering Provider: Yolanda Moroe MD Date of Service: 07/16/23 NM/NM gastric [...] Howell Jr., D.OEpi07/16/2023 2:37 PM Dictation Location: [place] [address] Transcribed By: [facility] 07/16/23 1437 Dictated By: Rio Howell Jr, DO 07/16/23 1429 Signed By: 07/16/23 1437 [facility] C reactive protein [Mass/vol ume] in Serum or PlasmaOrdered By: Yolanda Moore on 06-25-2023 CRP [Mass/Vol] < 0.5 mg/dL 0.0-0.5 [facility] C-Reactive Proteinon 023 CRP [Mass/Vol] mg/L Normal 0.0-0.5 [facility] Comment on above: Order Comment: Reaso n for Exam Diarrhea Performed By: #### H IV SCREEN, CELIAC ####[facility] ,#### CRP, TSH3, ESR ####[address] [address] [facility] Celiacon 06-25-2023 Deamidated Gliadin Abs, IgA 12 Normal 0-19 [facility] Comment on above: Order Comment: Reaso n for Exam Diarrhea Result Comment: Nega tive 0 - 19 Weak Positive 20 - 30 Moderate to Strong Positive >30 Performed By: #### H IV SCREEN, CELIAC ####[facility] ,#### CRP, TSH3, ESR ####[place] [address] [place] [id number] [facility] Deamidated Gliadin Abs, IgG 4 Normal 0-19 [facility] Comment on above: Order Comment: Reaso n for Exam Diarrhea Result Comment: Nega tive 0 - 19 Weak Positive 20 - 30 Moderate to Strong Positive >30 Performed By: #### H IV SCREEN, CELIAC ####[facility] ,#### CRP, TSH3, ESR ####[place] [id number] [facility] Endomysial Antibody IgA Negative Normal Negative F [facility] Comment on above: Order Comment: Reaso n for Exam Diarrhea Performed By: #### H IV SCREEN, CELIAC ####[facility] ,#### CRP, TSH3, ESR ####[place] [id number] [facility] Immunoglobulin A, Qn, Serum 312 mg/dL Normal 61-437 [facility] Comment on above: Order Comment: Reaso n for Exam Diarrhea Result Comment: Perf ormed at: CB - [facility] [address] [id number] Senior Mainframe Programmer Analyst: Louis Granados PhD, Phone: [phone] Performed By: #### H IV SCREEN, CELIAC ####[facility] ,#### CRP, TSH3, ESR ####[place] [address] [place] [id number] [facility] T-Transglutaminase (tTG) IgA 3 Normal 0-3 [facility] Comment on above: Order Comment: Reaso n for Exam Diarrhea Result Comment: Nega tive 0 - 3 Weak Positive 4 - 10 Positive >10 Tissue Transglutaminase (tTG) has been identified as the endomysial antigen. Studies have demonstr- ated that endomysial IgA antibodies have over 99% specificity for gluten sensitive enteropathy. Performed By: #### H IV SCREEN, CELIAC ####[facility] ,#### CRP, TSH3, ESR ####[address] T-Transglutaminase (tTG) IgG 2 Normal 0-5 [facility] Comment on above: Order Comment: Reaso n for Exam Diarrhea Result Comment: Nega tive 0 - 5 Weak Positive 6 - 9 Positive >9 Performed By: #### H IV SCREEN, CELIAC ####[facility] ,#### CRP, TSH3, ESR ####[address] Erythrocyte Sedimentation Ra capri 06-25-2023 ESR (Bld) [Velocity] 16 mm/h Normal 0-19 [facility] Comment on above: Order Comment: Reaso n for Exam Diarrhea Result Comment: PERF ORMED BY: [facility] [address] [place] [address] PATHOLOGIST OVERLOCKER ASHLEY HECK M.D. Performed By: #### H IV SCREEN, CELIAC ####[facility] ,#### CRP, TSH3, ESR ####[address] Erythrocyte sedimentation ra te by Photometric methodOrdered By: Yolanda Moore on 06-25-2023 ESR Photometric method (Bld) [Velocity] 16 mm/hr 0-19 [facility] HIV 1/O/2 Antigen/Antibodyon 06-25-2023 HIV Screen 4th Generation Non-Reactive Normal Non Reactive [facility] Comment on above: Order Comment: Reaso n for Exam Diarrhea Result Comment: HIV Negative HIV-1/HIV-2 antibodies and HIV-1 p24 antigen were NOT detected. There is no laboratory evidence of HIV infection. Performed at: [facility] [address] [place], [place] [id number] Senior Mainframe Programmer Analyst: Louis Granados PhD, Phone: [phone] PERFORMED BY: [facility] [address] [place] [address] PATHOLOGIST OVERLOCKER ASHLEY HECK M.D. Performed By: #### H IV SCREEN, CELIAC ####[facility] ,#### CRP, TSH3, ESR ####[facility] Mga[address] HIV 1 and HIV-2 antibody ass ay with HIV-1 p24 antigen detectionOrdered By: Yolanda Moore on 06-25-2023 HIV 1+2 Ab+HIV1 p24 Ag IA Ql Non-Reactive Non Reactive [facility] Comment on above: HIV NegativeHIV-1/HI V-2 antibodies and HIV-1 p24 antigen were NOTdetected. There is no laboratory evidence of HIV infection.Performed at: [facility] [address] [id number] Director: Louis Granados PhD, Phone: [phone] IgA [Mass/volume] in Serum o r PlasmaOrdered By: Yolanda Moore on 06-25-2023 IgA [Mass/Vol] 312 mg/dL 61-437 [facility] Comment on above: Performed at: [facility] [address] [id number] Director: Louis Granados PhD, Phone: [phone] No Panel InformationOrdered By: Yolanda Moore on 06-25-2023 Endomysial IgA Antibody Negative Negative F [facility] Serum gliadin peptide IgA an tibody assay (units/volume)Ordered By: Yolanda Moore on 06-25-2023 Gliadin peptide IgA Qn (S) 12 units 0-19 [facility] Comment on above: Negative 0 - 19 Weak Positive 20 - 30 Moderate to Strong Positive >30 Serum gliadin peptide IgG an tibody assay (units/volume)Ordered By: Yolanda Moore on 06-25-2023 Gliadin peptide IgG Qn (S) 4 units 0-19 [facility] Comment on above: Negative 0 - 19 Weak Positive 20 - 30 Moderate to Strong Positive >30 Serum tissue transglutaminas e (tTG) IgA antibody assay (units/volume)Ordered By: Yolanda Moore on 06-25-2023 tTG IgA Qn (S) 3 U/mL 0-3 [facility] Comment on above: Negative 0 - 3 Weak Positive 4 - 10 Positive >10 Tissue Transglutaminase (tTG) has been identified as the endomysial antigen. Studies have demonstr- ated that endomysial IgA antibodies have over 99% specificity for gluten sensitive enteropathy. Serum tissue transglutaminas e (tTG) IgG antibody assay (units/volume)Ordered By: Yolanda Moore on 06-25-2023 tTG IgG Qn (S) 2 U/mL 0-5 [facility] Comment on above: Negative 0 - 5 Weak Positive 6 - 9 Positive >9 Thyrotropin [Units/volume] i n Serum or PlasmaOrdered By: Yolanda Moore on 06-25-2023 TSH Qn 2.34 m[IU]/L Normal 0.45-5.33 [facility] Comment on above: Order Comment: Reaso n for Exam Diarrhea Result Comment: PERF ORMED BY: [place] [address] PATHOLOGIST OVERLOCKER ASHLEY HECK M.D. Performed By: #### H IV SCREEN, CELIAC ####[facility] ,#### CRP, TSH3, ESR ####[facility] [address] [place] [id number] [place] XR KUBon 06-25-2023 XR KUB [facility] [address] [place] [id number] XRay Report Signed Patient: Darlyn Verdin MR#: [id number] 9 : 1960 Acct:[id number] Age/Sex: 63 / M ADM Date: 06/25/23 Loc: XD Room: Type: [facility] Attending Dr: Yolanda Moore MD Copies to: [...] gaseous intestinal distention. Impression dictated by: Cornel Medley M.D.06/25/2023 4:13 PM Dictation Location: media[facility]unker Transcribed By: [facility] 06/25/231612 Dictated By: Cornel Medley DO 06/25/231611 Signed By: 06/25/231612 [facility] Office Visit (Cardiology)on 03-20-2023 Follow-up visit Diagnoses/Problems [...] Weight Tips; Status:Complete - Retrospective Authorization; Done: [id number] Some eating tips that can help you lose weight.; Status:Complete - Retrospective Authorization; Done: [id number] Patient Instructions Please bring all medicines, vitamins, [...] NEEDED Tou[employer] SoloStar 300 UNIT/ML Subcutaneous Solution Pen-injectoras directed [...] no ski (more content not included)... Normal [facility] POINT OF CARE GLUCOSEon - Glucose [Mass/Vol] 102 mg/dL Normal 74-106 [facility] Comment on above: Performed By: #### P OCGLUC #### [facility] [address] [address] [address] Kitty Richards CREATININEon 01-06-2023 Creatinine [Mass/Vol] 0.95 mg/dL Normal 0.70-1.30 [facility] Comment on above: Performed By: #### C KEVIN #### [facility] [address] [address] [address] Kitty Richards EGFR-AF SOUTH KOREAN >60 Normal >=[address] [facility] Comment on above: Performed By: #### C KEVIN #### [facility] [address] [place], [place] [address] Dr. Kitty Richards EGFR-NON AF SOUTH KOREAN >60 Normal >=60 [facility] Comment on above: Performed By: #### C KEVIN #### [facility] [address] [place], [place] [address] ABD/PELV W CONon [...] by: JJ OSWALD Date: 2023-01-06 11:25 Normal [facility] HEMOGLOBINon 12-25-2022 Hemoglobin (Bld) [Mass/Vol] 16.0 g/dL Normal 14.0-18.0 [facility] Comment on above: Performed By: #### H GB #### [facility] [address] [address] [address] Kitty Richards Alanine Aminotransferaseon 1 12-24-2021 ALT [Catalytic activity/Vol] 33 U/L Normal 10-60 [facility] Comment on above: Order Comment: PT FA STED 12 HRS Performed By: #### A LT, AST, LIPID #### [facility] [address] Aspartate Amino Transferaseo n 10-23-2022 AST [Catalytic activity/Vol] 26 U/L Normal 10-42 [facility] Comment on above: Order Comment: PT FA STED 12 HRS Performed By: #### A LT, AST, LIPID #### [facility] [address] Cholesterol [Mass/volume] in Serum or PlasmaOrdered By: Hue Mendoza on 10-23-2022 Cholesterol [Mass/Vol] 101 mg/dL 140-200 [facility] Comment on above: Chol less than 200 m g/dl low riskChol 201-239 mg/dl borderline riskChol 240 mg/dl and greater high risk Cholesterol in LDL Calc [Mas s/Vol]Ordered By: Hue Mendoza on 10-23-2022 Cholesterol in LDL [Mass/Vol] 44 mg/dL 0-100 [facility] Comment on above: LDL ATP III CLASSIFI CATIONLDL less than 100 mg/dL OptimalLDL 100-129 mg/dL Near or above optimalLDL 130-159 mg/dL Borderline highLDL 160-189 mg/dL HighLDL greater than 189 mg/dL Very high Cholesterol in VLDL Calc [Ma ss/Vol]Ordered By: Hue Mendoza on 10-23-2022 Cholesterol in VLDL [Mass/Vol] 22 mg/dL [facility] Lipid Panelon 10-23-2022 Cholesterol [Mass/Vol] 101 mg/dL Low 140-200 [facility] Comment on above: Order Comment: PT FA STED 12 HRS Result Comment: Chol less than 200 mg/dl low risk Chol 201-239 mg/dl borderline risk Chol 240 mg/dl and greater high risk Performed By: #### A LT, AST, LIPID #### [facility] [address] Cholesterol in HDL [Mass/Vol] 35 mg/dL Normal 29-71 [facility] Comment on above: Order Comment: PT FA STED 12 HRS Result Comment: HDL CHOL ATP-III CLASSIFICATION Cardiovascular Risk HDL > or equal to 60 mg/dL LOW HDL < 40 mg/dL HIGH Performed By: #### A LT, AST, LIPID #### [facility] [address] Cholesterol.total/Choles terol in HDL [Mass ratio] 2.9 {ratio} Normal <5.0 [facility] Comment on above: Order Comment: PT FA STED 12 HRS Result Comment: PERF ORMED BY: [place] [address] PATHOLOGIST OVERLOCKER ASHLEY HECK M.D. Performed By: #### A LT, AST, LIPID #### [facility] [address] LDL Cholesterol,Calculated 44 mg/dL Normal 0-100 [facility] Comment on above: Order Comment: PT FA STED 12 HRS Result Comment: LDL ATP III CLASSIFICATION LDL less than 100 mg/dL Optimal LDL 100-129 mg/dL Near or above optimal LDL 130-159 mg/dL Borderline high LDL 160-189 mg/dL High LDL greater than 189 mg/dL Very high Performed By: #### A LT, AST, LIPID #### [facility] [address] Triglyceride w/Reflex 112 mg/dL Normal 35-149 [facility] Comment on above: Order Comment: PT FA STED 12 HRS Result Comment: TRIG ATP III CLASSIFICATION TRIG less than 150 mg/dL Normal TRIG 150-199 mg/dL Borderline high TRIG 200-500 mg/dL High TRIG greater than 500 mg/dL Very high Standard traceable to the Center for Disease Conrtrol and Prevention (CDC) test method. Performed By: #### A LT, AST, LIPID #### [facility] [address] VLDL CHOLESTEROL 22 mg/dL Normal [facility] Comment on above: Order Comment: PT FA STED 12 HRS Performed By: #### A LT, AST, LIPID #### [facility] [address] [place] [id number] [facility] Serum or plasma alanine mena otransferase measurement without P-5'-P (enzymatic activiOrdered By: Hue Mendoza on 10-23-2022 ALT No additional P-5'-P [Catalytic activity/Vol] 33 U/L [facility] Serum or plasma aspartate am inotransferase measurement (enzymatic activity/volume)Ordered By: Hue Mendoza on 10-23-2022 AST [Catalytic activity/Vol] 26 U/L [facility] Serum or plasma high density lipoprotein (HDL) cholesterol measurementOrdered By: Hue Mendoza on 10-23-2022 Cholesterol in HDL [Mass/Vol] 35 mg/dL - [facility] Comment on above: HDL CHOL ATP-III CLA SSIFICATION Cardiovascular RiskHDL > or equal to 60 mg/dL LOWHDL < 40 mg/dL HIGH Serum or plasma total choles terol/high density lipoprotein (HDL) cholesterol mass ratOrdered By: Hue Mendoza on 10-23-2022 Cholesterol.total/Choles terol in HDL [Mass ratio] 2.9 {ratio} <5.0 [facility] Triglyceride [Mass/volume] i n Serum or PlasmaOrdered By: Hue Mendoza on 10-23-2022 Triglyceride [Mass/Vol] 112 mg/dL 35-149 [facility] Comment on above: TRIG ATP III CLASSIF ICATIONTRIG less than 150 mg/dL NormalTRIG 150-199 mg/dL Borderline highTRIG 200-500 mg/dL High TRIG greater than 500 mg/dL Very highStandard traceable to the Center for Disease Conrtrol and Prevention (CDC) test method. Office Visit (Cardiology)on 10-09-2022 Follow-up visit Diagnoses/Problems Assessed CAD (coronary artery disease) (414.00) (I25.10) No ACS admit; identified outpt testing March 18, 2022: PCI/[facility] 2.75/18mm AND 3.0/30mm m-dLAD PCI/[facility] 3/26mm mPLV (RCA branch) CX: normal RCA: [...] ALT - Alanine Aminotransferase, Serum; Status:Active; Requested for:[id number]; AST; Status:Active; Requested for:[id number]; Lipid Panel; Status:Active; Requested for:80Soq9990; Morbid obesity with BMI of 40.0-44.9, adult Healthy Weight Tips; Status:Complete; Done: [id number] Patient Instructions Please bring all medicines, vitamins, [...] the office if new symptoms arise. Dr. Cherry in 6 months Chief Complaint Routine f/u: 'seem to doing ok' DARLYN VERDIN is being seen for a 3 month follow-up of coronary artery disease. Patient presents the office today ambulatory with steady gait. Last evaluated in clinic Dr. Cherry June 2022. At that time, Imdur added [...] Isosorbide Mononitrat (more content not included)... Normal [employer] Tobacco Screening.on Fall risk assessment b) One or more fall s in the last year [facility] [employer] 250 DO Work Phone: Tobacco use status [facility] b) No M -[facility] [employer] 250 DO Work Phone: Office Visit (Cardiology)on [...] 45.0-49.9, adult Healthy Weight Tips; Status:Complete; Done: [id number] SocHx: Never a smoker Tobacco Use Screening; Status:Complete; Done: [id number] Patient Instructions Please bring all medicines, vitamins, [...] up in [address] Erich Cherry DO Chief Complaint DARLYN VERDIN is being [...] 3 times weekly as well as the [place]. He does get chest pain approximately 2 [...] as n (more content not included)... Normal [employer] Tobacco Screening.on 022 Tobacco use status [facility] b) No M [facility] [employer] 250 DO Work Phone: Office Visit (Cardiology)on 04-09-2022 Follow-up visit Diagnoses/Problems Assessed CAD (coronary artery disease) (414.00) (I25.10) No ACS admit; identified outpt testing March 18, 2022: PCI/[place] 2.75/18mm AND 3.0/30mm m-dLAD PCI/[facility] 3/26mm mPLV (RCA branch) CX: normal RCA: [...] 45.0-49.9, adult Healthy Weight Tips; Status:Complete; Done: [id number] Patient Instructions Please bring all medicines, vitamins, [...] the office if new symptoms arise. Dr. Cherry as scheduled Encourage healthy lifestyle choices including: [...] gait. Patient was last evaluated by Dr. Cherry March 2022. March 18, 2022 uneventful elective [...] CAPSULE Bedti (more content not included)... Normal [employer] Tobacco Screening.on 022 Tobacco use status [facility] b) No M [facility] [employer] 250 DO Work Phone: Laboratory - Chemistry and C hemistry - challengeon 03-15-2022 Cholesterol [Mass/Vol] 160\S\160 Normal 140-200 -[place] [employer] 250 DO Work Phone: Comment on above: Chol less than 200 m g/dl low risk Chol 201-239 mg/dl borderline risk Chol 240 mg/dl and greater high risk Cholesterol in LDL [Mass/Vol] 96\S\96 Normal 0-100 -[facility] 250 DO Work Phone: Comment on above: LDL ATP III CLASSIFI CATION LDL less than 100 mg/dL Optimal LDL 100-129 mg/dL Near or above optimal LDL 130-159 mg/dL Borderline high LDL 160-189 mg/dL High LDL greater than 189 mg/dL Very high Laboratory - Microbiology an d Antimicrobial susceptibilityon 03-15-2022 SARS-CoV-2 (COVID-19) RNA TON+probe Ql (Unsp spec) [facility] 250 DO Work Phone: No Panel Informationon 03-15 73.0\S\73.0 Normal . [facility] 250 DO Work Phone: 7.0\S\7.0 Normal 6.6-10.1 [facility] 250 DO Work Phone: 198\S\198 Normal 150-450 [facility] 250 DO Work Phone: 13.3\S\13.3 Normal 12.0-14.8 [facility] 250 DO Work Phone: 34.9\S\34.9 Normal 32.5-35.6 [facility] Work Phone: 31.7\S\31.7 Normal 27.5-35.2 [facility] 250 DO Work Phone: 5.6\S\5.6 Normal 1.8-7.7 [facility] Work Phone: 0.1\S\0.1 Normal 0.0-0.45 [facility] 250 DO Work Phone: Comment on above: PERFORMED BY:[place] [address] [address] [place], [place] [phone] MEDICAL DIRECTORASHLEY HECK M.D. 1.7\S\1.7 Normal . [facility] 250 DO Work Phone: 1.5\S\1.5 Normal . [facility] 250 DO Work Phone: 6.3\S\6.3 Normal . [facility] 250 DO Work Phone: 17.5\S\17.5 Normal . [facility] 250 DO Work Phone: 0.5\S\0.5 Normal 0.0-0.8 [facility] 250 DO Work Phone: 1.3\S\1.3 Normal 1.00-4.8 [facility] 250 DO Work Phone: 90.9\S\90.9 Normal 83.5-101 [facility] 250 DO Work Phone: 46.8\S\46.8 Normal 38.8-50.0 [facility] DO Work Phone: 16.3\S\16.3 Normal 13.0-17.0 [facility] 250 DO Work Phone: 5.14\S\5.14 Normal 3.90-5.60 [facility] 250 DO Work Phone: 7.6\S\7.6 Normal 4.1-10.5 [facility] 250 DO Work Phone: 30.9\S\30.9 Normal 25.1-36.5 [facility] 250 DO Work Phone: Comment on above: PERFORMED BY:[place] [address] [place], [place] [phone] MEDICAL DIRECTORASHLEY HECK M.D. 1.1\S\1.1 Normal [facility] DO Work Phone: Comment on above: INR [...] valves: 3 - 4.5 11.9\S\11.9 Normal 9.0-12.9 [facility] DO Work Phone: 22.5\S\22.5 Normal 22.0-30.0 [facility] 250 DO Work Phone: 105\S\105 Normal 95-114 [facility] DO Work Phone: 4.2\S\4.2 Normal 3.5-5.1 [facility] DO Work Phone: 137\S\137 Normal 136-146 [facility] 250 DO Work Phone: 15\S\15 Normal 9-23 -[facility] 250 DO Work Phone: > 60 Normal [facility] DO Work Phone: Comment on above: GFR estimated refere nce range: According to KDOQI guidelines, <60 ml/min/1.73m2 is sufficient to diagnose a patient with chronic kidney disease. 0.74\S\0.74 Normal 0.64-1.27 [facility] 250 DO Work Phone: 4.1\S\4.1 Normal <5.0 [facility] DO Work Phone: Comment on above: PERFORMED BY:[place] [address] [address] [place], [place] [phone] MEDICAL DIRECTORASHLEY HECK M.D. 25\S\25 Normal [facility] 250 DO Work Phone: 125\S\125 Normal 35-149 [facility] [employer] 250 DO Work Phone: Comment on above: TRIG ATP III CLASSIF ICATION TRIG less than 150 mg/dL Normal TRIG 150-199 mg/dL Borderline high TRIG 200-500 mg/dL High TRIG greater than 500 mg/dL Very high Standard traceable to the Center for Disease Conrtrol and Prevention (CDC) test method. 39\S\39 Normal 29-71 [facility] [employer] 250 DO Work Phone: Comment on above: HDL CHOL ATP-III CLA SSIFICATION Cardiovascular Risk HDL > or equal to 60 mg/dL LOW HDL < 40 mg/dL HIGH Negative Normal Negative [facility] [facility] DO Work Phone: Comment on above: This is a duplicate Cata SARS Antigen (PIERCE) result to be used for statistical tracking purpose only.PERFORMED BY:[place] [place] [address] [address] [place], [place] [phone] MEDICAL DIRECTORASHLEY HECK M.D. Tobacco Screening.on 022 Adult depression screening assessment No [facility] DO Work Phone: Tobacco use status CPHS b) No M [facility] DO Work Phone: Adult depression screening assessment No [facility] [facility] DO Work Phone: Tobacco use status CPHS b) No [facility] [employer] Barbour DO Work Phone: XR Chest 2 Views*on [...] by Rio Jennings on 01/17/2022 1347 Normal [facility] Specialist Auth for Release of Medical Recordson 11-01-2021 Auth for Release of Medical Records [id number]#1 .00CD:127 Normal [facility] Ambulatory Clinical Summaryo n 10-09-2021 Ambulatory Clinical Summary {[id number]}CD:371982 Normal [facility] Lab Reportson 10-09-2021 Lab Reports [id number]#1 .00CD:127 Normal [facility] Patient Educationon 10-09-20 Patient Education Nutrition Calorie Counting for Weight [...] You could (more content not included)... Normal [facility] Urology Office/Clinic Noteon 10-09-2021 Urology Office/Clinic Note [...] Urnls Dip Stick Auto w/o Microscopy POC 08081 5. Nocturia (R35.1: Nocturia) Mild, 2 times [...] mg = (more content not included)... Normal [facility] Comment on above: Result Comment: Elec tronically Signed By: Reji Ivan MD, Danis Panda\.br\Date and Time Signed: 10/09/21 08:57 EST\.br\Electronically Co-Signed By: Linda Grande\.br\Date and Time Co-Signed: 10/09/21 08:50 EST\.br\Electronically Co-Signed By: Marin HUA MD Consent for Procedure/Surger yon 09-12-2021 Consent for Procedure/Surgery [id number]#1 .00CD:127 Normal [facility] Ambulatory Clinical Summaryo n 09-10-2021 Ambulatory Clinical Summary {[id number]}CD:[id number] Normal [facility] Patient Educationon 09-10-20 Patient Education Urology Benign Prostatic Hyperplasia Benign [...] Follow these instructions at home: ? Take deul-rzv-pbpvofq and prescription medicines only as told by [...] You d (more content not included)... Normal [facility] Urology Office/Clinic Noteon 09-10-2021 Urology Office/Clinic Note [...] w/o complications. Pt. tolerated well. Ordered: Cystourethroscopy [id number] 2. Nocturia (R35.1: Nocturia) 2x per night. Ordered: Cystourethroscopy 03727 3. Erectile dysfunction due to diseases classified elsewhere (N52.1: Erectile dysfunction due to diseases classified elsewhere) Will start Cialis 20mg, PRN for sexual intercourse. Will follow up in 4 weeks to see if medication is helping. Orders: tadalafil, 20 mg = 1 tab(s), Oral, As Directed, PRN for sexual intercourse., # 20 tab(s), Refills(s) 1, Pharmacy: [id number], 182, cm, 08/28/21 12:21:00 EDT, Height/Length Dosing, 155, kg, 08/28/21 12:21:00 EDT, Weight Dosing Follow-up With When Contact Information Reji Ivan MD, Danis Panda, URO In 4 weeks 10/08/2021 EST [facility] [address], [place] [address]- Additional Instructions: Patient Education Benign Prostatic Hyperplasia I, Samara Craft, personally scribed for Dr. Mendoza on 09/10/2021 11:59:09. . Documentation recorded by the scribeSamara, accurately reflects the services(s) I performed and decisions made by me. Authenticated by Dr. Mendoza on 09/10/2021 12:03:36. Problem List/Past Medical History Ongoing Apnea, sleep Arthritis Asthma BPH with obstruction/lower urinary tract symptoms Diabetes ED (erectile dysfunction) HTN (hypertension) Hyperlipidemia Nocturia Historical No meka (more content not included)... [facility] Comment on above: Result Comment: Elec tronically Signed By: Danis Mendoza Jr., MD\.br\Date and Time Signed: 09/10/21 12:03 EDT\.br\Electronically Co-Signed By: Samara Craft\.br\Date and Time Co-Signed: 09/10/21 11:59 EDT Ambulatory Clinical Summaryo n 08-28-2021 Ambulatory Clinical Summary {[id number] -[id number]}CD:166250 [facility] Patient Educationon 08-28-20 Patient Education Urology Benign Prostatic Hyperplasia Benign [...] Follow these instructions at home: ? Take jtlr-rxb-gssyxad and prescription medicines only as told by [...] d (more content not included)... 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 Pt stated [...] these, as (more content not included)... Normal [facility] Comment on above: Result Comment: Elec tronically Signed By: Reji Ivan MD, Danis Panda\.br\Date and Time Signed: 08/28/21 15:17 EDT\.br\Electronically Co-Signed By: Samara Craft\.br\Date and Time Co-Signed: 08/28/21 13:00 EDT Outside Records Officeon Outside Records Office [id number] 1.00CD:127 [facility] Coding Summary.on 07-04-2021 Coding Summary. CD:[id number]:[id number] G h0bWw+PGhlYWQ+IF6LVEM xZ63kfPExpA3PB6lUCS6N NREJLJKUTL5FUX8chQX8I HniP5OdlkMn PngttLJsAI96SIi3LLO7v DazBCszmC9sqRKmQ9w5Eh ZsUU18xX48IGrjFXVsAkR 3LjZpbjsgbWFy H6qdJxSxqXGnXdz+PHRhY mxlIHdpZHRoPScxMDAlJy VqvRrgGI7mUu8mUUGdQZI vbGxhcHNlOiBj j8iwEENbBLcgRK3moLlvI 2FnaBB5DHOsz9j3Xe10dM I+CLFhTAD9oNzzWEhma01 4TfPzg6loRBA6 vDGlCTqrLVS4C56mg8O4F UMiJSViOAM0uJO2cA1xnC scpgovJ7XyqFLcUvK2XER 8bVParA7ntNbu ugmpjX7iWqo+R42YGS8ZQ XMFKX1AUwo2B0GvXrnneF I+CW59CCIvAA54tDVwuVN dw4qbsSi0KwTg BGUfWDN7iQxvJMrxf4TtS BUmZ13fsOAbd9W4KQDqkV nfxSIuLnRyrUT5sV7gCIj msdkak5uxpbhy Hjyde1epxa41nF03N61pR OnhUEAtTJM2AOMiIAWpuA mdxv8pfY7mUm7+FDhps5o wn9zrhEs3XyOm FIAzbcBgdPgpFZE2c0TyI n01L4WkhLwzp5BfXat6nq 18bUGds8A7jZQ6JIixYKT veB1nEDadDuC7 XDYhZsIffY36sDHbYJxpA v8drSyaiKikGI6aSCUxgb ooECDddZ1sBUOtuBDvkGu kRX8wADLmejxh z379SpQqGZR8UWLrzJKuD 4PwjX8uYlJyVWWqILBaC1 IpaWKjGTicJ651FJqlFzA 2MARnjtKlE3Vt ATMevLxeEbF8d5Q0Rz9Cf 5ZkuqwnBSZ6HLyrHTS9Aj I3AtIuGnZ0D4DxDht5XNW vbElnXQ6fO7Ds PLYewcemqdrgyAW0WZTkW UHjoF52jDVqZTesKf2vu2 C8k563XJOvEIOwbV13Go5 udDogMTBwdCBU tK3vfocgr6unzoptElYeP ESkIRm4WDn8ZHCixGxjRk IfMLQ1SkN1SPV7lEMfmB3 ttKpwgdgeqH3c Oyc+Q01coV8qLRO1RHD4e tclSJYoalSwYH13EE26S7 RyPjwvdGFibGU+PGRpdiB slCrxSB5bNnIo l2glb2JaNPmpT3GxEBFjI DukNtf8DXYdHHU3iKJ1dW 1gJTLlBEnah4Z2yDU4F8B riaYcbp8ui8zl GMCaOYasM43ccBUvx0O1H CYjgMP9VYAgaJfoJaVgcY 93Oyc+ZMBqmZkgp9XrCrd cq1lwj4xktGx3 FiTyNXCsyxFqaQicVTQ7y 4VsOf25G92cVKlwQSHpQV SqRGAwCGKusXxqui4tbA2 wIi8+PGNvbCB3 dPR5oU2pSFHlEjV1CUkxS 647FxZgkBSpQgtzq6xyb0 gvtQb1XdCfYGTmqmXjxIr gEEZ3j6GvFy44 [id number] IIzyFfjvr0haO4tXf9+PC 0jz2dkvq06rG26rSN+PHR xFFD7mAidYUbk ODApsO2aIByrNqK2WKNpT bSceI66bFVlCPvrEy6wbE wqsLmaGI2fPJXnlsjsp05 2XrPkf5hjWIPv eEAyLEuiQVD8W87tz2B0Z QWkBXRfJXM7bAE8gB9mjP lnbjogbGVmdDsgdmVydGl uOMqlVUqeM318 IHRvcDsnPlBhdGllbnQgT oVuXIq2G8HsUep0MXPbyX ihTE4rmDEgEAjoQx8giJw sjObsCD9vJBGm grqtp435EoUsr2dlCLEnx FVvBLrhJGK2E52ca1K8IH ApVHFvHZS7yWB6lK1hwJu nbjogbGVmdDsg mnLcrBmuELlwCSpkA571H HRvcDsnPkJpcnRoIERhdG L1UK25TF78oJPgo6B0yKX 2H5QmEGWpepft thwbySD0VQBaLEGswL00W p5jcVstLm1yGAPlGEG0RA JbwWQmJ5OatE3hLuKuKBM dOOQpH9DniHNb KLpvG736ZAvoCoB1DFJxh vHbG7GyHIJdjEmjObU6y9 I9Wz2PX2Q7AT35HN99sVS lw0Y4qFM9Z3Hi PEMshhreqtuacRX4JHUsG VKwzL89Pg6shKjsSv1jPZ PwQGH0VGFreEVgU0DvuX8 yOiAjMDAwMDAw E0NomVAnZKbvN904PEzbI fR5KADzbgUoK1CmMTCtnE gpCwX7o4J5Bt9YKLo7GZ7 5ND30cJAid9T1 sTC4Z7SqTZMqwcdhdniry AU5SVGwTQWylO30Tm9wjO gsAb3cJILpCTR3BLCxcWA bP4YfeD5jNlJy ZGXgJQQvR0FkfZAkMXqcX 478COhhExI1TZWzqyCuE5 GwMVOdwYuvIcU1n7S7Hv9 TZXZmQF04ZDS2 yWF0AA43WR71C1LiYkheq GFibGU+PHRhYmxlIHdpZH RoPScxMDAlJyBzdHlsZT0 fIm6lRRYzWLVr nCclfKOiFkXzy5yfVZItY JzcHC3rfPniA7LadHY5NV Bkg6s8Wt05H53qU1KqfTY +GLSrvXQ9oVU5 eU9zWbFrIgS2UArdD810G kKcnHNzCtnni6qhv5kpnH g8XcP1WEBwvtOrsWrkIUA 0z8WnGg38G68u IHdpZHRoPSIxNSUiIHZhb Fbten2egL5vQb9+PGNvbC B2xJS7zB2kCmWaYiF7VZh fI445YkBpiOXi Ihuhl2ixl2zzeKv4YxDiJ WRuyzXdnIewIAI9k3PtQc 72K9GuwOsss9NxOdo8lo9 5hNQnn7U3jYB3 N2JhZHNjccvrgUPfyDeoZ N3jBJZkyzzfMZRetR7fOK WeV4t4EtSjWtS9VCrwR1S agzB5TTJcyCTb JEgzSNF6A37pm8R9QVSaK WUeYMI0jDJ3gY0bkCtcdj ogbGVmdDsgdmVydGljYWw cCYetG507UAMs iIukJXNqaT3xELFgkEPsz FmfEU2bMRBfvzbrOpkOQ6 RFUiBKciwgQVJUSFVSPC9 0JW50cGTvg3B6 gYN5H2LvIUUeuxijwddpd DS5YDXyOFPcyO54fGTmST cmUc3wa8G8r944TRTaETP xeK78Lj9fqFhr KXOlcIFInC3qifmqd8lzn jqzEeEcOGOaRXf7FGy2XU YqpTffUjNuTTV2HgR5CWI 0nUYxsA2uyThc xgleqY0fYut+MDcvMjMvM Ab0IfhczVZ+AJSiOWR6cA loCAozAVXzjD8fSWSvO2m 6FcMcVpQ1KTqi W2LxCDGticztOn02bP4kK yWdEkE4JRjnH7OqdiD7AI RxqHSxHCweQOW9R07xs5M 8AKMdSTXbWLJ7 xQW8cW1avQyxdninuXXuw DsgdmVydGljYWwtYWxpZ2 81UHCieGheXxS3XQuzENU zMZ56OW76lLKn e9O5zJP5E2VdYNGebuzoo zxqmXH9GYLzCNXukJ49aB UuSJbeOb5jq0M8s910VCG yJSLzjF98Tb6a bZrgCGAhsGSXzT0kfprvl 4embkwjWxIvREFnJUf3KZ b0CTYfmKimEeOiUEI6VaE 4TTD4pZNvqS6t vNgkixcbkD0rDly+TWFsZ TwvdGQ+GVSeWQH5cJwfUS mtLRPcrE5tBRErA3k9HvZ kRvC8SJioE9Rx XZUgtgmtWn53hC8aYnGrQ uY9NAagI9TimsU9EXBnsU OsZPdlXRX6T17og0X7ZPF iWXYeLAW3bPV1 rI8daVbqoimekVJtxKcbs qLbcIxyUDtmBZbzH844ZZ NboIsfPx04bIIbmAjbfpR 3A5QxHthdtFK+ XC66KECwXM23gSMakPIsx 3jxzEg3NnGgVKBhEZD8oU wxRZqzq5WwDCLwF69nqBM yx6L3TSGtcNur zPRhNlRswLW8nG5oPNnnm nans1cnvmbtTpbbh0niai 77fZ30M91bHYvoFJObVTD zMCUiIHZhbGln rt5juJ5kPr8+AQKfhJE2z JK8aB7jOiVaOtB2KTqeP3 88PfLktIMrEkpyk3qeg1d sgRv6SrEuDWKg cdTtoHpjMVJ1u9RjOx64H 29sIHdpZHRoPSIyMCUiIH JdcUhqlv1pjR8gSr2+PC9 gb1usei24lL96 dHI+XCRxZEW9zYzjSJnrF LXseV9bSPboWoD2VREiPf ZkyI58jRVyRKhwLt4gnLq tsSekXT8oMZKu xypip554VjBco6ozZIRkp CUrWPdnPQD8K96oj4R8PD JyCBIaKAW1dBJ7oU4cjKr nbjogbGVmdDsg qzWvfPofONeyEKgoP667X AQvxEwsEcLrwWUuT0qyed IOOL4sGpdgeOU+PHRkIHN 0eWxlPSdwYWRk zA6jKEPaK7z1TtPwCbP0R AavH0NbrcD2LHWwyZWgEP ZixMEQzE1fbfxsk3mtfrj gIzAwMDAwMDt0 PGx1QFXyaVnaVlYnELV9H mM9QLM1mYKtxB0vhRgzfe uplQ7oEco+RklOOjwvdGQ +KOQyJPL5qGkf EFczKHUhrS6nTMPzH6d6M fBsFzX9FFynN2CmihX7PJ CgcGPaGGCfxFYCnT6eanr wa6txizazCoWo WMClOHr0JOg1GNRfqYayI oUgGUZ4TcN3QNG1eVXdiL 1fxMpxmkrfsP5ySxn+TVJ OOjwvdGQ+PHRk ZCP2bLfvYEyqUVFziH6rJ IRrQ0y3TwNhHnQ6MAttG0 SmmyM4SPYcwSTqXALgvGR CwW4dtqvsy5fa ogxfStSaLQWeGVn3GAg6S FJzgUbsIuZlRUA2PpN7EE B1iQCvkF5ytCyrmikrwW2 wOyc+EFY9OPI1 QK13LW47G5PqXnfmdPCor +PHRhYmxlIHdpZHRoPS nbPTVzCtHjiDueMX4iOk4 yZGVyLWNvbGxh cHNl (more content not included)... Normal [facility] Consultation Noteon 07-03-20 Consultation Note HOSPITAL REGULATIONS : ALL Positive [...] here. Gatito Schulte MD gls Dictated: 06/19/2021 #[id number] Typed: 06/21/2021 #[id number] cc: MD Domonique Schneider D.O. [facility] Comment on above: Result Comment: Elec tronically Signed By: Eris BLACK, Gatito Garg\.br\Date and Time Signed: 07/03/21 08:33 EDT Radiology Outside Office Technology Program Manager yon 06-29-2021 Radiology Outside Office Copy [id number]# 1.00CD:127 Normal [facility] Coding Summary.on 06-27-2021 Coding Summary. CD:[id number]:[id number] G h0bWw+PGhlYWQ+WU0DQFZ vX17giVCstU6DM8lXHK5X LSIAZIFWFB4RSH0jiJJ2Z VpsZ9PawyIy KcvjtLVpSQ14RHt2XOE4f WfwAHcmtP7ykMBuO8i8Oi DxDZ11nC84AThdSUUyEeE 3LjZpbjsgbWFy F9poMzYxnQUcLxp+PHRhY mxlIHdpZHRoPScxMDAlJy WuvEzcIB3gRc8wSFLfYTZ vbGxhcHNlOiBj c5eqMWQeGCukKC4agEywN 3QvfPH2CJKlh9p6Pq10nE I+URYgRLF8kQaiHDcev44 2IcSly2nxGVE1 nLYoOIuiPDV2G13sb2I5W HIlIWEkRHL4jWX7nD0uyR bliarkU0LugGVzPhL6ZBE 1hIQciK9kmHvs nmsryP8fAdo+K69GRG9PE ANIEV1UTme0D1GfWqzqqD I+AC67MIMvTB85cKXkiFL fx6hbzKw5IpFa WPSeESW3oFkdQDjcd7VmJ UStY60dbCSov8I7IBFqvF pinWRqJqOloEG0cN3kEVv lesqgo6xrqomc Ftzht1yodk10tP79Q74rZ WywSJAhYJD6QKFdHRQymB yzwv3piH0xNe0+ZBboo8n qy8idtGi1GnGl ZWXwczRbbXvtXOL5t1ZdP f83C9FggKute6LiQij4ph 32wNMkr6P0cZP3TAwtQQP fvE2jGWetRlA0 KAWgVzRbwA62qWTtHDynB f6rfVvycQeeQZ5vJLCjqf gpMHLtjI6pNXAbnXUgrGd eDI7kEBAvwpye t171MfPbMWG8UBLywSOsA 6SslP8jZpWmDSWzBFNpN8 UddDLnPNjrI809WDipHdJ 8VHEvwnWmS7Nk CGQcjQnhBjB9e8C6Mk6Ep 3NfrugiQBD0CSuxVFM5Lv H8CdYkDwC2C8RqSdb3QCH jwQgxZC6pX0Qc WZWpwuywljoghQD4JWTyX AVihN65zESkOPbdMm2dd3 H5r252VYNdKWEvjP74Zd3 udDogMTBwdCBU vF2wihgjz0apbvjrKfFxV WDvEHb3RDx9ZMUzoNlgUt CvWND8WtU5OQQ9oSLjyP4 ylMkczwbwmU0p Oyc+C20krW0oSDQ2ZBF6i svrKGFdqaNtGC43VY79C6 RyPjwvdGFibGU+PGRpdiB fqJraOJ4jGuEt x4ikj8MtWDakA9EcXOAvR ZxuXms9GJUwZRT6sUM7uR 2yOSCgYOumx2A7qHP6X4M repIyun9dy1tq KECcAPdlZ75iqBIhm4T4J TAdlGR0NVRokFjfTsGmvW 93Oyc+XWMusFudb9PkGaq oj9gaq8gyyFp8 DwVbOYIrcnVliIlmLYY6v 7ExHh40Q00dYJflOTBwRL OcZUKuXDWpaJrrck7uoB5 wIi8+PGNvbCB3 gDQ7sA7uCFGzVsY9FVbnQ 694VoSjzYHnToacl0rxb1 opzHy1ZxKaDLLvqzTzbVi lMCO6j9ZmLv75 B93hAAgoXQIpUXIqAFEsW POtaHxnpa7pkL3kPd5+PC 3du9tbhc52eR67dFY+PHR vEKA8fIgnEFdp AXZpqB8gPOgmAoW9HERvC yOykM21eNLvORjjLe8geN lwfIcdTQ4zZQBszfqnc35 7HqQes8wtURBz lUJjELdlKIG0B08ny4W1R GSlUFHiEDU9nIQ4mY5tsR lnbjogbGVmdDsgdmVydGl dAXjaYNcdN930 IHRvcDsnPlBhdGllbnQgT fCgDGb5P4NsRnd0IARseC yyFB4wlSOyRAdyZa5leEi ueEnkPR3pZPDf kwtfx387SeSbk2kpOEJfa BWeWIdoCWU2F02ic3D6KJ LgOXOiNNB3oBN3dG6kpXu nbjogbGVmdDsg wuGkkTliONabLPdkB132E HRvcDsnPkJpcnRoIERhdG V9MV09LK13rHEne9U4xSI 2N0ZsQAYnvjzu yokkuZP4KVGxINEvxL13Y v6aeMuoBo5tFSDfBPI8UN FojELgK1SagS0wNaVkIYU cAETvD3KtwZBn EVspK974FHqdEgP0QENiv oJiM7RuNEQddFlvRzA0h7 G0Pe5CY5K3VE20XM13nTQ lw0P1dFD9X2Ig WAJmpotqjsxquUJ0BWOhT VKxuL60Ba6pgDcxGn7xLW JkJEO0CRNmdVOoU9PtjE7 yOiAjMDAwMDAw R8RbrQIlNXwvY444URixN cF9AZJeuwDdQ6KcOYIssJ ssLyV1b2H8Fx2IRBr1AS8 9AU60nKHtb6T6 tXY9O0MnYFTqxeovmlnag RI5KIMmWVKjgD89Sk3rdB pxBb6mQZGeBAA2EUAqiFD gV0ZwkR9dWuXw FMDvDTOoF9UcyKDoYTeoR 754ZBskIhB7CAAazhZiQ7 VxUMZtnAvzCeH0f8G7Qz4 LLVHcIX97ZAF7 nCW5LX64DP78A8XnNjaba GFibGU+PHRhYmxlIHdpZH RoPScxMDAlJyBzdHlsZT0 oOj3cXLJaFYHa vUzviWRwJdUlh2sjYJHaG AoxWH5ehIcgY5RmhJO7HX Alh2b8Gh78X36xJ0SsbYS +LFPbbBR4qVW5 bY8bNfIpCdT8WRpzT742A lGpmCItPbmmk2tnw1gilM b8NvF0ZRPtmqJcjRfwOUJ 4x8MxQd14J31u IHdpZHRoPSIxNSUiIHZhb Xizxd9ioT5qFr7+PGNvbC L9kBN4wA2vNtNmKwS7UFh yL416KuWezUKg Qqzvm6akp8aalSc1QaFuV EKfiuWxlBndDLO7h0AqAu 56A0HpiSywl6JxYhr0mv2 3yYPlj9J5qYJ8 F9PqTKDrfbslrMGghGqsZ P7hGTHfdugbFEWpaM9lTP BuA4u9NgOiFyH8ESbsM1X cycF4FXHeuLDx PUciCKL5A28le0A2GDQtY RZnXAI2gDP7pH3khGvoer ogbGVmdDsgdmVydGljYWw bSUkgI634HQQv tCekEYIzyH5aTKKjuYJkf YvtCN2zYRTzfzcuBjcHE3 RFUiBKciwgQVJUSFVSPC9 8UW71zHZhk0S0 iCE9N3LkZGPjjwvgexzvl QQ8CDUmFAGnpI53pTBtWJ qtIw8fu0G0s427ZDJjTLB neQ78Ci8xoHqd JCYvaDPBlD9zoeboh4voo becVcSaZMAbSSu6PRb9YO VkfBvgCwFlTYY0TwW5MWV 2tKTljR2qcLqc owyikI7vXvn+MDcvMjMvM Ed9FgpmhQU+TQIwOAD0jW cuNDukOAYccM7gRPEiA5n 3DfHjMsA8DBju S1JuQIMtnnlkHv61dO2wH xKcTmI0UTpcA8CjoqX7CD QtgGTqONqmZNF9V84qd1H 6MTSyXOVbQWP7 eHB1bT8yaUlfzvwatSSzw DsgdmVydGljYWwtYWxpZ2 67JWRzhDdzBzO3UYuiCRM tLM28FU09fWDm i6B6yCV0F1StBWTmlighv otyzWL4NTUbLQYskI63yD SkQAzmLn7bg6S3p673EZM tETGxeY28Vz0a fTvpGXLnaMIBcS6znnwfi 2qlthqmQbKqPJNyOSt7IL f3GSKxmNfhZjSuAIT9JaU 9BTP4tHEqcZ2t rNnqokghuH8xXwi+TWFsZ TwvdGQ+NRTmEXE9cFuvYF baNTCthD0nWYEsD6u4XvQ lCzF3IAemN3Xq YTYwmmdwHi57iO2bIgPcA jC4NXgaZ3OnuvZ2SKPztW GnDVthMOR5P95vl0P6JPC dPQUgUHL9cWK3 kG1tsYhikracqHJghVqyw lHlwOaiCFffBLvdN150OF ZajAvfCa87iVUxjAacnjI 0Q4NsIwvxxSK+ VJ20YOXgZT85lKHsjKCdl 6ypwFz2HjTsGQHmNNN9zB kvRFyyl8OsOZQjF56xbQD tj8M7HMWvtIqx wIVmKaDmgUV7yH3lROptu mxnc0nvooctZslnx9amuq 12cI43V32oZNlrSZYxRQE zMCUiIHZhbGln xd1jpT6wDb5+AECkkVB2t XW6uX7tUcKhNoP3PRmuD8 89ClPhtVAvYwtbu1dak7m jhQc2ZwNqKQZv vrUxjEovMHY7b2MeCe09G 29sIHdpZHRoPSIyMCUiIH QcsUeizk2baK2tXr8+PC9 mu1pcpv29yZ51 dHI+DYLyBIJ6sSnoDVewE EZxdF2lYViwNbL9TAOnQp IgqN90vORnIZgiLm3naZj evNjiWR2gRCCk axvzy310GlDfs1oiRYZnn FUvQIggVLP7U88zn1Q2VK FmOGYzVZD9xSP5sC5euKj nbjogbGVmdDsg lrVooXhzOMgnMVtjL623I SNmtGjgVmRgrQZiJ4thle UIVB9gHawzbKX+PHRkIHN 0eWxlPSdwYWRk eK4uMMCcZ8i5JvKlVpO2N OjfS7ShliO5RXWyqKInGT UxmZIPtV2qstfxm2zftxf gIzAwMDAwMDt0 WQs5KLVjxNasAuUhFXY4Y kD2ZNK4tGFlmB1gvDsfik pjqC6tBmz+RklOOjwvdGQ +MFUlYZV8dZmc DImwASRdbF0fXSWkE1z8W dVnPeT4RPkhH3TejgR4FJ QisNHnSNPftELBgE4xgeo wk7offtkaUiWd MTTwZCy9VVx8DMCqoHezC oWpVXE6SlB5XLI2eVYnbC 0bvWwrzxjxkH6vMde+TVJ OOjwvdGQ+PHRk XGF2aIucGWjgNMDfmQ6hJ WVrA9p1XiRqViR2BYeoI9 EahbD9XPTxiZNrIUMlpLH HxR3vpzrhd1zv hykuQkOoZQOjQOk3SYh2J VXiaDprBsUvTFR2XzN0TK W1oGUrjK8ltUalkoxdsX3 wOyc+SGG7XWU4 IF08VB31L0KqQrasxUZvn +PHRhYmxlIHdpZHRoPS bpHDAfTfCvlIhoSF1bOc5 yZGVyLWNvbGxh cHNl (more content not included)... [facility] Orders Officeon 06-22-2021 Orders Office [id number]#1 .00CD:127 [facility] Referrals Officeon Referrals Office [id number]# 1.00CD:127 [facility] XR Spine Lumbosacral 2 or 3 Viewson [...] MD, V. Transcribed by: WOLF Technologist: ANATOLY [facility] Consent for Treatmenton 06-10 Consent for Treatment [id number]#1 .00CD:127 [facility] Consent for Treatment [id number]# 1.00CD:127 [facility] HIPAA Forms Officeon 021 HIPAA Forms Office [id number]#1. 00CD:127 [facility] Legal Correspondence Officeo n 06-19-2021 Legal Correspondence Office [id number]#1. 00CD:127 Normal [facility] Office/Clinic Note-Physician on 06-19-2021 Office/Clinic Note-Physician [id number]#1. 00CD:127 Normal [facility] Orders Officeon 06-19-2021 Orders Office [id number]#1. 00CD:127 Normal [facility] Patient History Officeon Patient History Office [id number]#1. 00CD:127 [facility] Physician Orderon 06-19-2021 Physician Order [id number]# 1.00CD:127 [facility] Outside Records Officeon Outside Records Office [id number]#1 .00CD:127 [facility] Radiology Outside Office Technology Program Manager yon 06-14-2021 Radiology Outside Office Copy [id number]#1 .00CD:127 [facility] Referrals Officeon Referrals Office [id number]#1 .00CD:127 [facility] Vital Signs Date Time Vital Sign Value Performing Clinician Facility 01-10-2025 11:100500 Body height 188 cm AmparoPureLi[employer] DO Work Phone: [facility] 01-10-2025 11:10-0500 Body mass index (BMI) [Ratio] 44.68 kg/m2 Surrey [email or web address] DO Work Phone: [facility] 01-10-2025 11:10-050 Body temperature 98.29 [degF] Amparo [email or web address] DO Work Phone: [facility] 01-10-2025 11:10-0500 Body weight 157.85 kg Surrey Petznick DO Work Phone: [facility] 01-10-2025 11:10-0500 Diastolic blood pressure 78 mm[Hg] Amparo Petznick DO Work Phone: [facility] 01-10-2025 11:10-0500 Heart rate 79 /min Amparo Petznick DO Work Phone: [facility] 01-10-2025 11:10-0500 SaO2% (BldA) [Mass fraction] 96 % Amparo Petznick DO Work Phone: [facility] 01-10-2025 11:10-0500 Systolic blood pressure 114 mm[Hg] Amparo Petznick DO Work Phone: [facility] 01-06-2025 10:11-0500 Body height 188 cm Erich Cherry DO Work Phone: [facility] 01-06-2025 10:11-0500 Body mass index (BMI) [Ratio] 44.68 kg/m2 Erich Cherry DO Work Phone: [facility] 01-06-2025 10:11-0500 Body weight 157.85 kg Erich Cherry DO Work Phone: [facility] 01-06-2025 10:11-0500 Diastolic blood pressure 70 mm[Hg] Erich Cherry DO Work Phone: [facility] 01-06-2025 10:11-0500 Heart rate 84 /min Erich Cherry DO Work Phone: [facility] 01-06-2025 10:11-0500 Systolic blood pressure 108 mm[Hg] Erich Cherry DO Work Phone: [facility] 10-18-2024 10:35-0500 Body height 188 cm Clayton Edwardsk ENVIRONMENTAL PLANNING ENGINEER Work Phone: [facility] 10-18-2024 10:35-0500 Body mass index (BMI) [Ratio] 43.91 kg/m2 Clayton Dianepatrick ENVIRONMENTAL PLANNING ENGINEER Work Phone: [facility] 10-18-2024 10:35-0500 Body temperature 96.49 [degF] Clayton Basilio ENVIRONMENTAL PLANNING ENGINEER Work Phone: [facility] 10-18-2024 10:35-0500 Body weight 155.13 kg Clayton Basilio ENVIRONMENTAL PLANNING ENGINEER Work Phone: [facility] 10-18-2024 10:35-0500 Diastolic blood pressure 80 mm[Hg] Clayton Basilio ENVIRONMENTAL PLANNING ENGINEER Work Phone: [facility] 10-18-2024 10:35-0500 Heart rate 84 /min Clayton Basilio ENVIRONMENTAL PLANNING ENGINEER Work Phone: [facility] 10-18-2024 10:35-0500 Respiratory rate 16 /min Clayton Basilio ENVIRONMENTAL PLANNING ENGINEER Work Phone: [facility] 10-18-2024 10:35-0500 SaO2% (BldA) [Mass fraction] 96 % Clayton Basilio ENVIRONMENTAL PLANNING ENGINEER Work Phone: [facility] 10-18-2024 10:35-0500 Systolic blood pressure 142 mm[Hg] Clayton Basilio ENVIRONMENTAL PLANNING ENGINEER Work Phone: [facility] 09-13-2024 11:09-0500 Body height 188 cm Amparo Petznick DO Work Phone: [facility] 09-13-2024 11:09-0500 Body mass index (BMI) [Ratio] 44.42 kg/m2 Amparo Petznick DO Work Phone: [facility] 09-13-2024 11:09-0500 Body temperature 98.1 [degF] Amparo Petznick DO Work Phone: [facility] 09-13-2024 11:09-0500 Body weight 156.94 kg Amparo Petznick DO Work Phone: [facility] 09-13-2024 11:09-0500 Diastolic blood pressure 68 mm[Hg] Amparo Petznick DO Work Phone: [facility] 09-13-2024 11:09-0500 Heart rate 82 /min Amparo Peñaloza DO Work Phone: [facility] 09-13-2024 11:09-0500 SaO2% (BldA) [Mass fraction] 95 % Amparo Peñaloza DO Work Phone: [facility] 09-13-2024 11:09-0500 Systolic blood pressure 132 mm[Hg] Amparo Peñaloza DO Work Phone: [facility] 06-20-2024 20:37-0400 SaO2% (BldA) [Mass fraction] 94 % Zion Lozoya MD Work Phone: [facility] [employer] 06-20-2024 20:15-0400 Diastolic blood pressure 93 mm[Hg] [facility]oz[facility] 06-20-2024 20:15-0400 Systolic blood pressure 166 mm[Hg] Zion Lozoya MD Work Phone: [facility] [employer] 06-20-2024 18:33-0400 Body height 188 cm Zion Lozoya MD Work Phone: [facility] [employer] 06-20-2024 18:33-0400 Body mass index (BMI) [Ratio] 44.55 kg/m2 Zion Lozoya MD Work Phone: [facility] [employer] 06-20-2024 18:33-0400 Body weight 157.4 kg Zion Lozoya MD Work Phone: [facility] [employer] 06-20-2024 18:32-0400 Heart rate 98 /min Zion Lozoya MD Work Phone: [facility] [employer] 06-20-2024 18:32-0400 Respiratory rate 18 /min Zion Lozoya MD Work Phone: [facility] [employer] 06-20-2024 18:31-0400 Body temperature 98.8 [degF] Zion Lozoya MD Work Phone: [facility] [employer] 06-20-2024 10:16-0400 Body height 187.96 cm [facility] 06-20-2024 10:16-0400 Body mass index (BMI) [Ratio] 45.3 kg/m2 [facility] 06-20-2024 10:16-0400 Body temperature 97.8 [degF] [facility] 06-20-2024 10:16-0400 Body weight 160.11 kg [facility] 06-20-2024 10:16-0400 Diastolic blood pressure 75 mm[Hg] [facility] 06-20-2024 10:16-0400 Heart rate 95 /min [facility] 06-20-2024 10:16-0400 SaO2% (BldA) [Mass fraction] 95 % [facility] 06-20-2024 10:16-0400 Systolic blood pressure 140 mm[Hg] [facility] 05-04-2024 15:12-0400 Body height 188 cm Erich Cherry DO Work Phone: [facility] 05-04-2024 15:12-0400 Body mass index (BMI) [Ratio] 46.48 kg/m2 Erich Cherry DO Work Phone: [facility] 05-04-2024 15:12-0400 Body weight 164.2 kg Erich Cherry DO Work Phone: [facility] 05-04-2024 15:12-0400 Diastolic blood pressure 86 mm[Hg] Erich Cherry DO Work Phone: [facility] 05-04-2024 15:12-0400 Heart rate 78 /min Erich Cherry DO Work Phone: [facility] 05-04-2024 15:12-0400 Systolic blood pressure 136 mm[Hg] Erich Cherry DO Work Phone: [facility] 09-22-2023 13:00-0500 Body height 187.96 cm Imad Asaad Other [employer] Other 09-22-2023 13:00-0500 Body mass index (BMI) [Ratio] 46.22 kg/m2 Imad Asaad Other [employer] Other 09-22-2023 13:00-0500 Body weight 163.3 kg Imad Asaad Other [employer] Other 09-22-2023 13:00-0500 Diastolic blood pressure 78 mm[Hg] Imad Asaad Other [employer] Other 09-22-2023 13:00-0500 Systolic blood pressure 137 mm[Hg] Imad Asaad Other [employer] [facility] [employer] Other 09-18-2023 10:37-0500 Body height 188 cm Erich Cherry DO Work Phone: [facility] 09-18-2023 10:37-0500 Body mass index (BMI) [Ratio] 46.48 kg/m2 Erich Cherry DO Work Phone: [facility] 09-18-2023 10:37-0500 Body weight 164.2 kg Erich Cherry DO Work Phone: [facility] 09-18-2023 10:37-0500 Diastolic blood pressure 90 mm[Hg] Erich Cherry DO Work Phone: [facility] 09-18-2023 10:37-0500 Heart rate 88 /min Erich Cherry DO Work Phone: [facility] 09-18-2023 10:37-0500 Systolic blood pressure 138 mm[Hg] Erich Cherry DO Work Phone: [facility] 08-27-2023 08:55-0400 Diastolic blood pressure 91 mm[Hg] MD Shaikh Bangura Work Phone: [facility] 08-27-2023 08:55-0400 Heart rate 86 /min MD Shaikh Bangura Work Phone: [facility] 08-27-2023 08:55-0400 Respiratory rate 18 /min MD Shaikh Bangura Work Phone: [facility] 08-27-2023 08:55-0400 SaO2% (BldA) [Mass fraction] 94 % MD Shaikh Bangura Work Phone: [facility] 08-27-2023 08:55-0400 Systolic blood pressure 120 mm[Hg] MD Shaikh Bangura Work Phone: [facility] 08-27-2023 07:18-0400 Body height 187.96 cm MD Shaikh Bangura Work Phone: [facility] 08-27-2023 07:18-0400 Body temperature 98.4 [degF] MD Shaikh Bangura Work Phone: [facility] 08-27-2023 07:18-0400 Body weight 158.75 kg MD Shaikh Bangura Work Phone: [facility] 07-30-2023 14:00-0400 Body height 187.96 cm Imad Asaad Other [employer] [facility] [employer] Other 07-30-2023 14:00-0400 Body mass index (BMI) [Ratio] 46.22 kg/m2 Imad Asaad Other [employer] Other 07-30-2023 14:00-0400 Body weight 163.3 kg Imad Asaad Other [employer] Other 07-30-2023 14:00-0400 Diastolic blood pressure 73 mm[Hg] Imad Asaad Other [employer] Other 07-30-2023 14:00-0400 Systolic blood pressure 142 mm[Hg] Imad Asaad Other [employer] Other 07-17-2023 13:46-0400 Diastolic blood pressure 68 mm[Hg] MD Shaikh Bangura Work Phone: [facility] 07-17-2023 13:46-0400 Heart rate 77 /min MD Shaikh Bangura Work Phone: [facility] 07-17-2023 13:46-0400 Respiratory rate 16 /min MD Shaikh Bangura Work Phone: [facility] 07-17-2023 13:46-0400 SaO2% (BldA) [Mass fraction] 95 % MD Shaikh Bangura Work Phone: [facility] 07-17-2023 13:46-0400 Systolic blood pressure 125 mm[Hg] MD Shaikh Bangura Work Phone: [facility] 07-17-2023 11:50-0400 Body height 187.96 cm MD Shaikh Bangura Work Phone: [facility] 07-17-2023 11:50-0400 Body temperature 97.8 [degF] MD Shaikh Bangura Work Phone: [facility] 07-17-2023 11:50-0400 Body weight 160.11 kg MD Shaikh Bangura Work Phone: [facility] 06-25-2023 13:30-0400 Body height 187.96 cm Imad Asaad Other [employer] [facility] [employer] Other 06-25-2023 13:30-0400 Body mass index (BMI) [Ratio] 46.22 kg/m2 Imad Asaad Other [employer] Other 06-25-2023 13:30-0400 Body weight 163.3 kg Imad Asaad Other [facility] [employer] Other 06-25-2023 13:30-0400 Diastolic blood pressure 69 mm[Hg] Imad Asaad Other [facility] [employer] Other 06-25-2023 13:30-0400 Systolic blood pressure 123 mm[Hg] Imad Asaad Other [facility] [employer] Other 10-09-2022 15:54-0500 Diastolic blood pressure 62 mm[Hg] Shaikh Kristalwad Work Phone: [facility] [employer] DO Work Phone: 10-09-2022 15:54-0500 Systolic blood pressure 122 mm[Hg] Shaikh Kristalwad Work Phone: [facility] [employer] [address] DO Work Phone: 10-09-2022 15:38-0500 Body height 187.96 cm Shaikh Kristalwad Work Phone[facility] [employer] DO Work Phone: 10-09-2022 15:38-0500 Body mass index (BMI) [Ratio] 44.42 kg/m2 Shaikh Kristalwad Work Phone: [facility] [address] DO Work Phone: 10-09-2022 15:38-0500 Body surface area Derived from formula 2.74 m2 Wilson Kristalwad Work Phone: [facility] [facility] DO Work Phone: 10-09-2022 15:38-0500 Body weight 156.95 kg Shaikh Timmywwad Work Phone: [facility] [address] DO Work Phone: 10-09-2022 15:38-0500 Diastolic blood pressure 80 mm[Hg] Shaikh Kristalwad Work Phone: [facility] [address] DO Work Phone: 10-09-2022 15:38-0500 Heart rate 70 /min Shaikh Kristalwad Work Phone: [facility] [address] DO Work Phone: 10-09-2022 15:38-0500 Systolic blood pressure 150 mm[Hg] Shaikh Kristalwad Work Phone: [facility] [address] DO Work Phone: 06-26-2022 09:57-0400 Body height 187.96 cm Shaikh Kristalwad Work Phone: [facility] [address] DO Work Phone: 06-26-2022 09:57-0400 Body mass index (BMI) [Ratio] 45.07 kg/m2 Shaikh Kristalwad Work Phone: [facility] [address] DO Work Phone: 06-26-2022 09:57-0400 Body surface area Derived from formula 2.76 m2 Shaikh Kristalwad Work Phone: [facility] [address] DO Work Phone: 06-26-2022 09:57-0400 Body weight 159.21 kg Shaikh Kristalwad Work Phone: [facility] [address] DO Work Phone: 06-26-2022 09:57-0400 Diastolic blood pressure 76 mm[Hg] Shaikh Timmywwad Work Phone: [facility] [address] DO Work Phone: 06-26-2022 09:57-0400 Heart rate 80 /min Shaikh Sveta Work Phone: [facility] DO Work Phone: 06-26-2022 09:57-0400 Systolic blood pressure 122 mm[Hg] Shaikh Sveta Work Phone: [facility] [address] DO Work Phone: 04-09-2022 13:27-0400 Body height 187.96 cm Domonique Paul Jinaznick Work Phone: [facility] [address] DO Work Phone: 04-09-2022 13:27-0400 Body mass index (BMI) [Ratio] 45.32 kg/m2 Domonique Miller Petznick Work Phone: [facility] DO Work Phone: 04-09-2022 13:27-0400 Body surface area Derived from formula 2.77 m2 Domonique Paul Petznick Work Phone: [facility] [address] DO Work Phone: 04-09-2022 13:27-0400 Body weight 160.12 kg Domonique Paul Petznick Work Phone: [facility] [address] DO Work Phone: 04-09-2022 13:27-0400 Diastolic blood pressure 81 mm[Hg] Domonique Miller Petznick Work Phone: [facility] [address] DO Work Phone: 04-09-2022 13:27-0400 Heart rate 103 /min Domonique Miller Petznick Work Phone: [facility] [facility] DO Work Phone: 04-09-2022 13:27-0400 Systolic blood pressure 144 mm[Hg] Domonique Muroznick Work Phone: [facility] 250 DO Work Phone: 03-12-2022 15:32-0400 Diastolic blood pressure 76 mm[Hg] Domonique Miller Petznick Work Phone: [facility] 250 DO Work Phone: 03-12-2022 15:32-0400 Systolic blood pressure 132 mm[Hg] Domonique Muroznick Work Phone: [facility] 250 DO Work Phone: 03-12-2022 14:56-0400 Body height 187.96 cm Domonique Moonick Work Phone: [facility] 250 DO Work Phone: 03-12-2022 14:56-0400 Body mass index (BMI) [Ratio] 47.25 kg/m2 Domonique Muroznick Work Phone: [facility] 250 DO Work Phone: 03-12-2022 14:56-0400 Body surface area Derived from formula 2.82 m2 Domonique Muroznick Work Phone: [facility] 250 DO Work Phone: 03-12-2022 14:56-0400 Body weight 166.92 kg Domonique Muroznick Work Phone: [facility] 250 DO Work Phone: 03-12-2022 14:56-0400 Diastolic blood pressure 100 mm[Hg] Domonique Miller Petznick Work Phone: [facility] 250 DO Work Phone: 03-12-2022 14:56-0400 Heart rate 75 /min Domonique Miller Petznick Work Phone: [facility] [facility] DO Work Phone: 03-12-2022 14:56-0400 Systolic blood pressure 150 mm[Hg] Domonique Miller Petznick Work Phone: [facility] 250 DO Work Phone: 03-12-2022 14:53-0400 Body height 187.96 cm Domonique Miller Petznick Work Phone: [facility] 250 DO Work Phone: 03-12-2022 14:53-0400 Body mass index (BMI) [Ratio] 47.25 kg/m2 Domonique Milelr Petznick Work Phone: [facility] 250 DO Work Phone: 03-12-2022 14:53-0400 Body surface area Derived from formula 2.82 m2 Domonique Miller Petznick Work Phone: [facility] 250 DO Work Phone: 03-12-2022 14:53-0400 Body weight 166.92 kg Domonique Miller Petznick Work Phone: [facility] DO Work Phone: 03-12-2022 14:53-0400 Diastolic blood pressure 90 mm[Hg] Domonique Miller Petznick Work Phone: [facility] DO Work Phone: 03-12-2022 14:53-0400 Heart rate 75 /min Domonique Miller Petznick Work Phone: [facility] 250 DO Work Phone: 03-12-2022 14:53-0400 Systolic blood pressure 160 mm[Hg] Domonique Miller Petznick Work Phone: [facility] 250 DO Work Phone: 09-11-2021 15:15-0400 Body height 187.96 cm Kwan Rossi Other [employer] Other Encounters Encounter Date Encounter Type Care Provider Facility Start: 03-29-2025 End: 03-29-2025 Orders Only Esha Stanley ENVIRONMENTAL PLANNING ENGINEER Work Phone: [facility] Comment on above: Chronic hip pain, bi lateral (Primary Dx) Start: 01-10-2025 End: 01-10-2025 Office outpatient visit 25 minutes Amparo Peñaloza DO Work Phone: [facility] 230 Comment on above: 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 (CMS/[facility]) (Primary Dx); Type 2 diabetes mellitus with other circulatory complications (CMS/HCC); Class 3 severe obesity due to excess calories with serious comorbidity and body mass index (BMI) of 40.0 to 44.9 in adult (CMS/HCC) Start: 01-10-2025 End: 01-10-2025 ambulatory AMPARO PEÑALOZA Not Available Start: 01-06-2025 End: 01-06-2025 Office outpatient visit 25 minutes Erich Cherry DO Work Phone: [facility] Comment on above: Coronary artery dise ase involving [place] coronary artery of [place] heart, unspecified whether angina present; Status post insertion of drug eluting coronary artery stent; Mixed hyperlipidemia; Primary hypertension; Angina pectoris; Type 2 diabetes mellitus without complication, with long-term current use of insulin (Multi); BMI 40.0-44.9, adult (Multi); MAC (dyspnea on exertion); Hx of percutaneous transluminal coronary angioplasty Start: 01-06-2025 End: 01-06-2025 ambulatory ERICH Ace [facility] Ambulatory Start: 10-18-2024 End: 10-18-2024 Bamboo flowsheet Clayton Basilio ENVIRONMENTAL PLANNING ENGINEER Work Phone: [facility] Start: 10-18-2024 End: 10-18-2024 Bamboo flowsheet Clayton Basilio ENVIRONMENTAL PLANNING ENGINEER Work Phone: [facility] Start: 10-18-2024 End: 10-18-2024 Office outpatient visit 15 minutes Clayton Basilio ENVIRONMENTAL PLANNING ENGINEER Work Phone: [facility] Comment on above: Class 3 severe obesi ty due to excess calories with serious comorbidity and body mass index (BMI) of 40.0 to 44.9 in adult ([facility]) (Primary Dx); Recurrent major depressive disorder, in partial remission (HCC) ([facility]/HCC); Anxiety disorder, unspecified; Pulled muscle; Essential hypertension ([facility]/HCC); Gastro-esophageal reflux disease without esophagitis; Hyperlipidemia, unspecified hyperlipidemia type ([facility]) Start: 10-18-2024 End: 10-18-2024 ambulatory CLAYTON BASILIO Not Available Start: 09-23-2024 End: 09-23-2024 Refill Clayton Basilio ENVIRONMENTAL PLANNING ENGINEER Work Phone: [facility] Comment on above: Recurrent major depr essive disorder, in partial remission (HCC) ([facility]/HCC) Start: 09-13-2024 End: 09-13-2024 Bamboo flowsheet Amparo Peñaloza DO Work Phone: [facility] 230 Start: 09-13-2024 End: 09-13-2024 Bamboo flowsheet Amparo Moonick DO Work Phone: [facility] 230 Start: 09-13-2024 End: 09-13-2024 Office outpatient visit 25 minutes Amparo Peñaloza DO Work Phone: [facility] 230 Comment on above: USP (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 of insulin ([facility]) (Primary Dx); Type 2 diabetes mellitus with other circulatory complications ([facility]); Class 3 severe obesity due to excess calories with serious comorbidity and body mass index (BMI) of 40.0 to 44.9 in adult ([facility]); Need for influenza vaccination; Dysfunction of both eustachian tubes Start: 09-13-2024 End: 09-13-2024 ambulatory AMPARO PEÑALOZA Not Available Start: 06-20-2024 End: 06-20-2024 Emergency department patient visit ZION LOZOYA [facility] Comment on above: Acute tonsillitis, u nspecified etiology (Primary Dx) Start: 06-20-2024 End: 06-20-2024 ambulatory [facility] Work Phone: Start: 06-20-2024 End: 06-20-2024 Patient encounter procedure [facility] Stephane Work Phone: Start: 05-10-2024 End: 05-10-2024 ambulatory AMPARO PEÑALOZA Not Available Start: 05-04-2024 End: 05-04-2024 ambulatory [facility] Ambulatory Start: 05-04-2024 End: 05-04-2024 Office outpatient visit 25 minutes Erich Cherry DO Work Phone: [facility] Comment on above: Coronary artery dise ase involving [place] coronary artery of [place] heart, unspecified whether angina present; Status post insertion of drug eluting coronary artery stent; Primary hypertension; Angina pectoris (CMS-HCC); MAC (dyspnea on exertion); Mixed hyperlipidemia; Type 2 diabetes mellitus without complication, with long-term current use of insulin (Multi); BMI 45.0-49.9, adult (Multi) Start: 04-29-2024 End: 04-29-2024 ambulatory SHAIKH SVETA Not Available Start: 11-21-2023 End: 11-21-2023 ambulatory Imad Asaad Other [email or web address] Other Start: 11-21-2023 Telephone encounter Imad Asaad [facility] Start: 10-23-2023 End: 10-23-2023 ambulatory Imad Asaad Other [email or web address] Other Start: 10-23-2023 Telephone encounter Imad Asaad [facility] Start: 09-22-2023 End: 09-22-2023 ambulatory Imad Asaad Other [email or web address] Other Start: 09-22-2023 Office outpatient ne w 45 minutes Imad Asaad [facility] Start: 09-18-2023 End: 09-18-2023 Office outpatient visit 15 minutes Erich Cherry DO Work Phone: [facility] Comment on above: Status post insertio n of drug eluting coronary artery stent; Primary hypertension; Mixed hyperlipidemia; Angina pectoris ([facility]); MAC (dyspnea on exertion); Hx of percutaneous transluminal coronary angioplasty; Type 2 diabetes mellitus with other specified complication, unspecified whether long term 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 ([facility]) Start: 09-08-2023 End: 09-08-2023 ambulatory Imad Asaad Other [email or web address] Other Start: 09-08-2023 Telephone encounter Imad Asaad [facility] Start: 08-28-2023 End: 08-28-2023 ambulatory Imad Asaad Other [employer] Other Start: 08-28-2023 Telephone encounter Imad Asaad [facility] Start: 08-27-2023 End: 08-27-2023 ambulatory Imad Asaad Facility:[facility] Start: 08-27-2023 End: 08-27-2023 Admission to same day surgery center MD Shaikh Bangura Work Phone: [facility] Work Phone: Start: 08-27-2023 End: 08-27-2023 ambulatory MD Shaikh Bangura Work Phone: [facility] Work Phone: Start: 08-15-2023 End: 08-15-2023 ambulatory Imad Asaad Other [employer] Other Start: 08-15-2023 Telephone encounter Imad Asaad [facility] Start: 08-14-2023 End: 08-14-2023 ambulatory Imad Asaad Other [employer] Other Start: 08-14-2023 Telephone encounter Imad Asaad [facility] Start: 08-12-2023 End: 08-12-2023 ambulatory Shaikh Sveta Facility:[facility] Start: 08-12-2023 End: 08-12-2023 ambulatory MD Shaikh Bangura Work Phone: [facility] Work Phone: Start: 08-12-2023 End: 08-12-2023 Patient encounter procedure MD Shaikh Bangura Work Phone: [facility] Work Phone: Start: 08-07-2023 End: 08-07-2023 ambulatory Wilson Faomariwad Facility:[facility] Start: 08-07-2023 End: 08-07-2023 ambulatory MD Shaikh Bangura Work Phone: [facility] Work Phone: Start: 08-07-2023 End: 08-07-2023 Patient encounter procedure MD Shaikh Bangura Work Phone: [facility] Main Telephone Work Phone: Start: 07-30-2023 End: 07-30-2023 ambulatory Shaikh Timmynobled Facility:[facility] Start: 07-30-2023 End: 07-30-2023 ambulatory MD Shaikh Bangura Work Phone: [facility] Work Phone: Start: 07-30-2023 End: 07-30-2023 Patient encounter procedure MD Shaikh Bangura Work Phone: [facility] Main Telephone Work Phone: Start: 07-17-2023 End: 07-17-2023 ambulatory Wilson Celestinod Facility:[facility] Start: 07-17-2023 End: 07-17-2023 Admission to same day surgery center MD Shaikh Bangura Work Phone: [facility] Work Phone: Start: 07-17-2023 End: 07-17-2023 ambulatory MD Shaikh Bangura Work Phone: [facility] Work Phone: Start: 07-16-2023 End: 07-16-2023 ambulatory Imad Asaad Facility:[facility] Start: 07-16-2023 End: 07-16-2023 ambulatory MD Shaikh Bangura Work Phone: [facility] Work Phone: Start: 07-16-2023 End: 07-16-2023 Patient encounter procedure MD Shaikh Bangura Work Phone: [facility] Work Phone: Start: 07-01-2023 End: 07-01-2023 ambulatory Imad Asaad Other [email or web address] Other Start: 07-01-2023 Telephone encounter Imad Asaad [facility] Start: 06-25-2023 End: 06-25-2023 Patient encounter procedure MD Shaikh Bangura Work Phone: [facility] Work Phone: Start: 06-25-2023 End: 06-25-2023 ambulatory MD Shaikh Bangura Work Phone: [employer] Other Start: 06-25-2023 Office outpatient ne w 45 minutes Imad Asaad [facility] Start: 03-20-[address] Erich Cherry Facility: Start: 01-24-2023 End: 01-24-2023 ambulatory SHAIKH Anabella BANGURA Facility:[facility] Start: 01-06-2023 End: 01-07-2023 ambulatory ROHAN Chowdary Facility:[facility] Start: 12-25-2022 End: 12-26-2022 ambulatory DOMONIQUE PEÑALOZA Facility:[facility] Start: 10-23-2022 End: 10-23-2022 ambulatory Hue Mclain Mohit Mendoza Facility:[facility] Start: 10-23-2022 End: 10-23-2022 ambulatory MD Shaikh Bangura Work Phone: [facility] Work Phone: Start: 10-23-2022 End: 10-23-2022 Patient encounter procedure MD Shaikh Bangura Work Phone: [facility] Main Telephone Start: 10-09-2022 Office outpatient vi sit 25 minutes Wilson Kristalwad Work Phone: -[facility] 250 DO Work Phone: Start: 10-09-2022 Patient encounter procedure Shaikh Sveta Work Phone: [facility] 250 DO Work Phone: Start: 10-09-2022 ambulatory Ms. Hue Mendoza Facility: Start: 06-26-2022 Office outpatient vi sit 25 minutes Wilson Faomariwad Work Phone: [facility] 250 DO Work Phone: Start: 06-26-[address] Erich Cherry Facility: Start: 04-15-2022 Rx Renewal Domonique simmons Work Phone: [facility] 250 DO Work Phone: Start: 04-09-2022 Office outpatient vi sit 25 minutes Domonique Peñaloza Work Phone: [facility] 250 DO Work Phone: Start: 04-09-[address] Domonique Peñaloza Facility: Start: 03-19-2022 Patient encounter procedure Domonique Peñaloza Work Phone: [facility] 250 DO Work Phone: Start: 03-18-2022 Chart Update Domonique simmons Work Phone: [facility] 250 DO Work Phone: Start: 03-12-2022 Office consultation new/estab patient 80 min Domonique Peñaloza Work Phone: [facility] 250 DO Work Phone: Start: 09-11-2021 End: 09-11-2021 ambulatory Kwan Rossi Other [facility] [employer] Other Start: 09-11-2021 Office outpatient vi sit 15 minutes Kwan Rossi [facility] Start: 09-04-2021 (Procedure) Short Kwan Rossi [facility] Patient encounter status Domonique Peñaloza Work Phone: [facility] 250 DO Work Phone: Procedures Date Procedure Procedure Detail Performing Clinician Start: 01-10-2025 Hemoglobin glycosylated a1c Amparo Peñaloza DO Work Phone: Start: 09-13-2024 Hemoglobin glycosylated a1c Amparo Peñaloza DO Work Phone: Start: 06-20-2024 COVID Antigen (POC) Start: 06-20-2024 Quick Strep (POC) Start: 09-18-2023 End: 05-04-2024 History of percutaneous transluminal coronary angioplasty Hx of percutaneous transluminal coronary angioplasty Erich Cherry DO Work Phone: Start: 09-17-2023 History of placement of stent for coronary artery disease Status post insertion of drug eluting coronary artery stent Erich Cherry DO Work Phone: Start: 08-27-2023 Flexible fiberoptic sigmoidoscopy MD Serjio Bangura Work Phone: Start: 08-12-2023 Esophageal manometry MD Shaikh Bangura Work Phone: Start: 07-30-2023 Ova and Parasite Result 1 MD Shaikh Lacy arriaga Work Phone: Start: 07-30-2023 Ova OR parasites identification MD Shaik anabella Bangura Work Phone: Start: 07-30-2023 Stool culture for bacteria MD Shaikh Kristal palmer Work Phone: Start: 07-17-2023 Esophagogastroduodenoscopy MD Shaikh Kristal palemr Work Phone: Start: 07-16-2023 Radionuclide gastric emptying study MD Shaikh Bangura Work Phone: Start: 06-25-2023 Diagnostic radiography of abdomen MD Serjio Bangura Work Phone: Start: 11-02-2020 Colonoscopy Erich Cherry DO Work Phone: Angioplasty of blood vessel Domonique Peñaloza Work Phone: Cholecystectomy Domonique Peñaloza Work Phone: History of percutane ous transluminal coronary angioplasty Hx of percutaneous transluminal coronary angioplasty Erich Cherry DO Work Phone: History of placement of stent for coronary artery disease Status post insertion of drug eluting coronary artery stent Domonique Peñaloza Work Phone: History of placement of stent for coronary artery disease Status post insertion of drug eluting coronary artery stent Erich Cherry DO Work Phone: History of placement of stent for coronary artery disease Status post insertion of drug eluting coronary artery stent Erich Cherry DO Work Phone: History of placement of stent for coronary artery disease Status post insertion of drug eluting coronary artery stent Erich Cherry DO Work Phone: Operative procedure on foot Domonique Peñaloza Work Phone: Operative procedure on wrist Domonique Peñaloza Work Phone: Percutaneous translu anastacio coronary angioplasty Shaikh Sveta Work Phone: Repair of shoulder Domonique Peñaloza Work Phone: Total colonoscopy Domonique Peñaloza Work Phone: Comment on above: [id number]; Plan of Treatment Date Care Activity Detail Author Start: 11-02-2030 Screening for malign ant neoplasm of colon [facility] Start: 08-27-2028 Screening for malign ant neoplasm of colon Sigmoidoscopy [facility] Start: 06-20-2027 DTaP/Tdap/Td vaccine (2 - Td or Tdap) DTaP/Tdap/Td vaccine (2 - Td or Tdap) [facility] Start: 06-20-2027 DTaP/Tdap/Td Vaccine s (2 - Td or Tdap) DTaP/Tdap/Td Vaccines (2 - Td or Tdap) [facility] Start: 10-29-2025 Glaucoma screening Diabetes: R etinopathy Screening [facility] Start: 09-06-2025 End: 09-06-2025 Patient encounter procedure 09/06/2025 11:00 AM EDT Office Visit [facility] [address] [place] [id number] Hue Mendoza, COMPUTER NETWORK AND SYSTEMS ENGINEER-AUDIO VISUAL AIDS DIRECTOR [address] [place] [address] [facility] Start: 07-13-2025 Hemoglobin A1c measurement Diabetes: Hemoglobin A1C [facility] Start: 05-10-2025 End: 05-10-2025 Patient encounter procedure 05/10/2025 1:20 PM EDT Office Visit [facility] [address] [place] [address] Esha Stanley NP [address] [place] [address] [facility] Start: 05-09-2025 End: 05-09-2025 Patient encounter procedure 05/09/2025 1:15 PM EDT Office Visit [facility] [address] [place] [id number] Amparo Peñaloza DO [address] [place], [place] [id number] [facility] 230 Start: 04-29-2025 Medicare Annual Wellness (AWV) Medicare Annual Wellness (AWV) [facility] Start: 04-29-2025 Urine screening for protein Diabetes: Urine Protein Screening [facility] Start: 03-29-2025 End: 03-29-2026 XR Pelvis 1 or 2 Views XR pelvis 1 or 2 views Imaging Routine Chronic hip pain, bilateral Expected: 03/29/2025 (Approximate), Expires: 03/29/2026 [facility] Comment on above: Expected: 03/29/2025 (Approximate), Expires: 03/29/2026 Start: 03-29-2025 End: 03-29-2026 XR Pelvis AP and Hip - bilateral GE 2 Views XR hips bilateral 2 views Imaging Routine Chronic hip pain, bilateral Expected: 03/29/2025, Expires: 03/29/2026 [facility] Work Phone: Comment on above: Expected: 03/29/2025 , Expires: 03/29/2026 Start: 03-23-2025 End: 03-23-2025 Patient encounter procedure 03/23/2025 1:20 PM EDT Office Visit [facility] [address] [place] [id number] Esha Stanley NP [address] [place] [address] [facility] Start: 03-17-2025 End: 03-17-2025 Patient encounter procedure 03/17/2025 10:30 AM EDT Office Visit [facility] [address] [place] [phone] Clayton Basilio NP [address] [place] [phone] [facility] Start: 03-13-2025 Hemoglobin A1c measurement Diabetes: Hemoglobin A1C [facility] Start: 01-10-2025 End: 01-10-2025 Patient encounter procedure 01/10/2025 11:15 AM EST Office Visit [facility] [address] [place] [address] Amparo Peñaloza DO [address] [place] [address] [facility] 230 Start: 01-06-2025 End: 01-06-2026 C reactive protein [Mass/volume] in Serum or Plasma by High sensitivity method C-Reactive Protein, High Sensitivity Lab Routine Coronary artery disease involving [place] coronary artery of [place] heart, unspecified whether angina present Status post insertion of drug eluting coronary artery stent Mixed hyperlipidemia Expected: 01/06/2025 (Approximate), Expires: 01/06/2026 [facility] Work Phone: Comment on above: Expected: 01/06/2025 (Approximate), Expires: 01/06/2026 Start: 01-06-2025 End: 01-06-2026 Lipid 1996 panel - Serum or Plasma Lipid Panel Lab Routine Mixed hyperlipidemia Expected: 01/06/2025 (Approximate), Expires: 01/06/2026 [facility] Work Phone: Comment on above: Expected: 01/06/2025 (Approximate), Expires: 01/06/2026 Start: 01-06-2025 End: 01-06-2025 Patient encounter procedure 01/06/2025 10:10 AM EST Office Visit [facility] [address] [place] [phone] Erich Cherry DO [address] [place] [address] [facility] Start: 10-18-2024 End: 10-18-2024 Patient encounter procedure [facility] Comment on above: Arrived Start: 09-13-2024 End: 09-13-2024 Patient encounter procedure 09/13/2024 11:15 AM EST Office Visit [facility] [address] [place] [address] Amparo Peñaloza, DO [address] [place] [address] Arrived [facility] 230 Comment on above: Arrived Start: 07-11-2024 COVID-19 Vaccine ( season) COVID-19 Vaccine ( season) [facility] Start: 07-11-2024 Influenza vaccination Influenza Vacc ine (#1) [facility] Start: 07-08-2024 Hemoglobin A1c measurement Diabetes: Hemoglobin A1C [facility] Start: 06-10-2024 Influenza vaccination Flu vaccine (# 1) [facility] Start: 08-27-2023 [facility] Start: 08-12-2023 [facility] Start: 07-30-2023 Ova and Parasite Concentrate Exam Ova and Parasite Concentrate Exam [facility] Start: 07-17-2023 [facility] Start: 07-11-2023 COVID-19 Vaccine ( season) COVID-19 Vaccine ( season) [facility] Start: 03-20-2023 FUV, Provider: Erich Cherry, Status: Pen, Time: 10:30 AM FUV, Provider: Erich Cherry, Status: Pen, Time: 10:30 AM [facility] 250 DO Work Phone: Start: 01-01-2023 FUV, Provider: Erich Cherry, Status: Pen, Time: 9:40 AM FUV, Provider: Erich Cherry, Status: Pen, Time: 9:40 AM [facility] 250 DO Work Phone: Start: 10-20-2022 COVID-19 Vaccine (3 - Pfizer series) COVID-19 Vaccine (3 - Pfizer series) [facility] Start: 09-16-2022 FUV, Provider: Hue Vu, Status: Pen, Time: 9:30 AM FUV, Provider: Hue Vu, Status: Pen, Time: 9:30 AM [facility] 250 DO Work Phone: Start: 08-27-2022 Urine screening for protein Diabetes: Urine Protein Screening [facility] Start: 06-26-2022 FUV, Provider: Erich Cherry, Status: Pen, Time: 9:50 AM FUV, Provider: Erich Cherry, Status: Ramses, Time: 9:50 [facility] Work [facility]: Start: 2022 Respiratory Syncytia l Virus (RSV) or age 60 yrs+ (1 - 1-dose 60+ series) Respiratory Syncytial Virus (RSV) or age 60 yrs+ (1 - 1-dose 60+ series) [facility] Start: 2022 RSV High Risk: (Elde rly (60+) or Population) (1 - Risk 60-74 years 1-dose series) RSV High Risk: (Elderly (60+) or Population) (1 - Risk 60-74 years 1-dose series) [facility] Start: 2022 RSV patient s and/or patients aged 60+ years (1 - 1-dose 60+ series) RSV patients and/or patients aged 60+ years (1 - 1-dose 60+ series) [facility] Start: 04-09-2022 FUV, Provider: Hue Vu, Status: Ramses, Time: 1:30 PM FUV, Provider: Hue Vu, Status: Ramses, Time: 1:30 PM [facility] 250 DO Work Phone: Start: 09-19-2017 Shingles vaccine (1 of 2) Shingles vaccine (1 of 2) [facility] Start: 09-19-2017 Zoster Vaccines (1 o f 2) Zoster Vaccines (1 of 2) [facility] Start: 2007 Screening for malign ant neoplasm of colon [facility] Start: 2002 Lipid panel Lipids [facility] Start: 1997 Diabetes screen Diabetes screen [facility] Start: 1981 Pneumococcal vaccination Pneumococcal Vaccine (1 of 2 - PCV) [facility] Start: 1981 Urine screening for protein Diabetes: Urine Protein Screening [facility] Start: 1980 Hepatitis C screening U [facility] Start: 1977 HIV screening HIV screen [facility] Start: 1974 Depression Screen Depression Screen [facility] Start: 1972 Diabetic foot examination Diabetes: Foot Exam [facility] Start: 1972 Glaucoma screening Diabetes: R etinopathy Screening [facility] Start: 1968 Pneumococcal Vaccine : Pediatrics (0 to 5 Years) and At-Risk Patients (6 to 64 Years) (1 - PCV) Pneumococcal Vaccine: Pediatrics (0 to 5 Years) and At-Risk Patients (6 to 64 Years) (1 - PCV) [facility] Start: 1968 Pneumococcal Vaccine : Pediatrics (0 to 5 Years) and At-Risk Patients (6 to 64 Years) (1 of 2 - PCV) Pneumococcal Vaccine: Pediatrics (0 to 5 Years) and At-Risk Patients (6 to 64 Years) (1 of 2 - PCV) [facility] Start: 1962 Annual wellness visit Welcome to Medicare Visit [facility] Start: 1962 Hemoglobin A1c measurement Diabetes: Hemoglobin A1C [facility] Start: 1962 HIV screening HIV Screening [facility] Start: 1962 Lipid panel Lipid Panel [facility] Start: 1962 Medicare Annual Wellness Visit Medicare Annual Wellness Visit (AWV) [facility] Start: 1962 Screening for malign ant neoplasm of colon [facility] Start: 1962 Yearly Adult Physical Yearly Adult P hysical [facility] Calprotectin [Mass/mass] in Stool [facility] Elastase.pancreatic [Mass/mass] in Stool [facility] Ova and parasites identified in Unspecified specimen by Light microscopy [facility] Patient Education Gastritis (DC) [facility] Work Phone: Immunizations Immunization Date Immunization Notes Care Provider Timmy herrera 09-13-2024 Influenza, Madin Rigo by Canine Kidney, subunit, trivalent, injectable, contains preservative Amparo Petznick DO Work Phone: [facility] 09-10-2024 influenza, seasonal, injectable Erich Cherry DO Work Phone: [facility] 09-10-2023 influenza, injectabl e, quadrivalent, preservative free Amparo Petznick DO Work Phone: [facility] 09-10-2023 influenza virus vaccine, unspecified formulation Amparo Petznick DO Work Phone: [facility] 08-25-2022 influenza, injectabl e, quadrivalent, preservative free Wilson Fawwad Work Phone: [facility] 250 DO Work Phone: 08-25-2022 Pfizer COVID-19 Vac Bivalent 30 MCG/0.3ML Intramuscular Suspension Wilson Fawwad Work Phone: [facility] 08-17-2022 influenza, seasonal, injectable Wilson Fawwad Work Phone: [facility] 250 DO Work Phone: Comment on above: Series: 08-17-2021 influenza, injectabl e, quadrivalent, preservative free Domonique Moonick Work Phone: [facility] 250 DO Work Phone: 02-23-2021 Pfizer-BioNTech COVID-19 Vacc 30 MCG/0.3ML Intramuscular Suspension Domonique Moonick Work Phone: [facility] 02-02-2021 Pfizer-BioNTech COVID-19 Vacc 30 MCG/0.3ML Intramuscular Suspension Domonique Miller Petznick Work Phone: [facility] 09-16-2020 influenza, high dose seasonal, preservative-free Amparo Petznick DO Work Phone: [facility] 09-16-2020 influenza, injectabl e, quadrivalent, preservative free Domonique Muroznick Work Phone: [facility] 250 DO Work Phone: 12-20-2017 hepatitis B vaccine, adult dosage Domonique Miller Petznick Work Phone: [facility] DO Work Phone: 07-25-2017 hepatitis B vaccine, adult dosage Domonique Miller [facility]znick [facility] Phone: [facility] Work Phone: 07-25-2017 varicella virus vaccine Ticorosalee Miller Petznick Work Phone: [facility] Work Phone: 07-11-2017 influenza virus vaccine, unspecified formulation Domonique Miller Petznick [facility] Phone: [facility] DO Work Phone: 07-11-2017 influenza, injectabl e, quadrivalent, preservative free Amparo Petznick DO Work Phone: [facility] 06-20-2017 hepatitis B vaccine, adult dosage Domonique Miller Petznick Work Phone: [facility] 250 DO Work Phone: 06-20-2017 measles, mumps and rubella virus vaccine Domonique Miller Petznick Work Phone: [facility] Work Phone: 06-20-2017 tetanus toxoid, redu erin diphtheria toxoid, and acellular pertussis vaccine, adsorbed Domonique Miller Petznick Work Phone: [facility] DO Work Phone: 06-20-2017 varicella virus vaccine Ticorosalee Miller [facility] Work Phone: Payers Date Payer Category Payer Medicare HUMANA MEDICARE HUMANA GOLD CHOICE [id number] 2024-Present [address] [address] [place] [address] [id number] 2024 Medicare (Managed Care) [id number]. [id number] 2024 Private Health Insurance [id number] 2022 Medicaid HUMANA HEALTHY H ORIZONS MEDICAID HUMANA HEALTHY HORIZONS MEDICAID [id number] 2022-Present [address] [address] [place] [address] [id number] 2022 Medicaid [id number] 2022 Self-pay [id number] 1962 Unknown [id number] [id number] 93 1962 Unknown [id number] 2.16.840.1.915727.3.579.2.5 93 1962 Unknown [id number] 2.16.840.1.335766.3.579.2.5 93 1962 Unknown [id number] 2.16.840.1.756340.3.579.2.3 56 1962 Unknown [id number] 2.16.840.1.820898.3.579.2.3 56 1962 Unknown [id number] 2.16.840.1.550237.3.579.2.3 56 1962 Unknown [id number] 2.16.840.1.018110.3.579.2.3 56 1962 Unknown [id number] 2.16.840.1.676291.3.579.2.1 75 1962 Unknown [id number] 2.16.840.1.510403.3.579.2.1 244 1962 Unknown [id number] 2.16.840.1.641414.3.579.2.1 244 1962 Unknown [id number] 2.16840.1.577635.3.579.2.1 259 1962 Unknown [id number] 2.16.840.1.800893.3.579.2.1 259 1962 Unknown [id number] 2.840.1.162041.3.579.2.1 259 1962 Unknown [id number] 2.840.1.945310.3.579.2.1 259 1962 Unknown [id number] 2.840.1.496870.3.579.2.1 259 Medicaid [id number] Unknown MEDICAID Unknown [id number] [id number] Unknown [place] BC/BS [id number] Unknown [id number] 2.840.1.091536.3.579.2.5 31 Unknown [id number] 2.16840.1.311824.3.579.2.5 31 Unknown [id number] 2.16840.1.828711.3.579.2.5 31 Unknown [id number] 2.16840.1.526155.3.579.2.5 31 Unknown [id number] 2.16840.1.680032.3.579.2.5 31 Unknown [id number] 2.16840.1.471772.3.579.2.5 31 Unknown [id number] 2.16.840.1.097590.3.579.2.5 31 Unknown [id number] 2.16.840.1.886503.3.579.2.5 31 Social History Date Type Detail Facility Start: 09-18-2023 End: 01-10-2025 No illicit drug use No illicit drug use -[facility] 250 DO Work Phone: Comment on above: 1 CUP COFFEE DAILY; Start: 09-18-2023 End: 01-10-2025 Sex Assigned At [facility] [employer] Other Start: 03-18-2022 End: 04-29-2024 Tobacco smoking status NHIS Never smoked tobacco (finding) [facility] Start: 1960 Sex Assigned At Male [facility] Start: 09-17-2023 End: 04-29-2024 Tobacco use and exposure Smokeless tobacco non-user [facility] Work Phone: Start: 09-18-2023 End: 01-10-2025 Alcohol intake Lifetime non-drinker (finding) [facility] Work Phone: Start: 1960 Sex Assigned At Not on file [facility] Work Phone: Start: 09-08-2023 End: 01-06-2025 Exposure to SARS-CoV-2 (event) Not sure [facility] How often to you have a drink containing alcohol? Monthly or less [facility] How many standard drinks containing alcohol do you have on a typical day? 1 or 2 [facility] How often do you have 6 or more drinks on 1 occasion? Never [facility] Start: 04-29-2023 Alcohol Comment Monthly or less [facility] Tobacco smoking status NHIS Tobacco smoking consumption unknown [facility] Physical abuse Denies [facility] NEGATED: Highlighted rowStart: NINF History of tobacco use Passive smoker [facility] Medical Equipment Procedure Code Equipment Code Equipment Origin al Text Equipment Identifier Dates Drug-eluting coronary artery stent, uwh-gzlubuixzcuew-tq lymer-coated ()[id number] FDA Start: 03-18-2022 Drug-eluting coronary artery stent, ziq-cxwwfjtgzagvh-fs lymer-coated [id number] FDA Start: 03-18-2022 Drug-eluting coronary artery stent, hck-frockmwgryzwa-oo lymer-coated ()[id number] [id number] FDA Start: 03-18-2022 [id number], [id number] Start: 10-13-2023 End: 01-10-2025 Goals Date Patient Goal Desired Activity /State Personal health goal Clinical Notes 09-11-2021 to 01-11-2025 Amparo Peñaloza, DO - 01/11/2025 12:03 PM Karen Peñaloza, DO - 01/10/2025 11:15 AM Alexia Cherry, DO - 01/06/2025 10:10 AM ESTPatient InstructionsAttachmentsDischarge Instructions Note Date & Type Note Facility 01-11-2025 History of Present illness Narrative Associated Problem(s): Type 2 diabetes mellitus with other circulatory complications ([facility]) During the appointment today all pertinent labs, [...] if they have any problems or questions. Darlyn Verdin Jr. blood sugars are worsening. , Will [...] weight loss. No changes to medications today. Images from the original note were not included. Darlyn Verdin Jr. is a 64 y.o. male presents with chief complaint of Diabetes HPI: Diabetes Mellitus Follow-up: Darlyn Verdin Jr. is here for follow-up evaluation of diabetes mellitus. The initial diagnosis of diabetes was made in 2017 Diabetes complications: peripheral vascular disease and Heart disease He has been checking his blood glucose 2 times a day. 150-160's when he is checking a few days a week in the am. Last A1c: 7.4 (09/13/24) Last eye exam: 10/29/2023 Current concerns include: Ozempic 1.5 mg the past month. 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 Needs a script for 30 day supply of ozempic, tresiba and pen needles to get with a voucher from pt assistance BG levels: improving overall. Diet: watching carb intake. Cut back on breads. Largest meal at lunch. Drinks: water, unsweetened green tea, coffee with sweetened creamer Exercise: Trying to bike 3-4 times a week. Swims in the summer Hypoglycemia: none SUBJECTIVE: PROBLEM LIST SOCIAL ALLERGIES: Patient Active Problem List Diagnosis Anxiety Arthritis of left hip DISH (diffuse idiopathic skeletal hyperostosis) Essential hypertension (CMS/HCC) Gastro-esophageal reflux disease without esophagitis USP (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 of insulin (CMS/HCC) Lumbar and sacral arthritis Peripheral vascular disease ([facility]/HCC) Pure hypercholesterolemia (CMS/HCC) Vitamin D deficiency Class 3 severe obesity due to excess calories with serious comorbidity and body mass index (BMI) of 40.0 to 44.9 in adult (CMS/HCC) Lumbosacral spondylosis without myelopathy Hyperlipidemia (CMS/HCC) Benign prostatic hyperplasia with urinary obstruction ED (erectile dysfunction) Type 2 diabetes mellitus with other circulatory complications (CMS/HCC) Angina pectoris (CMS/HCC) Abnormal EKG Sleep apnea CAD (coronary artery disease) (CMS/HCC) MAC (dyspnea on exertion) Fatigue Lightheaded Nocturia Hx of percutaneous transluminal coronary angioplasty Chronic pain of both knees Recurrent major depressive disorder, in partial remission (HCC) (CMS/HCC) Right hip pain Chronic midline low back pain without sciatica Pulled muscle Social History Tobacco Use Smoking status: Never Passive exposure: Never Smokeless tobacco: Never Vaping Use Vaping status: Never Used Substance Use Topics Alcohol use: Never Comment: Monthly or less Drug use: Never No Known Allergies Synopsis [facility] 01/10/2025 11:26 Antidiabetic medications Empagliflozin 10 mg Daily PO Insulin Degludec 50 Units Daily SC metFORMIN HCl 1,000 mg BID with meals PO Semaglutide 2 mg Weekly SC (8 MG/3ML SOPN) Labs [facility] HEMOGLOBIN A1C/HEMOGLOBIN.TOTAL:MFR:PT:BLD:QN : 8.6 Outpatient prescription Medication marked as long-term The ASCVD Risk score (Skye DK, et al., 2019) failed to calculate for the following reasons: Cannot find a previous HDL lab Cannot find a previous total cholesterol lab REVIEW OF SYMPTOMS: Review of Systems Constitutional: Positive for fatigue. Negative for appetite change and unexpected weight change. Eyes: Negative for visual disturbance. Respiratory: Negative for cough, shortness of breath and wheezing. Cardiovascular: Negative for chest pain, palpitations and leg swelling. Neurological: Positive for numbness. Endocrine: Negative for polydipsia, polyphagia and polyuria. OBJECTIVE: 01/10/2025 11:10 AM 10/18/2024 10:35 AM 09/13/2024 11:09 AM Vitals BMI 44.68 kg/m2 43.91 kg/m2 44.42 kg/m2 Systolic 114 142 132 Diastolic 78 80 68 Heart Rate 79 84 82 Temp 98.3 F 96.5 F 98.1 F Resp 16 Height (in) 6' 2 6' 2 6' 2 Weight (lb) 348 342 346 Visit Report Report Report Report Physical Exam Constitutional: General: He is not in acute distress. Appearance: Normal appearance. He is obese. Cardiovascular: Rate and Rhythm: Normal rate and regular rhythm. Heart sounds: No murmur heard. No friction rub. No gallop. Pulmonary: Breath sounds: Normal breath sounds. No wheezing, rhonchi or rales. Musculoskeletal: General: No swelling. Neurological: Mental Status: He is alert. ASSESSMENT AND PLAN: Problem List Items Addressed This Visit USP (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 of insulin (CMS/HCC) - Primary Class 3 severe obesity due to excess calories with serious comorbidity and body mass index (BMI) of 40.0 to 44.9 in adult ([facility]) Type 2 diabetes mellitus with other circulatory complications ([facility]) During the appointment today all pertinent labs, [...] if they have any problems or questions. Darlyn Verdin Jr. blood sugars are worsening. , Will [...] weight loss. No changes to medications today. Relevant Medications insulin degludec (Tresiba FlexTouch) 200 UNIT/ML injection Semaglutide, 2 MG/DOSE, (Ozempic, 2 MG/DOSE,) 8 MG/3ML solution pen-injector pen needle 32G x 4 mm misc Other Relevant Orders POCT glycosylated hemoglobin (Hb A1C) docked device (Completed) Follow up in about 3 months (around 04/12/2025) for Recheck. Patient's Medications New Prescriptions No medications on file Previous Medications ALBUTEROL HFA 90 MCG/ACT INHALER Inhale 2 puffs every 4 (four) hours if needed APPLE CIDER VINEGAR 300 MG TABLET Take by mouth. ASPIRIN 81 MG EC TABLET 1 (one) time each day at the same time. ATORVASTATIN (LIPITOR) 80 MG TABLET 1 (one) time each day at the same time. DJVDCGM-[id number]-WHYISDBRUB (BREZTRI AEROSPHERE) 160-9-4.8 MCG/ACT AEROSOL Inhale 1 puff every 12 (twelve) hours BUSPIRONE (BUSPAR) 10 MG TABLET Take 1 tablet (10 mg) by mouth in the morning and 1 tablet (10 mg) before bedtime. CHOLECALCIFEROL (VITAMIN D-3) 25 MCG (1000 UT) TABLET Take 1,200 Units by mouth in the morning. CLOPIDOGREL (PLAVIX) 75 MG TABLET Take 75 mg by mouth in the morning. EMPAGLIFLOZIN (JARDIANCE) 10 MG TAKE 1 TABLET BY MOUTH DAILY ESCITALOPRAM (LEXAPRO) 20 MG TABLET Take 1 tablet (20 mg) by mouth Daily GABAPENTIN (NEURONTIN) 600 MG TABLET Take 1 tablet (600 mg) by mouth in the morning and 1 tablet (600 mg) in the evening and 1 tablet (600 mg) before bedtime. GLUCOSE BLOOD (TRUE METRIX BLOOD GLUCOSE TEST) TEST STRIP USE TO TEST BLOOD SUGAR TWICE DAILY HYDROCHLOROTHIAZIDE (HYDRODIURIL) 25 MG TABLET TAKE 1 TABLET BY MOUTH DAILY ISOSORBIDE MONONITRATE ER (IMDUR) 60 MG 24 HR TABLET Take 60 mg by mouth in the morning. LACTIC ACID 10 % LOTION 1 application every 12 (twelve) hours. LANSOPRAZOLE (PREVACID) [address] CAPSULE Take 1 capsule (30 mg) by mouth Daily METFORMIN (GLUCOPHAGE) 1000 MG TABLET Take 1 tablet (1,000 mg) by mouth in the morning and 1 tablet (1,000 mg) in the evening. Take with meals. METOPROLOL TARTRATE (LOPRESSOR) 25 MG TABLET Take 25 mg by mouth in the morning and 25 mg before bedtime. MULTIPLE VITAMIN (MULTI VITAMIN) TABLET 1 (one) time each day at the same time. NITROGLYCERIN (NITROSTAT) 0.4 MG SL TABLET DISSOLVE 1 TABLET UNDER THE TONGUE NEEDED FOR CHEST PAIN- MAY REPEAT EVERY 5 MINUTES IF NEEDED ( MAX 3 DOSES.- IF NO RELIEF CALL 911) NYSTOP [id number] UNIT/GM POWDER APPLY TO AFFECTED SKIN TOPICALLY THREE TIMES DAILY OLMESARTAN (BENICAR) 40 MG TABLET Take 40 mg by mouth in the morning. RANOLAZINE (RANEXA) 500 MG 12 HR TABLET Take 500 mg by mouth in the morning and 500 mg before bedtime. TIZANIDINE (ZANAFLEX) 4 MG TABLET Take 1 tablet (4 mg) by mouth every 8 (eight) hours if needed for muscle spasms Modified Medications Modified Medication Previous Medication INSULIN DEGLUDEC (TRESIBA FLEXTOUCH) 200 UNIT/ML INJECTION insulin degludec (Tresiba FlexTouch) 200 UNIT/ML injection Inject 50 Units under the skin Daily Inject 50 Units under the skin Daily PEN NEEDLE 32G X 4 MM MISC pen needle 32G x 4 mm misc Injections once a day Injections once a day SEMAGLUTIDE, 2 MG/DOSE, (OZEMPIC, 2 MG/DOSE,) 8 MG/3ML SOLUTION PEN-INJECTOR Semaglutide, 2 MG/DOSE, (Ozempic, 2 MG/DOSE,) 8 MG/3ML solution pen-injector Inject 2 mg under the skin 1 (one) time per week Inject 2 mg under the skin 1 (one) time per week Discontinued Medications No medications on file I have reviewed and reconciled the history and medication list with the patient today. documented in this encounter [facility] 01-06-2025 History of Present illness Narrative Subjective Darlyn Verdin is a 64 y.o. male Chief Complaint Follow-up 64-year-old gentleman returns for follow-up at 6 months, he has rare episodes of chest discomfort I would grade as angina class I. He is able to exercise in the pool doing water aerobics as well as exercise on his [place] at home twice a day without any angina. He has known ASHD with a history of two-vessel PCI involving the mid to distal LAD x2 drug-eluting stents in the proximal PLV branch x1 drug-eluting stent in March 2022 for abnormal stress perfusion imaging and symptoms. He has underlying exogenous obesity, insulin requiring diabetes mellitus, hypertension (well-controlled today), chronic ambulatory disability due to lower lumbar degenerative disc disease. Remains on appropriate GDMT and remains on DAPT. We continue to follow him for comorbidities that are noted above and his ASHD. Currently not using nitrates. He has not had any hospitalizations, heart failure, edema, syncope. Most recent LDL within the last 6 months is 58, A1c 6.9% Recommendations: Follow-up with nurse practitioner in 8 months on same therapies to reassess lipid panel at that time Review of Systems All other systems reviewed and are negative. Vitals: 01/06/25 1011 BP: 108/70 BP Location: Right arm Patient Position: Sitting Pulse: 84 Weight: (!) 158 kg (348 lb) Height: 1.88 m (6' 2 ) Objective Physical Exam Constitutional: Appearance: Normal appearance. HENT: Nose: Nose normal. Neck: Vascular: No carotid bruit. Cardiovascular: Rate and Rhythm: Normal rate. Pulses: Normal pulses. Heart sounds: Normal heart sounds. Pulmonary: Effort: Pulmonary effort is normal. Abdominal: General: Bowel sounds are normal. Palpations: Abdomen is soft. Musculoskeletal: General: Normal range of motion. Cervical back: Normal range of motion. Right lower leg: No edema. Left lower leg: No edema. Skin: General: Skin is warm and dry. Neurological: General: No focal deficit present. Mental Status: He is alert. Psychiatric: Mood and Affect: Mood normal. Behavior: Behavior normal. Thought Content: Thought content normal. Judgment: Judgment normal. Allergies Patient has no known allergies. Current Medications Current Outpatient Medications: albuterol (Ventolin HFA) 90 mcg/actuation inhaler, Inhale 2 puffs every 6 hours if needed., Disp: , Rfl: apple cider vinegar 600 mg capsule, Take 2 capsules by mouth once daily., Disp: , Rfl: aspirin 81 mg EC tablet, Take 1 tablet (81 mg) by mouth once daily., Disp: , Rfl: atorvastatin (Lipitor) 80 mg tablet, Take 1 tablet (80 mg) by mouth once daily at bedtime., Disp: 90 tablet, Rfl: 3 budesonide/glycopyr/formoterol (BREZTRI AEROSPHERE INHL), Inhale., Disp: , Rfl: busPIRone (Buspar) 7.5 mg tablet, Take 1 tablet (7.5 mg) by mouth 2 times a day., Disp: , Rfl: clonazePAM (KlonoPIN) 0.5 mg tablet, Take 1 tablet (0.5 mg) by mouth 2 times a day as needed., Disp: , Rfl: clopidogrel (Plavix) 75 mg tablet, Take 1 tablet (75 mg) by mouth once daily., Disp: 90 tablet, Rfl: 3 empagliflozin (Jardiance) 10 mg, Take 1 tablet [...] (25 mg) by mouth once daily., Disp: 90 tablet, Rfl: 3 insulin glargine,hum.rec.anlog (NICOLETTE SOLFELIPEAR U-300 INSULIN SUBQ), Inject under the skin. Take as directed per insulin instructions., Disp: , Rfl: isosorbide mononitrate ER (Imdur) 60 mg 24 hr tablet, Take 1 tablet (60 mg) by mouth once daily. Do not crush or chew., Disp: 90 tablet, Rfl: 3 metFORMIN (Glucophage) 1,000 mg tablet, Take 1 tablet (1,000 mg) by mouth 2 times daily (morning and late afternoon)., Disp: , Rfl: metoprolol tartrate (Lopressor) 25 mg tablet, Take 1 tablet (25 mg) by mouth 2 times a day., Disp: 180 tablet, Rfl: 3 nitroglycerin (Nitrostat) 0.4 mg SL tablet, Place under the tongue., Disp: , Rfl: olmesartan (BENIcar) 40 mg tablet, Take 1 tablet (40 mg) by mouth once daily., Disp: 90 tablet, Rfl: 3 omeprazole (PriLOSEC) [address] capsule, Take 1 capsule (40 mg) by mouth once daily in the morning. Take before meals. Do not crush or chew., Disp: , Rfl: pedi multivit no.17 w-fluoride (Skkn-Ty-Yyir) 0.5 mg tablet,chewable, Chew 1 tablet once daily., Disp: , Rfl: ranolazine (Ranexa) 500 mg 12 hr tablet, Take 1 tablet (500 mg) by mouth 2 times a day., Disp: 180 tablet, Rfl: 3 semaglutide (Ozempic) 1 mg/dose (4 mg/3 mL) pen injector, Inject 1 mg under the skin 1 (one) time per week., Disp: , Rfl: Assessment/Plan 1. Coronary artery disease involving [place] coronary artery of [place] heart, unspecified whether angina present Follow Up In Cardiology 2. Status post insertion of drug eluting coronary artery stent 3. Mixed hyperlipidemia 4. Primary hypertension 5. Angina pectoris 6. Type 2 diabetes mellitus without complication, with long-term current use of insulin (Multi) 7. BMI 40.0-44.9, adult (Multi) Scribe Attestation By signing my name below, I, Malinda Estella Dey LPN attest that this documentation has been prepared under the direction and in the presence of Erich Cherry DO. Provider Attestation - Scribe documentation All medical record entries made by the Scribe were at my direction and personally dictated by me. I have reviewed the chart and agree that the record accurately reflects my personal performance of the history, physical exam, discussion and plan. documented in this encounter [facility] Work Phone: 01-06-2025 Instructions Malinda Pena LPN - 01/06/2025 10:10 AM EST Please bring all medicines, vitamins, and herbal supplements with you when you come to the office. Prescriptions will not be filled unless you are compliant with your follow up appointments or have a follow up appointment scheduled as per instruction of your physician. Refills should be requested at the time of your visit. BMI was above normal measurement. Current weight: (!) 158 kg (348 lb) Weight change since last visit (-) denotes wt loss -14 lbs Weight loss needed to achieve BMI 25: 153.7 Lbs Weight loss needed to achieve BMI 30: 114.8 Lbs Provided instructions on dietary changes. The following attachments cannot be sent through Care Everywhere.Heart Healthy Diet (Dominican)documented in this encounter [facility] Work Phone: 10-18-2024 History of Present illness Narrative Associated Problem(s): Hyperlipidemia (CMS/HCC) Currently taking Atorvastatin 80mg Denies any myalgias. Continue current regimen. Associated Problem(s): Essential hypertension (CMS/HCC) Follows closely with Dr. Cherry, reports he manages all BP medications. Currently taking lopressor/olmesartan/hydrochloroth iazide/imdur Checks BP at home; Averages are less than 130/90. Denies orthostatic changes, dizziness, cough, shortness of breath, swelling in extremities. Continue current regimen. Given BP log, advised pt to record BP and bring log back with them to next visit. Associated Problem(s): Recurrent major depressive disorder, in partial remission (HCC) (CMS/HCC) Currently on Lexapro 20 mg daily. Busprione 10mg. Pt reports medications are working well, feels symptoms have improved. Denies SI/HI. Continue current regimen. Associated Problem(s): Class 3 severe obesity due to excess calories with serious comorbidity and body mass index (BMI) of 40.0 to 44.9 in adult (CMS/HCC) Discussed with patient their BMI (actual, verses recommended). We have also discussed lifestyle modifications: attempts to perform physical activity as chronic conditions allow, also to monitor dietary intake: increasing protein/fruits/veggies and lowering carb intake (unless contraindicated). Limit sodas, juices, and sugary drinks. Also discussed oral medications that can be utilized for weight loss, as well as surgical options for weight loss. Images from the original note were not included. Subjective Patient ID: Darlyn Verdin Jr. is a 64 y.o. male who presents for Follow-up. HPI Specialists: Amparo Pe[facility]aloza Cardiology- Dr. Cherry Nephrology- Pulmonology- Dr. Granados Currently on Lexapro 20 mg daily. Busprione 10mg. Pt reports medications are working well, feels symptoms have improved. Denies SI/HI. Continue current regimen. HTN: Follows closely with Dr. Cherry, reports he manages all BP medications. Currently taking lopressor/olmesartan/hydrochloroth iazide/imdur Checks BP at home; Averages are less than 130/90. Denies orthostatic changes, dizziness, cough, shortness of breath, swelling in extremities. Continue current regimen. Given BP log, advised pt to record BP and bring log back with them to next visit. HLD: Currently taking Atorvastatin 80mg Denies any myalgias. Continue current regimen. Component Ref Range & Units 5 mo ago (04/29/24) 5 mo ago (04/29/24) 5 mo ago (04/29/24) 5 mo ago (04/29/24) TRIGLYCERIDES <=150 mg/dL 131 138 R 15.5 Low R 140.27 R CHOLESTEROL <=200 mg/dL 128 4.1 R 1.0 High R HDL CHOLESTEROL 40 - 60 mg/dL 43 11.0 R 7.0 High R Comment: > or =60 mg/dl - LOW CARDIOVASCULAR RISK <40 mg/dl - HIGH CARDIOVASCULAR RISK LDL CHOLESTEROL CALCULATED mg/dL 58.8 120 High R 1.4 R Comment: <100 mg/dl OPTIMAL 100-129 mg/dl NEAR OR ABOVE OPTIMAL 130-159 mg/dl BORDERLINE HIGH 160-189 mg/dl HIGH >190 mg/dl VERY HIGH VLDL CHOLESTEROL mg/dL 26.2 1.3 High R 0.6 R CHOL HDL RATIO 3.0 27 R 0.09 High R Comment: 3.3 - 4.4 LOW RISK 4.4 - 7.1 AVERAGE RISK 7.1 - 11.0 MODERATE RISK >11.0 HIGH RISK ALANINE AMINOTRANSFERASE 46 R ALKALINE PHOSPHATASE 93 R TOTAL PROTEIN 7.3 R ALBUMIN LEVEL 3.8 R ALBUMIN GLOBULIN RATIO 1.1 Resulting Agency [facility] Review of Systems Constitutional: Negative for activity change, appetite change, chills, diaphoresis, fatigue, fever and unexpected weight change. HENT: Negative for congestion, ear pain, rhinorrhea, sinus pressure, sinus pain, sneezing, sore throat, trouble swallowing and voice change. Eyes: Negative for visual disturbance. Respiratory: Negative for cough, chest tightness, shortness of breath and wheezing. Cardiovascular: Negative for chest pain, palpitations and leg swelling. Gastrointestinal: Negative for abdominal distention, abdominal pain, blood in stool, constipation, diarrhea and vomiting. Genitourinary: Negative for decreased urine volume, dysuria, flank pain, frequency, hematuria and urgency. Musculoskeletal: Negative for arthralgias, gait problem, joint swelling and myalgias. Skin: Negative for rash. Neurological: Negative for dizziness, tremors, syncope, weakness, light-headedness and headaches. Psychiatric/Behavioral: Negative for decreased concentration and suicidal ideas. The patient is not nervous/anxious. Hematological: Does not bruise/bleed easily. Endocrine: Negative for cold intolerance, heat intolerance, polydipsia, polyphagia and polyuria. Objective Physical Exam Vitals reviewed. Constitutional: Appearance: Normal appearance. HENT: Head: Normocephalic and atraumatic. Right Ear: Tympanic membrane normal. Left Ear: Tympanic membrane normal. Nose: Nose normal. Mouth/Throat: Mouth: Mucous membranes are moist. Pharynx: Oropharynx is clear. Eyes: Pupils: Pupils are equal, round, and reactive to light. Cardiovascular: Rate and Rhythm: Normal rate and regular rhythm. Pulses: Normal pulses. Heart sounds: Normal heart sounds. Pulmonary: Effort: Pulmonary effort is normal. Breath sounds: Normal breath sounds. Abdominal: General: Abdomen is flat. Bowel sounds are normal. Palpations: Abdomen is soft. Musculoskeletal: General: Normal range of motion. Cervical back: Normal range of motion. Skin: General: Skin is warm and dry. Capillary Refill: Capillary refill takes less than 2 seconds. Neurological: General: No focal deficit present. Mental Status: He is alert and oriented to person, place, and time. Psychiatric: Mood and Affect: Mood normal. Behavior: Behavior normal. Assessment/Plan Problem List Items Addressed This Visit Essential hypertension (CMS/HCC) Follows closely with Dr. Cherry, reports he manages all BP medications. Currently taking lopressor/olmesartan/hydrochloroth iazide/imdur Checks BP at home; Averages are less than 130/90. Denies orthostatic changes, dizziness, cough, shortness of breath, swelling in extremities. Continue current regimen. Given BP log, advised pt to record BP and bring log back with them to next visit. Gastro-esophageal reflux disease without esophagitis Relevant Medications lansoprazole (Prevacid) [address] capsule Class 3 severe obesity due to excess calories with serious comorbidity and body mass index (BMI) of 40.0 to 44.9 in adult ([facility]) - Primary Discussed with patient their BMI (actual, verses recommended). We have also discussed lifestyle modifications: attempts to perform physical activity as chronic conditions allow, also to monitor dietary intake: increasing protein/fruits/veggies and lowering carb intake (unless contraindicated). Limit sodas, juices, and sugary drinks. Also discussed oral medications that can be utilized for weight loss, as well as surgical options for weight loss. Hyperlipidemia ([facility]) Currently taking Atorvastatin 80mg Denies any myalgias. Continue current regimen. Recurrent major depressive disorder, in partial remission (HCC) ([facility]) Currently on Lexapro 20 mg daily. Busprione 10mg. Pt reports medications are working well, feels symptoms have improved. Denies SI/HI. Continue current regimen. Relevant Medications busPIRone (Buspar) 10 MG tablet Pulled muscle Relevant Medications tiZANidine (Zanaflex) 4 MG tablet Other Visit Diagnoses Anxiety disorder, unspecified Relevant Medications escitalopram (Lexapro) 20 MG tablet documented in this encounter [facility] 09-13-2024 History of Present illness Narrative Associated Problem(s): Type 2 diabetes mellitus with other circulatory complications ([facility]) During the appointment today all pertinent labs, [...] if they have any problems or questions. Darlyn Verdin Jr. control is stable overall. , Discussed [...] and Dietary education. Ok to change his toujeo to tresiba for patient assistance. Will increase ozempic to try and help more with appetite suppression and weight loss. Images from the original note were not included. Darlyn Verdin Jr. is a 64 y.o. male presents with chief complaint of Diabetes HPI: Diabetes Mellitus Follow-up: Darlyn Verdin Jr. is here for follow-up evaluation of diabetes mellitus. The initial diagnosis of diabetes was made in 2017 Diabetes complications: peripheral vascular disease and Heart disease He has been checking his blood glucose one times a day consistently (mornings) Last A1c: 7.6 on 04/29/2024 Last eye exam: 10/29/2023 Current concerns include: Last office visit was on 05/10/2024 States bg levels have been 175-225 in the am and 240's in the afternoon Diet: watching carb intake. Eating more sandwich with tomatoes and cheese. Large meal at lunch. Snack on fruit in the afternoon Drinks: water, unsweetened green tea, coffee with sweetened creamer Exercise: Trying to bike 3-4 times a week. Swims in the summer Hypoglycemia: none Asking if you will refill meloxicam for him. He doesn't have a current PCP. Uses for arthritis. Didn't realize there were risks to this medication. 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) Lumbar and sacral arthritis Peripheral vascular disease (CMS/HCC) Pure hypercholesterolemia (CMS/HCC) Vitamin D deficiency Class 3 severe obesity due to excess calories with serious comorbidity and body mass index (BMI) of 40.0 to 44.9 in adult (CMS/HCC) Lumbosacral spondylosis without myelopathy Hyperlipidemia (CMS/HCC) Benign prostatic hyperplasia with urinary obstruction ED (erectile dysfunction) Type 2 diabetes mellitus with other circulatory complications (CMS/HCC) Angina pectoris (CMS/HCC) Abnormal EKG Sleep apnea CAD (coronary artery disease) (CMS/HCC) MAC (dyspnea on exertion) Fatigue Lightheaded Nocturia Hx of percutaneous transluminal coronary angioplasty Chronic pain of both knees Recurrent major depressive disorder, in partial remission (HCC) (CMS/HCC) Right hip pain Chronic midline low back pain without sciatica Pulled muscle Social History Tobacco Use Smoking status: Never Passive exposure: Never Smokeless tobacco: Never Vaping Use Vaping status: Never Used Substance Use Topics Alcohol use: Never Comment: Monthly or less Drug use: Never No Known Allergies Synopsis [facility] 09/13/2024 Antidiabetic medications Empagliflozin 10 mg Daily PO Insulin Degludec 50 Units Daily SC Insulin Glargine 45 Units q AM SC -Discontinued Patient taking differently: 50 Units q AM as of 09/13/2024 11:15 AM metFORMIN HCl 1,000 mg BID with meals PO Semaglutide 1 mg Weekly SC -Discontinued Semaglutide 2 mg Weekly SC (8 MG/3ML SOPN) Labs MHPT A1C 7.4 Outpatient prescription Medication marked as long-term Patient taking a medication differently REVIEW OF SYMPTOMS: Review of Systems Constitutional: Positive for fatigue. Negative for appetite change and unexpected weight change. HENT: Positive for ear pain. Eyes: Negative for visual disturbance. Respiratory: Negative for cough, shortness of breath and wheezing. Cardiovascular: Negative for chest pain, palpitations and leg swelling. Musculoskeletal: Positive for arthralgias. Neurological: Positive for numbness. Endocrine: Negative for polydipsia, polyphagia and polyuria. OBJECTIVE: 09/13/2024 11:09 AM 05/10/2024 11:26 AM 04/29/2024 10:38 AM Vitals BMI 44.42 kg/m2 45.53 kg/m2 45.71 kg/m2 Systolic 132 124 126 Diastolic 68 86 80 Heart Rate 82 83 89 Temp 98.1 F 97.1 F 98.5 F Height (in) 6' 2 6' 2 6' 2 Weight (lb) 346 354.6 356 Visit Report Report Report Report Physical Exam Constitutional: General: He is not in acute distress. Appearance: Normal appearance. HENT: Right Ear: Tympanic membrane is retracted. Left Ear: Tympanic membrane is retracted. Nose: Right Turbinates: Enlarged. Left Turbinates: Enlarged. Cardiovascular: Rate and Rhythm: Normal rate and regular rhythm. Heart sounds: No murmur heard. No friction rub. No gallop. Pulmonary: Breath sounds: Normal breath sounds. No wheezing, rhonchi or rales. Musculoskeletal: General: No swelling. Neurological: Mental Status: He is alert. ASSESSMENT AND PLAN: Problem List Items Addressed This Visit USP (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 of insulin ([facility]) - Primary Class 3 severe obesity due to excess calories with serious comorbidity and body mass index (BMI) of 40.0 to 44.9 in adult ([facility]) Type 2 diabetes mellitus with other circulatory complications ([facility]) During the appointment today all pertinent labs, [...] if they have any problems or questions. Darlyn Verdin Jr. control is stable overall. , Discussed [...] and Dietary education. Ok to change his toujeo to tresiba for patient assistance. Will increase ozempic to try and help more with appetite suppression and weight loss. Relevant Medications Semaglutide, 2 MG/DOSE, (Ozempic, 2 MG/DOSE,) 8 MG/3ML solution pen-injector insulin degludec (Tresiba FlexTouch) 200 UNIT/ML injection Other Relevant Orders POCT glycosylated hemoglobin (Hb A1C) docked device (Completed) Other Visit Diagnoses Need for influenza vaccination Relevant Orders Flu vaccine, MDCK, Trivalent, (Completed) Dysfunction of both eustachian tubes Discussed risk of NSAID use. He is going to try voltaren gel to see how that helps. Discussed eustachian tube dysfunction and recommended trying flonase daily for at least 2 weeks. Instructed on the use of this. Follow up in about 4 months (around 01/11/2025) for Recheck. Patient's Medications New Prescriptions INSULIN DEGLUDEC (TRESIBA FLEXTOUCH) 200 UNIT/ML INJECTION Inject 50 Units under the skin Daily SEMAGLUTIDE, 2 MG/DOSE, (OZEMPIC, 2 MG/DOSE,) 8 MG/3ML SOLUTION PEN-INJECTOR Inject 2 mg under the skin 1 (one) time per week Previous Medications ALBUTEROL HFA 90 MCG/ACT INHALER Inhale 2 puffs every 4 (four) hours if needed APPLE CIDER VINEGAR 300 MG TABLET Take by mouth. ASPIRIN 81 MG EC TABLET 1 (one) time each day at the same time. ATORVASTATIN (LIPITOR) 80 MG TABLET 1 (one) time each day at the same time. [id number] (BREZTRI AEROSPHERE) 160-9-4.8 MCG/ACT AEROSOL Inhale 1 puff every 12 (twelve) hours BUSPIRONE (BUSPAR) 10 MG TABLET TAKE 1 TABLET BY MOUTH TWICE DAILY (IN THE MORNING and BEFORE bedtime) CHOLECALCIFEROL (VITAMIN D-3) 25 MCG (1000 UT) TABLET Take 1,200 Units by mouth in the morning. CLOPIDOGREL (PLAVIX) 75 MG TABLET Take 75 mg by mouth in the morning. EMPAGLIFLOZIN (JARDIANCE) 10 MG TAKE 1 TABLET BY MOUTH DAILY ESCITALOPRAM (LEXAPRO) 20 MG TABLET TAKE 1 TABLET BY MOUTH DAILY GABAPENTIN (NEURONTIN) 600 MG TABLET Take 1 tablet (600 mg) by mouth in the morning and 1 tablet (600 mg) in the evening and 1 tablet (600 mg) before bedtime. GLUCOSE BLOOD (TRUE METRIX BLOOD GLUCOSE TEST) TEST STRIP USE TO TEST BLOOD SUGAR TWICE DAILY HYDROCHLOROTHIAZIDE (HYDRODIURIL) 25 MG TABLET TAKE 1 TABLET BY MOUTH DAILY ISOSORBIDE MONONITRATE ER (IMDUR) 60 MG 24 HR TABLET Take 60 mg by mouth in the morning. LACTIC ACID 10 % LOTION 1 application every 12 (twelve) hours. LANSOPRAZOLE (PREVACID) [address] CAPSULE Take 30 mg by mouth Daily LORAZEPAM (ATIVAN) 0.5 MG TABLET Take 0.5 mg by mouth Daily as needed for anxiety. MELOXICAM (MOBIC) 15 MG TABLET Take 15 mg by mouth in the morning. METFORMIN (GLUCOPHAGE) 1000 MG TABLET Take 1 tablet (1,000 mg) by mouth in the morning and 1 tablet (1,000 mg) in the evening. Take with meals. METOPROLOL TARTRATE (LOPRESSOR) 25 MG TABLET Take 25 mg by mouth in the morning and 25 mg before bedtime. MULTIPLE VITAMIN (MULTI VITAMIN) TABLET 1 (one) time each day at the same time. NITROGLYCERIN (NITROSTAT) 0.4 MG SL TABLET DISSOLVE 1 TABLET UNDER THE TONGUE NEEDED FOR CHEST PAIN- MAY REPEAT EVERY 5 MINUTES IF NEEDED ( MAX 3 DOSES.- IF NO RELIEF CALL 911) NYSTOP 526689 UNIT/GM POWDER APPLY TO AFFECTED SKIN TOPICALLY THREE TIMES DAILY OLMESARTAN (BENICAR) 40 MG TABLET Take 40 mg by mouth in the morning. PEN NEEDLE 32G X 4 MM MISC Injections once a day RANOLAZINE (RANEXA) 500 MG 12 HR TABLET Take 500 mg by mouth in the morning and 500 mg before bedtime. TIZANIDINE (ZANAFLEX) 4 MG TABLET Take 1 tablet (4 mg) by mouth every 8 (eight) hours if needed for muscle spasms Modified Medications No medications on file Discontinued Medications INSULIN GLARGINE (TOUJEO SOLOSTAR) 300 UNIT/ML INJECTION Inject 45 Units under the skin in the morning. SEMAGLUTIDE (OZEMPIC, 1 MG/DOSE,) 4 MG/3ML SOLUTION PEN-INJECTOR Inject 1 mg under the skin 1 (one) time per week I have reviewed and reconciled the history and medication list with the patient today. documented in this encounter [facility] 06-20-2024 Hospital Discharge instructions Narendra Thomas DO - 06/20/2024 10:22 PM EDT Take your medication as indicated and prescribed. If you are given an antibiotic, then make sure you get the prescription filled and take the antibiotics until finished. Drink plenty of water while taking the antibiotics. Avoid drinking alcohol or drinks that have caffeine in it while taking antibiotics. For pain use acetaminophen (Tylenol) or ibuprofen (Motrin / Advil), unless prescribed medications that have acetaminophen or ibuprofen (or similar medications) in it. You can take over the counter acetaminophen tablets (1 - 2 tablets of the 500-mg strength every 6 hours) or ibuprofen tablets (2 tablets every 4 hours). Mix 1 teaspoon (5 ml) of Maalox with 1 teaspoon (5 ml) of liquid Benadryl, gargle for 1 minute then swallow. You can also use Cepacol lozenge or Chloraseptic spray to help soothe your throat. If you were diagnosed with strep throat, make sure that you throw your toothbrush away. PLEASE RETURN TO THE EMERGENCY DEPARTMENT IMMEDIATELY for worsening symptoms, difficulty with swallowing foods or liquids, shortness of breath, wheezing, change in your voice, or if you develop any concerning symptoms such as: high fever not relieved by acetaminophen (Tylenol) and/or ibuprofen (Motrin / Advil), chills, shortness of breath, chest pain, feeling of your heart fluttering or racing, persistent nausea and/or vomiting, vomiting up blood, blood in your stool, loss of consciousness, numbness, weakness or tingling in the arms or legs or change in color of the extremities, changes in mental status, persistent headache, blurry vision, loss of bladder / bowel control, unable to follow up with your physician, or other any other care or concern. documented in this encounter [facility] 05-04-2024 History of Present illness Narrative Subjective Darlyn Verdin is a 63 y.o. male Chief Complaint Follow-up 63-year-old seen in routine follow-up, he is doing well from a cardiovascular standpoint, he had 2 episodes of atypical chest pain even took nitroglycerin twice in the past 6 months with no relief. He is exercising on a stationary bike and swimming on a regular basis with no chest discomfort. Today he has ongoing severe back spasms due to his underlying morbid obesity and previous back surgeries He has known ASHD with a history of two-vessel PCI involving the mid to distal LAD x2 drug-eluting stents in the proximal PLV branch x1 drug-eluting stent in March 2022 for abnormal stress perfusion imaging and symptoms. He remains on appropriate GDMT including isosorbide and Ranexa, metoprolol, atorvastatin, aspirin and clopidogrel Most recent lipid panel reveals total cholesterol 128, triglycerides 131, LDL 58 and A1c 7.4% Recommendations: Follow-up again in 8 months, continue advised in regards to dietary discretion, weight loss exercise and secondary prevention. Review of Systems Cardiovascular: Positive for chest pain and leg swelling. Respiratory: Positive for shortness of breath. Neurological: Positive for light-headedness. All other systems reviewed and are negative. Vitals: 05/04/24 1512 BP: 136/86 BP Location: Left arm Patient Position: Sitting Pulse: 78 Weight: (!) 164 kg (362 lb) Height: 1.88 m (6' 2 ) Objective Physical Exam Constitutional: Appearance: Normal appearance. HENT: Nose: Nose normal. Neck: Vascular: No carotid bruit. Cardiovascular: Rate and Rhythm: Normal rate. Pulses: Normal pulses. Heart sounds: Normal heart sounds. Pulmonary: Effort: Pulmonary effort is normal. Abdominal: General: Bowel sounds are normal. Palpations: Abdomen is soft. Musculoskeletal: General: Normal range of motion. Cervical back: Normal range of motion. Right lower leg: No edema. Left lower leg: No edema. Skin: General: Skin is warm and dry. Neurological: General: No focal deficit present. Mental Status: He is alert. Psychiatric: Mood and Affect: Mood normal. Behavior: Behavior normal. Thought Content: Thought content normal. Judgment: Judgment normal. Allergies Patient has no known allergies. Current Medications Current Outpatient Medications: albuterol (Ventolin HFA) 90 mcg/actuation inhaler, Inhale 2 puffs every 6 hours if needed., Disp: , Rfl: apple cider vinegar 600 mg capsule, Take 2 capsules by mouth once daily., Disp: , Rfl: aspirin 81 mg EC tablet, Take 1 tablet (81 mg) by mouth once daily., Disp: , Rfl: atorvastatin (Lipitor) 80 mg tablet, Take 1 tablet (80 mg) by mouth once daily at bedtime., Disp: 90 tablet, Rfl: 3 budesonide/glycopyr/formoterol (BREZTRI AEROSPHERE INHL), Inhale., Disp: , Rfl: busPIRone (Buspar) 7.5 mg tablet, Take 1 tablet (7.5 mg) by mouth 2 times a day., Disp: , Rfl: clonazePAM (KlonoPIN) 0.5 mg tablet, Take 1 tablet (0.5 mg) by mouth 2 times a day as needed., Disp: , Rfl: clopidogrel (Plavix) 75 mg tablet, Take 1 tablet (75 mg) by mouth once daily., Disp: 90 tablet, Rfl: 3 dulaglutide (Trulicity) 3 mg/0.5 mL pen injector, [...] (25 mg) by mouth once daily., Disp: 90 tablet, Rfl: 3 insulin glargine,hum.rec.anlog (TOUCROW SOLOSTAR U-300 INSULIN SUBQ), Inject under the skin. Take as directed per insulin instructions., Disp: , Rfl: isosorbide mononitrate ER (Imdur) 60 mg 24 hr tablet, Take 1 tablet (60 mg) by mouth once daily. Do not crush or chew., Disp: 90 tablet, Rfl: 3 meloxicam (Mobic) 15 mg tablet, Take 1 tablet (15 mg) by mouth once daily., Disp: , Rfl: metFORMIN (Glucophage) 1,000 mg tablet, Take 1 tablet (1,000 mg) by mouth 2 times daily (morning and late afternoon)., Disp: , Rfl: metoprolol tartrate (Lopressor) 25 mg tablet, Take 1 tablet (25 mg) by mouth 2 times a day., Disp: 180 tablet, Rfl: 3 nitroglycerin (Nitrostat) 0.4 mg SL tablet, Place under the tongue., Disp: , Rfl: olmesartan (BENIcar) 40 mg tablet, Take 1 tablet (40 mg) by mouth once daily., Disp: 90 tablet, Rfl: 3 omeprazole (PriLOSEC) [address] capsule, Take 1 capsule (40 mg) by mouth once daily in the morning. Take before meals. Do not crush or chew., Disp: , Rfl: pedi multivit no.17 w-fluoride (Zurn-Jw-Hudm) 0.5 mg tablet,chewable, Chew 1 tablet once daily., Disp: , Rfl: ranolazine (Ranexa) 500 mg 12 hr tablet, Take 1 tablet (500 mg) by mouth 2 times a day., Disp: 180 tablet, Rfl: 3 semaglutide (Ozempic) 1 mg/dose (4 mg/3 mL) pen injector, Inject 1 mg under the skin 1 (one) time per week., Disp: , Rfl: Assessment/Plan 1. Coronary artery disease involving [place] coronary artery of [place] heart, unspecified whether angina present 2. Status post insertion of drug eluting coronary artery stent Follow Up In Cardiology 3. Primary hypertension Follow Up In Cardiology 4. Angina pectoris ([facility]) 5. MAC (dyspnea on exertion) 6. Mixed hyperlipidemia 7. Type 2 diabetes mellitus without complication, with long-term current use of insulin (Multi) 8. BMI 45.0-49.9, adult (Multi) Scribe Attestation By signing my name below, I, Estella Slaughter LPN attest that this documentation has been prepared under the direction and in the presence of Erich Cherry DO. Provider Attestation - Scribe documentation All medical record entries made by the Scribe were at my direction and personally dictated by me. I have reviewed the chart and agree that the record accurately reflects my personal performance of the history, physical exam, discussion and plan. documented in this encounter [facility] Work Phone: 05-04-2024 Instructions Malinda Pena LPN - 05/04/2024 2:40 PM EDT Please bring all medicines, vitamins, and herbal supplements with you when you come to the office. Prescriptions will not be filled unless you are compliant with your follow up appointments or have a follow up appointment scheduled as per instruction of your physician. Refills should be requested at the time of your visit. BMI was above normal measurement. Current weight: (!) 164 kg (362 lb) Weight change since last visit (-) denotes wt loss 0 lbs Weight loss needed to achieve BMI 25: 167.7 Lbs Weight loss needed to achieve BMI 30: 128.8 Lbs Provided instructions on dietary changes Provided instructions on exercise. The following attachments cannot be sent through Care Everywhere.Heart Healthy Diet (Dominican)documented in this encounter [facility] Work Phone: 09-22-2023 Evaluation note Encounter Date Diagnosis Assessment Notes Sep, Diarrhea (ICD-10 - R19.7) Madi reports improvement It is advised that patient have a breath test, orders sent to [facility], they will call to schedule Sep, Bloating (ICD-10 - R14.0) Sep, Exocrine pancreatic insufficiency (ICD-10 - K86.81) [facility] [employer] Other 11-09-2023 History of Present illness Narrative* Erich Cherry, DO - 09/18/2023 10:20 AM EST Subjective [...] Donot crush or chew., Disp: , Rfl: yisets-hqocovbp-ctmcdnw (Zenpep) 40,000-126,000- 168,000 unit capsule, Take 2 [...] Disp: , Rfl: pedi multivit no.17 w-fluoride (Kfhr-Le-Eimc) 0.5 mg tablet,chewable, Chew 1 tablet once daily., Disp: , Rfl: ranolazine (Ranexa) 500 mg 12 hr tablet, Take 1 tablet (500 mg) by mouth 2 times a day., Disp: , Rfl: Assessment/Plan 1. Status post insertion of drug eluting coronary artery stent 2. Primary hypertension 3. Mixed hyperlipidemia 4. Angina pectoris ([facility]) 5. MAC (dyspnea on exertion) 6. Hx of percutaneous transluminal coronary angioplasty 7. Type 2 diabetes mellitus with other specified complication, unspecified whether snf insulin use ([facility]) [facility]: [phone]) 764-165411-09-2023 Instructions* Patient Instructions* Faustino Kumari MA - [...] time of your visit. [facility]: 1(355) 970-414010-30-2023 Evaluation note* Encounter Date Diagnosis Assessment Notes Treatment Notes Treatment Clinical Notes Aug, GERD (gastroesophageal reflux disease) (ICD-10 - K21.9) [employer] Other 10-18-2023 Procedure [facility]09-20-2023 Evaluation note* Encounter Date Diagnosis Assessment [...] TO COMPLETE FECAL ELASTACE AND FECAL LUZMA. [employer] Other 09-07-2023 Procedure [facility]08-16-2023 Evaluation note* Encounter Date Diagnosis Assessment Notes Treatment Notes Treatment Clinical Notes Jun, Diarrhea (ICD-10 - R19.7) Obtain colonoscopy from [facility]-Dr. Rohan Freed Jun, Dysphagia (ICD-10 - R13.10) Jun, Abdominal pain (ICD-10 - R10.9) Jun, Bloating (ICD-10 - R14.0) Jun, GERD (gastroesophageal reflux disease) (ICD-10 - K21.9) Jun, Early satiety (ICD-10 - R68.81) [employer] Other 05-01-2022 Chief complaint Narrative - Reported* I am doing ok * DARLYN VERDIN is being seen for cardiovascular procedure. * Patient presents accompanied by . * Patient is ambulatory with steady gait. * Patient was last evaluated by Dr. Cherry March 2022. * March 18, 2022 uneventful [...] level of activity * Treated with bipap -[facility] [address] DO Work Phone: 1(409) 487-560811-02-2021 Evaluation note* Encounter Date Diagnosis Assessment Notes [...] note writ ten by Alex Mendoza MA, Applications Analyst. Edited and approved by Dr. Kwan Rossi MD. [employer] Other Chief complaint Narrative - Reported* DARLYN [...] the right radial approach later this week [facility] [address] DO Work Phone: Evaluation noteNo [employer]Nort [employer] Other Evaluation noteNo assessment information available 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 (CMS/HCC) documented in this encounter [facility] Work Phone: Evaluation note* Diagnosis Type 2 diabetes mellitus with other circulatory complications (CMS/HCC)- Primary Screening for prostate cancer Special screening for malignant neoplasm of prostate USP (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 of insulin (CMS/HCC) Severe obesity (CMS/HCC) Morbid obesity Type 2 diabetes mellitus with other circulatory complications (CMS/HCC) 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 (CMS/HCC) 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 (CMS/HCC) Essential hypertension (CMS/HCC)- Primary Unspecified essential hypertension Chronic pain of both knees Recurrent major depressive disorder, in partial remission (HCC) (CMS/HCC) USP (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 of insulin (CMS/HCC)- Primary Type 2 diabetes mellitus with other circulatory complications (CMS/HCC) Class 3 severe obesity due to excess calories with serious comorbidity and body mass index (BMI) of 45.0 to 49.9 in adult (CMS/HCC) Essential hypertension (CMS/HCC)- Primary Unspecified essential hypertension Type 2 diabetes mellitus with other circulatory complications (CMS/HCC) Coronary artery disease of [place] artery of [place] heart with stable angina pectoris (CMS/HCC) Recurrent major depressive disorder, in partial remission (HCC) (CMS/HCC) Hyperlipidemia, unspecified hyperlipidemia type (CMS/HCC) Chronic midline low back pain without sciatica Right hip pain Pain in joint, pelvic region and thigh Pulled muscle Unspecified site of sprain and strain Type 2 diabetes mellitus with other circulatory complications (CMS/HCC)- Primary Class 3 severe obesity due to excess calories with serious comorbidity and body mass index (BMI) of 45.0 to 49.9 in adult (CMS/HCC) 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 (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 of insulin (CMS/HCC) 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 (CMS/HCC)- Primary Type 2 diabetes mellitus with other circulatory complications (CMS/HCC) Class 3 severe obesity due to excess calories with serious comorbidity and body mass index (BMI) of 40.0 to 44.9 in adult ([facility]/HCC) Need for influenza vaccination Need for prophylactic vaccination and inoculation against influenza Dysfunction of both eustachian tubes documented in this encounter [facility] HealthcareEvaluation note* Diagnosis Type 2 diabetes mellitus with other circulatory complications (CMS/HCC)- Primary Screening for prostate cancer Special screening for malignant neoplasm of prostate USP (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 of insulin (CMS/HCC) Severe obesity (CMS/HCC) Morbid obesity Type 2 diabetes mellitus with other circulatory complications (CMS/HCC) 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 ([facility]/HCC) 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 (CMS/HCC) Essential hypertension (CMS/HCC)- Primary Unspecified essential hypertension Chronic pain of both knees Recurrent major depressive disorder, in partial remission (HCC) ([facility]) USP (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 of insulin ([facility]/HCC)- Primary Type 2 diabetes mellitus with other circulatory complications (CMS/HCC) Class 3 severe obesity due to excess calories with serious comorbidity and body mass index (BMI) of 45.0 to 49.9 in adult ([facility]/HCC) Essential hypertension (CMS/HCC)- Primary Unspecified essential hypertension Type 2 diabetes mellitus with other circulatory complications (CMS/HCC) Coronary artery disease of [place] artery of [place] heart with stable angina pectoris (CMS/HCC) Recurrent major depressive disorder, in partial remission (HCC) ([facility]/HCC) Hyperlipidemia, unspecified hyperlipidemia type ([facility]/HCC) Chronic midline low back pain without sciatica Right hip pain Pain in joint, pelvic region and thigh Pulled muscle Unspecified site of sprain and strain Type 2 diabetes mellitus with other circulatory complications (CMS/HCC)- Primary Class 3 severe obesity due to excess calories with serious comorbidity and body mass index (BMI) of 45.0 to 49.9 in adult ([facility]/HCC) 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 ([facility]/HCC) USP (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 of insulin ([facility]/HCC)- Primary Type 2 diabetes mellitus with other circulatory complications (CMS/HCC) Class 3 severe obesity due to excess calories with serious comorbidity and body mass index (BMI) of 40.0 to 44.9 in adult ([facility]/HCC) Need for influenza vaccination Need for prophylactic vaccination and inoculation against influenza Dysfunction of both eustachian tubes Recurrent major depressive disorder, in partial remission (HCC) (CMS/HCC) documented in this encounter [facility] HealthcareEvaluation note* Diagnosis Type 2 diabetes mellitus with other circulatory complications (CMS/HCC)- Primary Screening for prostate cancer Special screening for malignant neoplasm of prostate USP (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 of insulin (CMS/HCC) Severe obesity (CMS/HCC) Morbid obesity Type 2 diabetes mellitus with other circulatory complications (CMS/HCC) USP (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 of insulin ([facility]/HCC) 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 (CMS/HCC) Essential hypertension (CMS/HCC)- Primary Unspecified essential hypertension Chronic pain of both knees Recurrent major depressive disorder, in partial remission (HCC) ([facility]) USP (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 of insulin ([facility]/HCC)- Primary Type 2 diabetes mellitus with other circulatory complications (CMS/HCC) Class 3 severe obesity due to excess calories with serious comorbidity and body mass index (BMI) of 45.0 to 49.9 in adult ([facility]) Essential hypertension (CMS/HCC)- Primary Unspecified essential hypertension Type 2 diabetes mellitus with other circulatory complications (CMS/HCC) Coronary artery disease of [place] artery of [place] heart with stable angina pectoris ([facility]/HCC) Recurrent major depressive disorder, in partial remission (HCC) ([facility]) Hyperlipidemia, unspecified hyperlipidemia type ([facility]/HCC) Chronic midline low back pain without sciatica Right hip pain Pain in joint, pelvic region and thigh Pulled muscle Unspecified site of sprain and strain Type 2 diabetes mellitus with other circulatory complications ([facility]/HCC)- Primary Class 3 severe obesity due to excess calories with serious comorbidity and body mass index (BMI) of 45.0 to 49.9 in adult ([facility]/HCC) 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 ([facility]/HCC) USP (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 of insulin ([facility]/HCC)- Primary Type 2 diabetes mellitus with other circulatory complications (CMS/HCC) Class 3 severe obesity due to excess calories with serious comorbidity and body mass index (BMI) of 40.0 to 44.9 in adult ([facility]/HCC) Need for influenza vaccination Need for prophylactic vaccination and inoculation against influenza Dysfunction of both eustachian tubes Class 3 severe obesity due to excess calories with serious comorbidity and body mass index (BMI) of 40.0 to 44.9 in adult (CMS/HCC)- Primary Recurrent major depressive disorder, in partial remission (HCC) (CMS/HCC) Anxiety disorder, unspecified Pulled muscle Unspecified site of sprain and strain Essential hypertension (CMS/HCC) Unspecified essential hypertension Gastro-esophageal reflux disease without esophagitis Hyperlipidemia, unspecified hyperlipidemia type (CMS/HCC) [facility] Coronary artery disease involving [place] coronary artery of [place] heart, unspecified whether angina present Status post insertion of drug eluting coronary artery stent Primary hypertension Unspecified essential hypertension Angina pectoris (CMS-HCC) Other and unspecified angina pectoris MAC (dyspnea on exertion) Other dyspnea and respiratory abnormality Mixed hyperlipidemia Type 2 diabetes mellitus without complication, with long-term current use of insulin (Multi) BMI 45.0-49.9, adult (Multi) documented in this encounter [facility] Work Phone: Evaluation note* Diagnosis Acute tonsillitis, unspecified etiology- Primary [facility] Diagnosis Coronary artery disease involving [place] coronary artery of [place] heart, unspecified whether angina present Status post insertion of drug eluting coronary artery stent Mixed hyperlipidemia Primary hypertension Unspecified essential hypertension Angina pectoris Other and unspecified angina pectoris Type 2 diabetes mellitus without complication, with long-term current use of insulin (Multi) BMI 40.0-44.9, adult (Multi) MAC (dyspnea on exertion) Other dyspnea and respiratory abnormality Hx of percutaneous transluminal coronary angioplasty documented in this encounter [facility] Work Phone: Evaluation note* Diagnosis Type 2 diabetes mellitus with other circulatory complications (CMS/HCC)- Primary Screening for prostate cancer Special screening for malignant neoplasm of prostate 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 (CMS/HCC) Severe obesity (CMS/HCC) Morbid obesity Type 2 diabetes mellitus with other circulatory complications (CMS/HCC) USP (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 of insulin (CMS/HCC) 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 (CMS/HCC) Essential hypertension (CMS/HCC)- Primary Unspecified essential hypertension Chronic pain of both knees Recurrent major depressive disorder, in partial remission (HCC) (CMS/HCC) USP (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 of insulin (CMS/HCC)- Primary Type 2 diabetes mellitus with other circulatory complications (CMS/HCC) Class 3 severe obesity due to excess calories with serious comorbidity and body mass index (BMI) of 45.0 to 49.9 in adult ([facility]) Essential hypertension ([facility])- Primary Unspecified essential hypertension Type 2 diabetes mellitus with other circulatory complications ([facility]) Coronary artery disease of [place] artery of [place] heart with stable angina pectoris ([facility]) Recurrent major depressive disorder, in partial remission (HCC) ([facility]) Hyperlipidemia, unspecified hyperlipidemia type ([facility]) Chronic midline low back pain without sciatica Right hip pain Pain in joint, pelvic region and thigh Pulled muscle Unspecified site of sprain and strain Type 2 diabetes mellitus with other circulatory complications ([facility])- Primary Class 3 severe obesity due to excess calories with serious comorbidity and body mass index (BMI) of 45.0 to 49.9 in adult ([facility]) USP (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 of insulin ([facility]) USP (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 of insulin ([facility])- Primary Type 2 diabetes mellitus with other circulatory complications ([facility]) Class 3 severe obesity due to excess calories with serious comorbidity and body mass index (BMI) of 40.0 to 44.9 in adult ([facility]) Need for influenza vaccination Need for prophylactic vaccination and inoculation against influenza Dysfunction of both eustachian tubes Class 3 severe obesity due to excess calories with serious comorbidity and body mass index (BMI) of 40.0 to 44.9 in adult ([facility])- Primary Recurrent major depressive disorder, in partial remission (HCC) ([facility]) Anxiety disorder, unspecified Pulled muscle Unspecified site of sprain and strain Essential hypertension ([facility]) Unspecified essential hypertension Gastro-esophageal reflux disease without esophagitis Hyperlipidemia, unspecified hyperlipidemia type ([facility]) USP (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 of insulin ([facility])- Primary Type 2 diabetes mellitus with other circulatory complications ([facility]) Class 3 severe obesity due to excess calories with serious comorbidity and body mass index (BMI) of 40.0 to 44.9 in adult ([facility]) documented in this encounter [facility] HealthcareEvaluation note* Diagnosis Type 2 diabetes mellitus with other circulatory complications- Primary Screening for prostate cancer Special screening for malignant neoplasm of prostate USP (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 of insulin ([facility]) Severe obesity ([facility]) Morbid obesity Type 2 diabetes mellitus with other circulatory complications USP (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 of insulin ([facility]) 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 ([facility]) Essential hypertension ([facility])- Primary Unspecified essential hypertension Chronic pain of both knees Recurrent major depressive disorder, in partial remission (HCC) ([facility]) 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 ([facility])- Primary Type 2 diabetes mellitus with other circulatory complications Class 3 severe obesity due to excess calories with serious comorbidity and body mass index (BMI) of 45.0 to 49.9 in adult Essential hypertension ([facility])- Primary Unspecified essential hypertension 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 ([facility]) Recurrent major depressive disorder, in partial remission (HCC) ([facility]) Hyperlipidemia, unspecified hyperlipidemia type ([facility]) Chronic midline low back pain without sciatica Right hip pain Pain in joint, pelvic region and thigh Pulled muscle Unspecified site of sprain and strain Type 2 diabetes mellitus with other circulatory complications- Primary Class 3 severe obesity due to excess calories with serious comorbidity and body mass index (BMI) of 45.0 to 49.9 in adult USP (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 of insulin ([facility]) USP (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 of insulin ([facility])- Primary Type 2 diabetes mellitus with other circulatory complications Class 3 severe obesity due to excess calories with serious comorbidity and body mass index (BMI) of 40.0 to 44.9 in adult Need for influenza vaccination Need for prophylactic vaccination and inoculation against influenza Dysfunction of both eustachian tubes Class 3 severe obesity due to excess calories with serious comorbidity and body mass index (BMI) of 40.0 to 44.9 in adult- Primary Recurrent major depressive disorder, in partial remission (HCC) ([facility]) Anxiety disorder, unspecified Pulled muscle Unspecified site of sprain and strain Essential hypertension ([facility]) Unspecified essential hypertension Gastro-esophageal reflux disease without esophagitis Hyperlipidemia, unspecified hyperlipidemia type ([facility]) 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 ([facility])- Primary Type 2 diabetes mellitus with other circulatory complications Class 3 severe obesity due to excess calories with serious comorbidity and body mass index (BMI) of 40.0 to 44.9 in adult Chronic hip pain, bilateral- Primary documented in this encounter [facility] HealthcareHistory and physical note Author Yolanda [facility] July 17, 2023 12:53pm Note Date/Time July 17, 2023 12:53pm [facility] [address] [place] [address] Gastroenterology H&P Signed Patient: Darlyn Verdin MR#: [id number] : 1960 Acct:[id number] Age/Sex: 63 / M Adm Date: 3 Loc: Room: Type: [facility] Attending Dr: Yolanda Moore MD Copies [...] by Yolanda Moore MD> 07/17/231252 [facility] Work Phone: History and physical note Author Yolanda Moore [facility] August 27, 2023 8:19am Note Date/Time August 27, 2023 8 :19am [facility] [address] [place] [address] Gastroenterology H&P Signed Patient: Darlyn Verdin MR#: [id number] : 1960 Acct:[id number] Age/Sex: 63 / M Adm Date: 3 Loc: Room: Type: [facility] Attending Dr: Yolanda Moore MD Copies [...] <Electronically signed by Yolanda Moore MD> 08/27/23818 [facility] Work Phone: History general Narrative - Reported* Type Description Date Medical History Diabetes Medical History Hypertension Surgical History hernia Surgical History wrist surgery Surgical History shoulder surgery-left Surgical History cyst removal-neck Surgical History left foot surgery Hospitalization History see above apta[employer]me Other History of Present illness Narrative* The [...] medication regimen. He denies medication side effects. [employer] [employer] Work Phone: History of Present illness Narrative* [...] medication regimen. He denies medication side effects. [facility] Work Phone: History of Present illness Narrative* [...] medication regimen. He denies medication side effects. [employer] Work Phone: Hospital Discharge instructions Additional Instructions [...] NOT operate machinery such as power tools, [employer] mowers, snow blowers, sewing machines, etc. for [...] if you have any problems. -Office number [phone]. [facility] Work Phone: Hospital Discharge instructions Additional Instructions [...] NOT operate machinery such as power tools, [employer] mowers, snow blowers, sewing machines, etc. for [...] if you have any problems. -Office number [phone]. [facility] Work Phone: Reason for referral (narrative)* Consultation (Routine) - Authorized Specialty Diagnoses / Procedures Referred By Daniel turk Referred To Contact Cardiology Diagnoses Status post insertion of drug eluting coronary artery stent Primary hypertension Procedures Follow Up In Cardiology Erich Cherry DO [address] [facility] 2, [address] [address] Erich Cherry, [address] [facility], [facility] [address] [place] [address] Referral ID Status Reason Start Date Expiration Date V isits Requested Visits Authorized [id number] Authorized 09/18/2023 09/17/2024 1 1 [facility] Work Phone: Reason for referral (narrative)* Consultation (Routine) - Authorized Specialty Diagnoses / Procedures Referred By Contac t Referred To Contact Cardiology Diagnoses Coronary artery disease involving [place] coronary artery of [place] heart, unspecified whether angina present Procedures Follow Up In Cardiology Erich Cherry DO [address] [facility], [place] [address] [place] [address] Erich Cherry DO [address] [facility] [address], [place] [address] [place] [address] Referral ID Status Reason Start Date Expiration Date V isits Requested Visits Authorized [id number] Authorized 05/04/2024 05/04/2025 1 1 [facility] [facility] Work Phone: Summary Purpose Family History Unknown [...] 3 times weekly as well as the [place]. He does get chest pain approximately 2 [...] gait. * Last evaluated in clinic Dr. Cherry June 2022. At that time, [employer] added [...] section and content) DATE CREATED AUTHOR 11/28/2021 [facility] DATE CREATED AUTHOR AUTHOR'S ORGANIZ ATION 01/19/2022 [facility] dical Specialist DATE CREATED AUTHOR AUTHOR'S ORGANIZ ATION 01/29/2023 [facility] DATE CREATED AUTHOR AUTHOR'S ORGANIZ ATION 03/22/2023 [facility] DATE CREATED AUTHOR AUTHOR'S ORGANIZ ATION 03/22/2023 [employer] DATE CREATED AUTHOR AUTHOR'S ORGANIZ ATION 09/06/2023 [facility] DATE CREATED AUTHOR AUTHOR'S ORGANIZ ATION 06/25/2024 [facility] DATE CREATED AUTHOR AUTHOR'S ORGANIZ ATION 01/08/2025 [facility] DATE CREATED AUTHOR AUTHOR'S ORGANIZ ATION 01/11/2025 [facility] dical Specialists EPIC REASON FOR VISIT (unrecogniz ed section and content) Reason Comments Follow-up 6m Reason Comments Diabetes Reason Comments Med Refill Reason Comments Follow-up Reason Comments Follow-up 6 months Specialty Diagnoses / Procedures Referred By Daniel t Referred To Contact Cardiology Diagnoses Status post insertion of drug eluting coronary artery stent Primary hypertension Procedures Follow Up In Cardiology Erich Cherry DO [address] [place] [address], [address] [address] Erich Cherry DO [address] [place] [address] 2, [address] [address] Referral ID Status Reason Start Date Expiration Date V isits Requested Visits Authorized [id number] Authorized 09/18/2023 09/17/2024 1 1 Reason Comments Abscess Peritonsillar bellev ue tx Reason Comments Follow-up 8m Specialty Diagnoses / Procedures Referred By Contac t Referred To Contact Cardiology Diagnoses Coronary artery disease involving [place] coronary artery of [place] heart, unspecified whether angina present Procedures Follow Up In Cardiology Erich Cherry, DO [address] [facility] 2, [address] [address] Phone: tel: fax: Erich Cherry, DO [facility] [facility] 2, [address] [address] Phone: tel: fax: Referral ID Status Reason Start Date Expiration Date V isits Requested Visits Authorized [id number] Authorized 05/04/2024 05/04/2025 1 1 Reason Comments Diabetes Care Teams (unrecognized sec tion and content) Team Status: Inactive Member Role Status Yi Bangura MD Primary Care Provider Active Hue Mendoza APRN Attending Provider Active Team Status: Active Member Role Status Yi Bangura MD Primary Care Provider Active Team Status: Inactive Member Role Status Yi Bangura MD Primary Care Provider Active Yolanda Moore MD Attending Provider Active Team Status: Inactive Member Role Status Yi Bangura MD Primary Care Provider Active Mike Ramos MD Attending Provider Active [employer] Relationship Specialty Start Date End Date Shaikh Bangura MD [address] [place] [address] PCP - General 06/26/22 Team Status: Inactive Member Role Status Yi Bangura MD Primary Care Provider Active Start: June 20, 2024 End: June 20, 2024 Shanon Roberson APRN Attending Provider Active Start: June 20, 2024 End: June 20, 2024 [employer] Relationship Specialty Start Date End Date Shaikh Bangura MD [address] [place] [phone] PCP - General Internal Medicine 04/29/23 [employer] Relationship Specialty Start Date End Date Shaikh Bangura MD [address] [place] [phone] PCP - General Internal Medicine 04/29/23 [employer] Relationship Specialty Start Date End Date Jarad Garrison MD [address] [place] [phone] PCP - General Family Medicine 09/21/24 Clayton Basilio NP [address] [place] [address] Nurse Practitioner Family Medicine 09/21/24 [employer] Relationship Specialty Start Date End Date Jarad Garrison MD [address] [place] [phone] PCP - General Family Medicine 09/21/24 Clayton Basilio NP [address] [place] [address] Nurse Practitioner Family Medicine 09/21/24 [employer] Relationship Specialty Start Date End Date Jarad Garrison MD [address] [place] [phone] PCP - General Family Medicine 09/21/24 Clayton Basilio NP [address] [place] [phone] Nurse Practitioner Family Medicine 09/21/24 [employer] Relationship Specialty Start Date End Date Shaikh Bangura MD PCP - General 06/26/22 [employer] Relationship Specialty Start Date End Date Zion Lozoya MD [address] [place] [address] PCP - General Emergency Medicine 06/20/24 [employer] Relationship Specialty Start Date End Date Shaikh Bangura MD PCP - General 06/26/22 [employer] Relationship Specialty Start Date End Date Jarad Garrison MD [address] [place] [phone] PCP - General Family Medicine 09/21/24 Esha Stanley NP [address] [place] [phone] Nurse Practitioner Family Medicine 01/05/25 [employer] Relationship Specialty Start Date End Date Jarad Garrison MD [address] [place] [phone] PCP - General Family Medicine 09/21/24 Esha Stanley NP [address] [place] [phone] Nurse Practitioner Family Medicine 01/05/25 Goals (unrecognized section and content) Goals may be documented in a n alternate section Ordered Prescriptions (unrec ognized section and content) Prescription Sig Dispensed Refills Start Date End Da te amoxicillin-clavulanate (AUGMENTIN) 875-125 MG per tablet Take 1 tablet by mouth 2 times daily for 10 days 20 tablet 06/20/2024 06/30/2024 Scheduled Active and Recently Administ ered Medications (unrecognized section and content) Medication Order 06/18/2024 06/19/2024 06/20/2024 ketorolac (TORADOL) injection 15 mg (COMPLETED) 15 mg, IntraVENous, ONCE, 1 dose, On 06/20/24 at 1930 1919 (Given - Provid er: Heavenly Wu RN) FOR RECORDS PERTAINING TO PATIENTS WHO ARE [...] BE BASED ON THE PRIMARY CLINICAL RECORDS. [employer] [facility]. provides no warranty or guarantee of the accuracy or completeness of information in this document.
--- NOTE | 2025-03-31 13:14 | XR_ITS ---
[facility] [place] [id number] Patient Name: DARLYN VERDIN MRN: [id number] date: 1960 Sex: M Assigned Patient Location: [facility] Current Patient Location: [facility] Accession/Order Number: [id number] Exam Date: 03/31/2025 14:04 Report Date: 03/31/2025 14:07 At the request of: JUAN DIXON NP Procedure: XR pelvis 1-2V AP WEIGHTBEARING PELVIS: CLINICAL HISTORY: Chronic bilateral hip pain with recent worsening. No injury. COMPARISON: Right hip 04/29/[address] 01/06/2023 Assessment is slightly limited by osteopenia and body habitus. No acute fracture, dislocation or bony destruction is seen. The hip joint spaces are symmetric. There is mild marginal spurring. Enthesophytes are noted at the iliac crests, greater trochanters and ischial tuberosities. There is sclerosis at the SI joints. There is also hypertrophy at the lower imaged lumbar spine.. There are no soft tissue abnormalities. XR/XR pelvis 1-2V IMPRESSION: DEGENERATIVE CHANGES. NO ACUTE BONY FINDINGS. Impression dictated by: Candelaria Che M.D. 03/31/2025 2:07 PM Dictation Location: [place] [address] Electronically authenticated by: [id number] Y Date: 03/31/2025 14:07
== END 2025-03-31 13:10 | disposition home or self-care (01) ==
LOC: RAD 13:09
PROVIDERS: PCP Nurse Practitioner; Visit Provider Nurse Practitioner
DX: M25.551 Pain in right hip (principal); M25.552 Pain in left hip; G89.29 Other chronic pain
CPT/HCPCS: 72170

== ENCOUNTER 2025-05-24 09:51 | Outpatient (OUT) | payer MEDICARE, SELFPAY ==
--- OUTSIDE RECORDS SUMMARY | 2024-04-06 06:00 | XMS_ITS ---
Author Organization The [facility] in [place] Address [address] [place] [address] Care Team Providers Care Advanced Practice Psychiatric Nurse Name Role Phone Sveta BLACK, Primary Care Provider Unavaila Babar Ashby Unavailable [phone] REASON FOR VISIT 6MO-ASTHMA, TAINA Encounters Encounter Location Date Provider Diagnosis Pulmonary Medicine [place] [address] [place] [address] 04/06/2024 Babar Granados Plan Of Treatment No Information Progress Notes * Hugo ALDANADOB:1960 (64 yo M)Acc No.[id number]:04/06/2024 UNLOCKED PROGRESS NOTE Follow Up Patient: Hugo ROQUE Provider: Carmen Granados DO :1960 A ge:63 Y S ex:Male Date:04/06/2024 Address:[address] [place] [phone] Pcp:Shaikh Sveta MD Subjective: * Chief Complaints: * 1 . 6MO-ASTHMA, TAINA. * Medical History: Objective: * Vitals: Assessment: Plan: * Treatment: * * Electronic signature of Eula Granados DO on 05/24/2025 at 09:59 AM EDT Sign off status: Pending Visit Status: C ANC (Cancelled) * Provider: Carmen Granados DO Date: 0 04/06/2024 Generated for Emily marrufo/Tuyet/La on: 0 05/24/2025 09:59 AM EDT
--- OUTSIDE RECORDS SUMMARY | 2025-05-10 13:20 | XMS_ITS | Encounter Summary ---
Author Organization [facility] Address [address] [place] [address] Care Team Providers Care Authorizer Name Role Phone Jarad Garrison MD Primary Care Provider [phone] Esha Stanley NP Unavailable [phone] Reason for Visit * Reason Comments Hyperlipidemia Hypertension Anxiety Depression Encounter Details Date Type Department Care Team (Late st Contact Info) Description 05/10/2025 1:20 PM EDT Office Visit [facility] [address] [place] [address] Esha Stanley, DESIGNER AND PATTERNMAKER [address] [place] [id number] Essential hypertension (Primary Dx); Obstructive sleep apnea syndrome; Coronary artery disease of [place] artery of [place] heart with stable angina pectoris ; Type 2 diabetes mellitus with other circulatory complications (HCC); Gastro-esophageal reflux disease without esophagitis; Class 3 severe obesity due to excess calories with serious comorbidity and body mass index (BMI) of 40.0 to 44.9 in adult ([facility]); Anxiety; Mixed hyperlipidemia ; Recurrent major depressive disorder, in partial remission ; Groin pain, right; Candidiasis Social History Tobacco Use Types Packs/Day Years Used Date Smoking Tobacco: Never Passive Smoke Exposure: Never Smokeless Tobacco: Never Alcohol Use Standard Drinks/Week Comments Never 0 (1 standard drink = 0.6 oz pur e alcohol) Monthly or less B1300 Health Literacy Answer Date Recor ded How often do you need to hav e someone help you when you read instructions, pamphlets, or other written material from your doctor or pharmacy? Never 05/09/2025 Humiliation, Afraid, Rape, and Kick questionnair e Answer Date Recorded Within the last year, have y ou been afraid of your partner or ex-partner? No 05/09/2025 Within the last year, have y ou been humiliated or emotionally abused in other ways by your partner or ex-partner? No Within the last year, have y ou been kicked, hit, slapped, or otherwise physically hurt by your partner or ex-partner? No 05/09/2025 Within the last year, have y ou been raped or forced to have any kind of sexual activity by your partner or ex-partner? No 05/09/2025 Social Connection and Isolation Panel [NHANES] A nswer Date Recorded In a typical week, how many times do you talk on the phone with family, friends, or neighbors? Twice a week 05/09/2025 How often do you get togethe r with friends or relatives? Once a week 05/09/2025 How often do you attend uatsdin or hoahaoism serv ices? Patient declined 05/09/2025 Do you belong to any clubs o r organizations such as uatsdin groups, unions, fraternal or athletic groups, or school groups? No 05/09/2025 How often do you attend meet ings of the clubs or organizations you belong to? Never 05/09/2025 Are you , , di vorced, , never , or living with a partner? Patient declined 05/09/2025 AUDIT-C Answer Date Recorded Q1: How often do you have a drink containing alcohol? Never 05/09/2025 Q2: How many drinks containi ng alcohol do you have on a typical day when you are drinking? Patient does not drink Q3: How often do you have si x or more drinks on one occasion? Never 05/09/2025 Overall Financial Resource Strain (CARDIA) Answe r Date Recorded How hard is it for you to pa y for the very basics like food, housing, medical care, and heating? Somewhat hard 05/09/2025 PHQ-2 Answer Date Recorded Patient Health Questionnaire-2 Score 0 05/09/2025 [facility] - Occupational Stress Questionnaire Answer Date Recorded Do you feel stress - tense, restless, nervous, or anxious, or unable to sleep at night because your mind is troubled all the time - these days? Rather much 05/09/2025 Exercise Vital Sign Answer Date Recorde d On average, how many days pe r week do you engage in moderate to strenuous exercise (like a brisk walk)? 2 days 05/09/2025 On average, how many minutes do you engage in exercise at this level? 10 min 05/09/2025 Hunger Vital Sign Answer Date Recorded Within the past 12 months, y ou worried that your food would run out before you got the money to buy more. Sometimes true Within the past 12 months, t he food you bought just didn't last and you didn't have money to get more. Sometimes true PRAPARE - Transportation Answer Date Re corded In the past 12 months, has l ack of transportation kept you from medical appointments or from getting medications? No 04/12 In the past 12 months, has l ack of transportation kept you from meetings, work, or from getting things needed for daily living? No 05/09/2025 Housing Stability Vital Sign Answer Ye e Recorded In the last 12 months, was t here a time when you were not able to pay the mortgage or rent on time? Patient declined 05/09/20 25 Number of Times Moved in the Last Year Not on fi le 05/09/2025 At any time in the past 12 m [facility], were you homeless or living in a assisted (including now)? No 05/09/2025 Sex and Gender Information Value Date Recorded Sex Assigned at Not on file Legal Sex Male 7:20 PM EDT Gender Identity Not on file Sexual Orientation Not on file Travel History Travel Start Travel End [place] 04/26/2025 04/27/2025 [place] 04/24/2025 04/26/2025 documented as of this encounter Last Filed Vital Signs Vital Sign Reading Time Taken Comments Blood Pressure 120/80 05/10/2025 1:20 PM EDT Pulse 95 05/10/2025 1:20 PM EDT Temperature 36.7 C (98.1 F) 05/10/2025 1:20 PM EDT Respiratory Rate 20 05/10/2025 1:20 PM EDT Oxygen Saturation 96% 05/10/2025 1:20 PM EDT Inhaled Oxygen Concentration - - Weight 153 kg (337 lb) 05/10/2025 1:20 PM EDT Height - - Body Mass Index 43.27 05/09/2025 12:51 PM EDT documented in this encounter Progress Notes * TINO RUSSO - 05/10/2025 1:20 PM EDT Buspar makes feel out of it he feels disassociated and fatigue he may not take it for 2-3 days. When he does take it he only takes it once daily at 6pm Possible hernia 150-225 avg FG Pt would like to ask about yeast infection- possible from the jardiance * Esha Stanley, SUJATA - 05/10/2025 1:20 PM EDT Images from the original note were not included. Hugo Aldana Jr. is a 64 y.o. male presents with chief complaint of Hyperlipidemia, Hypertension, Anxiety, and Depression HPI: Anxiety/depression: lexapro and buspar, prn buspar sometimes feels blah sometime. No SI/HI. Follows with [facility] for DM. C/o groin pain: R>L, no testicle pain Also c/o yeast groin, nystatin powder does not help SUBJECTIVE: MEDICATIONS: Current Outpatient Medications Medication Instructions albuterol HFA 90 mcg/act inhaler 2 puffs, Every 4 hours PRN Apple Cider Vinegar 300 MG tablet Take by mouth. aspirin 81 MG EC tablet Every 24 hours atorvastatin (Lipitor) 80 MG tablet Every 24 hours Gxjivek-Qmmrybyzkoq-Tklyfkggsk (Breztri Aerosphere) 160-9-4.8 MCG/ACT aerosol 1 puff, Every 12 hours busPIRone (BUSPAR) 10 mg, Oral, 2 times daily cholecalciferol (VITAMIN D-3) 1,200 Units, Daily RT clopidogrel (PLAVIX) 75 mg, Daily escitalopram (LEXAPRO) 20 mg, Oral, Daily gabapentin (NEURONTIN) 600 mg, Oral, 3 times daily glucose blood (True Metrix Blood Glucose Test) test strip USE TO TEST BLOOD SUGAR TWICE DAILY hydroCHLOROthiazide (HYDRODIURIL) 25 mg, Oral, Daily isosorbide mononitrate ER (IMDUR) 60 mg, Daily Jardiance 10 mg, Oral, Daily Lactic Acid 10 % lotion 1 application , Every 12 hours lansoprazole (PREVACID) 30 mg, Oral, Daily metFORMIN (Glucophage) 1000 MG tablet TAKE 1 TABLET BY MOUTH IN THE MORNING and ONE TABLET BY MOUTHIN THE EVENING. TAKE WITH MEALS metoprolol tartrate (LOPRESSOR) 25 mg, 2 times daily Multiple Vitamin (Multi Vitamin) tablet Every 24 hours nitroglycerin (Nitrostat) 0.4 MG SL tablet DISSOLVE 1 TABLET UNDER THE TONGUE NEEDED FOR CHEST PAIN- MAY REPEAT EVERY 5 MINUTES IF NEEDED ( MAX 3 DOSES.- IF NO RELIEF CALL 911) nystatin (Mycostatin) cream Topical, 2 times daily Nystop [id number] UNIT/GM powder APPLY TO AFFECTED SKIN TOPICALLY THREE TIMES DAILY olmesartan (BENICAR) 40 mg, Daily Ozempic (2 MG/DOSE) 2 mg, Subcutaneous, Weekly pen needle 32G x 4 mm misc Injections once a day ranolazine (RANEXA) 500 mg, 2 times daily tiZANidine (ZANAFLEX) 4 mg, Oral, Every 8 hours PRN Tresiba FlexTouch 50 Units, Subcutaneous, Daily ALLERGIES: No Known Allergies REVIEW OF SYMPTOMS: Review of Systems Constitutional: Negative for activity change, appetite change and unexpected weight change. HENT: Negative for ear pain, nosebleeds, sneezing, trouble swallowing and voice change. Eyes: Negative for pain, discharge and visual disturbance. Respiratory: Negative for apnea, chest tightness and wheezing. Cardiovascular: Negative for leg swelling. Gastrointestinal: Negative for abdominal distention, blood in stool, constipation and diarrhea. Genitourinary: Negative for decreased urine volume, difficulty urinating, dysuria and hematuria. Musculoskeletal: Positive for back pain. Skin: Positive for rash. Negative for color change. Neurological: Negative for dizziness, tremors and seizures. Psychiatric/Behavioral: Negative for agitation, decreased concentration, hallucinations, self-injury and suicidal ideas. The patient is nervous/anxious. Hematological: Negative for adenopathy. Does not bruise/bleed easily. Endocrine: Negative for cold intolerance, heat intolerance, polydipsia and polyuria. Allergic/Immunologic: Negative for environmental allergies and food allergies. PAST MEDICAL HISTORY Past Medical History: Diagnosis Date Anxiety Arthritis Arthritis, lumbar spine Chronic diarrhea of unknown origin Chronic pain disorder Coronary artery disease Cutaneous candidiasis Depression MAC (dyspnea on exertion) Enlarged prostate GERD (gastroesophageal reflux disease) H/O heart artery stent H/O insulin dependent diabetes mellitus Hyperlipidemia Hypertension Incisional hernia without obstruction or gangrene Lumbar nerve root injury neuropathy Obesity Pain from lumbosacral nerve root Poorly controlled intermittent asthma without complication (HCC) Shortness of breath Type 2 diabetes mellitus (HCC) Past Surgical History: Procedure Laterality Date BACK SURGERY 2014 pinched nerve CHOLECYSTECTOMY 2010 COLONOSCOPY CORONARY ANGIOPLASTY WITH STENT PLACEMENT 2021 cad with catherization FOOT SURGERY Left reconstruction HERNIA REPAIR INCISIONAL HERNIA REPAIR 2015 umbilical, ventral NECK SURGERY excision cyst left neck ORIF WRIST FRACTURE Right SHOULDER SURGERY Left family history includes COPD in his mother; Hypertension in his mother; Prostate cancer in his father. OBJECTIVE: Visit Vitals BP 120/80 (BP Location: Left arm, Patient Position: Sitting, BP Cuff Size: Large adult) Pulse 95 Temp 98.1 ??F (Temporal) Resp 20 Wt 337 lb SpO2 96% BMI 43.27 kg/m?? Smoking Status Never BSA 2.83 m?? Physical Exam Vitals and nursing note reviewed. Constitutional: Appearance: Normal appearance. HENT: Head: Normocephalic. Right Ear: External ear normal. Left Ear: External ear normal. Nose: Nose normal. Mouth/Throat: Mouth: Mucous membranes are moist. Pharynx: Oropharynx is clear. Eyes: Extraocular Movements: Extraocular movements intact. Conjunctiva/sclera: Conjunctivae normal. Neck: Vascular: No carotid bruit. Cardiovascular: Rate and Rhythm: Normal rate and regular rhythm. Pulses: Normal pulses. Heart sounds: Normal heart sounds. No murmur heard. Pulmonary: Effort: Pulmonary effort is normal. Breath sounds: Normal breath sounds. No wheezing or rhonchi. Abdominal: General: Bowel sounds are normal. There is no distension. Palpations: Abdomen is soft. Tenderness: There is no guarding. Hernia: A hernia is present. Genitourinary: Comments: Fullness right groin area inguinal area Musculoskeletal: Cervical back: Neck supple. Right lower leg: Edema present. Left lower leg: Edema present. Comments: Trace-1+ bilat tib/fib, with brownish discoloration c/w venous insufficency Skin: General: Skin is warm and dry. Capillary Refill: Capillary refill takes 2 to 3 seconds. Neurological: General: No focal deficit present. Mental Status: He is alert. Psychiatric: Mood and Affect: Mood normal. Behavior: Behavior normal. Thought Content: Thought content normal. Judgment: Judgment normal. ASSESSMENT AND PLAN: Follow up in about 2 days (around 05/12/2025) for Recheck. Problem List Items Addressed This Visit Anxiety Current meds: buspar and lexapro Essential hypertension Please check blood pressure daily and record DASH diet Limit caffeine Take medication as directed Contact office if chest pain, pressure, dizziness, shortness of breath, swelling legs Recommend slow position changes Current meds: hydrochlorothiazide, Imdur, olmasartan, b patricia Gastro-esophageal reflux disease without esophagitis Recommendations: freq small meals, nothing to eat or drink at least 2 hours prior to bed, limit caffeine, alcohol, as well as spicy foods Meds to limit or avoid if possible: NSAIDS Elevate HOB if possible Meds: PPI Class 3 severe obesity due to excess calories with serious comorbidity and body mass index (BMI) of40.0 to 44.9 in adult ([facility]) Discussed with patient their BMI (actual, verses recommended). We have also discussed lifestyle modifications: attempts to perform physical activity as chronic conditions allow, also to monitor dietary intake: increasing protein/fruits/veggies and lowering carb intake (unless contraindicated). Limit sodas, juices, and sugary drinks. Does take ozempic for DM Hyperlipidemia On statin Check labs yearly and prn dose change Type 2 diabetes mellitus with other circulatory complications (HCC) HTN, CAD, HLD Is under the care of [facility] Meds: ozempic, insulin, statin, arb, asa A1c: 7.6 (05/09/25), 8.6 ( 02/01) Sleep apnea - Primary You have a diagnosis of obstructive sleep apnea. It is recommended that you wear your PAP device any time while in bed sleeping. Not using the PAP device can increase your risk of elevated/uncontrolled high blood pressure, atrial fibrillation, heart attack, stroke, or sudden . 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 Stress test/heart cath: a few years ago Recurrent major depressive disorder, in partial remission On lexapro Groin pain, right Relevant Orders US scrotum Candidiasis Relevant Medications nystatin (Mycostatin) cream * Esha Stanley NP - 05/10/2025 6:54 AM EDTAssociated Problem(s): Recurrent major depressive disorder, in partial remission On lexapro * Esha Stanley NP - 05/10/2025 6:54 AM EDTAssociated Problem(s): Hyperlipidemia On statin Check labs yearly and prn dose change * Esha Stanley NP - 05/10/2025 6:53 AM EDTAssociated Problem(s): Anxiety Current meds: buspar and lexapro * Esha Stanley NP - 05/10/2025 6:53 AM EDTAssociated Problem(s): Class 3 severe obesity due to excess calories with serious comorbidity and body mass index (BMI) of 40.0 to 44.9 in adult ([facility]) Discussed with patient their BMI (actual, verses recommended). We have also discussed lifestyle modifications: attempts to perform physical activity as chronic conditions allow, also to monitor dietary intake: increasing protein/fruits/veggies and lowering carb intake (unless contraindicated). Limit sodas, juices, and sugary drinks. Does take ozempic for DM * Esha Stanley NP - 05/10/2025 6:52 AM EDTAssociated Problem(s): Gastro- esophageal reflux disease without esophagitis Recommendations: freq small meals, nothing to eat or drink at least 2 hours prior to bed, limit caffeine, alcohol, as well as spicy foods Meds to limit or avoid if possible: NSAIDS Elevate HOB if possible Meds: PPI * Esha Stanley NP - 05/10/2025 6:51 AM EDTAssociated Problem(s): Type 2 diabetes mellitus with other circulatory complications (HCC) HTN, CAD, HLD Is under the care of [facility] Meds: ozempic, insulin, statin, arb, asa A1c: 7.6 (05/09/25), 8.6 ( 02/01) * Esha Stanley NP - 05/10/2025 6:51 AM EDTAssociated Problem(s): Essential hypertension Please check blood pressure daily and record DASH diet Limit caffeine Take medication as directed Contact office if chest pain, pressure, dizziness, shortness of breath, swelling legs Recommend slow position changes Current meds: hydrochlorothiazide, Imdur, olmasartan, b patricia * Esha Stanley NP - 05/10/2025 6:51 AM EDTAssociated Problem(s): CAD (coronary artery disease) Current meds: plavix, asa, statin, hydrochlorothiazide, nitroglycerin prn, ranexa, ARB, b patricia 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 It is recommended that you wear your PAP device any time while in bed sleeping. Not using the PAP device can increase your risk of elevated/uncontrolled high blood pressure, atrial fibrillation, heart attack, stroke, or sudden . Compliance with PAP: yes How many hours of use per night: 4-6 hrs Do you feel more refreshed in the morning: somewhat [employer] that supplies your machine and tubing/filters etc: [place] Doctor that manages your TAINA: [place] documented in this encounter Plan of Treatment Upcoming Encounters Date Type Department Care Team (Late st Contact Info) Description 2025 10:30 AM EDT [facility] Visit [facility] [address] [place] [address] Madi Pedroza PA [address] [place] [address] 07/12/2025 11:00 AM EDT Office Visit [facility] [address] [place] [address] Esha Stanley NP [address] [place] [phone] 09/08/2025 1:45 PM EDT Office Visit [facility] [address] [place] [phone] Amparo Haines DO [address] [place] [address] Scheduled Orders Name Type Priority Associated Diagnoses Orde r Schedule US scrotum Imaging Routine Groin pain, right Expected: 05/10/2025 (Approximate), Expires: 05/10/2026 documented as of this encounter Goals Goal Patient Goal Type Associated Problems Recent Progress Patient-Stated? 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 ([facility]) Gastro-esophageal reflux disease without esophagitis Class 3 severe obesity due to excess calories with serious comorbidity and body mass index (BMI) of 40.0 to 44.9 in adult ([facility]) Anxiety Anxiety state, unspecified Mixed hyperlipidemia Mixed hyperlipidemia Recurrent major depressive disorder, in partial remission Groin pain, right Candidiasis documented in this encounter Additional Health Concerns Active Problems Noted Date Diagnosed Date Patient on antidepressant monitoring plan 2023 Assessment Noted Time PHQ-9 Depression Total Score: 3 04/29/20 24 11:00 AM EDT documented as of this encounter Care Teams Authorizer Relationship Specialty Start Date End Date Jarad Garrison MD [address] [place] [phone] PCP - General Family Medicine 09/21/24 Esha Stanley NP [address] [place] [place] [address] Nurse Practitioner Family Medicine 01/05/25 documented as of this encounter
--- OUTSIDE RECORDS SUMMARY | 2025-05-11 13:15 | XMS_ITS | Encounter Summary ---
Author Organization [facility] Address [address] [place] [address] Care Team Providers Care Material Disposition Inspector Name Role Phone Jarad Garrison MD Primary Care Provider [phone] Esha Stanley FRESH FOODS CAKE DECORATOR Unavailable [phone] Reason for Referral * Clinic-Administered Medication (Routine) - Closed Specialty Diagnoses / Procedures Referred By Daniel turk Referred To Contact Orthopaedic Surgery Diagnoses Arthritis of left hip Procedures L Inj/Asp: L hip joint Madi Pedroza PA Phone: tel: fax: Referral ID Status Reason Start Date Expiration Date Visits Re quested Visits Authorized [id number] Closed 05/11/2025 11/07/2025 1 1 Reason for Visit * Reason Comments Pain Pain * Consultation (Routine) - Closed Specialty Diagnoses / Procedures Referred By Daniel turk Referred To Contact Orthopaedic Surgery Diagnoses Chronic hip pain, bilateral Esha Stanley, FRESH FOODS CAKE DECORATOR [address] [place] [address] Phone: tel: fax: Madi Pedroza PA Phone: tel: fax: Referral ID Status Reason Start Date Expiration Date V isits Requested Visits Authorized [id number] Closed Specialty Services Required 04/11/2025 10/08/2025 1 1 Encounter Details Date Type Department Care Team (Late st Contact Info) Description 05/11/2025 1:15 PM EDT [facility] Visit [facility] [address] [place] [address] Madi Pedroza PA [address] [place] [address] Acute hip pain, left (Primary Dx); Acute right hip pain; Chronic hip pain, bilateral; Arthritis of left hip; Sacroiliac joint pain Social History Tobacco Use Types Packs/Day Years [...] week 05/09/2025 How often do you attend rastafari or anabaptist serv ices? Patient declined 05/09/2025 Do you belong to any clubs o r organizations such as rastafari groups, unions, fraternal or athletic groups, or [...] Recorded Patient Health Questionnaire-2 Score 0 05/09/2025 [facility] - Occupational Stress [...] mortgage or rent on time? Patient declined 06/30/20 25 Number of Times Moved in the Last Year Not on fi le 05/09/2025 At any time in the past 12 m [facility], were you homeless or living in a long-term (including now)? No 05/09/2025 Sex and Gender Information Value Date Recorded Sex Assigned at Not on file Legal Sex Male 7:20 PM EDT Gender Identity Not on file Sexual Orientation Not on file Travel History Travel Start Travel End [place] 04/26/2025 04/27/2025 [place] 04/24/2025 04/26/2025 documented as of this encounter Progress Notes * MAGNUS Dodd - 05/11/2025 1:15 PM EDTAssociated Order(s): L Inj/Asp: L hip joint Post-Procedure Diagnose(s): Arthritis of left hip Images from the original note were not included. Orthopedic Office note: NAME: Hugo Aldana Jr. : 1960 NEW PT; ESHA FARRIS REFERRAL WITH B/L HIP PAIN, LT > RT. PAIN FOR A WHILE. UNSURE IF FROM HIPSOR BACK. XRAY WB PELVIS 03/31/25 [facility] (PUSHED TO CHANGE PACS) HX LT BURSA INJ DR JARRETT 04/[address] GONZALES HAD LT FOOT SX LESS THAN 2 YRS AGO. WALKS WITH A WALKING STICK. PAIN POSTERIOR AND LATERAL HIP. INCREASED PAIN WITH WB. ALSO IRRITATES IF HE SITS TOO LONG. +TIZANIDINE, GABAPENTIN. TAKES NSAIDS ONLY IF HE HAS TO, USUALLY AT HS. HARD TIME AT HS, SOMETIMES ONLY SLEEPS AN HOUR. DOES NOT LIKE INJECTIONS, DOES NOT GET RELIEF. +NUMBNESS. +POPPING. +GIVING OUT. HAS HAD A FALL. HX LOW BACK SURGERY YEARS AGO. Hip Musculoskeletal Exam Gait Gait is normal. Inspection Leg length disparity: no discrepancy Right Erythema: none Ecchymosis: none Edema: none Deformity: none Left Erythema: none Ecchymosis: none Edema: none Deformity: none Palpation Right Right hip palpation is normal. Increased warmth: none Tenderness: present Lower lumbar region pain: mild Lower lumbar region pain comment: SI joint Left Left hip palpation is normal. Increased warmth: none Tenderness: present Lower lumbar region pain: mild Lower lumbar region pain comment: SI joint Range of Motion Right Right hip range of motion is within functional limits. Active ROM: normal. Passive ROM: normal. Left Left hip range of motion is within functional limits. Active ROM: normal. Passive ROM: normal. Strength Right Right hip strength is normal. Extension: 5/5. Flexion: 5/5. Internal rotation: 5/5. External rotation: 5/5. Adduction: 5/5. Abduction: 5/5. Left Left hip strength is normal. Extension: 5/5. Flexion: 5/5. Internal rotation: 5/5. External rotation: 5/5. Adduction: 5/5. Abduction: 5/5. Neurovascular Right Right hip neurovascular exam is normal. Pulses - PT: normal Posterior tibial: 2+ Left Left hip neurovascular exam is normal. Pulses - PT: normal Posterior tibial: 2+ Special Tests Right Log roll test: positive LAURA test (right): positive Impingement test: positive Left Log roll test: positive LAURA test (left): positive Impingement test: positive General Constitutional: appears stated age Labored breathing: no Psychiatric: normal mood and affect Neurological: alert and oriented x3 Skin: intact Lymphadenopathy: none Orders Placed This Encounter Procedures L Inj/Asp This order was created via procedure documentation L Inj/Asp: L hip joint on 05/11/2025 1:49 PM Indications: pain and diagnostic evaluation Details: 22 G needle, ultrasound-guided anterolateral approach Medications: 40 mg methylPREDNISolone acetate 40 MG/ML; 2 mL bupivacaine PF 0.5 % Outcome: tolerated well, no immediate complications With patient supine, the left hip was sterilely prepped with isopropyl alcohol. The isopropyl alcohol was allowed to dry. The ultrasound was used to eval the anatomy of the hip joint. The femoral neck and femoral shaft and femoral head were well visualized. A plain was established that avoided any neurovascular structures and a 20 G spinal needle was inserted under ultrasound guidance toward the head neck junction. The needle was seen to enter the joint with imaging capturing proper placement of the needle. 40mg depomedrol was injected and patient tolerated procedure well. After needle removal a steril Band-Aid was placed and hemostasis was achieved. Images captured to pt's chart. ( Codes 20 611-LT) Procedure, treatment alternatives, risks and benefits explained, specific risks discussed. Consent was given by the patient. Patient was prepped and draped in the usual sterile fashion. Results Xray Pelvis [facility] 03/31/25: Assessment is slightly limited by osteopenia and body habitus. No acute fracture, dislocation or bony destruction is seen. The hip joint spaces are symmetric. There is mild marginal spurring. Enthesophytes are noted at the iliac crests, greater trochanters and ischial tuberosities. There is sclerosis at the SI joints. There is also hypertrophy at the lower imaged lumbar spine.. There are no soft tissue abnormalities. IMPRESSION: DEGENERATIVE CHANGES. NO ACUTE BONY FINDINGS ICD-10-CM 1. Acute hip pain, left M25.552 2. Acute right hip pain M25.551 3. Chronic hip pain, bilateral M25.551 Ambulatory referral to Orthopaedic Surgery M25.552 G89.29 4. Arthritis of left hip M16.12 5. Sacroiliac joint pain M53.3 Assessment & Plan Bilateral hip pain, left greater than right. He exhibits symptoms indicative of sacroiliac (SI) joint pain and left hip impingement. Degenerative changes in his hip joint were observed on x-ray. Both surgical and nonsurgical treatment options were discussed, along with his previous experiences with pain management. He is currently on Plavix, and the risks and benefits of the procedure were thoroughly discussed at bedside. He expressed gratitude and had no further concerns or questions. He is agreeable to try a left hip intra-articular injection if he does not experience relief. If necessary, a referral to pain management for an SI jointinjection will be considered. A follow-up in 3 weeks is planned, during which an injection in the right hip may be considered given similar symptoms. Diagnostic plan: X-ray. Treatment plan: Left hip intra-articular injection, referral to pain management for SI joint injection if necessary. Clinical decision making: Risks and benefits of the procedure were thoroughly discussed at bedside. Follow-up: The patient will follow up in 3 weeks for right hip injection ( discussed today at bedside) Questions answered in laymen terms at the bedside. The diagnosis, home exercise plan and any ongoing restrictions/ recommendations reviewed. If unable to be reached in office, I recommend evaluation at nearest Emergency Room if any symptoms worsened or new symptoms develop for requiring urgent evaluation. Visit was preformed using [employer]-private pilot speech recognition. documented in this encounter Plan of Treatment Upcoming Encounters Date Type Department Care Team (Late st Contact Info) Description 2025 10:30 AM EDT Office Visit [facility] [address] [place] [id number] Madi Pedroza PA [address] [place] [place] [address] 07/12/2025 11:00 AM EDT Office Visit [facility] [address] [place] [address] Esha Stanley NP [address] [place] [address] 09/08/2025 1:45 PM EDT Office Visit [facility] [address] [place] [address] Amparo Haines DO [address] [place] [address] documented as of this encounter Goals Goal Patient Goal Type Associated Problems Recent Progress Patient-Stated? Author Help patient manage antidepressant medication Care Plan Patient on antidepressant monitoring plan No Mei Ireland NP documented as of this encounter Procedures Procedure Name Priority Date/Time Associated Diagnosis Comments ME ARTHROCENTESIS ASPIR&/INJ MAJOR JT/BURSA W/US Routine 05/11/2025 1:49 PM EDT Arthritis of left hip documented in this encounter Results * ME ARTHROCENTESIS ASPIR&/INJ MAJOR JT/BURSA W/US (05/11/2025 1:49 PM EDT) Narrative Madi Pedroza PA - 05/11/2025 1:49 PM EDT MAGNUS Dodd 05/11/2025 2:23 PM L Inj/Asp: L hip joint on 05/11/2025 1:49 PM Indications: pain and diagnostic evaluation Details: 22 G needle, ultrasound-guided anterolateral approach Medications: 40 mg methylPREDNISolone acetate 40 MG/ML; 2 mL bupivacaine PF 0.5 % Outcome: tolerated well, no immediate complications With patient supine, the left hip was sterilely prepped with isopropyl alcohol. The isopropyl alcohol was allowed to dry. The ultrasound was used to eval the anatomy of the hip joint. The femoral neck and femoral shaft and femoral head were well visualized. A plain was established that avoided any neurovascular structures and a 20 G spinal needle was inserted under ultrasound guidance toward the head neck junction. The needle was seen to enter the joint with imaging capturing proper placement of the needle. 40mg depomedrol was injected and patient tolerated procedure well. After needle removal a steril Band-Aid was placed and hemostasis was achieved. Images captured to pt's chart. ( Codes 71563-RW) Procedure, treatment alternatives, risks and benefits explained, specific risks discussed. Consent was given by the patient. Patient was prepped and draped in the usual sterile fashion. us Madi AGUDELO IN CLINIC/BEDSIDE ORDERABLES Final Result documented in this encounter Visit Diagnoses Diagnosis Acute hip pain, left- Primary Acute right hip pain Chronic hip pain, bilateral Arthritis of left hip Sacroiliac joint pain Disorders of sacrum documented in this encounter Administered Medications Inactive Administered Medications - up to 3 most recent administrations Medication Order MAR Action Action Date Dose Rate Site bupivacaine PF (Marcaine) 0.5 % injection 2 mL 2 mL, Injection, Once PRN Procedure, Starting on Fri05/11/25 at 1349, For 1 doseIndications:Arthritis of left hip Given 05/11/2025 1:49 PM EDT 2 mL methylPREDNISolone acetate (DEPO-Medrol) injection 40 mg 40 mg, Intra-articular, Once PRN Procedure, Starting on Fri05/11/25 at 1349, For 1 doseIndications:Arthritis of left hip Given 05/11/2025 1:49 PM EDT 40 mg documented in this encounter Additional Health Concerns Active Problems Noted Date Diagnosed Date Patient on antidepressant monitoring plan 2023 Assessment Noted Time PHQ-9 Depression Total Score: 3 04/29/20 24 11:00 AM EDT documented as of this encounter Care Teams Material Disposition Inspector Relationship Specialty Start Date End Date Jarad Garrison MD [address] [place] [address] PCP - General Family Medicine 09/21/24 Esha Stanley NP [address] [place] [address] Nurse Practitioner Family Medicine 01/05/25 documented as of this encounter
--- OUTSIDE RECORDS SUMMARY | 2025-05-24 09:56 | XMS_ITS | Clinical Summary ---
Author Organization [facility] Address [id number] [address] [place] [address] Care Team Providers Care Emergency Preparedness Coordinator Name Role Phone YanycMadi Paul ABRAMS Primary Care Provider [phone] Allergies No known active allergies Medications telmisartan [...] Take 1,200 Units by mouth daily. Active rarqxktk-lfkl-I A-calcium &mins (THERAGRAN-M) 9 mg iron-400 mcg [...] 06/20/2027 06/20/2017 Medical Devices Implanted Type Area Oil Furnace Installer Device Identifier Shelf Expiration Date Model / Serial / Lot Stpl [id number] [facility] Ntnl Bn - Sna - [id number] Implanted:Qty : 1 on 12/29/2020 by Kwesi Dennison DPM at [facility] Orthopedic Implant Left: Foot [employer] 09/20/2025 [id number] 818-S / NA / [id number] Ntnl Bn - Sna - [id number] Implanted:Qty : 1 on 12/29/2020 by Kwesi Dennison DPM at [facility] Orthopedic Implant Left: Foot [employer] 10/13/2022 [id number] 020-S / NA / [id number] Plt [employer] - Sna - [id number] Implanted:Qty : 1 on 12/29/2020 by Kwesi Dennison DPM at [facility] Plate Left: Foot [employer] 11/10/2024 [id number] 002 / NA / NA Scr Cnn Shrthrd Hdls 7.0x90mm - Sna - [id number] Implanted:Qty : 1 on 12/29/2020 by Kwesi Dennison DPM at [facility] Screw Left: Foot [employer] 11/10/2024 [id number] 90S / NA / NA Scr Cnn Shrthrd Hdls 7.2h561eb - Sna - [id number] Implanted:Qty : 1 on 12/29/2020 by Kwesi Dennison DPM at [facility] Screw Left: Foot [employer] 11/10/2024 [id number] 00S / NA / NA Scr Cnn Shrthrd Hdls 5.5x60mm - Sna - [id number] Implanted:Qty : 1 on 12/29/2020 by Kwesi Dennison DPM at [facility] Screw Left: Foot [employer] 11/10/2024 [id number] 60S / NA / NA Scr Plt Nlckg 3.5x20mm R3con - Sna - [id number] Implanted:Qty : 2 on 12/29/2020 by Kwesi Dennison DPM at [facility] Screw Left: Foot [employer] 11/10/2024 [id number] 520 / NA / NA Scr Plt Nlckg 3.5x50mm R3con - Sna - [id number] Implanted:Qty : 2 on 12/29/2020 by Kwesi Dennison DPM at [facility] Screw Left: Foot [employer] 11/10/2024 [id number] 550 / NA / NA Explanted Type Area Oil Furnace Installer Device Identifier Shelf Expiration Date Model / Serial / Lot K-Wire Sgl End Smth [id number] - Sna - [id number] Explanted:Qty : 6 on 12/29/2020 by Kwesi Dennison DPM at [facility] Orthopedic Implant Left: Foot [employer] 11/10/2024 [id number] 323 / NA / NA K-Wire Sgl End Smth 1.0s203dg - Sna - [id number] Explanted:Qty : 3 on 12/29/2020 by Kwesi Dennison DPM at [facility] Orthopedic Implant Left: Foot [employer] 11/10/2024 [id number] 615 / NA / NA K-Wire Sgl End Smth [id number] - Sna - [id number] Explanted:Qty : 1 on 12/29/2020 by Kwesi Dennison DPM at [facility] Orthopedic Implant Left: Foot [employer] 11/10/2024 [id number] 415 / NA / NA Insurance [place]ICAID [place] Member Subscriber Plan / Payer (Ef fective 2021-Present) Name:Hugo Aldana Jr. Relation to Subscriber:Self Name:Hugo Aldana Jr. Payer ID:Not on file Group ID:Not on file Type:Not on file Address: [address] Care Teams Emergency Preparedness Coordinator Relationship Specialty Start Date End Date Madi Haines DO [address] [place] [address] PCP - General Family Medicine 04/27/21
--- OUTSIDE RECORDS SUMMARY | 2025-05-24 09:56 | XMS_ITS | Encounter Summary ---
Author Organization [facility] Address [address] [place] [address] Phone Care Team Providers Care Mingle Operator Name Role Phone Shaikh WAYNE Bangura Primary Care Provider [phone] Encounter Details Date Type Department Care Team (Late st Contact Info) Description 10/07/2023 Scanned Document [facility] [address] [place] [phone] Scanning, Generic Provider Social History Tobacco Use [...] Description 09/06/2025 11:00 AM EDT Office Visit [facility] [address] [facility] [address] [place] [address] Hue Mendoza, SOCIOLOGY INSTRUCTOR-STEEL SASH ERECTOR [address] [facility] [address] [place] [address] documented as of this encounter Visit Diagnoses Not on filedocumented in this encounter Care Teams Mingle Operator Relationship Specialty Start Date End Date Shaikh Bangura MD PCP - General 06/26/22 documented as of this encounter
--- OUTSIDE RECORDS SUMMARY | 2025-05-24 09:56 | XMS_ITS | Clinical Summary ---
Author Organization [facility] Address [address] [place] [address] Phone Care Team Providers Care Ict Quality Assurance Engineer Name Role Phone Shaikh WAYNE Bangura Primary Care Provider [phone] Allergies No known active allergies Medications apple cider vinegar 600 mg capsule Take 2 capsules by mouth once daily. Active pedi multivit no.17 w-fluoride (Kqyt-Wk-Polz) 0.5 mg tablet,chewable Chew 1 tablet once [...] Encounters Date Type Department Care Team Description 03/30/[address] [facility] [address] [place] [address] Erich Cherry, 03/30/2025 Scanned Document [facility] [address] [place] [address] Scanning, Generic Provider from Last 3 Months Immunizations Immunization Administration [...] Description 09/06/2025 11:00 AM EDT Office Visit [facility] [address] [facility] [address] [place] [address] Hue Mendoza, TEXTURE ARTIST-PC TECHNICIAN [address] [facility] [address] [place] [address] Health Maintenance Due Date Last Done Comments [...] COVID-19 Vaccine (2 - season) 2024 08/25/2022 Influenza Vaccine (#1) 2025 4, 09/10/2024, 09/10/2023, Additional history exists DTaP/Tdap/Td Vaccines (2 - Td or Tdap) 06/20/2027 06/20/2017 Sigmoidoscopy 08/27/2028 08/27/2023 Colonoscopy 11/02/2030 11/02/2020, 11/02/2020 Colorectal Cancer Screening 11/02/2030 MMR Vaccines Completed 06/20/2017 Hepatitis B Vaccines Completed 12/20/2017, 07/25/2017, 06/20/2017 Irritable Bowel Syndrome Discontinued 11/02/2020 HIB Vaccines Aged Out No longer eligi ble based on patient's age to complete this topic HPV Vaccines (No Doses Required) Completed Hepatitis A Vaccines Aged Out No long [...] on patient's age to complete this topic Procedures Procedure Name Priority Date/Time Associated Diagnosis Comments C-REACTIVE PROTEIN Routine 03/30/2025 10 :10 AM EDT OUTSIDE LAB SCAN 03/30/2025 OUTSIDE LAB SCAN 03/30/2025 from Last 3 Months Results * C-Reactive Protein (03/30/2025 10:10 AM EDT) C-REACTIVE PROTEIN <3.0 <8.0 mg/L [facility] 03/30/2025 10:1 0 AM EDT 03/30/2025 10:10 AM EDT Erich Cherry DO LAB BLOOD ORDERABLES Final Result [address], [address] [place] [phone] * OUTSIDE LAB SCAN (03/30/2025) Only the most recent of2 resultswithin the time period is included. Narrative 03/30/2025 Ordered by an unspecified provider. Generic Provider Scanning OUTSIDE SCAN Final Result from Last 3 Months Insurance [employer] MEDICAID [employer] Care Teams Ict Quality Assurance Engineer Relationship Specialty Start Date End Date Shaikh Bangura MD PCP - General 06/26/22
--- OUTSIDE RECORDS SUMMARY | 2025-05-24 09:56 | XMS_ITS | Clinical Summary ---
Author Organization [facility] Address [address] [place] [address] Care Team Providers Care Manager Of Construction Name Role Phone Jarad Garrison MD Primary Care Provider [phone] Esha Stanley NP Unavailable [phone] Allergies No known active allergies Medications [...] mouth in the morning. 3 Active Nystop 640427 UNIT/GM powder APPLY TO AFFECTED SKIN TOPICALLY [...] diabetes mellitus with other circulatory complications (HCC) Take 1 tablet (600 mg) by mouth in the morning and 1 tablet (600 mg) in the evening and 1 tablet (600 mg) before bedtime. 270 tablet 3 3 Active empagliflozin (Jardiance) 10 MGIndications:Typ e 2 diabetes mellitus with other circulatory complications (HCC) TAKE 1 TABLET BY MOUTH DAILY 90 tablet 1 4 Active hydroCHLOROthiazi de (HYDRODiuril) 25 MG tabletIndications :Essential (primary) hypertension TAKE 1 TABLET BY MOUTH DAILY 90 [...] :Recurrent major depressive disorder, in partial remission Take 1 tablet (10 mg) by mouth [...] diabetes mellitus with other circulatory complications (HCC) Inject 2 mg under the skin 1 (one) time per week 3 mL 5 Active pen needle 32G x 4 mm miscIndications:T ype 2 diabetes mellitus with other circulatory complications (HCC) Injections once a day 100 each 5 Active metFORMIN (Glucophage) 1000 MG tabletIndications :Type 2 diabetes mellitus with other circulatory complications (HCC) TAKE 1 TABLET BY MOUTH IN THE MORNING and ONE TABLET BY MOUTH IN THE EVENING. TAKE WITH MEALS 180 tablet 1 5 Active insulin degludec (Tresiba FlexTouch) 200 UNIT/ML injectionIndicati ons:Type 2 diabetes mellitus with other circulatory complications (HCC) Inject 50 Units under the skin Daily 9 mL 5 Active nystatin (Mycostatin) creamIndications: Candidiasis Apply topically in the morning and before bedtime. Do all this for 21 days. 30 g 1 5 025 Active Hospital, Clinic, or Other Facility Administered Medication Ordered Dose Route Frequency Start Date End Date Status bupivacaine PF (Marcaine) 0.5 % injection 2 mLIndications:Arthri tis of left hip 2 mL IJ Once PRN Procedure 05/11/2025 05/11/2025 Ended methylPREDNISolone acetate (DEPO-Medrol) injection 40 mgIndications:Arthri tis of left hip 40 mg IX Once PRN Procedure 05/11/2025 05/11/2025 Ended Active Problems Problem Noted Date Diagnosed Date Groin pain, right 05/10/2025 Candidiasis 05/10/2025 Chronic hip pain, bilateral 03/29/2025 Prostate cancer screening 03/23/2025 Overview (03/31/2025): PSA: 03/30/25 0.23 Right hip pain 04/29/2024 Assessment & Plan [...] as needed for pain. Recurrent major depressive disorder, in partial remission 10/09/2023 Assessment & Plan (05/10/2025 6:54 AM EDT): On lexapro Assessment & Plan (10/18/2024 10:48 AM EST): [...] related to new medications. 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 Hugo Verdin Jr. is making improvements and encouraged on this. , Will stay on current medications. , Instructions given today include: Dietary education Assessment & Plan (01/11/2025 12:03 PM EST): [...] have any problems or questions. Hugo Jovan Jr. blood sugars are worsening. , Will [...] they have any problems or questions. Hugo Verdin Jr. control is stable overall. , [...] they have any problems or questions. Hugo Verdin Jr. control is stable overall. , Will [...] they have any problems or questions. Hugo Verdin Jr. is struggling to gain control of [...] they have any problems or questions. Hugo Verdin Jr. control is stable overall. , Will [...] they have any problems or questions. Hugo Verdin Jr. is doing okay. , Discussed dietary changes at length. Encouraged to limit simple carbs and focus more on healthy protein/fat with all meals and snacks. They should also avoid any sugary drinks. , Instructions given today include: Dietary education. Will increase toujeo. He is to continue working on improving his diet. Anxiety 06/03/2023 Assessment & Plan (05/10/2025 6:53 AM EDT): Current meds: buspar and lexapro Arthritis of left hip 06/03/2023 DISH (diffuse idiopathic skeletal hyperostosis) 06/03/2023 Essential hypertension 06/03/2023 Assessment & Plan (05/10/2025 6:53 AM EDT): Please check blood pressure daily and record DASH diet Limit caffeine Take medication as directed Contact office if chest pain, pressure, dizziness, shortness of breath, swelling legs Recommend slow position changes Current meds: hydrochlorothiazide, Imdur, olmasartan, b patricia Assessment & Plan (10/18/2024 10:53 AM EST): [...] Gastro-esophageal reflux disease without esophag itis 06/03/2023 Assessment & Plan (05/10/2025 6:52 AM EDT): Recommendations: freq small meals, nothing to eat or drink at least 2 hours prior to bed, limit caffeine, alcohol, as well as spicy foods Meds to limit or avoid if possible: NSAIDS Elevate HOB if possible Meds: 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 We have also discussed lifestyle modifications: attempts to perform physical activity as chronic conditions allow, also to monitor dietary intake: increasing protein/fruits/veggies and lowering carb intake (unless contraindicated). Limit sodas, juices, and sugary drinks. Does take ozempic for DM Assessment & Plan (10/18/2024 10:47 AM EST): [...] (04/29/2024 11:40 AM EDT): Trial of Tizanidine Nocturia 09/30/2023 05/10/2025 Severe obesity 06/04/2023 01/08/2024 Pure hypercholesterolemia 06/03/2023 Simple chronic bronchitis 06/03/2023 Type 2 diabetes mellitus wit hout complications 06/03/2023 01/08/2024 Diabetes mellitus 06/03/2023 06/04/2023 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 04/25/2022 01/08/2024 Hyperglycemia due to type 2 diabetes mellitus 08/22/2001/08/2024 Encounters Date Type Department Care Team Description 05/11/2025 1:15 PM EDT Office Visit [facility] [address] [place] [address] Madi Pedroza PA Acute hip pain, left (Primary Dx); Acute right hip pain; Chronic hip pain, bilateral; Arthritis of left hip; Sacroiliac joint pain 05/11/2025 Bamboo flowsheet [facility] [place] [address] Madi Pedroza PA 05/11/2025 Travel 05/10/2025 1:20 PM EDT Office Visit [facility] [address] [place] [address] Esha Stanley NP Essential hypertension (Primary Dx); Obstructive sleep apnea syndrome; Coronary artery disease of [place] artery of [place] heart with stable angina pectoris ; Type 2 diabetes mellitus with other circulatory complications (HCC); Gastro-esophageal reflux disease without esophagitis; Class 3 severe obesity due to excess calories with serious comorbidity and body mass index (BMI) of 40.0 to 44.9 in adult ([facility]-H[facility]); Anxiety; Mixed hyperlipidemia ; Recurrent major depressive disorder, in partial remission ; Groin pain, right; Candidiasis 05/10/2025 Bamboo flowsheet [facility] [address] [place] [address] Esha Stanley NP 05/09/2025 1:15 PM EDT Office Visit [facility] [address] [place] [address] Amparo Haines DO [facility] (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 of insulin (HCC) (Primary Dx); Type 2 diabetes mellitus with other circulatory complications (HCC); Class 3 severe obesity due to excess calories with serious comorbidity and body mass index (BMI) of 40.0 to 44.9 in adult ([facility]-HCC) 05/09/2025 Travel 04/19/2025 Telephone [facility] [address] [place] [phone] Kelly Lopez LPN PAP rec'd (Tresiba U-100 *should be U-200* (4), Ozempic (4) and pen needles (2). ) 04/11/2025 Refill [facility] [address] [place] [address] Esha Stanley NP Chronic hip pain, bilateral (Primary Dx) 03/31/2025 Clinisync Result Encounter [facility] External Department Unsolicited Esha Stanley NP 03/29/2025 Orders Only [facility] [address] [place] [address] Esha Stanley NP Chronic hip pain, bilateral (Primary Dx) 03/28/2025 Telephone [facility] [address] [place] [address] sEha Stanley NP from Last 3 Months Immunizations Immunization Administration Dates Next Due Hep B, adult 12/20/2017,07/25/2017,06/20/2017 Influenza, High Dose Seasona l, Preservative Free 09/16/2020 Influenza, Madin Myrtle Canin e Kidney, subunit, trivalent, injectable, contains [...] week 05/09/2025 How often do you attend confucianism or scientologist serv ices? Patient declined 05/09/2025 Do you belong to any clubs o r organizations such as confucianism groups, unions, fraternal or athletic groups, or [...] Recorded Patient Health Questionnaire-2 Score 0 05/09/2025 [facility] - Occupational Stress [...] any time in the past 12 [facility], were you homeless or living in a residential (including now)? No 05/09/2025 Sex and Gender Information Value Date Recorded Sex Assigned at Not on file Legal Sex Male 7:20 PM EDT Gender Identity Not on file Sexual Orientation Not on file Travel History Travel Start Travel End [place] 04/26/2025 04/27/2025 [place] 04/24/2025 04/26/2025 Last Filed Vital Signs Vital Sign Reading Time Taken Comments Blood Pressure 120/80 05/10/2025 1:20 PM EDT Pulse 95 05/10/2025 1:20 PM EDT Temperature 36.7 C (98.1 F) 05/10/2025 1:20 PM EDT Respiratory Rate 20 05/10/2025 1:20 PM EDT Oxygen Saturation 96% 05/10/2025 1:20 PM EDT Inhaled Oxygen Concentration - - Weight 153 kg (337 lb) 05/10/2025 1:20 PM EDT Height 188 cm (6' 2 ) 05/09/2025 12:51 PM EDT Body Mass Index 43.27 05/09/2025 12:51 PM EDT Plan of Treatment Upcoming Encounters Date Type Department Care Team (Late st Contact Info) Description 2025 10:30 AM EDT Office Visit [facility] [address] [place] [address] Madi Pedroza PA [address] [place] [address] 07/12/2025 11:00 AM EDT Office Visit [facility] [address] [place] [phone] Esha Stanley NP [address] [place] [address] 09/08/2025 1:45 PM EDT Office Visit [facility] [address] [place] [address] Amparo Haines DO [address] [place] [address] Health Maintenance Due Date Last Done Comments CT Colonography 1960 FIT-DNA 1960 FIT 1960 FOBT 1960 Sigmoidoscopy 1960 Medicare Annual Wellness (AWV) 04/29/2025 04/29/2024 Influenza Vaccine (#1) 2025 4, 09/10/2024, 09/10/2023, Additional history exists Diabetes: Retinopathy Screening 10/29/2025 3, 08/23/2021 Diabetes: Hemoglobin A1C 11/08/2025 025, 01/10/2025, 09/13/2024, Additional history exists Diabetes: Urine Protein Screening 03/30/2026 03/30/2025, 08/27/2021, 08/22/2020 Colonoscopy 11/02/2030 11/02/2020, 11/02/2020 Colorectal Cancer Screening 11/02/2030 Goals Goal Patient Goal Type Associated Problems Recent Progress Patient-Stated? Author Help patient manage antidepressant medication Care Plan Patient on antidepressant monitoring plan No Mei Ireland NP Procedures Procedure Name Priority Date/Time Associated Diagnosis Comments AR ARTHROCENTESIS ASPIR&/INJ MAJOR JT/BURSA W/US Routine 05/11/2025 1:49 PM EDT Arthritis of left hip POCT GLYCOSYLATED HEMOGLOBIN (HGB A1C) Routine 05/09/2025 1:22 PM EDT Type 2 diabetes mellitus with other circulatory complications (HCC) XR PELVIS 1-2 VIEWS 03/31/2025 2 :07 PM EDT MICROALBUMIN / CREATININE URINE RATIO Routine 03/30/2025 10:28 AM EDT Essential hypertension Type 2 diabetes mellitus with other circulatory complications (HCC) URINALYSIS REFLEX Routine 03/30/2025 10: 28 AM EDT Essential hypertension Type 2 diabetes mellitus with other circulatory complications (HCC) PSA, TOTAL Routine 03/30/2025 10:02 AM EDT Prostate cancer screening LIPID PANEL Routine 03/30/2025 10:02 AM EDT Coronary artery disease of [place] artery of [place] heart with stable angina pectoris Type 2 diabetes mellitus with other circulatory complications (HCC) Mixed hyperlipidemia COMPREHENSIVE METABOLIC PANEL Routine 03/30/2025 10:02 AM EDT Essential hypertension Coronary artery disease of [place] artery of [place] heart with stable angina pectoris Type 2 diabetes mellitus with other circulatory complications (HCC) Mixed hyperlipidemia CBC (INCLUDES DIFF/PLT) Routine 03/30/2025 10:02 AM EDT Obstructive sleep apnea syndrome Coronary artery disease of [place] artery of [place] heart with stable angina pectoris Gastro-esophageal reflux disease without esophagitis DIABETIC RETINOPATHY SCREENING - OU - BOTH EYES Routine 10/29/2023 9:37 AM EST COLONOSCOPY Routine 11/02/2020 12:00 PM EST from Last 3 Months or Most Recently Relevant to Health Maintenance Results * AR ARTHROCENTESIS ASPIR&/INJ MAJOR JT/BURSA W/US (05/11/2025 1:49 [...] Images captured to pt's chart. ( Codes 09341-SI) Procedure, treatment alternatives, risks and benefits explained, specific risks discussed. Consent was given by the patient. Patient was prepped and draped in the usual sterile fashion. us Madi AGUDELO IN CLINIC/BEDSIDE ORDERABLES Final Result * POCT glycosylated hemoglobin (Hb A1C) docked device (05/09/2025 1:22 PM EDT) Hemoglobin A1C 7.6 Blood Venous blood specimen / Unknown 05/09/2025 1:22 PM EDT Amparo Haines DO POINT OF CARE TEST ENTER/E DIT ORDERABLES Final Result * XR pelvis 1 or 2 views (03/31/2025 2:07 PM EDT) Anatomical Region Laterality Modality Body, Pelvis Radiographic Lety ging 03/31/2025 2:07 PM EDT Narrative 03/31/2025 2:10 [place] [address] XRay Report Signed Patient: HUGO VERDIN MR#: [id number] : 1960 Acct:[id number] Age/Sex: 64 / M ADM Date: 03/31/25 Loc: RAD Attending Dr: Esha Stanley NP Ordering Physician: Esha Stanley NP Date of Service: 03/31/25 Procedure(s): XR pelvis 1-2V Accession Number(s): [id number] cc: Esha Stanley NP [facility] [place] [id number] Patient Name: HUGO VERDIN MRN: [id number] date: 1960 Sex: M Assigned Patient Location: RAD Current Patient Location: RAD Accession/Order Number: [id number] Exam Date: 03/31/2025 14:04 Report Date: 03/31/2025 14:07 At the request of: ESHA STANLEY NP Procedure: XR pelvis 1-2V AP WEIGHTBEARING PELVIS: CLINICAL HISTORY: Chronic bilateral hip pain with recent worsening. No injury. COMPARISON: Right hip 04/29/[address] 01/06/2023 Assessment is slightly limited by osteopenia and [...] spine.. There are no soft tissue abnormalities. XR/XR pelvis 1-2V IMPRESSION: DEGENERATIVE CHANGES. NO ACUTE BONY FINDINGS. Impression dictated by: Candelaria Che M.D. 03/31/2025 2:07 PM Dictation Location: [place] [address] Electronically authenticated by: [id number] Y Date: 03/31/2025 14:07 Dictated By: Candelaria Che M.D. Signed By: 03/31/25 1410 DD/ 1407 TD/TT: Ghost Writer: Procedure Note Radiology, Radiologist, MD - 03/31/2025 [place] [address] XRay Report Signed Patient: HUGO VERDIN NMR#: [id number] : 1960cct:[id number] Age/Sex: 64 / MADM Date: 03/31/25 Loc: [facility] Attending Dr: Esha Stanley NP Ordering Physician: Esha Stanley NP Date of Service: 03/31/25 Procedure(s): XR pelvis 1-2V Accession Number(s): [id number] cc: Esha Stanley NP [place] [address] Patient Name: HUGO VERDIN MRN: [id number] date: 1960 Sex: M Assigned Patient Location: [facility] Current Patient Location: [facility] Accession/Order Number: [id number] Exam Date: 03/31/2025 14:04 Report Date: 03/31/2025 14:07 At the request of: ESHA STANLEY NP Procedure: XR pelvis 1-2V AP WEIGHTBEARING PELVIS: CLINICAL HISTORY: Chronic bilateral hip pain with recent worsening. No injury. COMPARISON: Right hip 04/29/[address] 01/06/2023 Assessment is slightly limited by osteopenia and body habitus. No acute fracture, dislocation or bony destruction is seen. The hip joint spacesare symmetric. There is mild marginal spurring. Enthesophytes are noted atthe iliac crests, greater trochanters and ischial tuberosities. There is sclerosis at the SI joints. There is also hypertrophy at the lower imaged lumbar spine.. There are no soft tissue abnormalities. XR/XR pelvis 1-2V IMPRESSION: DEGENERATIVE CHANGES. NO ACUTE BONY FINDINGS. Impression dictated by: Candelaria Che M.D. 03/31/2025 2:07 PM Dictation Location: [place] [address] Electronically authenticated by: [id number] Y Date: 4:07 Dictated By: Candelaria Che M.D. Signed By:03/31/25 1410 DD/ 1407 TD/TT: Ghost Writer: us Esha Stanley EXPEDITION SUPERVISOR IMG XR PROCEDURES Final Result * Microalbumin / creatinine, urine ratio (03/30/2025 10:28 AM EDT) CREATININE, RANDOM URINE 66 20 - 320 mg/dL [facility] ALBUMIN, URINE 0.2 See Note: mg/dL [facility] Comment: Reference Range: Reference Range Not established ALBUMIN/CREATININE RATIO, RANDOM URINE 3 <30 mg/g creat [facility] Comment: The ADA defines abnormalities in albumin excretion as follows: Albuminuria Category Result (mg/g creatinine) Normal to Mildly increased <30 Moderately increased 30-299 Severely increased > OR = 300 The ADA recommends that at least two of three specimens collected within a 3-6 month period be abnormal before considering a patient to be within a diagnostic category. Urine Urine specimen obtained by clean catch procedure / Unknown 03/30/2025 10:28 AM EDT 03/30/2025 2:22 PM EDT Narrative [facility] - 03/31/2025 11:11 AM EDT SPLIT 03/30/2025 FROM [id number] Resulting Agency Comment Performing Organization Information Site ID: QPT Name: [employer] [facility] Address: [address] [place] [address], [address] [place] [address] Director: Channing Mendieta MD us Esha Stanley EXPEDITION SUPERVISOR LAB URINE ORDERABLES Final Resu lt Performing Organization Address [facility]/ZIP Co de Phone Number [facility] * (ABNORMAL) Urinalysis with reflex microscopic (clean catch) (03/30/2025 10:28 AM EDT) COLOR YELLOW YELLOW [facility] APPEARANCE SLIGHTLY CLOUDY(A) CLEAR [facility] SPECIFIC GRAVITY 1.015 1.001 - 1.035 [facility] PH 5.5 5.0 - 8.0 [facility] GLUCOSE 2+(A) NEGATIVE [facility] BILIRUBIN NEGATIVE NEGATIVE [facility] KETONES NEGATIVE NEGATIVE [facility] OCCULT BLOOD NEGATIVE NEGATIVE [facility] PROTEIN NEGATIVE NEGATIVE [facility] NITRITE NEGATIVE NEGATIVE [facility] LEUKOCYTE ESTERASE NEGATIVE NEGATIVE [facility] Urine Urine specimen obtained by clean catch procedure / Unknown 03/30/2025 10:28 AM EDT 03/30/2025 2:22 PM EDT Narrative [facility] - 03/31/2025 11:11 AM EDT SPLIT 03/30/2025 FROM [id number] Resulting Agency Comment Performing Organization Information Site ID: QTW Name: [facility] Address: [address] [place] [id number] Director: Kelly Adames us Esha Stanley EXPEDITION SUPERVISOR LAB URINE ORDERABLES Final Resu lt Performing Organization Address [facility] de Phone Number [facility] * CBC and differential (03/30/2025 10:02 AM EDT) WHITE BLOOD CELL COUNT 8.7 3.8 - 10.8 Thousand/u L [facility] RED BLOOD CELL COUNT 5.21 4.20 - 5.80 Million/uL [facility] HEMOGLOBIN 16.8 13.2 - 17.1 g/dL [facility] HEMATOCRIT 48.8 38.5 - 50.0 % [facility] MCV 93.7 80.0 - 100.0 fL [facility] MCH 32.2 27.0 - 33.0 pg [facility] MCHC 34.4 32.0 - 36.0 g/dL [facility] Comment: For adults, a slight decrease in the calculated MCHC value (in the range of 30 to 32 g/dL) is most likely not clinically significant; however, it should be interpreted with caution in correlation with other red cell parameters and the patient's clinical condition. RDW 12.8 11.0 - 15.0 % [facility] PLATELET COUNT 215 140 - 400 Thousand/u L [facility] MPV 9.2 7.5 - 12.5 fL [facility] ABSOLUTE NEUTROPHILS 6,508 1,500 - 7,800 cells/uL [facility] ABSOLUTE LYMPHOCYTES 1,392 850 - 3,900 cells/uL [facility] ABSOLUTE MONOCYTES 600 200 - 950 cells/uL [facility] ABSOLUTE EOSINOPHILS 174 15 - 500 cells/uL [facility] ABSOLUTE BASOPHILS 26 0 - 200 cells/uL [facility] NEUTROPHILS 74.8 % [facility] LYMPHOCYTES 16.0 % [facility] MONOCYTES 6.9 % [facility] EOSINOPHILS 2.0 % [facility] BASOPHILS 0.3 % [facility] Blood Venous blood specimen / Unknown 03/30/2025 10:02 AM EDT 03/30/2025 10:02 AM EDT Narrative [facility] - 03/31/2025 4:30 AM EDT MULTIPLE TESTING PRIORITIES; ROUTINE TESTING TO FOLLOW. Resulting Agency Comment Performing Organization Information Site ID: QPT Name: [employer] [facility] Address: [address] [place] [address], [address] [place] [phone] Director: Channing Mendieta MD us Esha Stanley NP LAB BLOOD ORDERABLES Final Resu [facility] * PSA (03/30/2025 10:02 AM EDT) PSA, TOTAL 0.23 < OR = 4.00 ng/mL [facility] Comment: The total PSA value from this assay system is standardized against the WHO standard. The test result will be approximately 20% lower when compared to the equimolar-standardized total PSA (Pawel Rebekah). Comparison of serial PSA results should be interpreted with this fact in mind. This test was performed using the Siemens chemiluminescent method. Values obtained from different assay methods cannot be used interchangeably. PSA levels, regardless of value, should not be interpreted as absolute evidence of the presence or absence of disease. Your request to have a duplicate copy faxed has been acknowledged. Queued to: [id number] Blood Venous blood specimen / Unknown 03/30/2025 10:02 AM EDT 03/30/2025 10:02 AM EDT Narrative [facility] - 03/31/2025 4:30 AM EDT MULTIPLE TESTING PRIORITIES; ROUTINE TESTING TO FOLLOW. Resulting Agency Comment Performing Organization Information Site ID: QPT Name: [employer] [facility] Address: [address] [place] [address], [address] [place] [address] Director: Channing Mendieta MD Esha Stanley EXPEDITION SUPERVISOR LAB BLOOD ORDERABLES Final Resu lt [facility] * Lipid panel (03/30/2025 10:02 AM EDT) CHOLESTEROL, TOTAL 121 <200 mg/dL [facility] HDL CHOLESTEROL 42 > OR = 40 mg/dL [facility] TRIGLYCERIDES 104 <150 mg/dL [facility] LDL CHOLESTEROL 60 mg/dL (calc) [facility] Comment: Reference range: <100 Desirable range <100 mg/dL for primary prevention; <70 mg/dL for patients with CHD or diabetic patients with > or = 2 CHD risk factors. LDL-C is now calculated using the Wayne-Jorge calculation, which is a validated novel method providing better accuracy than the Friedewald equation in the estimation of LDL-C. Wayne SS et al. MOON. 2013;310(19): 6059-6800 (http://education.Thinknum.thinkingphones/faq/KKZ576) CHOL/HDLC RATIO 2.9 <5.0 (calc) [facility] NON HDL CHOLESTEROL 79 <130 mg/dL (calc) [facility] Comment: For patients with diabetes plus 1 major ASCVD risk factor, treating to a non-HDL-C goal of <100 mg/dL (LDL-C of <70 mg/dL) is considered a therapeutic option. Blood Venous blood specimen / Unknown 03/30/2025 10:02 AM EDT 03/30/2025 10:02 AM EDT Narrative [facility] - 03/31/2025 4:30 AM EDT MULTIPLE TESTING PRIORITIES; ROUTINE TESTING TO FOLLOW. Resulting Agency Comment Performing Organization Information Site ID: QPT Name: [employer] [facility] Address: [address] [place] [address], [address] [place] [address] Director: Channing Mendieta MD us Esha Aichholz EXPEDITION SUPERVISOR LAB BLOOD ORDERABLES Final Resu lt [facility] * (ABNORMAL) Comprehensive metabolic panel (03/30/2025 10:02 AM EDT) Glucose 131(H) 65 - 99 mg/dL [facility] Comment: Fasting reference interval For someone without known diabetes, a glucose value >125 mg/dL indicates that they may have diabetes and this should be confirmed with a follow-up test. BUN 19 7 - 25 mg/dL [facility] Creatinine 0.84 0.70 - 1.35 mg/dL [facility] EGFR 99 > OR = 60 mL/min/1. 73m2 [facility] BUN/CREATININE RATIO SEE NOTE: 6 - 22 (calc) [facility] Comment: Not Reported: BUN and Creatinine are within reference range. Sodium 139 135 - 146 mmol/L [facility] Potassium, Bld 5.0 3.5 - 5.3 mmol/L [facility] Chloride 104 98 - 110 mmol/L [facility] Carbon Dioxide 24 20 - 32 mmol/L [facility] Calcium 9.6 8.6 - 10.3 mg/dL [facility] PROTEIN, TOTAL 7.1 6.1 - 8.1 g/dL [facility] ALBUMIN 4.4 3.6 - 5.1 g/dL [facility] GLOBULIN 2.7 1.9 - 3.7 g/dL (calc) [facility] ALBUMIN/GLOBULIN RATIO 1.6 1.0 - 2.5 (calc) [facility] BILIRUBIN, TOTAL 1.0 0.2 - 1.2 mg/dL [facility] ALKALINE PHOSPHATASE 76 35 - 144 U/L [facility] AST 22 10 - 35 U/L [facility] ALT 42 9 - 46 U/L [facility] Blood Venous blood specimen / Unknown 03/30/2025 10:02 AM EDT 03/30/2025 10:02 AM EDT Narrative [facility] - 03/31/2025 4:30 AM EDT MULTIPLE TESTING PRIORITIES; ROUTINE TESTING TO FOLLOW. Resulting Agency Comment Performing Organization Information Site ID: [id number] Name: [employer] [facility] [place] [facility] Address: [address] [facility] [address] [facility], [address] [place] [address] Director: Channing Mendieta MD us Esha Stanley NP LAB BLOOD ORDERABLES Final Resu lt [facility] * Diabetic Retinopathy Screening - OU - Both Eyes (10/29/2023 9:37 AM EST) Anatomical Region Laterality Modality Head Other us Amparo Haines DO OPHTH PHOTOGRAPHY Final Re sult * Colonoscopy (11/02/2020 12:00 PM EST) Anatomical Region Laterality Modality Endoscopy 11/02/2020 12:0 0 PM EST Narrative 11/02/2020 12:00 PM EST PERFORMED AT [facility] LOCATION:[id number] Procedure Note CONVERSION, GENERIC - 03/26/2023 PERFORMED AT [facility] LOCATION:[id number] Madi Haines DO ENDOSCOPY PROCEDURE ORDERA BLES Final Result from Last 3 Months or Most Recently Relevant to Health Maintenance Additional Health Concerns Active Problems Noted Date Diagnosed Date Patient on antidepressant monitoring plan 2023 Insurance [facility] MEDICARE ADVANTAGE Care Teams Manager Of Construction Relationship Specialty Start Date End Date Jarad Garrison MD [address] [place] [address] PCP - General Family Medicine 09/21/24 Esha Stanley NP [address] [place] [address] Nurse Practitioner Family Medicine 01/05/25
--- OUTSIDE RECORDS SUMMARY | 2025-05-24 09:57 | XMS_ITS | Encounter Summary ---
Author Organization [facility] Address [address] [place] [address] Care Team Providers Care Fiberglass Autobody Repairer Name Role Phone Jarad Garrison MD Primary Care Provider [phone] Esha Stanley NP Unavailable [phone] Encounter Details Date Type Department Care Team (Late st Contact Info) Description 01/13/2025 Abstract [facility] [address] [facility] [place] [address] Amparo Haines, DO [address] [facility] [address] [place] [address] Social History Tobacco Use Types Packs/Day Years [...] Start Travel End [place] 04/26/2025 04/27/2025 [place] 04/24/2025 04/26/2025 documented as of this encounter Plan of Treatment Upcoming Encounters Date Type Department Care Team (Late st Contact Info) Description 2025 10:30 AM EDT Office Visit [facility] [address] [place] [address] Madi Pedroza PA [address] [place] [address] 07/12/2025 11:00 AM EDT Office Visit [facility] [address] [place] [address] Esha Stanley NP [address] [place] [address] 09/08/2025 1:45 PM EDT Office Visit [facility] [address] [place] [address] Amparo Haines DO [address] [place] [address] documented as of this encounter Goals Goal [...] documented as of this encounter Care Teams Fiberglass Autobody Repairer Relationship Specialty Start Date End Date Jarad Garrison MD [address] [place] [address] PCP - General Family Medicine 09/21/24 Esha Stanley NP [address] [place] [address] Nurse Practitioner Family Medicine 01/05/25 documented as of this encounter
--- OUTSIDE RECORDS SUMMARY | 2025-05-24 09:57 | XMS_ITS | Encounter Summary ---
Author Organization [facility] Address [address] [place] [address] Care Team Providers Care Metal Mover Name Role Phone Jarad Garrison MD Primary Care Provider Mei Basilio CUSTOM SHOP WORKER Unavailable [phone] Esha Stanley CUSTOM SHOP WORKER Unavailable [phone] Encounter Details Date Type Department Care Team (Late st Contact Info) Description 10/04/2024 Abstract [facility] [address] [place] [address] Amparo Haines, DO [address] [facility] [address] [place] [address] Social History Tobacco Use Types Packs/Day Years [...] file Travel History Travel Start Travel End [place] 04/26/2025 04/27/2025 [place] 04/24/2025 04/26/2025 documented as of this encounter Plan of Treatment Upcoming Encounters Date Type Department Care Team (Late st Contact Info) Description 2025 10:30 AM EDT Office Visit [facility] [address] [place] [address] Madi Pedroza PA [address] [facility] [place] [address] 07/12/2025 11:00 AM EDT Office Visit [facility] [address] [place] [address] Esha Stanley, SUJATA [address] [place] [address] 09/08/2025 1:45 PM EDT Office Visit [facility] [address] [place] [address] Amparo Haines, [address] [place] [address] documented as of this encounter Visit Diagnoses Not on filedocumented in this encounter Additional Health Concerns Assessment Noted Time PHQ-9 Depression Total Score: 3 04/29/20 24 11:00 AM EDT documented as of this encounter Care Teams Metal Mover Relationship Specialty Start Date End Date Jarad Garrison MD [address] [place] [address] PCP - General Family Medicine 09/21/24 Mei Basilio NP [address] [place] [address] Nurse Practitioner Family Medicine 09/21/24 01/04/25 Esha Stanley NP [address] [place] [address] Nurse Practitioner Family Medicine 01/05/25 documented as of this encounter
--- OUTSIDE RECORDS SUMMARY | 2025-05-24 09:57 | XMS_ITS | Encounter Summary ---
Author Organization [facility] Address [address] [place] [address] Care Team Providers Care Structured Cabling Technician Name Role Phone Shaikh WAYNE Bangura Primary Care Provider [phone] Jarad Garrison MD Primary Care Provider [phone] Mei Basilio ELECTRICAL LINE SPLICER Unavailable [phone] Esha Stanley ELECTRICAL LINE SPLICER Unavailable [phone] Encounter Details Date Type Department Care Team (Late st Contact Info) Description 06/21/2024 Orders Only [facility] [address] [place] [address] Cornel Snider MD [address] [place], [place] [address] Social History Tobacco Use Types Packs/Day Years [...] file Travel History Travel Start Travel End [place] 04/26/2025 04/27/2025 [place] 04/24/2025 04/26/2025 documented as of this encounter Plan of Treatment Upcoming Encounters Date Type Department Care Team (Late st Contact Info) Description 2025 10:30 AM EDT Office Visit [facility] [address] [facility] [place] [address] Madi Pedroza PA [address] [place] [address] 07/12/2025 11:00 AM EDT Office Visit [facility] [address] [place] [address] Esha Stanley NP [address] [place] [address] 09/08/2025 1:45 PM EDT Office Visit [facility] [address] [place] [address] Amparo Haines DO [address] [place] [address] documented as of this encounter Procedures Procedure [...] documented as of this encounter Care Teams Structured Cabling Technician Relationship Specialty Start Date End Date Shaikh Bangura MD [address] [place] [address] PCP - General Internal Medicine 04/29/23 09/20/24 Jarad Garrison MD [address] [place] [address] PCP - General Family Medicine 09/21/24 Mei Basilio NP [address] [place] [place] [address] Nurse Practitioner Family Medicine 09/21/24 01/04/25 Esha Stanley NP [address] [place] [address] Nurse Practitioner Family Medicine 01/05/25 documented as of this encounter
--- OUTSIDE RECORDS SUMMARY | 2025-05-24 09:57 | XMS_ITS | Encounter Summary ---
Author Organization [facility] Address [address] [place] [address] Care Team Providers Care Director Financial Planning Name Role Phone Jarad Garrison MD Primary Care Provider [phone] Esha Stanley NP Unavailable [phone] Encounter Details Date Type Department Care Team (Late st Contact Info) Description 01/13/2025 Abstract [facility] [address] [facility] [address] Amparo Haines, DO [address] [facility] [address] [place] [address] Social History Tobacco Use Types Packs/Day Years [...] Travel History Travel Start Travel End [place] 04/26/2025 04/27/2025 [place] 04/24/2025 04/26/2025 documented as of this encounter Plan of Treatment Upcoming Encounters Date Type Department Care Team (Late st Contact Info) Description 2025 10:30 AM EDT Office Visit [facility] [address] [place] [place] [address] Madi Pedroza PA [address] [place] [address] 07/12/2025 11:00 AM EDT Office Visit [facility] [address] [place] [address] Esha Stanley NP [address] [place] [address] 09/08/2025 1:45 PM EDT Office Visit [facility] [address] [place] [address] Amparo Haines DO [address] [place] [address] documented as of this encounter Goals [...] as of this encounter Care Teams Director Financial Planning Relationship Specialty Start Date End Date Jarad Garrison MD [address] [place] [address] PCP - General Family Medicine 09/21/24 Esha Stanley NP [address] [place] [address] Nurse Practitioner Family Medicine 01/05/25 documented as of this encounter
--- OUTSIDE RECORDS SUMMARY | 2025-05-24 09:57 | XMS_ITS | Encounter Summary ---
Author Organization [facility] Address [address] [place] [address] Care Team Providers Care Home Planning Consultant Salesperson Name Role Phone Jarad Garrison MD Primary Care Provider [phone] Esha Stanley NP Unavailable [phone] Encounter Details Date Type Department Care Team (Late st Contact Info) Description 02/18/2025 Abstract [facility] [address] [facility] [place] [address] Amparo Haines, DO [address] [facility] [address] [place] [address] Social History Tobacco Use Types Packs/Day Years [...] Travel History Travel Start Travel End [place] 04/26/2025 04/27/2025 [place] 04/24/2025 04/26/2025 documented as of this encounter Plan of Treatment Upcoming Encounters Date Type Department Care Team (Late st Contact Info) Description 2025 10:30 AM EDT Office Visit [facility] [address] [place] [address] Madi Pedroza PA [address] [place] [address] 07/12/2025 11:00 AM EDT Office Visit [facility] [address] [place] [address] Esha Stanley NP [address] [place] [address] 09/08/2025 1:45 PM EDT Office Visit [facility] [address] [place] [address] Amparo Haines DO [address] [place] [address] documented as of this encounter Goals [...] documented as of this encounter Care Teams Home Planning Consultant Salesperson Relationship Specialty Start Date End Date Jarad Garrison MD [address] [place] [address] PCP - General Family Medicine 09/21/24 Esha Stanley NP [address] [place] [address] Nurse Practitioner Family Medicine 01/05/25 documented as of this encounter
--- OUTSIDE RECORDS SUMMARY | 2025-05-24 09:57 | XMS_ITS | Encounter Summary ---
Author Organization [facility] Address [address] [place] [address] Care Team Providers Care Planograph Operator Name Role Phone Jarad Garrison MD Primary Care Provider [phone] Esha Stanley NP Unavailable [phone] Encounter Details Date Type Department Care Team (Late st Contact Info) Description 01/20/2025 Abstract [facility] [address] [facility] [place] [address] Amparo Haines, DO [address] [facility] 230 [place] [address] Social History Tobacco Use Types Packs/Day Years [...] file Travel History Travel Start Travel End [place] 04/26/2025 04/27/2025 [place] 04/24/2025 04/26/2025 documented as of this encounter Plan of Treatment Upcoming Encounters Date Type Department Care Team (Late st Contact Info) Description 2025 10:30 AM EDT Office Visit [facility] [address] [place] [address] Madi Pedroza PA [address] [place] [address] 07/12/2025 11:00 AM EDT Office Visit [facility] [address] [place] [address] Esha Stanley NP [address] [place] [address] 09/08/2025 1:45 PM EDT Office Visit [facility] [address] [place] [address] Amparo Haines DO [address] [place] [address] documented as of this encounter Goals [...] documented as of this encounter Care Teams Planograph Operator Relationship Specialty Start Date End Date Jarad Garrison MD [address] [place] [address] PCP - General Family Medicine 09/21/24 Esha Stanley NP [address] [place] [address] Nurse Practitioner Family Medicine 01/05/25 documented as of this encounter
--- OUTSIDE RECORDS SUMMARY | 2025-05-24 09:57 | XMS_ITS | Encounter Summary ---
Author Organization [facility] Address [address] [place] [address] Phone Care Team Providers Care Director Of Financial Planning Name Role Phone Shaikh WAYNE Bangura Primary Care Provider [phone] Encounter Details Date Type Department Care Team (Late st Contact Info) Description 03/30/2025 Scanned Document [facility] [address] [place] [address] Scanning, Generic Provider Social History Tobacco Use [...] Description 09/06/2025 11:00 AM EDT Office Visit [facility] [address] [facility] [address] [place] [address] Hue Mendoza, DRILL PRESSER-ESTHETICIAN PERMANENT MAKEUP ARTIST [address] [facility] [address] [place] [address] documented as of this encounter Procedures Procedure Name Priority Date/Time Associated Diagnosis Comments OUTSIDE LAB SCAN 03/30/2025 OUTSIDE LAB SCAN 03/30/2025 documented in this encounter Results * OUTSIDE LAB SCAN (03/30/2025) Narrative 03/30/2025 Ordered by an unspecified provider. us Generic Provider Scanning OUTSIDE SCAN Final Result * OUTSIDE LAB SCAN (03/30/2025) Narrative 03/30/2025 Ordered by an unspecified provider. us Generic Provider Scanning OUTSIDE SCAN Final Result documented in this encounter Visit Diagnoses Not on filedocumented in this encounter Care Teams Director Of Financial Planning Relationship Specialty Start Date End Date Shaikh Bangura MD PCP - General 06/26/22 documented as of this encounter
--- OUTSIDE RECORDS SUMMARY | 2025-05-24 09:57 | XMS_ITS | Encounter Summary ---
Author Organization [facility] Address [address] [place] [address] Care Team Providers Care Sportspersons Name Role Phone Jarad Garrison MD Primary Care Provider [phone] Esha Stanley NP Unavailable [phone] Encounter Details Date Type Department Care Team (Latest Contact Info) Description 05/11/2025 Travel Social History Tobacco Use Types Packs/Day Years [...] week 05/09/2025 How often do you attend druze or restoration serv ices? Patient declined 05/09/2025 Do you belong to any clubs o r organizations such as druze groups, unions, fraternal or athletic groups, or [...] Recorded Patient Health Questionnaire-2 Score 0 05/09/2025 [facility] - Occupational Stress [...] time in the past 12 m [facility], were you homeless or living in a halfway (including now)? No 05/09/2025 Sex and Gender Information Value Date Recorded Sex Assigned at Not on file Legal Sex Male 7:20 PM EDT Gender Identity Not on file Sexual Orientation Not on file Travel History Travel Start Travel End [place] 04/26/2025 04/27/2025 [place] 04/24/2025 04/26/2025 documented as of this encounter Plan of Treatment Upcoming Encounters Date Type Department Care Team (Late st Contact Info) Description 2025 10:30 AM EDT Office Visit [facility] [address] [place] [address] Madi Pedroza PA [address] [place] [address] 07/12/2025 11:00 AM EDT Office Visit [facility] [address] [place] [address] Esha Stanley NP [address] [place] [address] 09/08/2025 1:45 PM EDT Office Visit [facility] [address] [place] [address] Amparo Haines DO [address] [place] [address] documented as of this encounter Goals [...] documented as of this encounter Care Teams Sportspersons Relationship Specialty Start Date End Date Jarad Garrison MD [address] [place] [address] PCP - General Family Medicine 09/21/24 Esha Stanley NP [address] [place] [address] Nurse Practitioner Family Medicine 01/05/25 documented as of this encounter
--- OUTSIDE RECORDS SUMMARY | 2025-05-24 09:57 | XMS_ITS | Encounter Summary ---
Author Organization [facility] Address [address] [place] [address] Care Team Providers Care Poultry Helper Name Role Phone Jarad Garrison MD Primary Care Provider [phone] Esha Stanley NP Unavailable [phone] Encounter Details Date Type Department Care Team (Late st Contact Info) Description 01/13/[address] [facility] [address] [facility] [place] [address] Amparo Haines, DO [address] [facility] 230 [place] [address] Social History Tobacco Use Types Packs/Day Years [...] file Travel History Travel Start Travel End [place] 04/26/2025 04/27/2025 [place] 04/24/2025 04/26/2025 documented as of this encounter Plan of Treatment Upcoming Encounters Date Type Department Care Team (Late st Contact Info) Description 2025 10:30 AM EDT Office Visit [facility] [address] [place] [address] Madi Pedroza PA [address] [place] [address] 07/12/2025 11:00 AM EDT Office Visit [facility] [address] [place] [address] Esha Stanley NP [address] [place] [address] 09/08/2025 1:45 PM EDT Office Visit [facility] [address] [place] [address] Amparo Haines DO [address] [place] [address] documented as of this encounter Goals [...] documented as of this encounter Care Teams Poultry Helper Relationship Specialty Start Date End Date Jarad Garrison MD [address] [place] [address] PCP - General Family Medicine 09/21/24 Esha Stanley NP [address] [place] [address] Nurse Practitioner Family Medicine 01/05/25 documented as of this encounter
--- OUTSIDE RECORDS SUMMARY | 2025-05-24 09:58 | XMS_ITS | Encounter Summary ---
Author Organization [facility] Address [address] [place] [address] Phone Care Team Providers Care Quality Intern Name Role Phone Shaikh WAYNE Bangura Primary Care Provider [phone] Encounter Details Date Type Department Care Team (Late st Contact Info) Description 12/25/2021 Orders Only [facility] [address] [place] [address] Conversion, Onbase Social History Tobacco Use Types [...] Description 09/06/2025 11:00 AM EDT Office Visit [facility] [address] [facility] [address] [place] [address] Hue Mendoza, CLOTH TESTER QUALITY-SAMPLE BUILDER [address] [facility] [address] [place] [address] Scheduled Orders Name Type Priority Associated Diagnoses Orde r Schedule OUTSIDE LAB SCAN Lab Ordered: 12/25/2021 documented as of this encounter Visit Diagnoses Not on filedocumented in this encounter Care Teams Quality Intern Relationship Specialty Start Date End Date Shaikh Bangura MD PCP - General 06/26/22 documented as of this encounter
--- OUTSIDE RECORDS SUMMARY | 2025-05-24 09:58 | XMS_ITS | Encounter Summary ---
Author Organization [facility] Address [address] [place] [address] Care Team Providers Care Live Games Dealer Name Role Phone Shaikh WYANE Bangura Primary Care Provider [phone] Jarad Garrison MD Primary Care Provider [phone] Mei Basilio HEALTH CARE ASSISTANT Unavailable [phone] Esha Stanley HEALTH CARE ASSISTANT Unavailable [phone] Encounter Details Date Type Department Care Team (Late st Contact Info) Description 10/31/2023 Orders Only [facility] [address] [facility] 230 [place] [address] Amparo Haines, DO [address] [facility] 230 [place] [address] Social History Tobacco Use Types Packs/Day Years [...] file Travel History Travel Start Travel End [place] 04/26/2025 04/27/2025 [place] 04/24/2025 04/26/2025 documented as of this encounter Plan of Treatment Upcoming Encounters Date Type Department Care Team (Late st Contact Info) Description 2025 10:30 AM EDT Office Visit [facility] [address] [address] Madi Pedroza PA [address] [place] [address] 07/12/2025 11:00 AM EDT Office Visit [facility] [address] [place] [address] Esha Stanley NP [address] [place] [address] 09/08/2025 1:45 PM EDT Office Visit [facility] [address] [place] [address] Amparo Haines DO [address] [place] [address] documented as of this encounter Procedures Procedure [...] documented as of this encounter Care Teams Live Games Dealer Relationship Specialty Start Date End Date Shaikh Bangura MD [address] [place] [address] [place] [address] PCP - General Internal Medicine 04/29/23 09/20/24 Jarad Garrison MD [address] [place] [address] PCP - General Family Medicine 09/21/24 Mei Basilio NP [address] [place] [address] [place] [address] Nurse Practitioner Family Medicine 09/21/24 01/04/25 Esha Stanley NP [address] [place] [address] Nurse Practitioner Family Medicine 01/05/25 documented as of this encounter
--- OUTSIDE RECORDS SUMMARY | 2025-05-24 09:58 | XMS_ITS | Encounter Summary ---
Author Organization [facility] Address [address] [facility] [place] [address] Care Team Providers Care Fiscal Assistant Name Role Phone Shaikh WAYNE Bangura Primary Care Provider [phone] Jarad Garrison MD Primary Care Provider [phone] Mei Basilio CUSTOMER SALES CONSULTANT Unavailable [phone] Esha Stanley CUSTOMER SALES CONSULTANT Unavailable [phone] Encounter Details Date Type Department Care Team (Late st Contact Info) Description 06/05/2023 Orders Only [facility] [address] [facility] [address] [place] [address] A, Unknown Practice [address] [place], [place] [address] Social History Tobacco Use Types Packs/Day Years [...] file Travel History Travel Start Travel End [place] 04/26/2025 04/27/2025 [place] 04/24/2025 04/26/2025 documented as of this encounter Plan of Treatment Upcoming Encounters Date Type Department Care Team (Late st Contact Info) Description 2025 10:30 AM EDT Office Visit [facility] [address] [facility] [place] [address] Madi Pedroza PA [address] [place] [address] 07/12/2025 11:00 AM EDT Office Visit [facility] [address] [place] [address] Esha Stanley NP [address] [place] [address] 09/08/2025 1:45 PM EDT Office Visit [facility] [address] [place] [address] Amparo Haines, [address] [place] [address] documented as of this encounter Procedures Procedure Name Priority Date/Time Associated Diagnosis Comments SCANNED LABS Routine 06/05/2023 11:23 AM EDT documented in this encounter Results * SCANNED LABS (06/05/2023 11:23 AM EDT) us Unknown Practice A LAB CHG PERFORMABLES Final Re sult documented in this encounter Visit Diagnoses Not on filedocumented in this encounter Care Teams Fiscal Assistant Relationship Specialty Start Date End Date Shaikh Bangura MD [address] [place] [address] PCP - General Internal Medicine 04/29/23 09/20/24 Jarad Garrison MD [address] [place] [address] PCP - General Family Medicine 09/21/24 Mei Basilio NP [address] [place] [address] Nurse Practitioner Family Medicine 09/21/24 01/04/25 Esha Stanley NP [address] [place] [address] Nurse Practitioner Family Medicine 01/05/25 documented as of this encounter
--- OUTSIDE RECORDS SUMMARY | 2025-05-24 09:58 | XMS_ITS | Encounter Summary ---
Author Organization [facility] Address [address] [place] [address] Care Team Providers Care Parlor Chaperone Name Role Phone Shaikh WAYNE Bangura Primary Care Provider [phone] Jarad Garrison MD Primary Care Provider [phone] Mei Basilio PROP ATTENDANT Unavailable Esha Stanley PROP ATTENDANT Unavailable [phone] Encounter Details Date Type Department Care Team (Late st Contact Info) Description 05/09/2023 Abstract [facility] [address] [facility] 230 [place] [address] Amparo Haines, DO [address] [facility] 230 [place] [address] Social History Tobacco Use Types [...] file Travel History Travel Start Travel End [place] 04/26/2025 04/27/2025 [place] 04/24/2025 04/26/2025 documented as of this encounter Plan of Treatment Upcoming Encounters Date Type Department Care Team (Late st Contact Info) Description 2025 10:30 AM EDT Office Visit [facility] [address] [facility] [address] Madi Pedroza PA [address] [place] [address] 07/12/2025 11:00 AM EDT Office Visit [facility] [address] [place] [address] Esha Stanley NP [address] [place] [address] 09/08/2025 1:45 PM EDT Office Visit [facility] [address] [place] [address] Amparo Haines, DO [address] [place] [address] documented as of this encounter Visit Diagnoses Not on filedocumented in this encounter Care Teams Parlor Chaperone Relationship Specialty Start Date End Date Shaikh Bangura MD [address] [place] [address] PCP - General Internal Medicine 04/29/23 09/20/24 Jarad Garrison MD [address] [place] [address] PCP - General Family Medicine 09/21/24 Mei Basilio NP [address] [place] [address] Nurse Practitioner Family Medicine 09/21/24 01/04/25 Esha Stanley NP [address] [place] [address] Nurse Practitioner Family Medicine 01/05/25 documented as of this encounter
--- OUTSIDE RECORDS SUMMARY | 2025-05-24 09:58 | XMS_ITS | Clinical Summary ---
Author Organization [facility] Address [address] [place] [address] Care Team Providers Care Ornament Setter Name Role Phone Unavailable Primary Care Provider Unavailabl e Social History Tobacco Use Types Packs/Day Years Used Date Smoking Tobacco: Never Assessed Sex and Gender Information Value Date Recorded Sex Assigned at Not on file Legal Sex Male 12:23 AM EDT Gender Identity Not on file Sexual Orientation Not on file Plan of Treatment Not on file
--- OUTSIDE RECORDS SUMMARY | 2025-05-24 09:58 | XMS_ITS | Encounter Summary ---
Author Organization [facility] Address [address] [place] [address] Care Team Providers Care Swine Nutritionist Name Role Phone Shaikh WAYNE Bangura Primary Care Provider [phone] Jarad Garrison MD Primary Care Provider [phone] Mei Basilio LEAD DENTAL ASSISTANT Unavailable Esha Stanley LEAD DENTAL ASSISTANT Unavailable [phone] Encounter Details Date Type Department Care Team (Late st Contact Info) Description 11/13/[address] [facility] [address] [place] [address] Shaikh Bangura MD [address] [place] [address] Social History Tobacco Use Types Packs/Day Years [...] Travel Start Travel End [place] 04/26/2025 04/27/2025 [place] 04/24/2025 04/26/2025 documented as of this encounter Plan of Treatment Upcoming Encounters Date Type Department Care Team (Late st Contact Info) Description 2025 10:30 AM EDT Office Visit [facility] [address] [place] [address] Madi Pedroza PA [address] [place] [address] 07/12/2025 11:00 AM EDT Office Visit [facility] [address] [place] [address] Esha Stanley, SUJATA [address] [place] [address] 09/08/2025 1:45 PM EDT Office Visit [facility] [address] [place] [address] Amparo Haines DO [address] [place] [address] documented as of this encounter Visit Diagnoses Not on filedocumented in this encounter Additional Health Concerns Assessment Noted Time PHQ-9 Depression Total Score: 17 10/09/ 023 11:20 AM EST documented as of this encounter Care Teams Swine Nutritionist Relationship Specialty Start Date End Date Shaikh Bangura MD [address] [place] [place] [address] PCP - General Internal Medicine 04/29/23 09/20/24 Jarad Garrison MD [address] [place] [place] [address] PCP - General Family Medicine 09/21/24 Mei Basilio NP [address] [place] [place] [address] Nurse Practitioner Family Medicine 09/21/24 01/04/25 Esha Stanley NP [address] [place] [place] [address] Nurse Practitioner Family Medicine 01/05/25 documented as of this encounter
--- OUTSIDE RECORDS SUMMARY | 2025-05-24 09:58 | XMS_ITS | Encounter Summary ---
Author Organization [facility] Address [address] [facility] [place] [address] Care Team Providers Care Video Tape Editor Name Role Phone Jarad Garrison MD Primary Care Provider [phone] Esha Stanley NP Unavailable [phone] Encounter Details Date Type Department Care Team (Late st Contact Info) Description 05/11/2025 Bamboo flowsheet [facility] [address] [place] [address] Madi Pedroza PA [address] [place] [address] Social History Tobacco Use Types Packs/Day Years [...] week 05/09/2025 How often do you attend cheondoism or zoroastrian serv ices? Patient declined 05/09/2025 Do you belong to any clubs o r organizations such as cheondoism groups, unions, fraternal or athletic groups, or [...] Recorded Patient Health Questionnaire-2 Score 0 05/09/2025 [facility] Occup[facility] ional Health - Occupational [...] any time in the past 12 m [facility], were you homeless or living in a nursing home (including now)? No 05/09/2025 Sex and Gender Information Value Date Recorded Sex Assigned at Not on file Legal Sex Male 7:20 PM EDT Gender Identity Not on file Sexual Orientation Not on file Travel History Travel Start Travel End [place] 04/26/2025 04/27/2025 [place] 04/24/2025 04/26/2025 documented as of this encounter Plan of Treatment Upcoming Encounters Date Type Department Care Team (Late st Contact Info) Description 2025 10:30 AM EDT Office Visit [facility] [address] [place] [address] Madi Pedroza PA [address] [place] [address] 07/12/2025 11:00 AM EDT Office Visit [facility] [address] [place] [address] Esha Stanley NP [address] [place] [address] 09/08/2025 1:45 PM EDT Office Visit [facility] [address] [place] [address] Amparo Haines DO [address] [place] [address] documented as of this encounter Goals Goal [...] documented as of this encounter Care Teams Video Tape Editor Relationship Specialty Start Date End Date Jarad Garrison MD [address] [place] [address] PCP - General Family Medicine 09/21/24 Esha Stanley NP [address] [place] [address] Nurse Practitioner Family Medicine 01/05/25 documented as of this encounter
--- OUTSIDE RECORDS SUMMARY | 2025-05-24 09:58 | XMS_ITS | Encounter Summary ---
Author Organization [facility] Address [address] [place] [address] Phone Care Team Providers Care Translator/Interpreter Name Role Phone Shaikh WAYNE Bangura Primary Care Provider [phone] Encounter Details Date Type Department Care Team (Late st Contact Info) Description 08/27/2021 Orders Only [facility] [address] [place] [address] Conversion, Onbase Social History Tobacco Use Types [...] Description 09/06/2025 11:00 AM EDT Office Visit [facility] [address] [facility] [address] [place] [address] Hue Mendoza, RN NEUROSURGICAL-ASSEMBLER TRIM [address] [facility] 2, [address] [place] [address] Scheduled Orders Name Type Priority Associated Diagnoses Orde r Schedule OUTSIDE LAB SCAN Lab Ordered: 08/27/2021 OUTSIDE LAB SCAN Lab Ordered: 08/27/2021 documented as of this encounter Visit Diagnoses Not on filedocumented in this encounter Care Teams Translator/Interpreter Relationship Specialty Start Date End Date Shaikh Bangura MD PCP - General 8/17/22 documented as of this encounter
--- OUTSIDE RECORDS SUMMARY | 2025-05-24 09:58 | XMS_ITS | Encounter Summary ---
Author Organization [facility] Address [address] [place] [address] Care Team Providers Care Level Vial Setter Name Role Phone Jarad Garrison MD Primary Care Provider [phone] Esha Stanley MUSIC REHABILITATION THERAPIST Unavailable [phone] Encounter Details Date Type Department Care Team (Late st Contact Info) Description 05/10/2025 Bamboo flowsheet [facility] [address] [place] [address] Esha Stanley, MUSIC REHABILITATION THERAPIST [address] [place] [address] Social History Tobacco Use Types Packs/Day Years [...] How often do you attend cheondoism or episcopal serv ices? Patient declined 05/09/2025 Do you [...] Recorded Patient Health Questionnaire-2 Score 0 05/09/2025 [facility]ational Stress Questionnaire Answer [...] any time in the past 12 m [facility], were you homeless or living in a [facility] (including now)? No 05/09/2025 Sex and Gender Information Value Date Recorded Sex Assigned at Not on file Legal Sex Male 7:20 PM EDT Gender Identity Not on file Sexual Orientation Not on file Travel History Travel Start Travel End [place] 04/26/2025 04/27/2025 [place] 04/24/2025 04/26/2025 documented as of this encounter Plan of Treatment Upcoming Encounters Date Type Department Care Team (Late st Contact Info) Description 2025 10:30 AM EDT Office Visit [facility] [address] [place] [address] Madi Pedroza PA [address] [place] [address] 07/12/2025 11:00 AM EDT Office Visit [facility] [address] [place] [address] Esha Stanley NP [address] [place] [address] 09/08/2025 1:45 PM EDT Office Visit [facility] [address] [place] [address] Amparo Haines DO [address] [place] [address] documented as of this encounter Goals Goal [...] documented as of this encounter Care Teams Level Vial Setter Relationship Specialty Start Date End Date Jarad Garrison MD [address] [place] [address] PCP - General Family Medicine 09/21/24 Esha Stanley NP [address] [place] [address] Nurse Practitioner Family Medicine 01/05/25 documented as of this encounter
--- OUTSIDE RECORDS SUMMARY | 2025-05-24 09:59 | XMS_ITS | Clinical Summary ---
Author Organization [facility] Address [address] [place] [address] Care Team Providers Care Digital Specialist Name Role Phone William Lozoya MD Primary Care Provider [phone] Allergies No known active allergies Medications baclofen [...] 60-74 years 1-dose series) 2022 COVID-19 Vaccine (4 - season) 2024 08/25/2022, 02/23/2021, 02/02/2021 Annual Wellness Visit (Medicare Advantage) 11/10/2024 Flu vaccine (#1) 06/10/2025 09/10/2023, , 08/17/2022, Additional history exists DTaP/Tdap/Td vaccine (2 [...] patient's age to complete this topic Insurance [facility] [employer] MEDICARE [facility] MEDICARE Care Teams Digital Specialist Relationship Specialty Start Date End Date William Lozoya MD [address] [place], [place] [phone] PCP - General Emergency Medicine 06/20/24
--- OUTSIDE RECORDS SUMMARY | 2025-05-24 09:59 | XMS_ITS | Encounter Summary ---
Author Organization [facility] Address [address] [place] [address] Care Team Providers Care Roll Skinner Name Role Phone Shaikh WAYNE Bangura Primary Care Provider [phone] Jarad Garrison MD Primary Care Provider [phone] Mei Basilio CLIENT TECHNICAL PROFESSIONAL Unavailable Esha Stanley CLIENT TECHNICAL PROFESSIONAL Unavailable [phone] Encounter Details Date Type Department Care Team (Late st Contact Info) Description 01/13/2024 Abstract [facility] [address] [facility] 230 [place] [address] Amparo Haines, DO [address] [facility] 230 [place] [address] Social History Tobacco Use Types [...] file Travel History Travel Start Travel End [place] 04/26/2025 04/27/2025 [place] 04/24/2025 04/26/2025 documented as of this encounter Plan of Treatment Upcoming Encounters Date Type Department Care Team (Late st Contact Info) Description 2025 10:30 AM EDT Office Visit [facility] [address] [place] [address] Madi Pedroza PA [address] [place] [address] 07/12/2025 11:00 AM EDT Office Visit [facility] [address] [place] [address] Esha Stanley NP [address] [place] [address] 09/08/2025 1:45 PM EDT Office Visit [facility] [address] [place] [address] Amparo Haines DO [address] [place], [place] [address] documented as of this encounter Visit Diagnoses Not on filedocumented in this encounter Additional Health Concerns Assessment Noted Time PHQ-9 Depression Total Score: 17 023 11:20 AM EST documented as of this encounter Care Teams Roll Skinner Relationship Specialty Start Date End Date Shaikh Bangura MD [address] [place] [address] PCP - General Internal Medicine 04/29/23 09/20/24 Jarad Garrison MD [address] [place] [address] PCP - General Family Medicine 09/21/24 Mei Basilio NP [address] [place] [address] Nurse Practitioner Family Medicine 09/21/24 01/04/25 Esha Stanley NP [address] [place] [address] Nurse Practitioner Family Medicine 01/05/25 documented as of this encounter
--- OUTSIDE RECORDS SUMMARY | 2025-05-24 09:59 | XMS_ITS | Encounter Summary ---
Author Organization [facility] Address [address] [place] [address] Care Team Providers Care Manager Study Name Role Phone Shaikh WAYNE Bangura Primary Care Provider [phone] Jarad Garrison MD Primary Care Provider [phone] Mei Basilio VERTICAL MILL OPERATOR Unavailable [phone] Esha Stanley VERTICAL MILL OPERATOR Unavailable [phone] Encounter Details Date Type Department Care Team (Late st Contact Info) Description 04/30/2024 Clinisync Result Encounter [facility] External Department Unsolicited Shaikh Bangura MD [address] [place] [address] Social History Tobacco Use Types [...] Travel Start Travel End [place] 04/26/2025 04/27/2025 [place] 04/24/2025 04/26/2025 documented as of this encounter Plan of Treatment Upcoming Encounters Date Type Department Care Team (Late st Contact Info) Description 2025 10:30 AM EDT Office Visit [facility] [address] [place] [address] Madi Pedroza PA [address] [place] [address] 07/12/2025 11:00 AM EDT Office Visit [facility] [address] [place] [address] Esha Stanley NP [address] [place] [address] 09/08/2025 1:45 PM EDT Office Visit [facility] [address] [place] [address] Amparo Haines DO [address] [place] [address] documented as of this encounter Procedures Procedure Name Priority Date/Time Associated Diagnosis Comments XR LUMBAR SPINE 2 OR 3V 04/30/2024 6:23 AM EDT documented in this encounter Results * XR LUMBAR SPINE 2 OR 3V (04/30/2024 6:23 AM EDT) Anatomical Region Laterality Modality Radiographic Lety ging 04/30/2024 6:23 AM EDT Narrative 04/30/2024 6:25 AM EDT The [address] [address] XRay Report Signed Patient: HUGO VERDIN MR#: [id number] : 1960 Acct:[id number] Age/Sex: 63 / M ADM Date: 04/29/24 Loc: LAB Attending Dr: Shaikh Sveta Boyle Ordering Physician: Shaikh Tamar Bangura Date of Service: 04/29/24 Procedure(s): XR lumbar spine 2-3V Accession Number(s): [id number] cc: Shaikh Tamar Bangura The [place] [address] Patient Name: HUGO VERDIN MRN: [id number] date: 1960 Sex: M Assigned Patient Location: LAB Current Patient Location: LAB Accession/Order Number: [id number] Exam Date: 04/29/2024 13:10 Report Date: 04/30/2024 [...] M.D. Signed By: 04/30/24624 DD/ 2 TD/TT: Medical Technologist Microbiology: Procedure Note Radiology, Radiologist, MD - 04/30/2024 [place] [address] XRay Report Signed Patient: HUGO VERDIN NMR#: [id number] : 1960cct:[id number] Age/Sex: 63 / MADM Date: 04/29/24 Loc: LAB Attending Dr: Shaikh Sveta Boyle Ordering Physician: Shaikh Tamar Bangura Date of Service: 04/29/24 Procedure(s): XR lumbar spine 2-3V Accession Number(s): [id number] cc: Shaikh Tamar Bangura [place] [address] Patient Name: HUGO VERDIN MRN: [id number] date: 1960 Sex: M Assigned Patient Location: LAB Current Patient Location: LAB Accession/Order Number: [id number] Exam Date: 04/29/2024 13:10 Report Date: 04/30/2024 [...] Carlin M.D. Signed By:04/30/24624 DD/ 2 TD/TT: Medical Technologist Microbiology: us Shaikh Sveta BLACK IMG XR PROCEDURES Final Result documented in this encounter Visit Diagnoses Not on filedocumented in this encounter Additional Health Concerns Assessment Noted Time PHQ-9 Depression Total Score: 3 04/29/20 24 11:00 AM EDT documented as of this encounter Care Teams Manager Study Relationship Specialty Start Date End Date Shaikh Bangura MD [address] [place] [address] PCP - General Internal Medicine 04/29/23 09/20/24 Jarad Garrison MD [address] [place] [address] PCP - General Family Medicine 09/21/24 Mei Basilio NP [address] [place] [place] [address] Nurse Practitioner Family Medicine 09/21/24 01/04/25 Esha Stanley NP [address] [place] [address] Nurse Practitioner Family Medicine 01/05/25 documented as of this encounter
--- OUTSIDE RECORDS SUMMARY | 2025-05-24 09:59 | XMS_ITS | Encounter Summary ---
Author Organization [facility] Address [address] [facility] [place] [address] Care Team Providers Care Laminated Plastics Assembler And Gluer Name Role Phone Shaikh WAYNE Bangura Primary Care Provider [phone] Jarad Garrison MD Primary Care Provider [phone] Mei Basilio TUBE TRAILER FILLER Unavailable Esha Stanley TUBE TRAILER FILLER Unavailable [phone] Encounter Details Date Type Department Care Team (Late st Contact Info) Description 04/30/2024 Abstract [facility] [address] [place] [address] Amparo Haines, DO [address] [facility] 230 [place] [address] Social History Tobacco Use Types Packs/Day Years [...] file Travel History Travel Start Travel End [place] 04/26/2025 04/27/2025 [place] 04/24/2025 04/26/2025 documented as of this encounter Plan of Treatment Upcoming Encounters Date Type Department Care Team (Late st Contact Info) Description 2025 10:30 AM EDT Office Visit [facility] [address] [place] [address] Madi Pedroza PA [address] [place] [address] 07/12/2025 11:00 AM EDT Office Visit [facility] [address] [address] Esha Stanley NP [address] [place] [address] 09/08/2025 1:45 PM EDT Office Visit [facility] [address] [place] [address] Amparo Haines DO [address] [place] [address] documented as of this encounter Visit Diagnoses Not on filedocumented in this encounter Additional Health Concerns Assessment Noted Time PHQ-9 Depression Total Score: 3 04/29/20 11:00 AM EDT documented as of this encounter Care Teams Laminated Plastics Assembler And Gluer Relationship Specialty Start Date End Date Shaikh Bangura MD [address] [place] [address] PCP - General Internal Medicine 04/29/23 09/20/24 Jarad Garrison MD [address] [place] [address] PCP - General Family Medicine 09/21/24 Mei Basilio NP [address] [place] [address] Nurse Practitioner Family Medicine 09/21/24 01/04/25 Esha Stanley NP [address] [place] [address] Nurse Practitioner Family Medicine 01/05/25 documented as of this encounter
--- OUTSIDE RECORDS SUMMARY | 2025-05-24 09:59 | XMS_ITS | Encounter Summary ---
Author Organization [facility] Address [address] [place] [address] Care Team Providers Care Blend Technician Name Role Phone Shaikh WAYNE Bangura Primary Care Provider [phone] Jarad Garrison MD Primary Care Provider [phone] Mei Basilio ACCESS CONSULTANT Unavailable [phone] Esha Stanley ACCESS CONSULTANT Unavailable [phone] Encounter Details Date Type Department Care Team (Late st Contact Info) Description 04/30/2024 Clinisync Result Encounter [facility] External Department Unsolicited Shaikh Bangura MD [address] [place] [address] Social History Tobacco Use Types [...] Start Travel End [place] 04/26/2025 04/27/2025 [place] 04/24/2025 04/26/2025 documented as of this encounter Plan of Treatment Upcoming Encounters Date Type Department Care Team (Late st Contact Info) Description 2025 10:30 AM EDT Office Visit [facility] [address] [place] [address] Madi Pedroza PA [address] [place] [address] 07/12/2025 11:00 AM EDT Office Visit [facility] [address] [place] [address] Esha Stanley, SUJATA [address] [place] [address] 09/08/2025 1:45 PM EDT Office Visit [facility] [address] [place] [address] Amparo Haines, [address] [place] [address] documented as of this encounter Procedures Procedure Name Priority Date/Time Associated Diagnosis Comments XR HIP 2 OR 3 VW RIGHT 04/30/2024 6:19 AM EDT documented in this encounter Results * XR hip right 2 or 3 views (04/30/2024 6:19 AM EDT) Anatomical Region Laterality Modality Lower Extremities, Hip Right Radiograp hic Imaging 04/30/2024 6:19 AM EDT Narrative 04/30/2024 6:22 AM EDT The [address] [address] XRay Report Signed Patient: HUGO ALDANA MR#: [id number] : 1960 Acct:[id number] Age/Sex: 63 / M ADM Date: 04/29/24 Loc: LAB Attending Dr: Shaikh Sveta Boyle Ordering Physician: Shaikh Tamar Bangura Date of Service: 04/29/24 Procedure(s): XR hip RT min 2V Accession Number(s): [id number] cc: Shaikh Tamar Bangura The [place] [address] Patient Name: HUGO ALDANA MRN: [id number] date: 1960 Sex: M Assigned Patient Location: LAB Current Patient Location: Accession/Order Number: [id number] Exam Date: 04/29/2024 13:10 Report Date: 04/30/2024 [...] M.D. Signed By: 04/30/24621 DD/ 8 TD/TT: Welder Tack: Procedure Note Radiology, Radiologist, MD - 04/30/2024 [place] [address] XRay Report Signed Patient: HUGO ALDANA NMR#: [id number] : 1960cct:[id number] Age/Sex: 63 / MADM Date: 04/29/24 Loc: LAB Attending Dr: Shaikh Sveta Boyle Ordering Physician: Shaikh Tamar Bangura Date of Service: 04/29/24 Procedure(s): XR hip RT min 2V Accession Number(s): [id number] cc: Shaikh Tamar Bangura The [place] [id number] Patient Name: HUGO ALDANA MRN: [id number] date: 1960 Sex: M Assigned Patient Location: LAB Current Patient Location: Accession/Order Number: [id number] Exam Date: 04/29/2024 13:10 Report Date: 04/30/2024 [...] Carlin M.D. Signed By:04/30/24621 DD/ 8 TD/TT: Welder Tack: Shaikh Sveta BLACK IMG XR PROCEDURES Final Result documented in this encounter Visit Diagnoses Not on filedocumented in this encounter Additional Health Concerns Assessment Noted Time PHQ-9 Depression Total Score: 3 04/29/20 11:00 AM EDT documented as of this encounter Care Teams Blend Technician Relationship Specialty Start Date End Date Shaikh Bangura MD [address] [place] [address] PCP - General Internal Medicine 04/29/23 09/20/24 Jarad Garrison MD [address] [place] [address] PCP - General Family Medicine 09/21/24 Mei Basilio NP [address] [place] [address] Nurse Practitioner Family Medicine 09/21/24 01/04/25 Esha Stanley NP [address] [place] [address] Nurse Practitioner Family Medicine 01/05/25 documented as of this encounter
--- OUTSIDE RECORDS SUMMARY | 2025-05-24 09:59 | XMS_ITS | Encounter Summary ---
Author Organization [facility] Address [address] [place] [facility] [place] [address] Care Team Providers Care Cena Name Role Phone Shaikh WAYNE Bangura Primary Care Provider Jarad Garrison MD Primary Care Provider [phone] Mei Basilio FIRMWARE TEST ENGINEER Unavailable Esha Stanley FIRMWARE TEST ENGINEER Unavailable [phone] Encounter Details Date Type Department Care Team (Late st Contact Info) Description 12/30/2023 Abstract [facility] [address] [place] [address] Amparo Haines, DO [address] [facility] [address] [place] [address] Social History Tobacco Use Types Packs/Day Years [...] Travel Start Travel End [place] 04/26/2025 04/27/2025 [place] 04/24/2025 04/26/2025 documented as of this encounter Plan of Treatment Upcoming Encounters Date Type Department Care Team (Late st Contact Info) Description 2025 10:30 AM EDT Office Visit [facility] [address] [place] [address] Madi Pedroza, PA [address] [place] [address] 07/12/2025 11:00 AM EDT Office Visit [facility] [address] [place] [address] Esha Stanley, SUJATA [address] [place] [address] 09/08/2025 1:45 PM EDT Office Visit [facility] [address] [place] [address] Amparo Haines DO [address] [place] [address] documented as of this encounter Visit Diagnoses Not on filedocumented in this encounter Additional Health Concerns Assessment Noted Time PHQ-9 Depression Total Score: 17 023 11:20 AM EST documented as of this encounter Care Teams Cena Relationship Specialty Start Date End Date Shaikh Bangura MD [address] [place] [address] PCP - General Internal Medicine 04/29/23 09/20/24 Jarad Garrison MD [address] [place] [address] PCP - General Family Medicine 09/21/24 Mei Basiilo NP [address] [place] [address] Nurse Practitioner Family Medicine 09/21/24 01/04/25 Esha Stanley NP [address] [place] [address] Nurse Practitioner Family Medicine 01/05/25 documented as of this encounter
--- NOTE | 2025-05-24 10:01 | US_ITS ---
The [address] [address] Patient Name: DARLYN VERDIN MRN: [id number] date: 1960 Sex: M Assigned Patient Location: US Current Patient Location: US Accession/Order Number: [id number] Exam Date: 05/24/2025 10:48 Report Date: 05/24/2025 10:51 At the request of: JUAN DIXON NP Procedure: US scrotum SCROTAL ULTRASOUND WITH DUPLEX IMAGING COMPARISON: CT 01/06/2023 CLINICAL DATA: Right groin pain and scrotal swelling for the past few months. The right testis measures 4.9 x 3.6 x 3.1 cm . The left testis measures 4.9 x 3.8 x 2.9 cm. There is normal echogenicity. No intratesticular masses are present. There is documentation of bilateral duplex and color Doppler testicular blood flow. The epididymal heads are similar in size. There is no evidence of hydrocele or varicocele. The right groin and area of patient's pain was evaluated with and without Valsalva. The signal operator linguist was unable to detect an inguinal hernia. US/US scrotum IMPRESSION: NO INTRATESTICULAR MASS OR TORSION. NO EVIDENCE OF INGUINAL HERNIA. Impression dictated by: Candelaria Che M.D. 05/24/2025 10:51 AM Dictation Location: [place] [address] Electronically authenticated by: [id number] Y Date: 05/24/2025 10:51
== END 2025-05-24 09:52 | disposition home or self-care (01) ==
LOC: US 09:51
PROVIDERS: PCP Nurse Practitioner; Visit Provider Nurse Practitioner
DX: R10.31 Right lower quadrant pain (principal)
CPT/HCPCS: 76870

== ENCOUNTER 2025-08-09 08:34 | Outpatient (OUT) | payer MEDICARE, SELFPAY ==
--- OUTSIDE RECORDS SUMMARY | 2024-04-06 06:00 | XMS_ITS ---
Author Organization The [facility] in [place] Address [address] [place] [address] Care Team Providers Care Fan Blade Truer Name Role Phone Sveta BLACK, Primary Care Provider Unavaila Babar Ashby Unavailable [phone] REASON FOR VISIT 6MO-ASTHMA, TAINA Encounters Encounter Location Date Provider Diagnosis Pulmonary Medicine [place] [address] [place] [address] 04/06/2024 Babar Granados Plan Of Treatment No Information Progress Notes * Hugo ALDANADOB:1960 (65 yo M)Acc No.[id number]:04/06/2024 UNLOCKED PROGRESS NOTE Follow Up Patient: Hugo ROQUE Provider: Carmen Granados DO :1960 A ge:63 Y S ex:Male Date:04/06/2024 Address:[address] [place] [phone] Pcp:Shaikh Sveta MD Subjective: * Chief Complaints: * 1 . 6MO-ASTHMA, TAINA. * Medical History: Objective: * Vitals: Assessment: Plan: * Treatment: * * Electronic signature of Eula Granados DO on 08/09/2025 at 08:37 AM EDT Sign off status: Pending Visit Status: C ANC (Cancelled) * Provider: Carmen Granados DO Date: 0 04/06/2024 Generated for Emily marrufo/Tuyet/La on: 0 08/09/2025 08:37 AM EDT
--- OUTSIDE RECORDS SUMMARY | 2025-06-15 14:49 | XMS_ITS ---
Author Name Auto Generated Organization [facility] Care Team Providers Care Industrial Machine Assembler Name Role Phone ELIDA KEVIN Attending Unavailable ELIDA KEVIN Referring Unavailable SHAIKH SR Primary Care Unavailable TAMIA PEÑALOZA Attending Unavailable TAMIA PEÑALOZA Attending Unavailable ESHA STANLEY Attending Unavailable TAMIA PEÑALOZA Attending Unavailable CLAYTON MARCOS Attending UnavailDOMONIQUE [place] Attending Unavailable ESHA STANLEY Referring Unavailable DOMONIQUE PATTERSON Attending Unavailable Dajuan Bowles Attending Unavailable Dajuan Bowles Admitting Unavailable Esha Stanley Primary Care Unavailable PROBLEMS DATE TYPE CONDITION / CODE ATTENDING STATUS [facility] 06/15/2025 Unknown Radiculopathy, l umbar region / M54.16(ICD-10) Dajuan Bowles [facility] 01/06/2025 Admitting Diagnosis Body mass index (BMI) 40.0-44.9, adult (Multi) / Z68.41(ICD-10) [facility] 09/18/2023 Admitting Diagnosis Other forms of dyspnea / R06.09(ICD-10) [facility] 09/17/2023 Admitting Diagnosis Atherosclerotic heart disease of [place] coronary artery without angina pectoris / I25.10(ICD-10) [facility] 09/17/2023 Admitting Diagnosis Presence of coronary angioplasty implant and graft / Z95.5(ICD-10) [facility] 09/17/2023 Admitting Diagnosis Mixed hyperlipidemia / E78.2(ICD-10) [facility] 09/17/2023 Admitting Diagnosis Essential (primary) hypertension / I10(ICD-10) [facility] 09/17/2023 Admitting Diagnosis Angina pectoris, unspecified / I20.9(ICD-10) [facility] 09/17/2023 Admitting Diagnosis Type 2 diabetes mellitus without complications (Multi) / E11.9(ICD-10) [facility] 09/17/2023 Admitting Diagnosis MCC (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 of insulin (Multi) / Z79.4(ICD-10) [facility] 01/06/2025 Admitting Diagnosis Coronary angioplasty status / Z98.61(ICD-10) [facility] PROCEDURES No Procedure Records Found RESULTS XR LUMBAR SPINE AP/LAT/FLX/EXT Observed: 06/15/2025 5:36 PM Status: COMPLETED Source: [place] [address] XRay Report Signed Patient: Darlyn Aldana MR#: [id number] : 1960 Acct:[id number] Age/Sex: 65 / M ADM Date: 06/15/25 Loc: [place] Room: Type: [facility] Attending Dr: Dajuan Bowles MD Copies to: Dajuan Bowles MD Ordering Provider: Dajuan Bowles MD Date of Service: 06/15/25 XR/XR lumbar spine AP/LAT/FLX/EXT: M54.16 - Radiculopathy, lumbar region XR lumbar spine AP/LAT/FLX/EXT 06/15/2025 3:11 PM SIGNS AND SYMPTOMS: Low back pain with numbness and tingling in lower extremities right greater than left PROTOCOLS: Frontal, lateral, and flexion-extension views of the lumbar spine COMPARISON: 06/28/2021 FINDINGS: The alignment, development and bony structures are normal. There is no fracture or destructive lesion. Flexion and extension view show no pathologic movement. There is moderate disc height loss at L4-5 and L5-S1 with mild disc height loss throughout otherwise. There is anterior osteophyte formation throughout. Bridging osteophyte formation throughout suggesting diffuse idiopathic skeletal hyperostosis. Degenerative changes are noted in the facets. Facet degenerative change. The sacrum and sacroiliac joints are normal. Atherosclerotic changes are present in the abdominal aorta. XR/XR lumbar spine AP/LAT/FLX/EXT IMPRESSION: No fracture, subluxation, or pathologic movement. Degenerative changes are redemonstrated throughout the visualized thoracolumbar spine with findings suggesting diffuse idiopathic skeletal hyperostosis. Impression dictated by: Demond Healy M.D. 06/15/2025 5:38 PM Dictation Location: [place] [address] Transcribed By: [facility] 06/15/25 1738 Dictated By: Demond Healy II, MD 06/15/25 1736 Signed By: <Electronically signed by Demond Healy II, MD in OV> 06/15/25 1738 C-REACTIVE PROTEIN Collected: 10:10 AM Status: F Source: [facility] TYPE CODE TESTS RESULT OUT OF RANGE REFERENCE UNITS LAB [id number] C-REACTIVE PROTEIN <3.0 Normal <8.0 mg/L Performed By: #### 4420 #### [facility] [address], [address] [place] [address] Clinical Staff Educator: Channing Mendieta MD ALLERGIES DATE TYPE / CODE NAME / CODE REACTION SEVERITY SOURCE 06/15/2025 Drug Allergy/9936259 02(SNOMED CT) No Known Allergies/Z079027596 (RXNORM) [facility] SYSTEMIC/731703 006(SNOMED CT) NO KNOWN ALLERGIES [facility] Ambulatory ENCOUNTERS ADMIT/DISCHARGE ACCOUNT NUMBER ADMITTING ENCOUNTER CLASS LOCATION SOURCE 06/15/2025/06/15/20 [id number] Dajuan Bowles [facility] 06/01/2025/06/01/20 [id number] Ambulatory Building:[facility] EPIC 05/11/2025/05/11/20 25 [id number] Ambulatory Building:[facility] EP[facility] 05/10/2025/05/10/20 25 [id number] Ambulatory Building:[facility] EPIC 05/09/2025/05/09/20 25 [id number] Ambulatory Building:[facility] 01/10/2025/01/11/20 25 [id number] Ambulatory Building:[facility] EP[facility] 01/06/2025/01/06/20 25 [id number] Ambulatory Building:[address] Ambulatory 10/18/2024/10/18/20 24 [id number] Ambulatory Building:[facility] EPIC 09/13/2024/09/13/20 24 [id number] Ambulatory Building:[facility] EPIC PAYERS ENCOUNTER GUARANTOR PAYER SUBSCRIBER SOURCE 06/15/2025 [place] [address]Jzn: (HP) Primary Insurance:Humana [facility]: [id number] Date:[id number] [address]TY: Darlyn LesterDOB: [id number] [place] [address]Atv: (HP) [facility] 06/15/2025 Secondary Insurance:MedicaidPoli Number: [id number] Date:2025-06-15 Darlyn AlvarezB: [id number] [place] [address]Akl: (HP) [facility] 06/15/2025 Tertiary Insurance:Self PayPolicy Number: Effective Date:2025-06-15 NOT GIVENUNK [facility] [address] [place] [address] [place] [address]Yzz: (HP) Primary Insurance:HUMANA MEDICARE ADVANTAGEPolicy Number: [id number] Date:2024-01-09 DARLYN ALDANA JR.: [id number] [place] [address] [facility] EPIC 05/11/2025 D[address] [place] [place] [place] [address]Cfd: (HP) Primary Insurance:HUMANA MEDICARE ADVANTAGEPolicy Number: [id number] Date:2024-01-09 DARLYN ALDANA JR.: [id number] [place] [address] [facility] EPIC 05/10/2025 D[address] [place] [address]Gyj: (HP) Primary Insurance:HUMANA MEDICARE ADVANTAGEPolicy Number: [id number] Date:2024-01-09 DARLYN ALDANA JR.: [id number] [place] [address] [facility] EPIC 05/09/2025 D[address]LY[address] [place] [place] [address]Wrj: (HP) Primary Insurance:HUMANA MEDICARE ADVANTAGEPolicy Number: [id number] Date:2024-01-09 DARLYN ALDANA JR.: [id number] [place] [address] [facility] EPIC 01/10/2025 D[address] [place] [address]Sjo: (HP) Primary Insurance:HUMANA MEDICARE ADVANTAGEPolicy Number: [id number] Date:2024-01-09 DARLYN ALDANA JR.: [id number] [place] [address] [facility] EPIC 01/06/2025 DARLYN ALDANADOB: [place], [place] [address]Fza: (HP) Primary Insurance:HUMANA MEDICAREPolicy Number: [id number] Date:2024-01-09 DARLYN ALDANADOB: [id number], [place] [address]Ngy: (HP) [facility] 10/18/2024 [address] [place] [place] [place] [address]Uam: (HP) Primary Insurance:HUMANA MEDICARE ADVANTAGEPolicy Number: [id number] Date:2024-01-09 DARLYN ALDANA JR.: [id number] [place] [address] [facility] EPIC 09/13/2024 DARLYNMUSTAPHA [place]NA [place] [address]Yth: (HP) Primary Insurance:HUMANA MEDICARE ADVANTAGEPolicy Number: [id number] Date:2024-01-09 DARLYNMUSTAPHA ALDANA JREpi: [id number] [place] [address] [facility] EPIC
--- OUTSIDE RECORDS SUMMARY | 2025-08-09 08:36 | XMS_ITS | Encounter Summary ---
Author Organization [facility] Address [address] [facility] [place] [address] Care Team Providers Care Substation Engineer Name Role Phone Jarad Garrison MD Primary Care Provider Esha Stanley NP Unavailable [phone] Amparo Haines DO Unavailable [phone] Encounter Details Date Type Department Care Team (Late st Contact Info) Description 01/13/2025 Abstract [facility] [address] [place] [address] Amparo Haines, DO [address] [facility] [address] [place] [address] Social History Tobacco Use Types Packs/Day Years [...] Care Team (Late st Contact Info) Description 09/08/2025 1:45 PM EDT Office Visit [facility] [address] [place] [address] Amparo Haines DO [address] [place] [address] documented as of this encounter Goals Goal [...] documented as of this encounter Care Teams Substation Engineer Relationship Specialty Start Date End Date Jarad Garrison MD PCP - General Family Medicine 09/21/24 Amparo Haines DO [address] [place] [address] PCP - [employer] 12/11/22 Esha Stanley NP Nurse Practitioner Family Medicine 01/05/25 documented as of this encounter
--- OUTSIDE RECORDS SUMMARY | 2025-08-09 08:36 | XMS_ITS | Encounter Summary ---
Author Organization [facility] Address [address] [place] [address] Phone Care Team Providers Care Retail Merchandising Specialist Name Role Phone Shaikh WAYNE Bangura Primary Care Provider [phone] Encounter Details Date Type Department Care Team (Late st Contact Info) Description 10/07/2023 Scanned Document [facility] [address] [place] [address] Scanning, Generic Provider Social History Tobacco Use [...] Description 09/06/2025 11:00 AM EDT Office Visit [facility] [address] [facility] [address] [place] [address] Hue Mendoza, TREATER-VIBRATION ENGINEER [address] [facility] [address] [place], [place] [address] documented as of this encounter Visit Diagnoses Not on filedocumented in this encounter Care Teams Retail Merchandising Specialist Relationship Specialty Start Date End Date Shaikh Bangura MD PCP - General 06/26/22 documented as of this encounter
--- OUTSIDE RECORDS SUMMARY | 2025-08-09 08:36 | XMS_ITS | Encounter Summary ---
Author Organization [facility] Address [address] [place] [facility] [place] [address] Care Team Providers Care Research Physiologist Name Role Phone Jarad Garrison MD Primary Care Provider [phone] Esha Stanley NP Unavailable [phone] Amparo Haines DO Unavailable [phone] Encounter Details Date Type Department Care Team (Late st Contact Info) Description 01/13/2025 Abstract [facility] [address] [place] [address] Amparo Haines, DO [address] [facility] 230 [place] [address] Social History Tobacco Use Types Packs/Day Years [...] PM EDT Office Visit [facility] [address] [place] [address] Amparo Haines DO [address] [place] [address] documented as of this encounter Goals Goal [...] documented as of this encounter Care Teams Research Physiologist Relationship Specialty Start Date End Date Jarad Garrison MD PCP - General Family Medicine 09/21/24 Amparo Haines DO [address] [place] [address] PCP - [employer] 12/11/22 Esha Stanley NP Nurse Practitioner Family Medicine 01/05/25 documented as of this encounter
--- OUTSIDE RECORDS SUMMARY | 2025-08-09 08:36 | XMS_ITS | Encounter Summary ---
Author Organization [facility] Address [address] [facility] [place] [address] Care Team Providers Care Food Service Assistant Name Role Phone Jarad Garrison MD Primary Care Provider [phone] Esha Stanley NP Unavailable [phone] Amparo Haines DO Unavailable [phone] Encounter Details Date Type Department Care Team (Late st Contact Info) Description 01/13/2025 Abstract [facility] [address] [place] [address] Amparo Haines, DO [address] [facility] [address] [place] [address] Social History Tobacco Use Types Packs/Day Years [...] PM EDT Office Visit [facility] [address] [place] [address] Amparo Haines DO [address] [place] [address] documented as of this encounter Goals Goal [...] documented as of this encounter Care Teams Food Service Assistant Relationship Specialty Start Date End Date Jarad Garrison MD PCP - General Family Medicine 09/21/24 Amparo Haines DO [address] [place] [address] PCP - [employer] 12/11/22 Esha Stanley NP Nurse Practitioner Family Medicine 01/05/25 documented as of this encounter
--- OUTSIDE RECORDS SUMMARY | 2025-08-09 08:36 | XMS_ITS | Clinical Summary ---
Author Organization Via optronicss tem Address [id number] [address] [place] [address] Care Team Providers Care Pantry Attendant Name Role Phone YancyMadi Paul ABRAMS Primary Care Provider [phone] Allergies No known active allergies Medications telmisartan [...] Take 1,200 Units by mouth daily. Active ipqhihdx-egub-B A-calcium &mins (THERAGRAN-M) 9 mg iron-400 mcg [...] (1 of 2) 09/19/20172016, 06/20/2017 COVID-19 Vaccine (2024-2 6 season) 2025 02/23/2021, 02/02/2021 Influenza Vaccine 07/11/2025 08/17/2021, , 07/11/2017 DTaP,Tdap and Td Vaccines (2 - Td or Tdap) 06/20/2027 06/20/2017 Medical Devices Implanted Type Area Garbage Man Device Identifier Shelf Expiration Date Model / Serial / Lot Stpl [id number] [facility] Ntnl Bn - Sna - [id number] Implanted:Qty : 1 on 12/29/2020 by Kwesi Dennison DPM at [facility] Orthopedic Implant Left: Foot [employer] 09/20/2025 [id number] 818-S / NA / [id number] Jaws Ntnl Bn - Sna - [id number] Implanted:Qty : 1 on 12/29/2020 by Kwesi Dennison DPM at [facility] Orthopedic Implant Left: Foot [employer] 10/13/2022 [id number] 020-S / NA / [id number] Plt [employer] [facility] - Sna - [id number] Implanted:Qty : 1 on 12/29/2020 by Kwesi Dennison DPM at [facility] Plate Left: Foot [employer] 11/10/2024 [id number] 002 / NA / NA Scr Cnn Shrthrd Hdls 7.0x90mm - Sna - [id number] Implanted:Qty : 1 on 12/29/2020 by Kwesi Dennison DPM at [facility] Screw Left: Foot [employer] 11/10/2024 [id number] 90S / NA / NA Scr Cnn Shrthrd Hdls 7.2t153ci - Sna - [id number] Implanted:Qty : 1 on 12/29/2020 by Kwesi Dennison DPM at [facility] Screw Left: Foot [employer] 11/10/2024 [id number] 00S / NA / NA Scr Cnn Shrthrd Hdls 5.5x60mm - Sna - [id number] Implanted:Qty : 1 on 12/29/2020 by Kwesi Dennison DPM at [facility] Screw Left: Foot [employer] 11/10/2024 [id number] 60S / NA / NA Scr Plt Nlckg 3.5x20mm R3con - Sna - [id number] Implanted:Qty : 2 on 12/29/2020 by Kwesi Dennison DPM at [facility] Screw Left: Foot [employer] 11/10/2024 [id number] 520 / NA / NA Scr Plt Nlckg 3.5x50mm R3con - Sna - [id number] Implanted:Qty : 2 on 12/29/2020 by Kwesi Dennison DPM at [facility] Screw Left: Foot [employer] 11/10/2024 [id number] 550 / NA / NA Explanted Type Area Garbage Man Device Identifier Shelf Expiration Date Model / Serial / Lot K-Wire Sgl End Smth [id number] - Sna - [id number] Explanted:Qty : 6 on 12/29/2020 by Kwesi Dennison DPM at [facility] Orthopedic Implant Left: Foot [employer] 11/10/2024 [id number] 323 / NA / NA K-Wire Sgl End Smth 1.6o328se - Sna - [id number] Explanted:Qty : 3 on 12/29/2020 by Kwesi Dennison DPM at [facility] Orthopedic Implant Left: Foot [employer] 11/10/2024 [id number] 615 / NA / NA K-Wire Sgl End Smth [id number] - Sna - [id number] Explanted:Qty : 1 on 12/29/2020 by Kwesi Dennison DPM at [facility] Orthopedic Implant Left: Foot [employer] 11/10/2024 [id number] 415 / NA / NA Insurance [place]ICAID [place] Member Subscriber Plan / Payer (Ef fective 2021-Present) Name:Hugo Aldana Jr. Relation to Subscriber:Self Name:Hugo Aldana Jr. Payer ID:Not on file Group ID:Not on file Type:Not on file Address: [address] Care Teams Pantry Attendant Relationship Specialty Start Date End Date Madi Haines DO [address] [place] [address] PCP - General Family Medicine 04/27/21
--- OUTSIDE RECORDS SUMMARY | 2025-08-09 08:36 | XMS_ITS | Encounter Summary ---
Author Organization [facility] Address [address] [facility] [place] [address] Care Team Providers Care Cda Teacher Name Role Phone Jarad Garrison MD Primary Care Provider Esha Stanley NP Unavailable [phone] Amparo Haines DO Unavailable [phone] Encounter Details Date Type Department Care Team (Late st Contact Info) Description 02/18/2025 Abstract [facility] [address] [place] [address] Amparo Haines, DO [address] [facility] [address] [place] [address] Social History Tobacco Use Types Packs/Day Years [...] PM EDT Office Visit [facility] [address] [place] [address] Amparo Haines DO [address] [place] [address] documented as of this encounter Goals Goal [...] documented as of this encounter Care Teams Cda Teacher Relationship Specialty Start Date End Date Jarad Garrison MD PCP - General Family Medicine 09/21/24 Amparo Haines DO [address] [place] [address] PCP - [employer] 12/11/22 Esha Stanley NP Nurse Practitioner Family Medicine 01/05/25 documented as of this encounter
--- OUTSIDE RECORDS SUMMARY | 2025-08-09 08:36 | XMS_ITS | Encounter Summary ---
Author Organization [facility] Address [address] [facility] [place] [address] Care Team Providers Care Count Team Clerk Name Role Phone Jarad Garrison MD Primary Care Provider [phone] Esha Stanley NP Unavailable [phone] Amparo Haines DO Unavailable [phone] Encounter Details Date Type Department Care Team (Late st Contact Info) Description 01/20/2025 Abstract [facility] [address] [place] [address] Amparo Haines, DO [address] [facility] [address] [place] [address] Social History Tobacco Use Types Packs/Day Years [...] PM EDT Office Visit [facility] [address] [place] [address] Amparo Haines DO [address] [place] [address] documented as of this encounter Goals Goal [...] documented as of this encounter Care Teams Count Team Clerk Relationship Specialty Start Date End Date Jarad Garrison MD PCP - General Family Medicine 09/21/24 Amparo Haines DO [address] [place] [address] PCP - [employer] 12/11/22 Esha Stanley NP Nurse Practitioner Family Medicine 01/05/25 documented as of this encounter
--- OUTSIDE RECORDS SUMMARY | 2025-08-09 08:36 | XMS_ITS | Clinical Summary ---
Author Organization [facility] Address [address] [place] [address] Care Team Providers Care Pricing Director Name Role Phone Jarad Garrison MD Primary Care Provider [phone] Esha Stanley NP Unavailable [phone] [place] Amparo Samanta DO Unavailable [phone] Allergies No known active allergies Medications clopidogrel [...] mouth in the morning. 3 Active Nystop 844758 UNIT/GM powder APPLY TO AFFECTED SKIN TOPICALLY [...] feel more refreshed in the morning: somewhat [employer] that supplies your machine and tubing/filters etc: [place] [facility] that manages your TAINA: Austen Hx of percutaneous transluminal coronary angiopl asty 09/18/2023 Angina pectoris 09/17/2023 Abnormal EKG 09/17/2023 CAD (coronary artery disease) 09/17/2023 Assessment & Plan (05/10/2025 1:49 PM EDT): Current meds: plavix, asa, statin, hydrochlorothiazide, nitroglycerin prn, ranexa, ARB, b patricia Current chief strategy officer: Dilip MATTSON Stress test/heart cath: a few [...] CAD, HLD Is under the care of [facility] Meds: ozempic, insulin, statin, arb, asa A1c: [...] any problems or questions. Hugo Verdin Jr. blood sugars are worsening. , [...] education. Ok to change his tousebastien to anne-marieba for patient assistance. Will increase ozempic to [...] if they have any problems or questions. Hugovernon Verdin Jr. is doing okay. , Discussed [...] NSAIDS Elevate HOB if possible Meds: PPI skilled nursing (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 of insulin 06/03/2023 Lumbar and [...] Encounters Date Type Department Care Team Description 06/27/2025 Telephone [facility] [place] [address] Madi Pedroza PA MRI, PT can't afford 06/06/2025 Telephone [facility] [address] [place] [address] Joselyn Reed LPN tresiba- tomás nordisk 2025 10:30 AM EDT Office Visit [facility] On license of [facility] [place] [address] Madi Pedroza PA Sacroiliac joint pain (Primary Dx); Lumbar radiculopathy; Arthritis of right hip; Right hip pain 2025 Bamboo flowsheet [facility] [address] [facility] [place] [address] Madi Pedroza PA 2025 Travel 05/31/2025 Travel 05/24/2025 Clinisync Result Encounter [facility] External Department Unsolicited Esha Stanley NP 05/11/2025 1:15 PM EDT Office Visit [facility] [address] [facility] [place] [address] Madi Pedroza PA Acute hip pain, left (Primary Dx); Acute right hip pain; Chronic hip pain, bilateral; Arthritis of left hip; Sacroiliac joint pain 05/11/2025 Bamboo flowsheet [facility] [address] [place] [address] Madi Pedroza PA 05/11/2025 Travel 05/10/2025 1:20 PM EDT Office Visit [facility] [address] [facility] [place] [address] Esha Stanley NP Essential hypertension (Primary Dx); Obstructive sleep apnea syndrome; Coronary artery disease of [place]ians[place] artery of [place] heart with stable angina pectoris ; Type 2 diabetes mellitus with other circulatory complications ([facility]); Gastro-esophageal reflux disease without esophagitis; Class 3 severe obesity due to excess calories with serious comorbidity and body mass index (BMI) of 40.0 to 44.9 in adult ([facility]); Anxiety; Mixed hyperlipidemia ; Recurrent major depressive disorder, in partial remission ; Groin pain, right; Candidiasis 05/10/2025 Bamboo flowsheet [facility] [address] [place] [address] Esha Stanley NP 05/09/2025 1:15 PM EDT Office Visit [facility] [address] [place] [address] Amparo Haines, skilled nursing (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 of insulin (HCC) (Primary Dx); Type 2 diabetes mellitus with other circulatory complications (HCC); Class 3 severe obesity due to excess calories with serious comorbidity and body mass index (BMI) of 40.0 to 44.9 in adult ([facility]) 05/09/2025 Travel from Last 3 Months Immunizations Immunization [...] week 05/09/2025 How often do you attend mandaen or lutheran serv ices? Patient declined 05/09/2025 Do you belong to any clubs o r organizations such as mandaen groups, unions, fraternal or athletic groups, or [...] Recorded Patient Health Questionnaire-2 Score 0 05/09/2025 [facility] of Occupat ional Health - Occupational Stress [...] any time in the past [address] [facility], were you homeless or living in [...] Description 09/08/2025 1:45 PM EDT Office Visit [facility] [place] [facility] [address] [place] [address] Amparo Haines DO [address] [place] [address] Health Maintenance Due Date Last Done Comments CT Colonography 1962 FIT-DNA 1962 FIT 1962 FOBT 1960 Sigmoidoscopy 1960 Medicare Annual Wellness (AWV) 04/29/2025 04/29/2024 Influenza Vaccine (#1) 2025 4, 09/10/2024, 09/10/2023, Additional history exists Diabetes: Retinopathy Screening 10/29/2025 3, 08/23/2021 Diabetes: Hemoglobin A1C 11/08/2025 025, 01/10/2025, 09/13/2024, Additional history exists Diabetes: Urine Protein Screening 03/30/2026 03/30/2025, 08/27/2021, 08/22/2020 Colonoscopy 11/02/2030 11/02/2020 Colorectal Cancer Screening 11/02/2030 Goals Goal Patient Goal Type Associated Problems Recent Progress Patient-Stated? Author Help patient manage antidepressant medication Care Plan Patient on antidepressant monitoring plan No Mei Ireland NP Procedures Procedure Name Priority Date/Time Associated Diagnosis Comments MI ARTHROCENTESIS ASPIR&/INJ MAJOR JT/BURSA W/US Routine 2025 11:34 AM EDT Arthritis of right hip US SCROTUM 05/24/2025 10:51 AM EDT MI ARTHROCENTESIS ASPIR&/INJ MAJOR JT/BURSA W/US Routine 05/11/2025 1:49 PM EDT Arthritis of left hip POCT GLYCOSYLATED HEMOGLOBIN (HGB A1C) Routine 05/09/2025 1:22 PM EDT Type 2 diabetes mellitus with other circulatory complications (HCC) MICROALBUMIN / CREATININE URINE RATIO Routine 03/30/2025 10:28 AM EDT Essential hypertension Type 2 diabetes mellitus with other circulatory complications (HCC) DIABETIC RETINOPATHY SCREENING - OU - BOTH EYES Routine 10/29/2023 9:37 AM EST COLONOSCOPY Routine 11/02/2020 12:00 PM EST from Last 3 Months or Most Recently Relevant to Health Maintenance Results * MI ARTHROCENTESIS ASPIR&/INJ MAJOR JT/BURSA W/US (2025 11:34 AM EDT) Narrative Madi Pedroza PA - 2025 11:34 AM EDT MAGNUS Dodd 2025 12:46 PM L Inj/Asp: R hip joint on 2025 11:34 AM Indications: pain and diagnostic evaluation Details: 20 G needle, ultrasound-guided anterolateral approach Medications: 40 mg methylPREDNISolone acetate 40 MG/ML; 2 mL bupivacaine PF 0.5 % Outcome: tolerated well, no immediate complications With patient supine, the right hip was sterilely prepped with isopropyl alcohol. [...] and hemostasis was achieved. Images captured to patient's chart ( Codes 78199-RY) Procedure, treatment alternatives, risks and benefits explained, specific risks discussed. Consent was given by the patient. Patient was prepped and draped in the usual sterile fashion. us Madi AGUDELO IN CLINIC/BEDSIDE ORDERABLES Final Result * US scrotum (05/24/2025 10:51 AM EDT) Anatomical Region Laterality Modality Body Ultrasound 05/24/2025 10:5 1 AM EDT Narrative 05/24/2025 10:54 [place] [address] Ultrasound Report Signed Patient: HUGO VERDIN MR#: [id number] : 1960 Acct:[id number] Age/Sex: 64 / M ADM Date: 05/24/25 Loc: US Attending Dr: Esha Stanley NP Ordering Physician: Esha Stanley NP Date of Service: 05/24/25 Procedure(s): US scrotum Accession Number(s): [id number] cc: Esha Stanley NP [place] [address] Patient Name: HUGO VERDIN MRN: [id number] date: 1960 Sex: M Assigned Patient Location: US Current Patient Location: US Accession/Order Number: [id number] Exam Date: 05/24/2025 10:48 Report Date: 05/24/2025 10:51 At the request of: ESHA STANLEY NP Procedure: US scrotum SCROTAL ULTRASOUND WITH DUPLEX IMAGING COMPARISON: CT 01/06/2023 CLINICAL DATA: Right groin pain and scrotal swelling for the past few months. The right testis measures 4.9 x 3.6 x 3.1 cm . The left testis measures 4.9 x 3.8 x 2.9 cm. There is normal echogenicity. No intratesticular masses are present. There is documentation of bilateral duplex and color Doppler testicular blood flow. The epididymal heads are similar in size. There is no evidence of hydrocele or varicocele. The right groin and area of patient's pain was evaluated with and without Valsalva. The sales and marketing associate was unable to detect an inguinal hernia. US/US scrotum IMPRESSION: NO INTRATESTICULAR MASS OR TORSION. NO EVIDENCE OF INGUINAL HERNIA. Impression dictated by: Candelaria Che M.D. 05/24/2025 10:51 AM Dictation Location: [place] [address] Electronically authenticated by: [id number] Y Date: 05/24/2025 10:51 Dictated By: Candelaria Che M.D. Signed By: 05/24/25 1054 DD/ 1051 TD/TT: Safety Belt Installer: Procedure Note Radiology, Radiologist, MD - 05/24/2025 [place] [address] Ultrasound Report Signed Patient: HUGO VERDIN [facility]#: [id number] : 1960cct:[id number] Age/Sex: 64 / MADM Date: 05/24/25 Loc: US Attending Dr: Esha Stanley NP Ordering Physician: Esha Stanley NP Date of Service: 05/24/25 Procedure(s): US scrotum Accession Number(s): [id number] cc: Esha Stanley NP [place] [id number] Patient Name: HUGO VERDIN MRN: [facility]:[id number] date: 1960 Sex: M Assigned Patient Location: Current Patient Location: US Accession/Order Number: [id number] Exam Date: 05/24/2025 10:48 Report Date: 05/24/2025 10:51 At the request of: ESHA STANLEY NP Procedure: US scrotum SCROTAL ULTRASOUND WITH DUPLEX IMAGING COMPARISON: CT 01/06/2023 CLINICAL DATA: Right groin pain and scrotal swelling for the past fewmonths. The right testis measures 4.9 x 3.6 x 3.1 cm . The left testis measures4.9 x 3.8 x 2.9 cm. There is normal echogenicity. No intratesticular massesare present. There is documentation of bilateral duplex and color Doppler testicular blood flow. The epididymal heads are similar in size. Thereis no evidence of hydrocele or varicocele. The right groin and area of patient's pain was evaluated with and without Valsalva. The sales and marketing associate was unable to detect an inguinal hernia. US/US scrotum IMPRESSION: NO INTRATESTICULAR MASS OR TORSION. NO EVIDENCE OF INGUINAL HERNIA. Impression dictated by: Candelaria Che M.D. 05/24/2025 10:51 AM Dictation Location: [place] [address] Electronically authenticated by: [id number] Y Date: 0:51 Dictated By: Candelaria Che M.D. Signed By:05/24/25 1054 DD/ 1051 TD/TT: Safety Belt Installer: us Esha Stanley BIGHT MAKER IMG US PROCEDURES Final Result * MI ARTHROCENTESIS ASPIR&/INJ MAJOR JT/BURSA W/US (05/11/2025 1:49 [...] Images captured to pt's chart. ( Codes 67531-QJ) Procedure, treatment alternatives, risks and benefits explained, specific risks discussed. Consent was given by the patient. Patient was prepped and draped in the usual sterile fashion. us Madi AGUDELO IN CLINIC/BEDSIDE ORDERABLES Final Result * POCT glycosylated hemoglobin (Hb A1C) docked device (05/09/2025 1:22 PM EDT) Hemoglobin A1C 7.6 Blood Venous blood specimen / Unknown 05/09/2025 1:22 PM EDT us Amparo Haines DO POINT OF CARE TEST ENTER/E DIT ORDERABLES Final Result * Microalbumin / creatinine, urine [...] 03/31/2025 11:11 AM EDT SPLIT 03/30/2025 FROM [id number] Resulting Agency Comment Performing Organization Information Site ID: QPT Name: [facility] Address: [address] [place] [address], [address] [place] [id number] Director: Channing Mendieta MD us Esha Stanley NP LAB URINE ORDERABLES Final Resu lt [facility] * Diabetic Retinopathy Screening - OU - Both Eyes (10/29/2023 9:37 AM EST) Anatomical Region Laterality Modality Head Other us Amparo Haines DO OPHTH PHOTOGRAPHY Final Re sult * Colonoscopy (11/02/2020 12:00 PM EST) Anatomical Region Laterality Modality Endoscopy 11/02/2020 12:0 0 PM EST Narrative 11/02/2020 12:00 PM EST PERFORMED AT [facility] LOCATION:[id number] Procedure Note CONVERSION, GENERIC - 03/26/2023 PERFORMED AT [facility] LOCATION:[id number] Madi Miller Yancy DO ENDOSCOPY PROCEDURE ORDERA BLES Final Result from Last 3 Months or Most Recently Relevant to Health Maintenance Additional Health Concerns Active Problems Noted Date Diagnosed Date Patient on antidepressant monitoring plan 2023 Insurance [employer] MEDICARE ADVANTAGE Care Teams Pricing Director Relationship Specialty Start Date End Date Jarad Garrison MD PCP - General Family Medicine 09/21/24 Amparo Haines DO [address] [facility] [address] [place] [address] PCP - [employer] 12/11/22 Esha Stanley NP Nurse Practitioner Family Medicine 01/05/25
--- OUTSIDE RECORDS SUMMARY | 2025-08-09 08:36 | XMS_ITS | Clinical Summary ---
Author Organization [facility] Address [address] [place] [address] Phone Care Team Providers Care Pit Recorder Name Role Phone Shaikh WAYNE Bangura Primary Care Provider [phone] Allergies No known active allergies Medications apple cider vinegar 600 mg capsule Take 2 capsules by mouth once daily. Active pedi multivit no.17 w-fluoride (Rgms-Zv-Jdtg) 0.5 mg tablet,chewable Chew 1 tablet once [...] once daily at bedtime. 90 tablet 3 06/30/2025 5:26 PM EDT 5 Active clopidogrel (Plavix) 75 mg tabletIndications:M [...] 2 times a day. 180 tablet 3 06/20/2025 12:41 PM EDT Active Active Problems Problem Noted Date Diagnosed [...] percutaneous translumi nal coronary angioplasty 09/18/2023 05/04/2024 Immunizations Immunization Administration Dates Next Due Influenza, [...] Description 09/06/2025 11:00 AM EDT Office Visit [facility] [address] [facility] [address] [place] [id number] Hue Mendoza, CREDIT RISK OFFICER-KNOT PICKER CLOTH [address] [place] [address] Health Maintenance Due Date Last Done Comments CT Colonography 1960 Diabetes: Hemoglobin A1C 1962 FIT-DNA (Cologuard) 1962 FIT 1960 HIV Screening 1960 Lipid Panel 1960 Medicare Annual Wellness Visit (AWV) 1962 Diabetes: Retinopathy Screening 1972 Hepatitis C Screening 1980 Pneumococcal Vaccine (1 of 2 - PCV) 1981 PSA Prostate Cancer Screening 2012 Zoster Vaccines (1 of 2) 09/19/2017 07/25/2017, 06/10 RSV High Risk: (Elderly (60+) or Population) (1 - Risk 60-74 years 1-dose series) 2022 Diabetes: Urine Protein Screening 08/27/2022 08/27/2021 COVID-19 Vaccine (2 - season) 2025 08/25/2022 Influenza Vaccine (#1) 2025 , 09/10/2024, 09/10/2023, Additional history exists DTaP/Tdap/Td Vaccines [...] patient's age to complete this topic Insurance * Guarantor: Hugo Aldana Account Type Relation to Patient Date of Phone Billing Address Personal/Family Self [address] [place] [address] [employer] Care Teams Pit Recorder Relationship Specialty Start Date End Date Shaikh Bangura MD PCP - General 06/26/22
--- OUTSIDE RECORDS SUMMARY | 2025-08-09 08:37 | XMS_ITS | Encounter Summary ---
Author Organization [facility] Address [address] [place] [address] Care Team Providers Care Assistant Director Name Role Phone Shaikh WAYNE Bangura Primary Care Provider [phone] Jarad Garrison MD Primary Care Provider [phone] Mei Basilio BILINGUAL TEACHER AIDE Unavailable [phone] Esha Stanley BILINGUAL TEACHER AIDE Unavailable [phone] Amparo Haines DO Unavailable [phone] Encounter Details Date Type Department Care Team (Late st Contact Info) Description 04/30/2024 Clinisync Result Encounter [facility] External Department Unsolicited Shaikh Bangura MD [address] [place] [address] Social History Tobacco Use Types Packs/Day Years [...] 1:45 PM EDT Office Visit [facility] [address] [place] [address] Amparo Haines, DO [address] [place] [address] documented as of this encounter Procedures Procedure Name Priority Date/Time Associated Diagnosis Comments XR LUMBAR SPINE 2 OR 3V 04/30/2024 6:23 AM EDT documented in this encounter Results * XR LUMBAR SPINE 2 OR 3V (04/30/2024 6:23 AM EDT) Anatomical Region Laterality Modality Radiographic Lety ging 04/30/2024 6:23 AM EDT Narrative 04/30/2024 6:25 AM EDT The [address] [address] XRay Report Signed Patient: HUGO ALDANA MR#: [id number] : 1960 Acct:[id number] Age/Sex: 63 / M ADM Date: 04/29/24 Loc: LAB Attending Dr: Shaikh Sveta Boyle Ordering Physician: Shaikh Tamar Bangura Date of Service: 04/29/24 Procedure(s): XR lumbar spine 2-3V Accession Number(s): [id number] cc: Shaikh Tamar Bangura [address] [address] Patient Name: HUGO ALDANA MRN: [id number] date: 1960 Sex: M Assigned Patient Location: LAB Current Patient Location: LAB Accession/Order Number: [id number] Exam Date: 04/29/2024 13:10 Report Date: 04/30/2024 [...] Signed By: 04/30/24624 DD/ 2 TD/TT: Medical Auditor: Procedure Note Radiology, Radiologist, MD - 04/30/2024 [place] [address] XRay Report Signed Patient: HUGO ALDANA NMR#: [id number] : 1960cct:[id number] Age/Sex: 63 / MADM Date: 04/29/24 Loc: LAB Attending Dr: Shaikh Sveta Boyle Ordering Physician: Shaikh Tamar Bangura Date of Service: 04/29/24 Procedure(s): XR lumbar spine 2-3V Accession Number(s): [id number] cc: Shaikh Tamar Bangura The [place] [id number] Patient Name: HUGO ALDANA MRN: [id number] date: 1960 Sex: M Assigned Patient Location: LAB Current Patient Location: LAB Accession/Order Number: [id number] Exam Date: 04/29/2024 13:10 Report Date: 04/30/2024 [...] M.D. Signed By:04/30/24624 DD/ 2 TD/TT: Medical Auditor: Shaikh Sveta BLACK IMG XR PROCEDURES Final Result documented in this encounter Visit Diagnoses Not on filedocumented in this encounter Additional Health Concerns Assessment Noted Time PHQ-9 Depression Total Score: 3 04/29/20 24 11:00 AM EDT documented as of this encounter Care Teams Assistant Director Relationship Specialty Start Date End Date Shaikh Bangura MD PCP - General Internal Medicine 04/29/23 09/20/24 Jarad Garrison MD PCP - General Family Medicine 09/21/24 Amparo Haines DO [address] [address] PCP - Humana 12/11/22 Mei Basilio NP Nurse Practitioner Family Medicine 09/21/24 01/04/25 Esha Stanley NP Nurse Practitioner Family Medicine 01/05/25 documented as of this encounter
--- OUTSIDE RECORDS SUMMARY | 2025-08-09 08:37 | XMS_ITS | Encounter Summary ---
Author Organization [facility] Address [address] [facility] [place] [address] Care Team Providers Care Manufacturing Engineering Manager Name Role Phone Shaikh WAYNE Bangura Primary Care Provider [phone] Jarad Garrison MD Primary Care Provider [phone] Mei Basilio DIRECTOR VISUAL Unavailable [phone] Esha Stanley DIRECTOR VISUAL Unavailable [phone] Amparo Haines DO Unavailable [phone] Encounter Details Date Type Department Care Team (Late st Contact Info) Description 01/13/2024 Abstract [facility] [place] [facility] [address] [facility] 230 [place] [address] Amparo Haines, [address] [facility] 230 [place] [address] Social History Tobacco Use Types Packs/Day Years [...] PM EDT Office Visit [facility] [address] [place] [address] Amparo Haines DO [address] [place] [address] documented as of this encounter Visit Diagnoses Not on filedocumented in this encounter Additional Health Concerns Assessment Noted Time PHQ-9 Depression Total Score: 17 023 11:20 AM EST documented as of this encounter Care Teams Manufacturing Engineering Manager Relationship Specialty Start Date End Date Shaikh Bangura MD PCP - General Internal Medicine 04/29/23 09/20/24 Jarad Garrison MD PCP - General Family Medicine 09/21/24 Amparo Haines DO [address] [place] [address] PCP - Humana 12/11/22 Mei Basilio NP Nurse Practitioner Family Medicine 09/21/24 01/04/25 Esha Stanley NP Nurse Practitioner Family Medicine 01/05/25 documented as of this encounter
--- OUTSIDE RECORDS SUMMARY | 2025-08-09 08:37 | XMS_ITS | Encounter Summary ---
Author Organization [facility] Address [address] [place] [address] Phone Care Team Providers Care Resident Care Spec Name Role Phone Shaikh WAYNE Bangura Primary Care Provider [phone] Encounter Details Date Type Department Care Team (Late st Contact Info) Description 03/30/2025 Scanned Document [facility] [address] [place] [address] Scanning, Generic Provider Social History Tobacco Use [...] Description 09/06/2025 11:00 AM EDT Office Visit [facility] [address] [facility] [address] [place] [address] Hue Mendoza, TERMINATION CLERK-SPARE FIXER [address] [facility] [address] [place] [address] documented as of this encounter [...] on filedocumented in this encounter Care Teams Resident Care Spec Relationship Specialty Start Date End Date Shaikh Bangura MD PCP - General 06/26/22 documented as of this encounter
--- OUTSIDE RECORDS SUMMARY | 2025-08-09 08:37 | XMS_ITS | Encounter Summary ---
Author Organization [facility] Address [address] [facility] [place] [address] Care Team Providers Care Semiconductor Package Symbol Stamper Name Role Phone Shaikh WAYNE Bangura Primary Care Provider [phone] Jarad Garrison MD Primary Care Provider [phone] Mei Basilio FIRER GLOST KILN Unavailable [phone] Esha Stanley FIRER GLOST KILN Unavailable [phone] Amparo Haines DO Unavailable Encounter Details Date Type Department Care Team (Late st Contact Info) Description 10/31/2023 Orders Only [facility] [address] [facility] [address] [place] [address] Amparo Haines, [address] [facility] [address] [place] [address] Social History Tobacco Use Types Packs/Day Years [...] 09/08/2025 1:45 PM EDT Office Visit [facility] [address] [place] [address] Amparo Haines DO [address] [place] [address] documented as of this encounter Procedures Procedure [...] documented as of this encounter Care Teams Semiconductor Package Symbol Stamper Relationship Specialty Start Date End Date Shaikh Bangura MD PCP - General Internal Medicine 04/29/23 09/20/24 Jarad Garrison MD PCP - General Family Medicine 09/21/24 Amparo Haines DO [address] [place] [address] PCP - Humana 12/11/22 Mei Basilio NP Nurse Practitioner Family Medicine 09/21/24 01/04/25 Esha Stanley NP Nurse Practitioner Family Medicine 01/05/25 documented as of this encounter
--- OUTSIDE RECORDS SUMMARY | 2025-08-09 08:37 | XMS_ITS | Encounter Summary ---
Author Organization [facility] Address [address] [place] [address] Care Team Providers Care Branch Operations Manager Name Role Phone Shaikh WAYNE Bangura Primary Care Provider [phone] Jarad Garrison MD Primary Care Provider [phone] Mei Basilio DISPATCH ASSOCIATE Unavailable [phone] Esha Stanley DISPATCH ASSOCIATE Unavailable [phone] Amparo Haines DO Unavailable [phone] Encounter Details Date Type Department Care Team (Late st Contact Info) Description 04/30/2024 Clinisync Result Encounter [facility] External Department Unsolicited Shaikh Bangura MD [address] [place] [address] Social History Tobacco Use Types Packs/Day Years [...] Description 09/08/2025 1:45 PM EDT Office Visit [facility] [address] [place] [address] Amparo Haines, DO [address] [place] [address] documented as of this encounter Procedures Procedure Name Priority Date/Time Associated Diagnosis Comments XR HIP 2 OR 3 VW RIGHT 04/30/2024 6:19 AM EDT documented in this encounter Results * XR hip right 2 or 3 views (04/30/2024 6:19 AM EDT) Anatomical Region Laterality Modality Lower Extremities, Hip Right Radiograp hic Imaging 04/30/2024 6:19 AM EDT Narrative 04/30/2024 6:22 AM EDT The [address] [address] XRay Report Signed Patient: HUGO ALDANA MR#: [id number] : 1960 Acct:[id number] Age/Sex: 63 / M ADM Date: 04/29/24 Loc: LAB Attending Dr: Shaikh Sveta Boyle Ordering Physician: Shaikh Tamar Bangura Date of Service: 04/29/24 Procedure(s): XR hip RT min 2V Accession Number(s): [id number] cc: Shaikh Tamar Bangura [address] [id number] Patient Name: HUGO ALDANA MRN: [id number] date: 1960 Sex: M Assigned Patient Location: LAB Current Patient Location: Accession/Order Number: [id number] Exam Date: 04/29/2024 13:10 Report Date: 04/30/2024 [...] M.D. Signed By: 04/30/24621 DD/ 8 TD/TT: Machine Or Machinery Mechanic: Procedure Note Radiology, Radiologist, MD - 04/30/2024 [place] [address] XRay Report Signed Patient: HUGO ALDANA NMR#: [id number] : 1960cct:[id number] Age/Sex: 63 / MADM Date: 04/29/24 Loc: LAB Attending Dr: Shaikh Sveta Boyle Ordering Physician: Shaikh Tamar Bangura Date of Service: 04/29/24 Procedure(s): XR hip RT min 2V Accession Number(s): [id number] cc: Shaikh Tamar Bangura The [place] [id number] Patient Name: HUGO ALDANA MRN: [id number] date: 1960 Sex: M Assigned Patient Location: LAB Current Patient Location: Accession/Order Number: [id number] Exam Date: 04/29/2024 13:10 Report Date: 04/30/2024 [...] Carlin M.D. Signed By:04/30/24621 DD/ 8 TD/TT: Machine Or Machinery Mechanic: us Shaikh Sveta BLACK IMG XR PROCEDURES Final Result documented in this encounter Visit Diagnoses Not on filedocumented in this encounter Additional Health Concerns Assessment Noted Time PHQ-9 Depression Total Score: 3 04/29/20 24 11:00 AM EDT documented as of this encounter Care Teams Branch Operations Manager Relationship Specialty Start Date End Date Shaikh Bangura MD PCP - General Internal Medicine 04/29/23 09/20/24 Jarad Garrison MD PCP - General Family Medicine 09/21/24 Amparo Haines DO [address] [facility] 230 [place] [address] PCP - Humana 12/11/22 Mei Basilio NP Nurse Practitioner Family Medicine 09/21/24 01/04/25 Esha Stanley NP Nurse Practitioner Family Medicine 01/05/25 documented as of this encounter
--- OUTSIDE RECORDS SUMMARY | 2025-08-09 08:37 | XMS_ITS | Encounter Summary ---
Author Organization [facility] Address [address] [facility] [place] [address] Care Team Providers Care Belt Brander Name Role Phone Shaikh WAYNE Bangura Primary Care Provider [phone] Jarad Garrison MD Primary Care Provider [phone] Mei Basilio SQUADRON WORKER Unavailable Esha Stanley SQUADRON WORKER Unavailable [phone] Amparo Haines DO Unavailable [phone] Encounter Details Date Type Department Care Team (Late st Contact Info) Description 04/30/2024 Abstract [facility] [address] [place] [address] Amparo Haines, DO [address] [facility] 230 [place] [address] Social History Tobacco Use Types Packs/Day Years [...] 1:45 PM EDT Office Visit [facility] [place] [facility] [address] [place] [address] Amparo Haines DO [address] [place] [address] documented as of this encounter Visit Diagnoses Not on filedocumented in this encounter Additional Health Concerns Assessment Noted Time PHQ-9 Depression Total Score: 3 04/29/20 24 11:00 AM EDT documented as of this encounter Care Teams Belt Brander Relationship Specialty Start Date End Date Shaikh Bangura MD PCP - General Internal Medicine 04/29/23 09/20/24 Jarad Garrison MD PCP - General Family Medicine 09/21/24 Amparo Haines DO [address] [place] [address] PCP - Humana 12/11/22 Mei Basilio NP Nurse Practitioner Family Medicine 09/21/24 01/04/25 Esha Stanley NP Nurse Practitioner Family Medicine 01/05/25 documented as of this encounter
--- OUTSIDE RECORDS SUMMARY | 2025-08-09 08:37 | XMS_ITS | Encounter Summary ---
Author Organization [facility] Address [address] [facility] [place] [address] Care Team Providers Care Bight Maker Name Role Phone Shaikh WAYNE Bangura Primary Care Provider [phone] Jarad Garrison MD Primary Care Provider [phone] Mei Basilio HOUSE STEWARD/STEWARDESS Unavailable Esha Stanley HOUSE STEWARD/STEWARDESS Unavailable [phone] Amparo Haines DO Unavailable [phone] Encounter Details Date Type Department Care Team (Late st Contact Info) Description 12/30/2023 Abstract [facility] [address] [place] [address] Amparo Haines, DO [address] [facility] 230 [place] [address] Social History Tobacco Use Types Packs/Day Years [...] [address] [place] [address] Amparo Haines DO [address] [place] [address] documented as of this encounter Visit Diagnoses Not on filedocumented in this encounter Additional Health Concerns Assessment Noted Time PHQ-9 Depression Total Score: 17 023 11:20 AM EST documented as of this encounter Care Teams Bight Maker Relationship Specialty Start Date End Date Shaikh Bangura MD PCP - General Internal Medicine 04/29/23 09/20/24 Jarad Garrison MD PCP - General Family Medicine 09/21/24 Amparo Haines DO [address] [place] [address] PCP - Humana 12/11/22 Mei Basilio NP Nurse Practitioner Family Medicine 09/21/24 01/04/25 Esha Stanley NP Nurse Practitioner Family Medicine 01/05/25 documented as of this encounter
--- OUTSIDE RECORDS SUMMARY | 2025-08-09 08:37 | XMS_ITS | Clinical Summary ---
Author Organization [facility] Address [address] [place] [address] Care Team Providers Care Restaurant Line Server Name Role Phone Unavailable Primary Care Provider [...]
--- OUTSIDE RECORDS SUMMARY | 2025-08-09 08:37 | XMS_ITS | Encounter Summary ---
Author Organization [facility] Address [address] [place] [address] Care Team Providers Care Ball Shagger Name Role Phone Jarad Garrison MD Primary Care Provider Mei Basilio SOFTWARE SPECIALIST Unavailable Esha Stanley SOFTWARE SPECIALIST Unavailable [phone] Amparo Haines DO Unavailable [phone] Encounter Details Date Type Department Care Team (Late st Contact Info) Description 10/04/2024 Abstract [facility] [address] [place] [address] Amparo Haines, DO [address] [facility] 230 [place] [address] Social History Tobacco Use Types Packs/Day Years [...] PM EDT Office Visit [facility] [address] [place] [address] Amparo Haines DO [address] [place] [address] documented as of this encounter Visit Diagnoses Not on filedocumented in this encounter Additional Health Concerns Assessment Noted Time PHQ-9 Depression Total Score: 3 04/29/20 24 11:00 AM EDT documented as of this encounter Care Teams Ball Shagger Relationship Specialty Start Date End Date Jarad Garrison MD PCP - General Family Medicine 09/21/24 Amparo Haines DO [address] [place] [address] PCP - Humana 12/11/22 Mei Basilio NP Nurse Practitioner Family Medicine 09/21/24 01/04/25 Esha Stanley NP Nurse Practitioner Family Medicine 01/05/25 documented as of this encounter
--- OUTSIDE RECORDS SUMMARY | 2025-08-09 08:37 | XMS_ITS | Encounter Summary ---
Author Organization [facility] Address [address] [place] [address] Care Team Providers Care Parker Name Role Phone Shaikh WAYNE Bangura Primary Care Provider [phone] Jarad Garrison MD Primary Care Provider [phone] Mei Basilio CIRCUS LABORER Unavailable [phone] Esha Stanlye CIRCUS LABORER Unavailable [phone] Amparo Haines DO Unavailable [phone] Encounter Details Date Type Department Care Team (Late st Contact Info) Description 11/13/2023 Abstract [facility] [address] [place] [address] Shaikh Bangura MD [address] [place] [address] Social History Tobacco Use Types Packs/Day Years [...] PM EDT Office Visit [facility] [place] [facility] [address] [place] [address] Amparo Haines DO [address] [place] [address] documented as of this encounter Visit Diagnoses Not on filedocumented in this encounter Additional Health Concerns Assessment Noted Time PHQ-9 Depression Total Score: 17 023 11:20 AM EST documented as of this encounter Care Teams Parker Relationship Specialty Start Date End Date Shaikh Bangura MD PCP - General Internal Medicine 04/29/23 09/20/24 Jarad Garrison MD PCP - General Family Medicine 09/21/24 Amparo Haines DO [address] [place] [address] PCP - Humana 12/11/22 Mei Basilio NP Nurse Practitioner Family Medicine 09/21/24 01/04/25 Esha Stanley NP Nurse Practitioner Family Medicine 01/05/25 documented as of this encounter
--- OUTSIDE RECORDS SUMMARY | 2025-08-09 08:37 | XMS_ITS | Encounter Summary ---
Author Organization [facility] Address [address] [facility] [place] [address] Care Team Providers Care Director Vaccine Name Role Phone Shaikh WAYNE Bangura Primary Care Provider [phone] Jarad Garrison MD Primary Care Provider [phone] Mei Basilio CLEANER AND PREPARER Unavailable [phone] Esha Stanley CLEANER AND PREPARER Unavailable [phone] Amparo Haines DO Unavailable [phone] Encounter Details Date Type Department Care Team (Late st Contact Info) Description 05/09/2023 Abstract [facility] [place] [facility] [address] [facility] 230 [place] [address] Amparo Haines, [address] [facility] 230 [place] [address] Social History Tobacco Use Types Packs/Day Years [...] Visit [facility] [address] [place] [address] Amparo Hianes DO [address] [place] [address] documented as of this encounter Visit Diagnoses Not on filedocumented in this encounter Care Teams Director Vaccine Relationship Specialty Start Date End Date Shaikh Bangura MD PCP - General Internal Medicine 04/29/23 09/20/24 Jarad Garrison MD PCP - General Family Medicine 09/21/24 Amparo Haines DO [address] [place] [address] PCP - Humana 12/11/22 Mei Basilio NP Nurse Practitioner Family Medicine 09/21/24 01/04/25 Esha Stanley NP Nurse Practitioner Family Medicine 01/05/25 documented as of this encounter
--- OUTSIDE RECORDS SUMMARY | 2025-08-09 08:37 | XMS_ITS | Encounter Summary ---
Author Organization [facility] Address [address] [place] [address] Phone Care Team Providers Care Outside Salesperson Name Role Phone Shaikh WAYNE Bangura Primary Care Provider [phone] Encounter Details Date Type Department Care Team (Late st Contact Info) Description 08/27/2021 Orders Only [facility] [address] [place] [address] Conversion, Onbase Social History Tobacco Use Types [...] EDT Office Visit [facility] [address] [facility] 250 [place] [address] Hue Mendoza, LOCKSMITH-CERTIFIED ADAPTED PHYSICAL EDUCATOR [address] [facility] [address], [address] [place] [address] Scheduled Orders Name Type Priority Associated Diagnoses Orde r Schedule OUTSIDE LAB SCAN Lab Ordered: 08/27/2021 OUTSIDE LAB SCAN Lab Ordered: 08/27/2021 documented as of this encounter Visit Diagnoses Not on filedocumented in this encounter Care Teams Outside Salesperson Relationship Specialty Start Date End Date Shaikh Bangura MD PCP - General 8/17/22 documented as of this encounter
--- OUTSIDE RECORDS SUMMARY | 2025-08-09 08:37 | XMS_ITS | Encounter Summary ---
Author Organization [facility] Address [address] [place] [address] Phone Care Team Providers Care Diamond Blender Name Role Phone Shaikh WAYNE Bangura Primary Care Provider [phone] Encounter Details Date Type Department Care Team (Late st Contact Info) Description 12/25/2021 Orders Only [facility] [address] [place] [address] Conversion, Onbase Social History Tobacco Use Types [...] Description 09/06/2025 11:00 AM EDT Office Visit [facility] [address] [facility] [address] [place] [address] Hue Mendoza, ROAD OILING TRUCK DRIVER-PROJECT MANAGEMENT ADVISOR [address] [facility] [address], [address] [place] [address] Scheduled Orders Name Type Priority Associated Diagnoses Orde r Schedule OUTSIDE LAB SCAN Lab Ordered: 12/25/2021 documented as of this encounter Visit Diagnoses Not on filedocumented in this encounter Care Teams Diamond Blender Relationship Specialty Start Date End Date Shaikh Bangura MD PCP - General 06/26/22 documented as of this encounter
--- OUTSIDE RECORDS SUMMARY | 2025-08-09 08:37 | XMS_ITS | Patient Health Record ---
Author Organization [facility] [place] Address [address] [place] [address] Care Team Providers Care Street Inspector Name Role Phone Sveta BLACK, Wilson Primary Care Provider Unavaila ble Allergies No Known Allergies Reason For Referral [...] Active hydroCHLOROthiazide 25 MG 1 tablet in e morning Orally Once a day Active Olmesartan [...] As directed Subcutaneous Once weekly Active Zenpep [id number] UNIT TAKE 2 CAPSULES BY MOUTH THREE TIMES DAILY WITH MEALS Oral; Duration: 90 Days Active Breztri Aerosphere 160/9/4.8 mcg 2 puffs inhalation BID; Duration: 90 days Rinse after use Active Albuterol Sulfate HFA 108 (90 Base) MCG/ACT 2 puffs as needed for SOB Inhalation Q4H; Duration: 30 days Active Immunizations Vaccine Route Administration Date Status Comme nts Flu, Afluria (5809-8240) (90 686) 3 yrs+, single-dose syringe Unknown 09/10/2023 Administered Flu, Fluzone (26474) 6 mos+, single-dose syringe/vial (7166-7627) Unknown 08/25/2022 Administered SARS-COV-2 (COVID 19) bivale [...] Problem Status W/U Status Risk Notes Problem Uncomplicated asthma (disorder) (816467396) Unspecified asthma, uncomplicated (J45.909) Active confirmed Prior treatment: Breztri > Symbicort > Anoro Problem Urge incontinence of urine (85869574) Urge incontinence (N39.41) Active confirmed Problem Long-term current use of inhaled steroid (444254907) intermediate (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 of inhaled steroids (Z79.51) Active confirmed Problem Morbid obesity (114284700) Morbid obesity (E66.01) Active confirmed Problem Coronary artery disease (93207455) Coronary artery disease (I25.10) Active confirmed [facility] : CATY x2 mid & distal LAD, CATY x1 mid/proxima l PLV branch Problem Obstructive sleep apnea syndrome (66546114) TAINA (obstructive sleep apnea) (G47.33) Active confirmed Problem Erectile dysfunction (disorder) (535349104) Erectile dysfunction, unspecified erectile dysfunction type (N52.9) Active confirmed Problem Type II diabetes mellitus well controlled (677220309) Diabetes mellitus type 2, controlled (E11.9) Active confirmed Problem Body mass index 40+ - severely obese (572647580) Body mass index [BMI] 45.0-49.9, adult (Z68.42) Active confirmed Problem History of COVID-19 (800254420195082 105) History of COVID-19 (Z86.16) Active confirmed Plan Of Treatment No Information Insurance Providers Payer Name Payer Address Payer Phone Subscriber Number Group Number Insured Name Patient Relationship to Insured Coverage Start Date Coverage End Date [employer] [place] [employer] [address] [address] [place] [address] [id number] Hugo Aldana Self - patient is the insured Medical (General) History Medical History History ICD Code Diabetes mellitus type 2, controlled E11 .9 Coronary artery disease I25.10 Essential Hypertension I10 Osteoarthritis M19.90 Hyperlipidemia E78.5 Anxiety F41.9 GERD (gastroesophageal reflux disease) K 21.9 TAINA (obstructive sleep apnea) G47.33 Morbid obesity E66.01 History of COVID-19 Z86.16 Surgical History Surgery Date(Month/Year) cholecystectomy TURP Dr Danis Mendoza @ [facility] 04/2018 back surgery neck surgery hernia repair x2 shoulder arthroscopy-left wrist surgery-right Cardiac Catheterization with stents 07/2022 Left Foot Surgery
--- OUTSIDE RECORDS SUMMARY | 2025-08-09 08:37 | XMS_ITS | Encounter Summary ---
Author Organization [facility] Address [address] [place] [address] Care Team Providers Care Business Office Representative Name Role Phone Shaikh WAYNE Bangura Primary Care Provider [phone] Jarad Garrison MD Primary Care Provider [phone] Mei Basilio AIRCRAFT POWER PLANT ASSEMBLER Unavailable [phone] Esha Stanley AIRCRAFT POWER PLANT ASSEMBLER Unavailable [phone] Amparo Haines DO Unavailable [phone] Encounter Details Date Type Department Care Team (Late st Contact Info) Description 06/05/2023 Orders Only [facility] [place] [facility] [address] [facility] [address] [place] [id number] A, Unknown Practice [address] [id number] Social History Tobacco Use Types Packs/Day Years [...] 1:45 PM EDT Office Visit [facility] [place] [facility] [address] [place] [address] Amparo Haines DO [address] [place] [address] documented as of this encounter Procedures Procedure Name Priority Date/Time Associated Diagnosis Comments SCANNED LABS Routine 06/05/2023 11:23 AM EDT documented in this encounter Results * SCANNED LABS (06/05/2023 11:23 AM EDT) us Unknown Practice A LAB CHG PERFORMABLES Final Re sult documented in this encounter Visit Diagnoses Not on filedocumented in this encounter Care Teams Business Office Representative Relationship Specialty Start Date End Date Shaikh Bangura MD PCP - General Internal Medicine 04/29/23 09/20/24 Jarad Garrison MD PCP - General Family Medicine 09/21/24 Amparo Haines DO [address] [place] [address] PCP - [employer] 12/11/22 Mei Basilio NP Nurse Practitioner Family Medicine 09/21/24 01/04/25 Esha Stanley NP Nurse Practitioner Family Medicine 01/05/25 documented as of this encounter
--- OUTSIDE RECORDS SUMMARY | 2025-08-09 08:37 | XMS_ITS | Clinical Summary ---
Author Organization [facility] Address [address] [facility] [address], [address] [place] [address] Care Team Providers Care Lotus Notes Developer Name Role Phone William Lozoya MD Primary Care Provider [phone] Allergies No known active allergies Medications baclofen [...] HIV screen 1977 Hepatitis C screen 1980 Lipids 2002 Colonoscopy 2007 Colorectal Cancer Screen 2007 FIT/FOBT: Average risk 2007 Fecal-DNA (Cologuard): Average risk 2007 Sigmoidoscopy/CT colonography 2007 Pneumococcal 50+ years Vaccine (1 of 1 - PCV) 2012 Shingles vaccine (1 of 2) 09/19/2017 07/25/2017, 09/2017 Respiratory Syncytial Virus (RSV) or age 60 yrs+ (1 - Risk 60-74 years 1-dose series) 2022 Annual Wellness Visit (Medicare Advantage) 11/10/2024 Flu vaccine (#1) 06/10/2025 09/10/2023, , 08/17/2022, Additional history exists COVID-19 Vaccine ( - 2024- season) 2025 08/25/2022, 02/23/2021, 02/02/2021 DTaP/Tdap/Td vaccine (2 - Td or Tdap) [...] patient's age to complete this topic Insurance [place] [employer] MEDICARE [facility] MEDICARE Care Teams Lotus Notes Developer Relationship Specialty Start Date End Date William Lozoya MD [address] [place] [address] PCP - General Emergency Medicine 06/20/24
--- OUTSIDE RECORDS SUMMARY | 2025-08-09 08:37 | XMS_ITS | Encounter Summary ---
Author Organization [facility] Address [address] [facility] [place] [address] Care Team Providers Care Construction Worker Name Role Phone Shaikh WAY[facility] Bangura Primary Care Provider [phone] Jarad Garrison MD Primary Care Provider [phone] Mei Basilio CRYOLITE RECOVERY OPERATOR Unavailable [phone] Esha Stanley CRYOLITE RECOVERY OPERATOR Unavailable [phone] Amparo Haines DO Unavailable [phone] Encounter Details Date Type Department Care Team (Late st Contact Info) Description 06/21/2024 Orders Only [facility] [address] [place] [address] Cornel Snider MD [address] [place] [address] Social History Tobacco Use Types Packs/Day Years [...] 09/08/2025 1:45 PM EDT Office Visit [facility] [address] [place] [address] Amparo Haines DO [address] [place] [address] documented as of this encounter Procedures Procedure [...] documented as of this encounter Care Teams Construction Worker Relationship Specialty Start Date End Date Shaikh Bangura MD PCP - General Internal Medicine 04/29/23 09/20/24 Jarad Garrison MD PCP - General Family Medicine 09/21/24 Amparo Haines DO [address] [place] [address] PCP - [employer] 12/11/22 Mei Basilio NP Nurse Practitioner Family Medicine 09/21/24 01/04/25 Esha Stanley NP Nurse Practitioner Family Medicine 01/05/25 documented as of this encounter
[2025-08-09 08:53] LABS: Hematocrit 48.0 % (42.0-54.0); Hemoglobin 16.1 g/dL (14.0-18.0); Immature Granulocytes Abs Auto 0.02 10^3/uL (0.00-0.03); Immature Granulocytes Pct Auto 0.3 % (0.0-0.5); Lymphocytes Absolute Auto 1.7 10^3/uL (1.2-3.8); Mean Corpuscular HGB Conc 33.5 g/dL (29.9-35.2); Mean Corpuscular Hemoglobin 31.6 pg (25.9-34.0); Mean Corpuscular Volume 94.1 fL (80.0-94.0); Platelet Count 212 10^3/uL (150-450); Red Blood Count 5.10 10^6/uL (4.70-6.10); White Blood Count 7.7 10^3/uL (4.0-11.0)
[2025-08-09 09:51] LABS: Alanine Aminotransferase 52 U/L (16-63); Albumin Globulin Ratio 0.9; Albumin Level 3.6 g/dL (3.4-5.0); Alkaline Phosphatase 94 U/L (46-116); Anion Gap 13.0; Aspartate Amino Transferase 27 U/L (15-37); Blood Urea Nitrogen 19.0 mg/dL (7.0-18.0); Calcium 8.8 mg/dL (8.5-10.1); Carbon Dioxide 26.6 mmol/L (21.0-32.0); Chloride 104 mmol/L (98-107); Cholesterol 115 mg/dL (<=200); Estimated GFR (African America >60 (>=60 mL/min/1.73m^2); Estimated GFR (Non-African Ame >60 (>=60 mL/min/1.73m^2); Globulin 3.9 g/dL; Glucose 148 mg/dL (74-106); HDL Cholesterol 37 mg/dL (40-60); Potassium 4.6 mmol/L (3.5-5.1); Sodium 139 mmol/L (136-145); Thyroid Stimulating Hormone 2.606 uIU/mL (0.358-3.740); Total Protein 7.5 g/dL (6.4-8.2); Triglycerides 216 mg/dL (<=150); VLDL CHOLESTEROL 43.2 mg/dL
== END 2025-08-09 08:35 | disposition home or self-care (01) ==
LOC: LAB 08:34
PROVIDERS: PCP Family Medicine; Visit Provider Family Medicine
DX: E78.2 Mixed hyperlipidemia (principal); I10 Essential (primary) hypertension; E11.69 Type 2 diabetes mellitus with other specified complication; Z12.5 Encounter for screening for malignant neoplasm of prostate
CPT/HCPCS: 36415; 80053; 80061; 83036; 84443; 85025; G0103